=== PATIENT | female | born 1980 | race Caucasian/White ===

== ENCOUNTER 2021-11-02 08:00 | Outpatient (RCR) | payer MEDICAID, SELFPAY | END 2021-11-13 10:51 | disposition home or self-care (01) | LOC: HO.WCC 08:00 | PROVIDERS: Visit Provider Surgery | DX: E11.622 Type 2 diabetes mellitus with other skin ulcer (principal); L97.829 Non-pressure chronic ulcer of other part of left lower leg with unspecified severity; E11.620 Type 2 diabetes mellitus with diabetic dermatitis; Z87.891 Personal history of nicotine dependence; Z79.4 Long term (current) use of insulin; Z79.84 Long term (current) use of oral hypoglycemic drugs | CPT/HCPCS: 99212; 99213 ==

== ENCOUNTER 2022-04-27 11:20 | Outpatient (REF) | payer MEDICAID, SELFPAY ==
--- NOTE | ~2022-04-27 | US_ITS ---
EXAMINATION: US THYROID CLINICAL INFORMATION: Goiter COMPARISON: None TECHNIQUE: Linear transducer grayscale and color Doppler examination with attention to the region of the thyroid. FINDINGS: SIZE: Measurements of the solitary left thyroid lobe and nodules are given in sagittal, anteroposterior and transverse dimensions respectively. Right Thyroid Lobe: Surgically absent. No abnormal mass or fluid collection is seen. Left Thyroid Lobe: 4.6 x 1.52 x 1.74 cm, volume 6.36 mL. Parenchyma: The gland echotexture is homogeneous. Thyroid vascularity is increased. Isthmus: Surgically absent. No abnormal mass or fluid collection is seen. Estimated total number of nodules greater than or equal to 1 cm: 0. Tool And [employer] nodules are described as follows: 1. Location: Left superior. Size: 0.44 x 0.27 x 0.42 cm, volume 0.03 mL. Nodule characteristics: Composition: Spongiform (0). Echogenicity: Anechoic (0). Shape: Not taller than wide (0). Margins: Smooth (0). Echogenic Foci: None (0). ACR TI-RADS total points: 0 ACR TI-RADS category: 1 2. Location: Left inferior. Size: 0.8 x 0.42 x 0.7 cm, volume 0.11 mL. Nodule characteristics: Composition: Spongiform (0). Echogenicity: Anechoic (0). Shape: Not taller than wide (0). Margins: Smooth (0). Echogenic Foci: None (0). ACR TI-RADS total points: 0 ACR TI-RADS category: 1 3. Location: Left mid. Size: 0.45 x 0.25 x 0.27 cm, volume 0.02 mL. Nodule characteristics: Composition: Cystic(0). ACR TI-RADS total points: 0 ACR TI-RADS category: 1 NODES: No lymphadenopathy is seen in the tissue surrounding the thyroid gland. US/US thyroid IMPRESSION: 1. Right thyroid lobe is surgically absent. No abnormal mass or fluid collection is seen within the former right thyroid bed. 2. There are small left thyroid lobe nodules, as detailed. 3. No cervical lymphadenopathy is seen. ACR TI-RADS RECOMMENDATION REFERENCE: Ultrasound-guided fine-needle aspiration, followup ultrasound, no further follow up. * TR1 (0 point) and TR 2 (2 points): No FNA or follow up. * TR3 (3 points): FNA if more than or equal to 2.5 cm in maximum dimension, followup ultrasound in 1, 3 and 5 years if 1.5 to 2.4 cm in maximum dimension. * TR4 (4-6 points): FNA if more than or equal to 1.5 cm in maximum dimension, followup ultrasound in 1, 2, 3 and 5 years if 1 to 1.4 cm in maximum dimension. * TR5 (more than or equal to 7 points): FNA if more than or equal to 1 cm in maximum dimension, followup ultrasound every year for 5 years if 0.5 to 0.9 cm in maximum dimension. * TR3, TR4 or TR5 nodules that are below the size threshold for followup receive no follow up.
== END 2022-04-27 11:21 | disposition home or self-care (01) ==
LOC: HO.HMGCX 11:20
PROVIDERS: Visit Provider Registered Nurse
DX: E04.9 Nontoxic goiter, unspecified (principal)
CPT/HCPCS: 76536

== ENCOUNTER 2022-04-30 14:54 | Outpatient (REF) | payer MEDICAID, SELFPAY ==
--- NOTE | ~2022-04-30 | US_ITS ---
EXAMINATION: US PELVIS CLINICAL INFORMATION: Worsening pain and abnormal uterine/vaginal bleeding. COMPARISON: None TECHNIQUE: Ultrasound of the pelvis is performed using both transabdominal and transvaginal transducers along with Doppler. Transvaginal imaging is performed due to inadequate visualization transabdominally. FINDINGS: The exam is technically limited due to enlarged uterus and large fibroid slightly distorting the exam. Uterus: The uterus is anteverted and tilted to the right. The uterus measures 16.1 x 9.3 x 16.3 cm in sagittal x AP x transverse dimension. The double wall endometrial thickness is 1.19 cm. The uterus is smooth in contour and has normal myometrial echogenicity. There are several hypoechoic lesions in the uterus. 1. Right fundal lesion measures 4.0 x 2.7 x 3.1 cm. 2. Right posterior fundal lesion measures 2.0 x 1.6 x 2.4 cm. 3. Right upper body of uterus measures 1.7 x 1.5 x 1.6 cm. 4. Anterior upper body of uterus measures 2.5 x 1.5 x 2.0 cm. 5. Largest fibroid with rim calcification in the left body of the uterus measures 10.1 x 7.9 x 10.8 cm. Adnexa: Both ovaries are visualized. There is normal color-flow to the adnexa. There is no ovarian torsion. There is no pelvic ascites or fluid collection. Right ovary measures 4.5 x 2.4 x 3.6 cm and volume 20.4 mL. There is a simple cyst measuring 2.5 x 1.8 x 1.7 cm. Left ovary measures 3.0 x 2.0 x 2.3 cm and volume 7.5 mL. There is a tubular structure in the left adnexa measuring 4.9 x 1.7 x 2.0 cm most likely hydrosalpinx. There is no free fluid in the cul-de-sac. US/US pelvic and transvaginal IMPRESSION: Multiple uterine fibroids, the largest measuring 10.1 cm. Likely hydrosalpinx in the left adnexa. Bilateral ovarian simple cysts. No free fluid in the cul-de-sac.
== END 2022-04-30 14:55 | disposition home or self-care (01) ==
LOC: HO.HMGCX 14:54
PROVIDERS: Visit Provider Registered Nurse
DX: N93.9 Abnormal uterine and vaginal bleeding, unspecified (principal)
CPT/HCPCS: 76830; 76856

== ENCOUNTER 2022-09-18 18:04 | Inpatient (IN) | payer MEDICAID, SELFPAY ==
--- NOTE | ~2022-09-18 | MR_ITS ---
EXAMINATION: MR BRAIN WITHOUT CONTRAST CLINICAL INFORMATION: CVA COMPARISON: Same day CT head without contrast TECHNIQUE: Multiplanar multisequence MR imaging of the brain was obtained without intravenous contrast. FINDINGS: Somewhat motion degraded examination. There is no acute infarct on diffusion-weighted imaging. There is no intracranial hemorrhage on iron-sensitive imaging. No extra-axial collection or mass effect/herniation. Normal parenchymal signal characteristics. No hydrocephalus. The ventricles are normal in morphology and size. The major flow voids at the skull base are preserved. The midline structures are normal. The cerebellar tonsils are normally positioned. The craniocervical junction is normal. Marrow signal is within normal limits. The visualized soft tissues are without significant abnormality. No signal abnormality within the paranasal sinuses or within the mastoid air cells. MR/MR head/brain wo con IMPRESSION: No acute infarct or other acute intracranial abnormality
--- NOTE | ~2022-09-18 | XR_ITS ---
EXAMINATION: XR CHEST CLINICAL INFORMATION: Shortness of breath with question of pneumonia COMPARISON: None TECHNIQUE: Frontal view of the chest was obtained. FINDINGS: No significant abnormality is noted involving the heart, lungs, mediastinum, bony thorax or soft tissues. XR/XR chest 1V IMPRESSION: Unremarkable examination.
--- NOTE | ~2022-09-18 | CT_ITS ---
EXAMINATION: CT HEAD WITHOUT CONTRAST CLINICAL INFORMATION: Left-sided weakness. COMPARISON: None. TECHNIQUE: Contiguous axial imaging was performed from the skull base to vertex without intravenous administration of contrast. Coronal and sagittal reformatted images are performed at the CT scanner. [This CT examination was performed using dose optimization techniques as appropriate, variously including the following: *Automated exposure control *Adjustment of mA and/or kV according to patient size (this includes techniques or standardized protocols for targeted exams where dose is matched to indication/reason for exam; i.e. extremities or head) *Use of iterative reconstruction technique] DLP: 603 mGy-cm. FINDINGS: There is no evidence of acute intracranial hemorrhage or territorial infarction. No abnormal mass-effect or midline shift is seen. Henry to white matter differentiation is well preserved. No extra-axial fluid collections are identified. The ventricles are normal in size. There is no abnormal attenuation within the brain parenchyma. There is no osseous abnormality. The mastoid air cells and visualized portions of the paranasal sinuses are well-aerated. CT/CT head for stroke IMPRESSION: No acute intracranial pathology. This critical result was discussed with Michael Amado on 09/18/2022, 6:38 PM and it was ascertained that the content and urgency of the report was understood at the time of direct communication.
--- NOTE | 2022-09-18 18:15 | ECG_ITS ---
Test Reason : cp
[2022-09-18 18:28] VITALS: BP 157/91; PULSE 97; RESP 17; TEMP 36.6; O2SAT 97; BMI 31.8
[2022-09-18 18:41] LABS: MANUAL DIFF FLAG NO
[2022-09-18 18:45] LABS: Basophils Absolute Auto 0.1 X10*3/uL (0.0-0.2); Basophils Percent Auto 1.2 % (0-2); Eosinophils Absolute Auto 0.1 X10*3/uL (0.0-0.4); Eosinophils Percent Auto 1.5 % (0-4); Hematocrit 29.9 % (37.0-47.0); Hemoglobin 8.4 g/dl (12.0-16.0); Imm Gran Abs Auto 0.02 X10*3/uL (0.00-0.03); Imm Gran Pct Auto 0.2 % (0.0-0.4); Lymphocytes Absolute Auto 2.9 X10*3/uL (1.2-4.9); Lymphocytes Percent Auto 30.1 % (20-40); Mean Corpuscular HGB Conc 28.1 g/dl (31.0-35.0); Mean Corpuscular Hemoglobin 20.8 pg (27.0-33.0); Mean Corpuscular Volume 74.2 fL (80.0-98.0); Mean Platelet Volume 9.8 fL (9.4-12.3); Monocytes Absolute Auto 0.6 X10*3/uL (0.1-1.2); Monocytes Percent Auto 6.3 % (2-11); Neutrophils Absolute Auto 5.8 x10*3/uL (2.0-8.3); Neutrophils Percent Auto 60.7 % (45-73); Platelet Count 628 X10*3/uL (160-400); Red Blood Count 4.03 X10*6/uL (4.20-5.50); Red Cell Distribution Width 17.5 % (11.0-16.0); White Blood Count 9.5 X10*3/uL (4.8-10.8)
[2022-09-18 18:55] LABS: Prothrombin Time Whole Bld POC 11.5 sec (11.1-13.5)
[2022-09-18 18:55] LABS: Glucose Random 153 mg/dL (60-115)
[2022-09-18 19:00] LABS: Alanine Aminotransferase 12 U/L (0-31); Albumin Level 3.9 g/dL (3.5-5.0); Alkaline Phosphatase 53 U/L (39-117); Anion Gap 12 (12-20); Aspartate Amino Transferase 14 U/L (5-31); Bilirubin Direct < 0.2 mg/dL (0.0-0.5); Bilirubin Total 0.6 mg/dL (0.0-1.0); Blood Urea Nitrogen 9 mg/dL (9-16); Calcium 9.5 mg/dL (8.4-10.2); Carbon Dioxide 25 mmol/L (22-29); Chloride 104 mmol/L (96-108); Estimated Glomerular Filt Rate > 60; Glucose Random 153 mg/dL (60-115); INTERNATIONAL NORM RATIO 0.9 (0.9-1.1); Potassium 4.2 mmol/L (3.3-5.1); Prothrombin Time 10.3 SEC (10.0-13.1); Sodium 137 mmol/L (135-145); Total Protein 7.2 g/dL (6.5-8.0)
[2022-09-18 19:03] LABS: Partial Thromboplastin Time 28.9 SEC (26.0-36.4)
[2022-09-18 19:09] LABS: Troponin-I High Sensitivity < 3.5 ng/L (<3.5-17.0)
[2022-09-18 19:30] LABS: Glucose, Whole Blood 132 mg/dL (60-115)
--- NOTE | 2022-09-18 19:58 | ED_ITS ---
HPI - Neuro Symptoms/Deficit General Chief Complaint: Stroke Stated Complaint: STROKE ALERT, LEFT SIDED WEAKNESS Time Seen by Provider: 09/18/22 18:10 Source: patient Mode of arrival: EMS Limitations: language barrier (Haitian speaking only) History of Present Illness HPI Narrative: 42-year-old female who presents emergency department for evaluation of possible stroke. The patient states that yesterday morning she woke up and she was having intermittent numbness and weakness in her left hand. She states that at noon yesterday (greater than 24 hours prior to evaluation) the numbness and weakness of her left hand became constant. She then developed weakness of her entire arm. She states she developed numbness in her face, chest, arm abdomen and left leg. She states she also noted weakness of her left leg. She states that her symptoms persisted therefore she called an ambulance and was brought to the emergency department as a stroke alert. At the time of evaluation she states that she has got numbness in her face, left arm, left leg with weakness in her left arm and left leg with the weakness in her upper extremity greater than her lower extremity. She denied headache, nausea or vomiting. She denied fever, chills, rhinorrhea, chest pain, shortness of breath. She states that over the last 2 days she has had a nonproductive cough and has had a mild sore throat. Otherwise she has had no other symptoms. Patient states she is allergic to aspirin and this causes hives. Related Data Home Medications Medication Instructions Recorded Confirmed atorvastatin 20 mg tablet 1 tab PO DAILY 09/18/22 09/18/22 empagliflozin 25 mg tablet 2 tab PO QAM 09/18/22 09/18/22 (Jardiance) insulin glargine 100 unit/mL (3 23 unit subcut BEDTIME 09/18/22 09/18/22 mL) subcutaneous pen (Lantus Solostar U-100 Insulin) lidocaine 5 % topical patch 1 patch topical NEEDED PRN Pain 09/18/22 09/18/22 (Lidoderm) metformin 1,000 mg tablet 1 tab PO BID 09/18/22 09/18/22 Allergies Allergy/AdvReac Type Severity Reaction Status Date / Time aspirin [ASA] Allergy Hives Verified 09/18/22 18:14 Review of Systems Review of Systems: Yes all other systems are reviewed and are negative [facility] Past Medical History [facility] Narrative: Past medical history: Diabetes mellitus, hypertension. Past surgical history: x2. Social history: She denies tobacco, alcohol and drug use. Medical History (Updated 09/18/22 @ 21:50 by WILLY Yap) Hyperlipidemia Iron deficiency anemia Type 2 diabetes mellitus Uterine fibroid Family History Family History (Updated 09/18/22 @ 21:51 by WILLY Yap) Other No family history of cerebrovascular accident (CVA) Social History Social History Alcohol intake: never Smoked in Last 30 Days: No Use of substances other than those prescribed or required for medical reasons: No Advance Directives: No Advance Directives Information Provided: Yes Physical Exam Vital Signs: Vital Signs: Last Vital Signs Temp 98.3 F 09/18/22 23:28 Pulse 101 H 09/18/22 23:28 Resp 17 09/18/22 23:28 BP 115/71 09/18/22 23:28 Pulse Ox 96 09/18/22 23:28 O2 Del Method 09/18/22 18:28 BMI result Body Mass Index 31.8 Const: Other: Awake, alert, in no distress, answers all questions appropriately HEENT: Head: Yes normal to inspection, Yes normocephalic and Yes atraumatic Ears: external ears normal General nose exam: Normal external nose present Face and sinus: Yes normal facial exam Mouth: Normal oral and palatal mucosa present Throat: Yes posterior oropharynx normal Eyes: General: appearance normal, both eyes and all related structures Neck: Neck: Yes normal visual inspection, Yes no lymphadenopathy, Yes trachea midline and Yes supple Chest: Chest palpation & inspection: normal inspection of the chest and normal palpation of entire chest wall Resp: Effort & Inspection: normal respiratory effort and able to speak in complete sentences Auscultation: clear to auscultation bilaterally Cardio: Rate: regular rate Rhythm: regular rhythm Heart sounds: S1 normal heart sound present, S2 normal heart sound present and no murmurs GI: Inspection: Yes normal to inspection Palpation (GI): Soft to palpation, nontender and no guarding Auscultation: normal bowel sounds : General: Yes no CVA tenderness Back/Spine/Pelvis: Back: no CVA tenderness Skin: General skin exam: no rashes or lesions noted Neuro: Other: Patient is awake, alert, her speech is normal, she answers all questions appropriately, she is oriented to person place, cranial nerves 2-12-mild left facial droop, decreased sensation to light touch over the left side of her face, left arm, left abdomen left lower extremity compared to the right, patient has weak internet assessor strength on the left compared to the right, she is able to hold her left arm up against gravity but drifts after several seconds, she is able to hold her left leg up against gravity but quickly drops her leg down to the bed. Extrem: General: Yes normal to inspection Psych: Appearance: grossly normal Speech and movement: Normal speech and m ovement present Affect: normal affect Attitude: cooperative Thought process: Normal thought process present Thought content: Normal thought content present Medications Administered Generic Name Dose Route Start Last Admin Trade Name Freq PRN Reason Stop Dose Admin Atorvastatin Calcium 80 mg 09/18/22 21:45 09/18/22 23:12 Atorvastatin Calcium 80 Mg Tablet PO 80 mg BEDTIME PRESLEY Administration Enoxaparin Sodium 40 mg 09/18/22 22:00 09/18/22 23:12 Enoxaparin Sodium 40 Mg/0.4 Ml Syringe SUBCUT 40 mg Q24H PRESLEY Administration Insulin Glargine 18 unit 09/18/22 21:45 09/18/22 23:13 Insulin Glargine,Hum.Rec.Anlog 100 Unit/Ml 10 Ml Vial SUBCUT 18 unit BEDTIME PRESLEY Administration Medical Decision Making Medical Decision Making [facility] Narrative: 42-year-old female who presents emergency department for evaluation of stroke- like symptoms which began yesterday when she woke up and became persistent at noon yesterday-this is greater than 24 hours prior to presentation which excludes her from clot retrieval and from tPA. Patient's exam is concerning for a stroke. Patient was sent immediately to CT scan, CT scan was interpreted as no acute findings by the radiologist at 18:38 hours. 2005: My independent interpretation of the patient's laboratory evaluation is as follows: CBC revealed a microcytic anemia with an H&H of 8.4 and 29.9 with an MCV of 74.2 with no previous values for comparison. PT/INR and PTT were normal. Comprehensive metabolic panel revealed an elevated glucose of 153 otherwise was unremarkable, CK was elevated 141, high sensitive troponin I was below detectable limits. The patient's exam is consistent with an acute stroke, patient is allergic to aspirin but I will discuss Plavix treatment with the covering hospitalist. Differential Diagnosis The differential diagnosis includes but is not limited to cerebral edema, cerebral mass, stroke , complex migraine Consult Healthcare Provider Management of the patient was discussed with: Hospitalist Please see MDM for discussion Lab Data [facility] Lab Attestation statement: I reviewed the patient's lab results. 09/18/22 18:36 09/18/22 18:36 Labs: Lab Results 09/18/22 09/18/22 09/18/22 Range/Units 18:36 18:36 18:36 WBC 9.5 (4.8-10.8) X10*3/uL RBC 4.03 L (4.20-5.50) X10*6/uL Hgb 8.4 L (12.0-16.0) g/dl Hct 29.9 L (37.0-47.0) % MCV 74.2 L (80.0-98.0) fL MCH 20.8 L (27.0-33.0) pg MCHC 28.1 L (31.0-35.0) g/dl RDW 17.5 H (11.0-16.0) % Plt Count 628 H (160-400) X10*3/uL MPV 9.8 (9.4-12.3) fL Immature Gran % (Auto) 0.2 (0.0-0.4) % Neut % (Auto) 60.7 (45-73) % Lymph % (Auto) 30.1 (20-40) % [place] % (Auto) 6.3 (2-11) % Eos % (Auto) 1.5 (0-4) % Baso % (Auto) 1.2 (0-2) % Lymph # (Auto) 2.9 (1.2-4.9) X10*3/uL [place] # (Auto) 0.6 (0.1-1.2) X10*3/uL Eos # (Auto) 0.1 (0.0-0.4) X10*3/uL Baso # (Auto) 0.1 (0.0-0.2) X10*3/uL Abs Immat Gran (auto) 0.02 (0.00-0.03) X10*3/uL Absolute Neuts (auto) 5.8 (2.0-8.3) x10*3/uL Absolute Nucleated RBC 0.000 (0.0-0.012) X10*3/uL Nucleated RBC % (auto) 0.0 (0.0-0.2) /100WBC PT 10.3 (10.0-13.1) SEC Whole Blood PT (11.1-13.5) sec INR 0.9 (0.9-1.1) Whole Blood INR (0.9-1.1) APTT 28.9 (26.0-36.4) SEC Sodium 137 (135-145) mmol/L Potassium 4.2 (3.3-5.1) mmol/L Chloride 104 (96-108) mmol/L Carbon Dioxide 25 (22-29) mmol/L Anion Gap 12 (12-20) BUN 9 (9-16) mg/dL Creatinine 0.68 (0.5-1.4) mg/dL Estim Creat Clear Calc 113.0 Estimated GFR > 60 POC Glucose (60-115) mg/dL Random Glucose 153 H (60-115) mg/dL Calcium 9.5 (8.4-10.2) mg/dL Iron 17 L (30-160) mcg/dL TIBC 360 (228-428) mcg/dL % Saturation 5 L (15-50) % Unsat Iron Binding 343 ug/dL Ferritin 5 L (10-250) ng/mL Total Bilirubin 0.6 (0.0-1.0) mg/dL Direct Bilirubin < 0.2 (0.0-0.5) mg/dL AST 14 (5-31) U/L ALT 12 (0-31) U/L Alkaline Phosphatase 53 (39-117) U/L Total Creatine Kinase 141 H (26-140) U/L Troponin I High Sens (<3.5-17.0) ng/L Total Protein 7.2 (6.5-8.0) g/dL Albumin 3.9 (3.5-5.0) g/dL Triglycerides 86 mg/dL Cholesterol 209 mg/dL LDL Cholesterol, Calc 137 mg/dl HDL Cholesterol 55 mg/dL Influenza Type A (PCR) (Negative) Influenza Type B (PCR) (Negative) RSV RNA Qual (PCR) (Negative) SARS-CoV-2 RNA (RT-PCR) (Negative) 09/18/22 09/18/22 09/18/22 Range/Units 18:36 18:36 18:41 WBC (4.8-10.8) X10*3/uL RBC (4.20-5.50) X10*6/uL Hgb (12.0-16.0) g/dl Hct (37.0-47.0) % MCV (80.0-98.0) fL MCH (27.0-33.0) pg MCHC (31.0-35.0) g/dl RDW (11.0-16.0) % Plt Count (160-400) X10*3/uL MPV (9.4-12.3) fL Immature Gran % (Auto) (0.0-0.4) % Neut % (Auto) (45-73) % Lymph % (Auto) (20-40) % [place] % (Auto) (2-11) % Eos % (Auto) (0-4) % Baso % (Auto) (0-2) % Lymph # (Auto) (1.2-4.9) X10*3/uL [place] # (Auto) (0.1-1.2) X10*3/uL Eos # (Auto) (0.0-0.4) X10*3/uL Baso # (Auto) (0.0-0.2) X10*3/uL Abs Immat Gran (auto) (0.00-0.03) X10*3/uL Absolute Neuts (auto) (2.0-8.3) x10*3/uL Absolute Nucleated RBC (0.0-0.012) X10*3/uL Nucleated RBC % (auto) (0.0-0.2) /100WBC PT (10.0-13.1) SEC Whole Blood PT 11.5 (11.1-13.5) sec INR (0.9-1.1) Whole Blood INR 1.0 (0.9-1.1) APTT (26.0-36.4) SEC Sodium (135-145) mmol/L Potassium (3.3-5.1) mmol/L Chloride (96-108) mmol/L Carbon Dioxide (22-29) mmol/L Anion Gap (12-20) BUN (9-16) mg/dL Creatinine (0.5-1.4) mg/dL Estim Creat Clear Calc Estimated GFR POC Glucose (60-115) mg/dL Random Glucose 153 H (60-115) mg/dL Calcium (8.4-10.2) mg/dL Iron (30-160) mcg/dL TIBC (228-428) mcg/dL % Saturation (15-50) % Unsat Iron Binding ug/dL Ferritin (10-250) ng/mL Total Bilirubin (0.0-1.0) mg/dL Direct Bilirubin (0.0-0.5) mg/dL AST (5-31) U/L ALT (0-31) U/L Alkaline Phosphatase (39-117) U/L Total Creatine Kinase (26-140) U/L Troponin I High Sens < 3.5 (<3.5-17.0) ng/L Total Protein (6.5-8.0) g/dL Albumin (3.5-5.0) g/dL Triglycerides mg/dL Cholesterol mg/dL LDL Cholesterol, Calc mg/dl HDL Cholesterol mg/dL Influenza Type A (PCR) (Negative) Influenza Type B (PCR) (Negative) RSV RNA Qual (PCR) (Negative) SARS-CoV-2 RNA (RT-PCR) (Negative) 09/18/22 09/18/22 Range/Units 19:25 20:22 WBC (4.8-10.8) X10*3/uL RBC (4.20-5.50) X10*6/uL Hgb (12.0-16.0) g/dl Hct (37.0-47.0) % MCV (80.0-98.0) fL MCH (27.0-33.0) pg MCHC (31.0-35.0) g/dl RDW (11.0-16.0) % Plt Count (160-400) X10*3/uL MPV (9.4-12.3) fL Immature Gran % (Auto) (0.0-0.4) % Neut % (Auto) (45-73) % Lymph % (Auto) (20-40) % [place] % (Auto) (2-11) % Eos % (Auto) (0-4) % Baso % (Auto) (0-2) % Lymph # (Auto) (1.2-4.9) X10*3/uL [place] # (Auto) (0.1-1.2) X10*3/uL Eos # (Auto) (0.0-0.4) X10*3/uL Baso # (Auto) (0.0-0.2) X10*3/uL Abs Immat Gran (auto) (0.00-0.03) X10*3/uL Absolute Neuts (auto) (2.0-8.3) x10*3/uL Absolute Nucleated RBC (0.0-0.012) X10*3/uL Nucleated RBC % (auto) (0.0-0.2) /100WBC PT (10.0-13.1) SEC Whole Blood PT (11.1-13.5) sec INR (0.9-1.1) Whole Blood INR (0.9-1.1) APTT (26.0-36.4) SEC Sodium (135-145) mmol/L Potassium (3.3-5.1) mmol/L Chloride (96-108) mmol/L Carbon Dioxide (22-29) mmol/L Anion Gap (12-20) BUN (9-16) mg/dL Creatinine (0.5-1.4) mg/dL Estim Creat Clear Calc Estimated GFR POC Glucose 132 H (60-115) mg/dL Random Glucose (60-115) mg/dL Calcium (8.4-10.2) mg/dL Iron (30-160) mcg/dL TIBC (228-428) mcg/dL % Saturation (15-50) % Unsat Iron Binding ug/dL Ferritin (10-250) ng/mL Total Bilirubin (0.0-1.0) mg/dL Direct Bilirubin (0.0-0.5) mg/dL AST (5-31) U/L ALT (0-31) U/L Alkaline Phosphatase (39-117) U/L Total Creatine Kinase (26-140) U/L Troponin I High Sens (<3.5-17.0) ng/L Total Protein (6.5-8.0) g/dL Albumin (3.5-5.0) g/dL Triglycerides mg/dL Cholesterol mg/dL LDL Cholesterol, Calc mg/dl HDL Cholesterol mg/dL Influenza Type A (PCR) NEGATIVE (Negative) Influenza Type B (PCR) NEGATIVE (Negative) RSV RNA Qual (PCR) NEGATIVE (Negative) SARS-CoV-2 RNA (RT-PCR) NEGATIVE (Negative) Independent Interpretation I performed an independent interpretation of an: EKG Interpretation: My independent interpretation of patient's EKG is as follows: Normal sinus rhythm with a rate of 96, normal DC interval, QRS duration and QTC interval, no ST segment elevation, no ST segment depression, no PACs, no PVCs, this is a normal EKG-there is no old EKG for comparison. Radiology Impression Discussion of test interpretation with radiology: I have reviewed the radiologist's reading. Radiologist Impression: CT head for stroke IMPRESSION: No acute intracranial pathology. This critical result was discussed with Michael Amado on 09/18/2022, 6:38 PM and it was ascertained that the content and urgency of the report was understood at the time of direct communication. Dictated By:Steven Bartholomew MDSigned By:<Electronically signed by Steven Bartholomew MD in OV>09/18/[id number] Independent Historian Clinical information obtained from an independent historian. History obtained from or confirmed by: Other (Daughter and paramedics on arrival to the ER) NIH Stroke Scale Internal: Initial- Upon Arrival Level of Consciousness: Alert Level of Consciousness Questions: Answers both questions correctly Level of Consciousness Commands: Performs both tasks correctly Best Gaze: Normal Visual: No visual loss Facial Palsy: Minor paralyis Motor Arm (Right): No drift Motor Arm (Left): Drift Motor Leg (Right): No drift Motor Leg (Left): Drift Limb Ataxia: Absent Sensory: Mild to moderate sensory loss Best Language: No aphasia Dysarthia: Normal Extinction and Inattention: No abnormality Score: 4 Discharge Plan Discharge Clinical Impression: Stroke Qualifiers: Laterality of affected vessel: right Patient Disposition: Admitted As Inpatient
--- NOTE | 2022-09-18 20:36 | PC.NURSE ---
Preliminary med rec completed.
[2022-09-18 21:10] LABS: Influenza A PCR NEGATIVE (Negative); Influenza B PCR NEGATIVE (Negative); Resp Syncy Virus RNA Qual PCR NEGATIVE (Negative); SARS COV2 PCR INHOUSE NEGATIVE (Negative)
--- NOTE | 2022-09-18 21:39 | PM.IMHP ---
History of Present Illness Date of Service: 09/18/22 Attending physician on admission: Natalee Vernon Chief Complaint: left sided weakness 42-year-old female with history of insulin-dependent type 2 diabetes, hyperlipidemia, and iron deficiency anemia with uterine fibroids presented to the ED earlier today for evaluation of left-sided weakness and paresthesias that started yesterday morning. She states yesterday morning she developed weakness and numbness in the left hand that progressed to the left arm. This afternoon she developed numbness on the left side of the face chest, abdomen, and left leg. She states she is able to ambulate but with a limp. She denies any dysphagia or dysphasia. On arrival, patient hypertensive to 157/91, vitals otherwise stable. No leukocytosis. Microcytic anemia with H/H 8.4/29.9%, MCV 74.2. Patient reports heavy menses in known uterine fibroids for which she was following with heel cover softener at [facility]. Platelets 628. Renal function is normal, electrolytes normal. CXR unremarkable. Head CT is without any acute intracranial pathology. Given symptoms began greater than 24 hours, patient is not a tPA candidate. Pt to be admitted for suspected stroke. Review of Systems Review of Systems: General: No fevers, malaise, unintentional weight loss HEENT: No blurred vision, diplopia. No sore throat, nasal congestion, rhinorrhea, sinus pain, ear pain Cardiovascular: No chest pain, palpitations, or leg edema Respiratory: No shortness of breath, wheezing, cough GI: No abdominal pain, nausea, vomiting, diarrhea, constipation, melena, hematochezia : No dysuria, hematuria, increased urinary frequency, decreased urinary output MSK: No myalgia, back pain Neuro: +numbness, +weakness. No headaches Skin: No rashes or lesions [facility] Medical History (Updated 09/20/22 @ 15:45 by Ashish Martinez MD) Hyperlipidemia Iron deficiency anemia Type 2 diabetes mellitus Uterine fibroid Family History (Updated 09/18/22 @ 21:51 by WILLY Yap) Other No family history of cerebrovascular accident (CVA) Social History Household Members: Family Housing: Other Housing Other:: [facility] Do you presently have visiting nurse or other home services: No Alcohol intake: never Patient Tobacco Use Status: Never used Tobacco Second Hand Smoke Exposure: No service: No Meds Allergies Allergy/AdvReac Type Severity Reaction Status Date / Time aspirin [ASA] Allergy Hives Verified 09/18/22 18:14 Active Medications: Current Medications Pharmacy Consult (Consult Rx Perform Med Rec) 1 each MISCELLANE ONCE PRN PRN Reason: Consult order Home Medications Medication Instructions Recorded Confirmed Last Taken Type atorvastatin 20 mg tablet 1 tab PO DAILY 09/18/22 09/18/22 Unknown History empagliflozin 25 mg tablet 2 tab PO QAM 09/18/22 09/18/22 Unknown History (Jardiance) insulin glargine 100 unit/mL (3 23 unit subcut BEDTIME 09/18/22 09/18/22 Unknown History mL) subcutaneous pen (Lantus Solostar U-100 Insulin) lidocaine 5 % topical patch 1 patch topical NEEDED PRN Pain 09/18/22 09/18/22 Unknown History (Lidoderm) metformin 1,000 mg tablet 1 tab PO BID 09/18/22 09/18/22 Unknown History Physical Exam Vital Signs and Narrative: Vital Signs: Last Vital Signs Temp 97.9 F 09/18/22 18:28 Pulse 97 09/18/22 18:28 Resp 17 09/18/22 18:28 BP 157/91 H 09/18/22 18:28 Pulse Ox 97 09/18/22 18:28 O2 Del Method 09/18/22 18:28 BMI result Body Mass Index 31.8 Constitutional - Awake and Alert, No apparent distress Eyes - PERRLA, EOMI Cardiovascular - S1S2, RRR, No edema Respiratory - Normal lung expansion, Normal respiratory effort, No respiratory distress, CTA bilaterally Gastrointestinal - NT / ND; +BS; No rebound or guarding Extremities - no calf tenderness bilaterally, no swelling Skin - Warm/Dry Neurological - Alert & oriented x3, CN II-XII in tact, 5/5 strength right upper and lower extremities, 2/5 strength left upper and lower extremities. Positive left-sided pronator drift Psychological - Appropriate affect Results Labs 09/18/22 18:36 09/18/22 18:36 Labs: Laboratory Results - last 24 hr 09/18/22 09/18/22 09/18/22 18:36 18:36 18:36 MCV 74.2 L MCH 20.8 L MCHC 28.1 L RDW 17.5 H Plt Count 628 H MPV 9.8 Immature Gran % (Auto) 0.2 Neut % (Auto) 60.7 Lymph % (Auto) 30.1 [place] % (Auto) 6.3 Eos % (Auto) 1.5 Baso % (Auto) 1.2 Lymph # (Auto) 2.9 [place] # (Auto) 0.6 Eos # (Auto) 0.1 Baso # (Auto) 0.1 Abs Immat Gran (auto) 0.02 Absolute Neuts (auto) 5.8 Absolute Nucleated RBC 0.000 Nucleated RBC % (auto) 0.0 PT 10.3 Whole Blood PT INR 0.9 Whole Blood INR APTT 28.9 Anion Gap 12 Estim Creat Clear Calc 113.0 Estimated GFR > 60 POC Glucose Random Glucose 153 H Calcium 9.5 Total Bilirubin 0.6 Direct Bilirubin < 0.2 AST 14 ALT 12 Alkaline Phosphatase 53 Total Creatine Kinase 141 H Troponin I High Sens Total Protein 7.2 Albumin 3.9 Influenza Type A (PCR) Influenza Type B (PCR) RSV RNA Qual (PCR) SARS-CoV-2 RNA (RT-PCR) 09/18/22 09/18/22 09/18/22 18:36 18:36 18:41 MCV MCH MCHC RDW Plt Count MPV Immature Gran % (Auto) Neut % (Auto) Lymph % (Auto) [place] % (Auto) Eos % (Auto) Baso % (Auto) Lymph # (Auto) [place] # (Auto) Eos # (Auto) Baso # (Auto) Abs Immat Gran (auto) Absolute Neuts (auto) Absolute Nucleated RBC Nucleated RBC % (auto) PT Whole Blood PT 11.5 INR Whole Blood INR 1.0 APTT Anion Gap Estim Creat Clear Calc Estimated GFR POC Glucose Random Glucose 153 H Calcium Total Bilirubin Direct Bilirubin AST ALT Alkaline Phosphatase Total Creatine Kinase Troponin I High Sens < 3.5 Total Protein Albumin Influenza Type A (PCR) Influenza Type B (PCR) RSV RNA Qual (PCR) SARS-CoV-2 RNA (RT-PCR) 09/18/22 09/18/22 19:25 20:22 MCV MCH MCHC RDW Plt Count MPV Immature Gran % (Auto) Neut % (Auto) Lymph % (Auto) [place] % (Auto) Eos % (Auto) Baso % (Auto) Lymph # (Auto) [place] # (Auto) Eos # (Auto) Baso # (Auto) Abs Immat Gran (auto) Absolute Neuts (auto) Absolute Nucleated RBC Nucleated RBC % (auto) PT Whole Blood PT INR Whole Blood INR APTT Anion Gap Estim Creat Clear Calc Estimated GFR POC Glucose 132 H Random Glucose Calcium Total Bilirubin Direct Bilirubin AST ALT Alkaline Phosphatase Total Creatine Kinase Troponin I High Sens Total Protein Albumin Influenza Type A (PCR) NEGATIVE Influenza Type B (PCR) NEGATIVE RSV RNA Qual (PCR) NEGATIVE SARS-CoV-2 RNA (RT-PCR) NEGATIVE Imaging Radiologist's Impressions: Impressions Head CT 09/18/22 18:19 IMPRESSION: No acute intracranial pathology. This critical result was discussed with Michael Amado on 09/18/2022, 6:38 PM and it was ascertained that the content and urgency of the report was understood at the time of direct communication. Chest X-Ray 09/18/22 20:17 IMPRESSION: Unremarkable examination. Assessment and Plan (1) Stroke: Qualifiers: Laterality of affected vessel: right Status: Acute Plan 42-year-old female with history of insulin-dependent type 2 diabetes, hyperlipidemia, and iron deficiency anemia with uterine fibroids admitted for suspected CVA # suspected CVA -patient developed progressive left-sided paresthesias and weakness starting greater than 24 hours ago. She is not a candidate for tPA -head CT negative for any acute intracranial abnormality -MRI brain ordered -nursing bedside swallow eval past -patient allergic to aspirin. Will order Plavix 75 mg daily -lipid profile pending. Atorvastatin 80 mg daily -echocardiogram ordered -PT/OT eval as ordered -appreciate neurology input -stroke education -admit to telemetry # uncontrolled insulin-dependent type 2 diabetes -hemoglobin A1c pending, patient reports poorly controlled blood glucose levels -continue home basal insulin -Humalog on sliding scale -hold metformin. Continue Jardiance -POC glucose -diabetic diet # hyperlipidemia -lipid panel pending. Atorvastatin as above # iron deficiency anemia likely related to menorrhagia and uterine fibroids -iron, ferritin, TIBC pending -ferrous sulfate 324 mg daily with vitamin-C source ordered DVT prophylaxis-Lovenox Full code Patient requires inpatient stay of least 2 midnights for management of acute CVA Time Spent With Patient Time: Total time managing care of this patient today ____ minutes. Quality Stroke Does the patient have a stroke diagnosis?: Yes Reason for No Anti-thrombotic by Day Two: Drug treatment not indicated VTE Prior VTE?: No VTE Risk Level:: Medical - moderate - high VTE Device Contraindication: Treatment Not Indicated VTE Drug Contraindication: N/A - Med Ordered
--- OUTSIDE RECORDS SUMMARY | 2022-09-18 21:45 | XMS_ITS | Continuity of Care Document ---
:1980 Author Organization [facility] Address [address] [place] [id number]- Care Team Providers Name Role Phone [place] THERAPY TEACHER, Jennifer Primary Care Physician Encounter [facility] Date(s): 06/27/22 - 07/27/[address] [address]- Attending Physician: Salina Mcgowan Admitting Physician: Salina Mcgowan Referring Physician: AdmtrSalina Allergies, Adverse Reactions, Alerts No Known Allergies Medications atorvastatin 10 mg oral tablet 1 tablet = 10 mg, By Mouth, Daily, 0 Refills, Maintenance, 06/27/22 10:20:00 EST, Partial fill upon patient request if the prescription is for a schedule II opioid drug. Start Date: 06/27/22 Status: OrderedFerrous Sulfate EC Refills 0, Maintenance, 06/27/22 10:20:00 EST, Partial fill upon patient request if the prescriptionis for a schedule II opioid drug. Start Date: 06/27/22 Status: OrderedJardiance By Mouth, Daily in AM, 0 Refills, Maintenance, 06/27/22 10:20:00 EST, Partial fill upon patient request if the prescription is for a schedule II opioid drug. Start Date: 06/27/22 Status: OrderedMetformin By Mouth, 0 Refills, Maintenance, 06/27/22 10:20:00 EST, Partial fill upon patient request if the prescription is for a schedule II opioid drug. Start Date: 06/27/22 Status: OrderedVitamin C By Mouth, Daily, 0 Refills, Maintenance, 06/27/22 10:20:00 EST, Partial fill upon patient request ifthe prescription is for a schedule II opioid drug. Start Date: 06/27/22 Status: Ordered Patient Care team information Care Team PersonnelName: [place] THERAPY TEACHER, Jennifer Position: Reference Physician Member Role: PCP Address: Address: [address] [place] [address]- Care Team Related PersonsName: CHAMP CHERRY Address: home [address] [place] [id number]
[2022-09-18 22:13] LABS: Cholesterol 209 mg/dL; HDL Cholesterol 55 mg/dL; Iron 17 mcg/dL (30-160); LDL Cholesterol Calculated 137 mg/dl; Percent Iron Saturation 5 % (15-50); Total Iron Binding Capacity 360 mcg/dL (228-428); Triglycerides 86 mg/dL; Unsaturated Iron Binding 343 ug/dL
[2022-09-18 22:27] LABS: Ferritin 5 ng/mL (10-250)
[2022-09-18] MEDS: Enoxaparin Sodium 40 MG/0.4 ML SYRINGE SUBCUT (23:12)
[2022-09-18] MEDS: Atorvastatin Calcium 80 MG TABLET PO (23:12)
[2022-09-18] MEDS: Insulin Glargine,Hum.rec.anlog 100 UNIT/ML 10 ML VIAL 18 UNIT SUBCUT (23:13)
[2022-09-18 23:28] VITALS: BP 115/71; PULSE 101; RESP 17; TEMP 36.8; O2SAT 96
--- NOTE | 2022-09-18 23:49 | MHC.EDTECH ---
pt ambulated to and from restroom
--- NOTE | 2022-09-19 | ECG_ITS ---
Test Reason : chest pain Blood Pressure : / mmHG Vent. Rate : 097 BPM Atrial Rate : 097 BPM P-R Int : 132 ms QRS Dur : 086 ms QT Int : 384 ms P-R-T Axes : 046 043 052 degrees QTc Int : 487 ms Normal sinus rhythm Prolonged QT Abnormal ECG When compared with ECG of 18-SEP-2022 19:16, QT borderline prolonged Referred By: Ashish Martinez Electronically Signed By:SANDY REARDON
[2022-09-19] MEDS: Lactated Ringers 1,000 ML 999 ML IV (00:07)
--- NOTE | 2022-09-19 07:00 | CA_ITS ---
Transthoracic Echocardiogram Patient (Last, First, Middle): Shahla Spears, Gender: Female Date of : 1980 Age: 42 Procedure Date: 09/19/2022 Procedure Type: Transthoracic Echocardiogram Location: [facility] [place] Height: 162.56 cm Weight: 83.92 kg BSA: 1.89 m2 Heart Rate: bpm BP: 157 / 91 mmHg Experimental Technician: Referring MD: Desiree AGUILERA Symptoms: CVA Study Quality: Adequate ECG Rhythm: Sinus Conclusions: - The left ventricular systolic function is normal. The calculated ejection fraction is 62% by biplane method. - There is mild anterior mitral leaflet thickening. There is mild mitral valve regurgitation. Findings Left Ventricle Normal left ventricular cavity size. There is mildly increased left ventricular wall thickness. The left ventricular systolic function is normal. The calculated ejection fraction is 62% by biplane method. There is no evidence of regional wall motion abnormalities. Diastolic function is normal for age. Right Ventricle Normal right ventricular cavity size and systolic function. Atria Both atria are normal in size. Aortic Valve The aortic valve structure and function is likely normal. There is no aortic valve stenosis. There is no aortic valve regurgitation. Mitral Valve There is mild anterior mitral leaflet thickening. There is mild mitral valve regurgitation. There is no mitral valve stenosis. Pulmonic Valve There is trace pulmonic valve regurgitation. Tricuspid Valve Normal tricuspid valve structure. There is trace tricuspid valve regurgitation. There is no evidence of pulmonary hypertension. Great Vessels The asc aorta is normal in size. Venous The inferior vena cava is normal in size and collapses greater than 50% with inspiration. Pericardium/Pleural There is a trivial pericardial effusion. Prior Study Comparison No prior study available for comparison. Recommendations, Care & Conclusions Recommend contrast study to evaluate intracardiac shunting. Measurements 2D Linear Measurements IVSd: 1.06 0.6-0.9/0.6-1.0 cm LVIDd: 4.31 3.9-5.3/4.2-5.9 cm LVIDd Index: 2.28 2.4-3.2/2.2-3.1 cm/m2 LVIDs: 2.58 2.0-3.6 cm LVPWd: 1.07 0.7-1.1 cm Ao Root: 2.60 2.1-3.5 cm LA Diam: 3.80 2.7-3.8/3.0-4.0 cm LAIDs Index: 2.01 1.5-2.3 cm/m2 LV Mass: 194.51 67-162/88-224 g LV Mass Index: 102.91 43-95/49-115 g/m2 LVOT Diam: 2.00 3.0+(-)1.3 cm 2D Systolic Function EF 4C: 61.00 >55% EF 2C: 57.80 >55% EF BiP: 61.50 >55% Mitral Valve MV Pk E: 0.88 MV PK A: 0.95 MV Decel Time: 136.00 E/A: 0.90 E'Lateral: 12.90 E'Medial: 7.51 E/E' Med: 11.70 E/E' Lat: 6.80 PHT: 40.00 MVA PHT: 5.50 Decel [place]: 6.49 Aortic Valve AoV Pk Don: 1.55 AoV Mn Don: 0.97 AoV VTI: 0.33 AoV Pk Grad: 10.00 Aov Mn Grad: 5.00 BATSHEVA Cont.VTI: 2.38 LVOT LVOT Pk Don: 1.16 LVOT Mn Don: 0.79 LVOT VTI: 0.25 LVOT Pk Grad: 5.00 LVOT Mn Grad: 3.00 LVOT Diam: 2.00 LVOT Area: 3.14 Diastolic Function MV Pk E: 0.88 MV Pk A: 0.95 E/A: 0.90 E'Medial: 7.51 E/E' Med: 11.70 E' Laterial: 12.90 E/E' Lat: 6.80 Right Ventricle TAPSE (mm): 29.50 TVS' Don: 12.80 Tricuspid Valve TR Pk Don: 1.82 TR Pk Grad: 13.00 RA Press: 3.00 Great Vessels Aorta Ao Root-2D: 2.60 2.0-3.7 cm Ao Asc: 3.00 2.1-3.4 cm Pulmonary Valve PV Pk Don: 1.07 Peak PV Grad: 5.00 Updated in Other Vendor System with Status of Final Lyle Cortez MD electronically signed on 09/19/2022 5:02:17 PM with status of Final
[2022-09-19 07:07] LABS: MANUAL DIFF FLAG NO
[2022-09-19 07:08] LABS: Basophils Absolute Auto 0.1 X10*3/uL (0.0-0.2); Basophils Percent Auto 0.9 % (0-2); Eosinophils Absolute Auto 0.2 X10*3/uL (0.0-0.4); Eosinophils Percent Auto 1.6 % (0-4); Hematocrit 25.6 % (37.0-47.0); Hemoglobin 7.3 g/dl (12.0-16.0); Imm Gran Abs Auto 0.04 X10*3/uL (0.00-0.03); Imm Gran Pct Auto 0.4 % (0.0-0.4); Lymphocytes Absolute Auto 2.8 X10*3/uL (1.2-4.9); Lymphocytes Percent Auto 29.4 % (20-40); Mean Corpuscular HGB Conc 28.5 g/dl (31.0-35.0); Mean Corpuscular Hemoglobin 20.9 pg (27.0-33.0); Mean Corpuscular Volume 73.4 fL (80.0-98.0); Mean Platelet Volume 9.3 fL (9.4-12.3); Monocytes Absolute Auto 0.6 X10*3/uL (0.1-1.2); Monocytes Percent Auto 6.6 % (2-11); Neutrophils Absolute Auto 5.9 x10*3/uL (2.0-8.3); Neutrophils Percent Auto 61.1 % (45-73); Platelet Count 513 X10*3/uL (160-400); Red Blood Count 3.49 X10*6/uL (4.20-5.50); Red Cell Distribution Width 17.6 % (11.0-16.0); White Blood Count 9.6 X10*3/uL (4.8-10.8)
--- NOTE | 2022-09-19 07:11 | PC.NURSE ---
Assumed care of pt. at 1900. Pt. with daughter at bedside at that time. Pt reports no pain, only weakness on the right side. Swallow screen passed. Pt. slept throughout the night with no apparent distress, respirations even and unlabored.
[2022-09-19 07:16] LABS: Glucose, Whole Blood 134 mg/dL (60-115)
[2022-09-19 07:32] LABS: Anion Gap 11 (12-20); Blood Urea Nitrogen 10 mg/dL (9-16); Carbon Dioxide 25 mmol/L (22-29); Chloride 106 mmol/L (96-108); Creatinine Clr Calc Pharmacy 137.2; Estimated Glomerular Filt Rate > 60; Glucose Random 150 mg/dL (60-115); Potassium 3.9 mmol/L (3.3-5.1); Sodium 138 mmol/L (135-145)
[2022-09-19 07:40] LABS: Estimated Average Glucose 206 mg/dL; Hemoglobin A1c % 8.8 %
[2022-09-19 08:00] VITALS: BP 134/81; PULSE 94; RESP 20; TEMP 37; O2SAT 99
[2022-09-19 08:09] LABS: Glucose, Whole Blood 166 mg/dL (60-115)
[2022-09-19 08:14] LABS: Calcium 8.7 mg/dL (8.4-10.2)
[2022-09-19 08:52] LABS: Iron 14 mcg/dL (30-160); Percent Iron Saturation 5 % (15-50); Total Iron Binding Capacity 298 mcg/dL (228-428); Unsaturated Iron Binding 284 ug/dL
[2022-09-19 09:07] LABS: Hematocrit 25.9 % (37.0-47.0); Hemoglobin 7.4 g/dl (12.0-16.0)
[2022-09-19] MEDS: Insulin Lispro 100 UNIT/ML 3 ML VIAL SUBCUT ×3 (09:15→22:11)
[2022-09-19] MEDS: 0.9 % Sodium Chloride Flush 3 ML SYRINGE IVFLUSH ×2 (09:16→16:29)
[2022-09-19] MEDS: Empagliflozin 25 MG TABLET 50 MG PO (09:16)
[2022-09-19] MEDS: Ascorbic Acid 250 MG TABLET PO (09:17)
[2022-09-19] MEDS: Clopidogrel Bisulfate 75 MG TABLET PO (09:17)
[2022-09-19] MEDS: Ferrous Sulfate 324 MG TABLET.DR PO ×2 (09:17→16:26)
[2022-09-19 09:22] LABS: Ferritin 6 ng/mL (10-250); Folate 10.6 ng/mL (> or = 4.0); Vitamin B12 596 pg/mL (200-900)
[2022-09-19 10:55] VITALS: BP 140/88; PULSE 96; RESP 20; TEMP 36.3; O2SAT 96
[2022-09-19 11:12] LABS: Glucose, Whole Blood 171 mg/dL (60-115)
--- NOTE | 2022-09-19 11:22 | P.CNNE_ITS ---
History of Present Illness Data of Consult Service Date: 09/19/22 Primary Care Provider: [facility] Reason for consult: Left-sided weakness 42-year-old female with history of insulin-dependent type 2 diabetes, hyperlipidemia, and iron deficiency anemia with uterine fibroids presented to the ED earlier today for evaluation of left-sided weakness and paresthesias that started couple of days before. There was no associated headache speech language difficulty or visual symptom. She continues to have that weakness. Review of Systems Review of Systems: No recent cold or flu-like symptoms. [facility] Past Medical History Medical History (Updated 09/19/22 @ 11:24 by Glenn Devine MD) Hyperlipidemia Iron deficiency anemia Type 2 diabetes mellitus Uterine fibroid Family History Family History (Updated 09/18/22 @ 21:51 by WILLY Yap) Other No family history of cerebrovascular accident (CVA) Social History Social History Household Members: Family Housing: Other Housing Other:: [facility] Do you presently have visiting nurse or other home services: No Alcohol intake: never Patient Tobacco Use Status: Never used Tobacco Smoked in Last 30 Days: No Second Hand Smoke Exposure: No Use of substances other than those prescribed or required for medical reasons: No Currently Displaying Signs/Symptoms of Drug Intoxication Withdrawal: No Any prior treatment program specific to substance use: No Have you been hit, kicked, punched, or otherwise hurt by someone within the past year? If so, by whom?: No Do you feel safe in your current relationship?: Yes Is there a partner from a previous relationship who is making you feel unsafe now?: No Are you made to feel afraid or neglected: No Advance Directives: No Advance Directives Information Provided: Yes Do you have thoughts of harming others: None Do you have a plan to hurt others: No Plan Recently lost weight without trying: No Eating poorly because of decreased appetite: No Nutrition Risks: No Nutritional Risk Patient : No : No Poor oral hygiene: No Meds Allergies Allergy/AdvReac Type Severity Reaction Status Date / Time aspirin [ASA] Allergy Hives Verified 09/18/22 18:14 Active Medications: Current Medications Acetaminophen (Acetaminophen 325 Mg Tablet) 650 mg PO Q6H PRN PRN Reason: Pain, Mild (Pain Scale 1-3) Ascorbic Acid (Ascorbic Acid 250 Mg Tablet) 250 mg PO DAILY [facility] Last Admin: 09/19/22 09:17 Dose: 250 mg Atorvastatin Calcium (Atorvastatin Calcium 80 Mg Tablet) 80 mg PO BEDTIME [facility] Last Admin: 09/18/22 23:12 Dose: 80 mg Clopidogrel Bisulfate (Clopidogrel Bisulfate 75 Mg Tablet) 75 mg PO DAILY [facility] Last Admin: 09/19/22 09:17 Dose: 75 mg Dextrose (Dextrose 50 % 25 Gm/50 Ml Syringe) 25 gm IVPUSH Q15M PRN; Protocol PRN Reason: per Hypoglycemia Standing Ord. Docusate Sodium (Docusate Sodium 100 Mg Capsule) 100 mg PO DAILY PRN PRN Reason: Constipation Empagliflozin (Empagliflozin 25 Mg Tablet) 50 mg PO DAILY [facility] Last Admin: 09/19/22 09:16 Dose: 50 mg Ferrous Sulfate (Ferrous Sulfate 324 Mg Tablet.) 324 mg PO BIDWM [facility] Glucose (Glucose Gel 15 Gm Gel..Gram.) 15 gm PO Q15M PRN; Protocol PRN Reason: per Hypoglycemia Standing Ord. Insulin Glargine (Insulin Glargine,Hum.Rec.Anlog 100 Unit/Ml 10 Ml Vial) 18 unit SUBCUT BEDTIME [facility] Last Admin: 09/18/22 23:13 Dose: 18 unit Insulin Human Lispro (Insulin Lispro 100 Unit/Ml 3 Ml Vial) 0 unit SUBCUT QIDACHS [facility]; Protocol Last Admin: 09/19/22 09:15 Dose: 2 unit Lidocaine (Lidocaine 4 % Patch Adh..Patch) 1 patch TRANSDERMA DAILY PRN PRN Reason: back pain Omeprazole (Omeprazole 20 Mg Capsule.) 20 mg PO BID@0630,1630 [facility] Ondansetron HCl (Ondansetron Hcl 4 Mg/2 Ml Vial) 4 mg IVPUSH Q8H PRN PRN Reason: Nausea and Vomiting Pharmacy Consult (Consult Rx Perform Med Rec) 1 each MISCELLANE ONCE PRN PRN Reason: Consult order Sodium Chloride (0.9 % Sodium Chloride Flush 3 Ml Syringe) 3 ml IVFLUSH QSHIFT [facility] Last Admin: 09/19/22 09:16 Dose: 3 ml Home Medications Medication Instructions Recorded Confirmed Last Taken Type atorvastatin 20 mg tablet 1 tab PO DAILY 09/18/22 09/18/22 Unknown History empagliflozin 25 mg tablet 2 tab PO QAM 09/18/22 09/18/22 Unknown History (Jardiance) insulin glargine 100 unit/mL (3 23 unit subcut BEDTIME 09/18/22 09/18/22 Unknown History mL) subcutaneous pen (Lantus Solostar U-100 Insulin) lidocaine 5 % topical patch 1 patch topical NEEDED PRN Pain 09/18/22 09/18/22 Unknown History (Lidoderm) metformin 1,000 mg tablet 1 tab PO BID 09/18/22 09/18/22 Unknown History Physical Exam Vital Signs: Vital Signs: Last Vital Signs Temp 97.4 F 09/19/22 10:55 Pulse 96 09/19/22 10:55 Resp 20 09/19/22 10:55 BP 140/88 H 09/19/22 10:55 Pulse Ox 96 09/19/22 10:55 O2 Del Method 09/19/22 10:55 BMI result Body Mass Index 31.8 Neuro: Other: Alert and awake with normal spontaneity of speech fluency comprehension and flat affect. Face is symmetrical. Visual call are full. Pupils are equal and reactive to light. There is mild left arm or leg weakness. Plantars are withdrawing and deep tendon reflexes are trace. There is no neglect. Results Labs 09/19/22 08:37 09/19/22 06:58 Labs: Short CBC 09/18/22 09/19/22 09/19/22 Range/Units 18:36 06:58 08:37 WBC 9.5 9.6 (4.8-10.8) X10*3/uL Hgb 8.4 L 7.3 L 7.4 L (12.0-16.0) g/dl Hct 29.9 L 25.6 L 25.9 L (37.0-47.0) % Plt Count 628 H 513 H (160-400) X10*3/uL BMP 09/18/22 09/19/22 18:36 06:58 Sodium 137 138 Potassium 4.2 3.9 Chloride 104 106 Carbon Dioxide 25 25 BUN 9 10 Creatinine 0.68 0.56 Calcium 9.5 8.7 D Cardiac Enzymes 09/18/22 Range/Units 18:36 Total Creatine Kinase 141 H (26-140) U/L Liver Function 09/18/22 Range/Units 18:36 Total Bilirubin 0.6 (0.0-1.0) mg/dL Direct Bilirubin < 0.2 (0.0-0.5) mg/dL AST 14 (5-31) U/L ALT 12 (0-31) U/L Alkaline Phosphatase 53 (39-117) U/L Albumin 3.9 (3.5-5.0) g/dL Noncontrast head CT did not reveal any significant abnormality. Assessment and Plan (1) Left hemiparesis: Status: Acute 42 years old woman with new onset of left arm and leg weakness started couple of days ago with no obvious etiology. I recommendation is to obtain noncontrast MRI of brain to see if there is any physical lesion to explain this complaint and finding. Time Spent With Patient Time: Total time managing care of this patient today ____ minutes. Procedures Date of Service Date of Service: 09/19/22
[2022-09-19 11:32] VITALS: BP 131/87; PULSE 95; RESP 20; TEMP 36.3; O2SAT 99
--- NOTE | 2022-09-19 12:37 | MHC.CM.PN ---
met with pt who lives with pt is covid vax x 2 will be going to [facility] for ot and pt has won ride home
[2022-09-19 14:37] LABS: Troponin-I High Sensitivity < 3.5 ng/L (<3.5-17.0)
--- NOTE | 2022-09-19 15:24 | P.PNIM_ITS ---
Subjective Subjective Date of Service: 09/20/22 Interval History: left sided weakness Physical Exam Vital Signs: Vital Signs: Last Vital Signs Temp 97.3 F 09/19/22 11:32 Pulse 95 09/19/22 11:32 Resp 20 09/19/22 11:32 BP 131/87 09/19/22 11:32 Pulse Ox 99 09/19/22 11:32 O2 Del Method 09/19/22 11:32 BMI result Body Mass Index 31.8 Appearance: Alert.? Oriented X3.? not in distress.?. cvs: rrr, [id number] , no murmur res: clear to auscultation ,no rhonchii or wheezing abd: no rebound or guarding ,nt, bs present. ext pulses present , no cyanosis. neuro: axo3 , left sided weakness seems to beimproved significantly Objective Data Active Medications Acetaminophen (Acetaminophen 325 Mg Tablet) 650 mg PO Q6H PRN PRN Reason: Pain, Mild (Pain Scale 1-3) Ascorbic Acid (Ascorbic Acid 250 Mg Tablet) 250 mg PO DAILY [facility] Last Admin: 09/19/22 09:17 Dose: 250 mg Documented By: LAVONNE Atorvastatin Calcium (Atorvastatin Calcium 80 Mg Tablet) 80 mg PO BEDTIME [facility] Last Admin: 09/18/22 23:12 Dose: 80 mg Documented By: CHRISTIE Clopidogrel Bisulfate (Clopidogrel Bisulfate 75 Mg Tablet) 75 mg PO DAILY [facility] Last Admin: 09/19/22 09:17 Dose: 75 mg Documented By: LAVONNE Dextrose (Dextrose 50 % 25 Gm/50 Ml Syringe) 25 gm IVPUSH Q15M PRN; Protocol PRN Reason: per Hypoglycemia Standing Ord. Docusate Sodium (Docusate Sodium 100 Mg Capsule) 100 mg PO DAILY PRN PRN Reason: Constipation Empagliflozin (Empagliflozin 25 Mg Tablet) 50 mg PO DAILY [facility] Last Admin: 09/19/22 09:16 Dose: 50 mg Documented By: LAVONNE Ferrous Sulfate (Ferrous Sulfate 324 Mg Tablet.Dr) 324 mg PO BIDWM [facility] Glucose (Glucose Gel 15 Gm Gel..Gram.) 15 gm PO Q15M PRN; Protocol PRN Reason: per Hypoglycemia Standing Ord. Insulin Glargine (Insulin Glargine,Hum.Rec.Anlog 100 Unit/Ml 10 Ml Vial) 18 un it SUBCUT BEDTIME [facility] Last Admin: 09/18/22 23:13 Dose: 18 unit Documented By: CHRISTIE Insulin Human Lispro (Insulin Lispro 100 Unit/Ml 3 Ml Vial) 0 unit SUBCUT QIDACHS [facility]; Protocol Last Admin: 09/19/22 11:44 Dose: 2 unit Documented By: LAVONNE Lidocaine (Lidocaine 4 % Patch Adh..Patch) 1 patch TRANSDERMA DAILY PRN PRN Reason: back pain Omeprazole (Omeprazole 20 Mg Capsule.) 20 mg PO BID@0630,1630 [facility] Ondansetron HCl (Ondansetron Hcl 4 Mg/2 Ml Vial) 4 mg IVPUSH Q8H PRN PRN Reason: Nausea and Vomiting Pharmacy Consult (Consult Rx Perform Med Rec) 1 each MISCELLANE ONCE PRN PRN Reason: Consult order Sodium Chloride (0.9 % Sodium Chloride Flush 3 Ml Syringe) 3 ml IVFLUSH QSHIFT [facility] Last Admin: 09/19/22 09:16 Dose: 3 ml Documented By: LAVONNE Labs 09/19/22 08:37 09/19/22 06:58 Labs: Laboratory Results - last 24 hr 09/18/22 09/18/22 09/18/22 18:36 18:36 18:36 MCV 74.2 L MCH 20.8 L MCHC 28.1 L RDW 17.5 H Plt Count 628 H MPV 9.8 Immature Gran % (Auto) 0.2 Neut % (Auto) 60.7 Lymph % (Auto) 30.1 [place] % (Auto) 6.3 Eos % (Auto) 1.5 Baso % (Auto) 1.2 Lymph # (Auto) 2.9 [place] # (Auto) 0.6 Eos # (Auto) 0.1 Baso # (Auto) 0.1 Abs Immat Gran (auto) 0.02 Absolute Neuts (auto) 5.8 Absolute Nucleated RBC 0.000 Nucleated RBC % (auto) 0.0 PT 10.3 Whole Blood PT INR 0.9 Whole Blood INR APTT 28.9 Anion Gap 12 Estim Creat Clear Calc 113.0 Estimated GFR > 60 POC Glucose Random Glucose 153 H Estimat Average Glucose Hemoglobin A1c % Calcium 9.5 Iron 17 L TIBC 360 % Saturation 5 L Unsat Iron Binding 343 Ferritin 5 L Total Bilirubin 0.6 Direct Bilirubin < 0.2 AST 14 ALT 12 Alkaline Phosphatase 53 Total Creatine Kinase 141 H Troponin I High Sens Total Protein 7.2 Albumin 3.9 Triglycerides 86 Cholesterol 209 LDL Cholesterol, Calc 137 HDL Cholesterol 55 Vitamin B12 Folate Influenza Type A (PCR) Influenza Type B (PCR) RSV RNA Qual (PCR) SARS-CoV-2 RNA (RT-PCR) Blood Type Antibody Screen 09/18/22 09/18/22 09/18/22 18:36 18:36 18:36 MCV MCH MCHC RDW Plt Count MPV Immature Gran % (Auto) Neut % (Auto) Lymph % (Auto) [place] % (Auto) Eos % (Auto) Baso % (Auto) Lymph # (Auto) [place] # (Auto) Eos # (Auto) Baso # (Auto) Abs Immat Gran (auto) Absolute Neuts (auto) Absolute Nucleated RBC Nucleated RBC % (auto) PT Whole Blood PT INR Whole Blood INR APTT Anion Gap Estim Creat Clear Calc Estimated GFR POC Glucose Random Glucose 153 H Estimat Average Glucose 206 Hemoglobin A1c % 8.8 Calcium Iron TIBC % Saturation Unsat Iron Binding Ferritin Total Bilirubin Direct Bilirubin AST ALT Alkaline Phosphatase Total Creatine Kinase Troponin I High Sens < 3.5 Total Protein Albumin Triglycerides Cholesterol LDL Cholesterol, Calc HDL Cholesterol Vitamin B12 Folate Influenza Type A (PCR) Influenza Type B (PCR) RSV RNA Qual (PCR) SARS-CoV-2 RNA (RT-PCR) Blood Type Antibody Screen 09/18/22 09/18/22 09/18/22 18:41 19:25 20:22 MCV MCH MCHC RDW Plt Count MPV Immature Gran % (Auto) Neut % (Auto) Lymph % (Auto) [place] % (Auto) Eos % (Auto) Baso % (Auto) Lymph # (Auto) [place] # (Auto) Eos # (Auto) Baso # (Auto) Abs Immat Gran (auto) Absolute Neuts (auto) Absolute Nucleated RBC Nucleated RBC % (auto) PT Whole Blood PT 11.5 INR Whole Blood INR 1.0 APTT Anion Gap Estim Creat Clear Calc Estimated GFR POC Glucose 132 H Random Glucose Estimat Average Glucose Hemoglobin A1c % Calcium Iron TIBC % Saturation Unsat Iron Binding Ferritin Total Bilirubin Direct Bilirubin AST ALT Alkaline Phosphatase Total Creatine Kinase Troponin I High Sens Total Protein Albumin Triglycerides Cholesterol LDL Cholesterol, Calc HDL Cholesterol Vitamin B12 Folate Influenza Type A (PCR) NEGATIVE Influenza Type B (PCR) NEGATIVE RSV RNA Qual (PCR) NEGATIVE SARS-CoV-2 RNA (RT-PCR) NEGATIVE Blood Type Antibody Screen 09/19/22 09/19/22 09/19/22 06:58 06:58 07:06 MCV 73.4 L MCH 20.9 L MCHC 28.5 L RDW 17.6 H Plt Count 513 H MPV 9.3 L Immature Gran % (Auto) 0.4 Neut % (Auto) 61.1 Lymph % (Auto) 29.4 [place] % (Auto) 6.6 Eos % (Auto) 1.6 Baso % (Auto) 0.9 Lymph # (Auto) 2.8 [place] # (Auto) 0.6 Eos # (Auto) 0.2 Baso # (Auto) 0.1 Abs Immat Gran (auto) 0.04 H Absolute Neuts (auto) 5.9 Absolute Nucleated RBC 0.000 Nucleated RBC % (auto) 0.0 PT Whole Blood PT INR Whole Blood INR APTT Anion Gap 11 L Estim Creat Clear Calc 137.2 Estimated GFR > 60 POC Glucose 134 H Random Glucose 150 H Estimat Average Glucose Hemoglobin A1c % Calcium 8.7 D Iron 14 L TIBC 298 % Saturation 5 L Unsat Iron Binding 284 Ferritin 6 L Total Bilirubin Direct Bilirubin AST ALT Alkaline Phosphatase Total Creatine Kinase Troponin I High Sens Total Protein Albumin Triglycerides Cholesterol LDL Cholesterol, Calc HDL Cholesterol Vitamin B12 596 Folate 10.6 Influenza Type A (PCR) Influenza Type B (PCR) RSV RNA Qual (PCR) SARS-CoV-2 RNA (RT-PCR) Blood Type Antibody Screen 09/19/22 09/19/22 09/19/22 08:05 08:37 10:40 MCV MCH MCHC RDW Plt Count MPV Immature Gran % (Auto) Neut % (Auto) Lymph % (Auto) [place] % (Auto) Eos % (Auto) Baso % (Auto) Lymph # (Auto) [place] # (Auto) Eos # (Auto) Baso # (Auto) Abs Immat Gran (auto) Absolute Neuts (auto) Absolute Nucleated RBC Nucleated RBC % (auto) PT Whole Blood PT INR Whole Blood INR APTT Anion Gap Estim Creat Clear Calc Estimated GFR POC Glucose 166 H Random Glucose Estimat Average Glucose Hemoglobin A1c % Calcium Iron TIBC % Saturation Unsat Iron Binding Ferritin Total Bilirubin Direct Bilirubin AST ALT Alkaline Phosphatase Total Creatine Kinase Troponin I High Sens < 3.5 Total Protein Albumin Triglycerides Cholesterol LDL Cholesterol, Calc HDL Cholesterol Vitamin B12 Folate Influenza Type A (PCR) Influenza Type B (PCR) RSV RNA Qual (PCR) SARS-CoV-2 RNA (RT-PCR) Blood Type O Positive Antibody Screen NEGATIVE 09/19/22 11:08 MCV MCH MCHC RDW Plt Count MPV Immature Gran % (Auto) Neut % (Auto) Lymph % (Auto) [place] % (Auto) Eos % (Auto) Baso % (Auto) Lymph # (Auto) [place] # (Auto) Eos # (Auto) Baso # (Auto) Abs Immat Gran (auto) Absolute Neuts (auto) Absolute Nucleated RBC Nucleated RBC % (auto) PT Whole Blood PT INR Whole Blood INR APTT Anion Gap Estim Creat Clear Calc Estimated GFR POC Glucose 171 H Random Glucose Estimat Average Glucose Hemoglobin A1c % Calcium Iron TIBC % Saturation Unsat Iron Binding Ferritin Total Bilirubin Direct Bilirubin AST ALT Alkaline Phosphatase Total Creatine Kinase Troponin I High Sens Total Protein Albumin Triglycerides Cholesterol LDL Cholesterol, Calc HDL Cholesterol Vitamin B12 Folate Influenza Type A (PCR) Influenza Type B (PCR) RSV RNA Qual (PCR) SARS-CoV-2 RNA (RT-PCR) Blood Type Antibody Screen Assessment and Plan (1) Conversion reaction: Status: Acute (2) Anemia: Status: Acute (3) Left hemiparesis: Status: Acute Plan 42-year-old female with history of insulin-dependent type 2 diabetes, hyperlipidemia, and iron deficiency anemia with uterine fibroids admitted for suspected CVA # suspected CVA vs conversion reaction -patient developed progressive left-sided paresthesias improved significantly -head CT negative for any acute intracranial abnormality,MRI brain ordered -nursing bedside swallow eval past hold Plavix 75 mg daily -lipid profile pending.? Atorvastatin 80 mg daily -echocardiogram ordered -PT/OT eval as ordered -appreciate neurology input -stroke education -admit to telemetry # dm : fs improvin -hemoglobin A1c 8.8 -continue home basal insulin -Humalog on sliding scale -hold metformin.? Continue Jardiance -POC glucose -diabetic diet # hyperlipidemia -lipid panel pending.? Atorvastatin as above # iron deficiency anemia likely related to menorrhagia and uterine fibroids -iron, ferritin, TIBC pending -ferrous sulfate 324 mg daily with vitamin-C source ordered. Obesity encouraged to lose weight DVT prophylaxis-Lovenox Full code inpatient need:suspected CVA vs conversion reaction-workup pending Time Spent With Patient Time: Total time managing care of this patient today ____ minutes. Quality Stroke Does the patient have a stroke diagnosis?: Yes Reason for No Anti-thrombotic by Day Two: Drug treatment not indicated VTE Prior VTE?: No VTE Risk Level:: Medical - moderate - high VTE Device Contraindication: Treatment Not Indicated VTE Drug Contraindication: N/A - Med Ordered
[2022-09-19 15:33] VITALS: BP 142/92; PULSE 96; RESP 18; TEMP 37; O2SAT 98
[2022-09-19 15:55] LABS: Glucose, Whole Blood 126 mg/dL (60-115)
[2022-09-19] MEDS: LORazepam 2 MG/ML VIAL 0.5 MG IVPUSH (16:25)
[2022-09-19] MEDS: Omeprazole 20 MG CAPSULE.DR PO (16:26)
--- NOTE | 2022-09-19 18:31 | PC.NURSE ---
Patient received Ativan for increase anxiety prior to schedule MRI, however patient was unable to tolerate MRI, MD notified.
[2022-09-19 19:46] VITALS: BP 149/92; PULSE 104; RESP 18; TEMP 36.6; O2SAT 98
[2022-09-19 20:08] LABS: Glucose, Whole Blood 164 mg/dL (60-115)
[2022-09-19] MEDS: Insulin Glargine,Hum.rec.anlog 100 UNIT/ML 10 ML VIAL 18 UNIT SUBCUT (22:11)
[2022-09-19] MEDS: Atorvastatin Calcium 80 MG TABLET PO (22:11)
[2022-09-20] VITALS: BP 108/64; PULSE 95; RESP 14; TEMP 37.4; O2SAT 95
[2022-09-20 04:00] VITALS: BP 98/61; PULSE 87; RESP 14; TEMP 36.8; O2SAT 93
[2022-09-20] MEDS: Omeprazole 20 MG CAPSULE.DR PO ×2 (06:32→17:20)
[2022-09-20 07:28] LABS: Glucose, Whole Blood 131 mg/dL (60-115)
[2022-09-20 07:42] VITALS: BP 98/60; PULSE 87; RESP 20; TEMP 36.6; O2SAT 96
[2022-09-20] MEDS: Ferrous Sulfate 324 MG TABLET.DR PO ×2 (08:31→17:20)
[2022-09-20] MEDS: Empagliflozin 25 MG TABLET 50 MG PO (08:31)
[2022-09-20] MEDS: 0.9 % Sodium Chloride Flush 3 ML SYRINGE IVFLUSH ×2 (08:32→17:21)
[2022-09-20] MEDS: Ascorbic Acid 250 MG TABLET PO (08:32)
[2022-09-20] MEDS: Clopidogrel Bisulfate 75 MG TABLET PO (08:32)
[2022-09-20 09:36] LABS: Hematocrit 27.3 % (37.0-47.0); Hemoglobin 7.8 g/dl (12.0-16.0)
[2022-09-20 11:13] LABS: Glucose, Whole Blood 179 mg/dL (60-115)
[2022-09-20 11:38] VITALS: BP 110/61; PULSE 90; RESP 20; TEMP 36.8; O2SAT 97
[2022-09-20] MEDS: Insulin Lispro 100 UNIT/ML 3 ML VIAL SUBCUT ×2 (12:08→17:20)
[2022-09-20] MEDS: LORazepam 2 MG/ML VIAL 1 MG IVPUSH (12:34)
[2022-09-20 15:20] VITALS: BP 105/68; PULSE 78; RESP 18; TEMP 36.6; O2SAT 97
--- NOTE | 2022-09-20 15:30 | MHC.CM.PN ---
Patient is discharged to home self care. She will follow up with Out patient OT. She has arranged for transportation home.
--- NOTE | 2022-09-20 15:44 | PM.DS ---
DS: Providers Provider Date of Service: 09/20/22 Date of admission: 09/18/22 21:32 Date of discharge: 09/20/22 Primary care physician: [facility] Consults: 09/18/22 21:35 Consult to Neurology Routine Consulting Provider: [facility] Reason for consultation: cva Attending physician on discharge: Ashish Martinez DS: Diagnosis Discharge Diagnosis (1) Conversion reaction: Status: Acute (2) Anemia: Status: Acute DS: Summary Hospital Course Hospital Course: 42-year-old female with history of insulin-dependent type 2 diabetes, hyperlipidemia, and iron deficiency anemia with uterine fibroids presented to the ED earlier today for evaluation of left-sided weakness and paresthesias that started yesterday morning.? She states yesterday morning she developed weakness and numbness in the left hand that progressed to the left arm.? This afternoon she developed numbness on the left side of the face chest, abdomen, and left leg.? She states she is able to ambulate but with a limp.? She denies any dysphagia or dysphasia.? On arrival, patient hypertensive to 157/91, vitals otherwise stable.? No leukocytosis.? Microcytic anemia with H/H 8.4/29.9%, MCV 74.2.? Patient reports heavy menses in known uterine fibroids for which she was following with cyber policy and strategy planner at [facility].? Platelets 628.? Renal function is normal, electrolytes normal.? CXR unremarkable.? Head CT is without any acute intracranial pathology.? Given symptoms began greater than 24 hours, patient is not a tPA candidate. Pt to be admitted for suspected stroke. hospital course: Patient came to the hospital because of left-sided weakness symptoms-which is completely resolved, patient is walking fine, CT head and MRI negative. Seen by Neurology -symptoms was thought secondary to possible conversion reaction and no need for antiplatlets . PT and OT saw the patient: may add outpatient OT. Anemia hpochromic chronic : Patient has history of fibroids , denies any melena or mitch bleeding in the stool or any hematemesis. Iron and iron sats , ferritin are low. TIBC normal h/h: Stable between 7-8/ hct bwetween 27-29 range. Patient currently asymptomatic. Follow-up with PCP outpatient -monitor CBC, further anemia workup including consider outpatient cyber policy and strategy planner evaluation as per PCP. plan ; no stroke-likely conversion reaction. added iron supplements. may need outpatient OT. Above management discussed the patient in detail length she understand and in agreement with the above plan, time spent 50 minute. Time Spent with Patient Time attestation: Total time managing care of this patient today ____ minutes. Discharge coordination time: Greater than 30 minutes Quality: Safe Use of Opioids Does Pt have an Active Cancer Diagnosis on the Problem List?: No Quality: Stroke Does the patient have a stroke diagnosis?: No Physical Exam Vital Signs: Vital Signs: Last Vital Signs Temp 97.8 F 09/20/22 15:20 Pulse 78 09/20/22 15:20 Resp 18 09/20/22 15:20 BP 105/68 09/20/22 15:20 Pulse Ox 97 09/20/22 15:20 O2 Del Method 09/20/22 15:20 BMI result Body Mass Index 31.8 Appearance: Alert.? Oriented X3.? not in distress.? cvs: rrr, [id number] , no murmur res: clear to auscultation ,no rhonchii or wheezing abd: no rebound or guarding ,nt, bs present. ext pulses present , no cyanosis . neuro: axo3 , nonfocal. DS: Data Data Completed and Pending Labs on day of discharge: Laboratory Results - last 24 hr 09/19/22 09/19/22 09/20/22 15:32 19:45 07:21 Hgb Hct POC Glucose 126 H 164 H 131 H 09/20/22 09/20/22 09:27 11:06 Hgb 7.8 L Hct 27.3 L POC Glucose 179 H Imaging Chest x-ray: Radiologist's impression: ITS Impressions Head CT 09/18/22 18:19 IMPRESSION: No acute intracranial pathology. This critical result was discussed with Michael Amado on 09/18/2022, 6:38 PM and it was ascertained that the content and urgency of the report was understood at the time of direct communication. Chest X-Ray 09/18/22 20:17 IMPRESSION: Unremarkable examination. Brain MRI 09/20/22 13:35 IMPRESSION: No acute infarct or other acute intracranial abnormality Discharge Plan Discharge Anticipated Discharge Date/Time: 09/20/22 15:35 Patient Disposition: Home, Self-Care Discharge Diagnosis: Possible conversion disorder. Referrals: [facility] [Primary Care Provider] - 1 Week Discharge Medications: Continued atorvastatin 20 mg tablet 1 tab PO DAILY metformin 1,000 mg tablet 1 tab PO BID lidocaine [Lidoderm] 5 % adhesive patch,medicated 1 patch topical NEEDED PRN (Reason: Pain) insulin glargine [Lantus Solostar U-100 Insulin] 100 unit/mL (3 mL) insulin pen 23 unit subcut BEDTIME Jardiance 25 mg tablet 2 tab PO QAM Discharge Orders: Discharge Order (Routine); Ordered 09/20/22 Ordered By: Ashish Martinez Diet: Advance to usual diet Activity on Discharge: As tolerated Stand Alone Forms: Patient Portal Discharge page Care Plan Goals: Patient came to the hospital because of left-sided weakness symptoms-which is completely resolved, patient is walking fine, CT head and MRI negative. Seen by Neurology -symptoms was thought secondary to possible conversion reaction. PT and OT saw the patient: Will add outpatient OT. Anemia: Patient has history of fibroids , denies any melena or mitch bleeding in the stool or any hematemesis. h/h: Stable between 7-8/ hct bwetween 27-29 range. Patient currently asymptomatic. Follow-up with PCP outpatient -monitor CBC, consider outpatient cyber policy and strategy planner evaluation Above management discussed the patient in detail length she understand and in agreement with the above plan, time spent 50 minute. Health Concerns: As above. Plan of Treatment: As above. Assessment: As above. Patient Instructions: Conversion Disorder (DC)
[2022-09-20 15:46] LABS: Glucose, Whole Blood 178 mg/dL (60-115)
== END 2022-09-20 18:14 | disposition home or self-care (01) | DRG 58 ==
LOC: HO.ED 20:21 → HO.EDOVER 21:43 → HO.IMC 09-19 06:56
PROVIDERS: Admitting Provider Physician Assistant; Emergency Provider Emergency Medicine Emergency Medical Services; Visit Provider Internal Medicine
DX: G81.94 Hemiplegia, unspecified affecting left nondominant side (principal); F44.7 Conversion disorder with mixed symptom presentation; E11.9 Type 2 diabetes mellitus without complications; D50.0 Iron deficiency anemia secondary to blood loss (chronic); D25.9 Leiomyoma of uterus, unspecified; E66.9 Obesity, unspecified; E78.5 Hyperlipidemia, unspecified; I34.0 Nonrheumatic mitral (valve) insufficiency; N92.1 Excessive and frequent menstruation with irregular cycle; R29.704 NIHSS score 4; Z20.822 Contact with and (suspected) exposure to COVID-19; Z68.31 Body mass index [BMI] 31.0-31.9, adult; Z88.6 Allergy status to analgesic agent; Z79.4 Long term (current) use of insulin; Z79.84 Long term (current) use of oral hypoglycemic drugs; Z79.899 Other long term (current) drug therapy
CPT/HCPCS: 0241U; 36415; 70450; 70551; 71045; 80048; 80061; 80076; 82550; 82607; 82728; 82746; 82947; 83036; 83540; 84484; 85014; 85018; 85025; 85610; 85730; 86850; 86900; 86901; 93005; 93306; 97116; 97161; 97165; 97530; 99222; 99285; J1650; J2060

== ENCOUNTER 2022-12-16 16:35 | Emergency (ER) | payer MEDICAID, SELFPAY ==
--- NOTE | ~2022-12-16 | US_ITS ---
EXAMINATION: US PELVIS CLINICAL INFORMATION: Pelvic pain with fibroid and cyst COMPARISON: None available. TECHNIQUE: Ultrasound of the pelvis is performed using both transabdominal and transvaginal transducers along with Doppler. Transvaginal imaging is performed due to inadequate visualization transabdominally. FINDINGS: Uterus: The uterus is anteverted and measures 14.6 x 9.7 x 14.5 cm. Endometrial stripe is not clearly delineated. The uterus is smooth in contour and has normal myometrial echogenicity. Multiple uterine masses are identified, consistent with fibroids. The largest of these measures 10.2 x 7.3 x 9.8 cm (previously 10.1 x 7.9 x 10.9 cm). Additional relatively prominent fibroid near the fundus measures 3.2 x 3.6 x 3.0 cm. Adnexa: The right ovary measures 4.3 x 3.7 x 2.9 cm and is only seen on transabdominal imaging. Color Doppler demonstrates right ovarian flow. The left ovary is not visualized. No free fluid is seen. US/US pelvic and transvaginal IMPRESSION: 1. Enlarged, fibroid uterus. Endometrial stripe is not clearly delineated. 2. Left ovary is not visualized. Right ovary appears grossly unremarkable.
[2022-12-16 16:42] VITALS: BP 108/66; PULSE 103; RESP 18; TEMP 36.8; O2SAT 97; BMI 28.3
[2022-12-16 16:55] LABS: MANUAL DIFF FLAG NO
[2022-12-16 16:56] LABS: Basophils Absolute Auto 0.1 X10*3/uL (0.0-0.2); Eosinophils Percent Auto 0.4 % (0-4); Hematocrit 26.2 % (37.0-47.0); Hemoglobin 7.1 g/dl (12.0-16.0); Imm Gran Abs Auto 0.02 X10*3/uL (0.00-0.03); Imm Gran Pct Auto 0.2 % (0.0-0.4); Lymphocytes Absolute Auto 1.4 X10*3/uL (1.2-4.9); Lymphocytes Percent Auto 15.4 % (20-40); Mean Corpuscular HGB Conc 27.1 g/dl (31.0-35.0); Mean Corpuscular Hemoglobin 18.7 pg (27.0-33.0); Mean Corpuscular Volume 68.9 fL (80.0-98.0); Mean Platelet Volume 9.7 fL (9.4-12.3); Monocytes Absolute Auto 0.5 X10*3/uL (0.1-1.2); Monocytes Percent Auto 5.4 % (2-11); Neutrophils Absolute Auto 7.2 x10*3/uL (2.0-8.3); Neutrophils Percent Auto 77.6 % (45-73); Platelet Count 434 X10*3/uL (160-400); Red Cell Distribution Width 18.2 % (11.0-16.0); White Blood Count 9.2 X10*3/uL (4.8-10.8)
[2022-12-16 17:41] LABS: Alanine Aminotransferase 7 U/L (0-31); Albumin Level 3.7 g/dL (3.5-5.0); Alkaline Phosphatase 47 U/L (39-117); Anion Gap 13 (12-20); Aspartate Amino Transferase 11 U/L (5-31); Bilirubin Total 0.3 mg/dL (0.0-1.0); Blood Urea Nitrogen 10 mg/dL (9-16); Calcium 9.3 mg/dL (8.4-10.2); Carbon Dioxide 23 mmol/L (22-29); Chloride 105 mmol/L (96-108); Creatinine Clr Calc Pharmacy 98.1; Estimated Glomerular Filt Rate > 60; Glucose Random 287 mg/dL (60-115); Potassium 3.8 mmol/L (3.3-5.1); Sodium 137 mmol/L (135-145); Total Protein 6.7 g/dL (6.5-8.0)
[2022-12-16 17:47] LABS: HCG Quantitative < 2 mIU/mL
--- NOTE | 2022-12-16 18:11 | ED.FEMALEGU ---
HPI - Female Genitourinary General Chief complaint: General Medical Stated complaint: vaginal pain Time Seen by Provider: 12/16/22 18:05 Source: patient Mode of arrival: ambulatory Limitations: no limitations History of Present Illness HPI Narrative: Patient with fibroid uterus chronic anemia DUB and ovarian cyst comes pelvic pain for last few hours patient had menses Two weeks ago feels contraction in the lower abdomen no fever no chills no nausea no vomiting no diarrhea Related Data Home Medications Medication Instructions Recorded Confirmed atorvastatin 20 mg tablet 1 tab PO DAILY 09/18/22 09/18/22 empagliflozin 25 mg tablet 2 tab PO QAM 09/18/22 09/18/22 (Jardiance) insulin glargine 100 unit/mL (3 23 unit subcut BEDTIME 09/18/22 09/18/22 mL) subcutaneous pen (Lantus Solostar U-100 Insulin) lidocaine 5 % topical patch 1 patch topical NEEDED PRN Pain 09/18/22 09/18/22 (Lidoderm) metformin 1,000 mg tablet 1 tab PO BID 09/18/22 09/18/22 Previous Rx's Medication Instructions Recorded ascorbic acid (vitamin C) 250 mg 250 mg PO DAILY #30 tabs 09/20/22 tablet ferrous sulfate 324 mg (65 mg 324 mg PO BIDWM #60 tabs 09/20/22 iron) tablet,delayed release omeprazole 20 mg capsule,delayed 20 mg PO BID@0630,1630 #60 caps 09/20/22 release tramadol 50 mg tablet 50 mg PO Q6H PRN pain #20 tabs 12/16/22 Allergies Allergy/AdvReac Type Severity Reaction Status Date / Time aspirin [ASA] Allergy Hives Verified 12/16/22 16:42 Review of Systems Review of Systems: Yes all other systems are reviewed and are negative PMFSH Past Medical History Medical History Hyperlipidemia Iron deficiency anemia Type 2 diabetes mellitus Uterine fibroid Family History Family History Other No family history of cerebrovascular accident (CVA) Social History Social History Household Members: Family Housing: Other Housing Other:: [facility] Do you presently have visiting nurse or other home services: No Alcohol intake: never Patient Tobacco Use Status: Never used Tobacco Smoked in Last 30 Days: No Second Hand Smoke Exposure: No Use of substances other than those prescribed or required for medical reasons: No Advance Directives: No Advance Directives Information Provided: No Patient : No service: No Physical Exam Vital Signs: Vital Signs: Last Vital Signs Temp 98.2 F 12/16/22 21:36 Pulse 93 12/16/22 22:01 Resp 18 12/16/22 21:36 BP 125/79 12/16/22 22:01 Pulse Ox 97 12/16/22 21:36 O2 Del Method Room Air 12/16/22 21:36 BMI result Body Mass Index 28.3 Appearance: Alert. Oriented X3. No acute distress. Eyes:pallor+ ENT: Pharynx normal. Oral Mucosa moist Neck: Normal inspection. Neck supple. CVS: Normal heart rate and rhythm. Pulses normal. Respiratory: No respiratory distress. Equal air entry bilateral, no wheezing/rales/rhonchi Abdomen: Soft , mild tenderness suprapubic area bilateral no rebound tenderness or guarding. Bowel sounds are present, no mass palpable, no CVA tenderness Skin: Skin warm and dry. Normal skin color. Normal skin turgor. Extremities: No lower extremity edema. No calf tenderness Neuro: Oriented X 3. No motor deficit. Medications Administered Discontinued Medications Generic Name Dose Route Start Last Admin Trade Name Freq PRN Reason Stop Dose Admin Oxycodone HCl 10 mg 12/16/22 18:13 12/16/22 18:37 Oxycodone Hcl Immed Release 5 Mg Tablet PO 12/16/22 18:14 10 mg ONCE ONE Administration Medical Decision Making Medical Decision Making [facility] Narrative: Patient fibroid uterus comes with pelvic pain with chronic iron deficiency anemia ultrasound shows same finding as in the past largest fibroid 10.2 x 9.8 cm likely the cause of the pain. Patient orthostatic is normal denies any shortness of breath or palpitation patient taking iron tablet twice daily, advised to take her tablets empty stomach and to follow with gynecology Lab Data [facility] Lab Attestation statement: I reviewed the patient's lab results. 12/16/22 16:48 12/16/22 16:48 Labs: Lab Results 12/16/22 12/16/22 12/16/22 Range/Units 16:48 16:48 18:22 WBC 9.2 (4.8-10.8) X10*3/uL RBC 3.80 L (4.20-5.50) X10*6/uL Hgb 7.1 L (12.0-16.0) g/dl Hct 26.2 L (37.0-47.0) % MCV 68.9 L (80.0-98.0) fL MCH 18.7 L (27.0-33.0) pg MCHC 27.1 L (31.0-35.0) g/dl RDW 18.2 H (11.0-16.0) % Plt Count 434 H (160-400) X10*3/uL MPV 9.7 (9.4-12.3) fL Immature Gran % (Auto) 0.2 (0.0-0.4) % Neut % (Auto) 77.6 H (45-73) % Lymph % (Auto) 15.4 L (20-40) % [place] % (Auto) 5.4 (2-11) % Eos % (Auto) 0.4 (0-4) % Baso % (Auto) 1.0 (0-2) % Lymph # (Auto) 1.4 (1.2-4.9) X10*3/uL [place] # (Auto) 0.5 (0.1-1.2) X10*3/uL Eos # (Auto) 0.0 (0.0-0.4) X10*3/uL Baso # (Auto) 0.1 (0.0-0.2) X10*3/uL Abs Immat Gran (auto) 0.02 (0.00-0.03) X10*3/uL Absolute Neuts (auto) 7.2 (2.0-8.3) x10*3/uL Absolute Nucleated RBC 0.000 (0.0-0.012) X10*3/uL Nucleated RBC % (auto) 0.0 (0.0-0.2) /100WBC Sodium 137 (135-145) mmol/L Potassium 3.8 (3.3-5.1) mmol/L Chloride 105 (96-108) mmol/L Carbon Dioxide 23 (22-29) mmol/L Anion Gap 13 (12-20) BUN 10 (9-16) mg/dL Creatinine 0.74 (0.5-1.4) mg/dL Estim Creat Clear Calc 98.1 Estimated GFR > 60 Random Glucose 287 H (60-115) mg/dL Calcium 9.3 D (8.4-10.2) mg/dL Total Bilirubin 0.3 (0.0-1.0) mg/dL AST 11 (5-31) U/L ALT 7 (0-31) U/L Alkaline Phosphatase 47 (39-117) U/L Total Protein 6.7 (6.5-8.0) g/dL Albumin 3.7 (3.5-5.0) g/dL Beta HCG, Quant < 2 mIU/mL Urine Color Yellow Urine Appearance Clear Urine pH 6.0 (5.0-9.0) Ur Specific [place] >= 1.030 H (1.005-1.025) Urine Protein Negative (Neg-Trace) mg/dL Urine Glucose (UA) >=1000 H (Negative) mg/dL Urine Ketones Negative (Negative) mg/dL Urine Blood Negative (Negative) Urine Nitrite Negative (Negative) Ur Leukocyte Esterase Negative (Negative) Urine RBC 0-2 (0-2) /HPF Urine WBC 0-5 (0-5) /HPF Ur Squamous Epith Cells 0-2 (0-2) /HPF Urine Bacteria None Seen (None Seen) Hyaline Casts 0-2 (0-2) /LPF Urine Test (NEGATIVE) 12/16/22 Range/Units 18:40 WBC (4.8-10.8) X10*3/uL RBC (4.20-5.50) X10*6/uL Hgb (12.0-16.0) g/dl Hct (37.0-47.0) % MCV (80.0-98.0) fL MCH (27.0-33.0) pg MCHC (31.0-35.0) g/dl RDW (11.0-16.0) % Plt Count (160-400) X10*3/uL MPV (9.4-12.3) fL Immature Gran % (Auto) (0.0-0.4) % Neut % (Auto) (45-73) % Lymph % (Auto) (20-40) % [place] % (Auto) (2-11) % Eos % (Auto) (0-4) % Baso % (Auto) (0-2) % Lymph # (Auto) (1.2-4.9) X10*3/uL [place] # (Auto) (0.1-1.2) X10*3/uL Eos # (Auto) (0.0-0.4) X10*3/uL Baso # (Auto) (0.0-0.2) X10*3/uL Abs Immat Gran (auto) (0.00-0.03) X10*3/uL Absolute Neuts (auto) (2.0-8.3) x10*3/uL Absolute Nucleated RBC (0.0-0.012) X10*3/uL Nucleated RBC % (auto) (0.0-0.2) /100WBC Sodium (135-145) mmol/L Potassium (3.3-5.1) mmol/L Chloride (96-108) mmol/L Carbon Dioxide (22-29) mmol/L Anion Gap (12-20) BUN (9-16) mg/dL Creatinine (0.5-1.4) mg/dL Estim Creat Clear Calc Estimated GFR Random Glucose (60-115) mg/dL Calcium (8.4-10.2) mg/dL Total Bilirubin (0.0-1.0) mg/dL AST (5-31) U/L ALT (0-31) U/L Alkaline Phosphatase (39-117) U/L Total Protein (6.5-8.0) g/dL Albumin (3.5-5.0) g/dL Beta HCG, Quant mIU/mL Urine Color Urine Appearance Urine pH (5.0-9.0) Ur Specific [place] (1.005-1.025) Urine Protein (Neg-Trace) mg/dL Urine Glucose (UA) (Negative) mg/dL Urine Ketones (Negative) mg/dL Urine Blood (Negative) Urine Nitrite (Negative) Ur Leukocyte Esterase (Negative) Urine RBC (0-2) /HPF Urine WBC (0-5) /HPF Ur Squamous Epith Cells (0-2) /HPF Urine Bacteria (None Seen) Hyaline Casts (0-2) /LPF Urine Test NEGATIVE (NEGATIVE) Radiology Impression Discussion of test interpretation with radiology: I have reviewed the radiologist's reading. Radiologist Impression: [address] [address] Ultrasound Report Signed Patient: Shahla Spears MR#: [id number] : 1980 Acct:[id number] Age/Sex: 42 / F ADM Date: 12/16/22 Loc: .ED Attending Dr: Ordering Physician: Mykel De Anda MD Date of Service: 12/16/22 Procedure(s): US pelvic and transvaginal Accession Number(s): [id number] cc: Mykel De Anda MD~ EXAMINATION:? US PELVIS CLINICAL INFORMATION:? Pelvic pain with fibroid and cyst COMPARISON: None available. TECHNIQUE: Ultrasound of the pelvis is performed using both transabdominal and transvaginal transducers along with Doppler. Transvaginal imaging is performed due to inadequate visualization transabdominally. FINDINGS: Uterus: The uterus is anteverted and measures 14.6 x 9.7 x 14.5 cm.? Endometrial stripe is not clearly delineated.? The uterus is smooth in contour and has normal myometrial echogenicity. Multiple uterine masses are identified, consistent with fibroids. The largest of these measures 10.2 x 7.3 x 9.8 cm (previously 10.1 x 7.9 x 10.9 cm). Additional relatively prominent fibroid near the fundus measures 3.2 x 3.6 x 3.0 cm. Adnexa: The right ovary measures 4.3 x 3.7 x 2.9 cm and is only seen on transabdominal imaging. Color Doppler demonstrates right ovarian flow. The left ovary is not visualized. No free fluid is seen. US/US pelvic and transvaginal IMPRESSION: 1.? Enlarged, fibroid uterus. Endometrial stripe is not clearly delineated. 2.? Left ovary is not visualized. Right ovary appears grossly unremarkable. 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 for possible surgery Prescriptions: New tramadol 50 mg tablet 50 mg PO Q6H PRN (Reason: pain) Qty: 20 0RF No Action atorvastatin 20 mg tablet 1 tab PO DAILY metformin 1,000 mg tablet 1 tab PO BID lidocaine [Lidoderm] 5 % adhesive patch,medicated 1 patch topical NEEDED PRN (Reason: Pain) insulin glargine [Lantus Solostar U-100 Insulin] 100 unit/mL (3 mL) insulin pen 23 unit subcut BEDTIME Jardiance 25 mg tablet 2 tab PO QAM ascorbic acid (vitamin C) 250 mg Tablet 250 mg PO DAILY Qty: 30 0RF omeprazole 20 mg Capsule,Delayed Release(Dr/Ec) 20 mg PO BID@0630,1630 Qty: 60 0RF ferrous sulfate 324 mg (65 mg iron) Tablet,Delayed Release (Dr/Ec) 324 mg PO BIDWM Qty: 60 0RF Referrals: Kael Herrera MD [Physician] - 1 week
[2022-12-16 18:21] VITALS: BP 126/83; PULSE 90; RESP 14; O2SAT 96
[2022-12-16 18:28] LABS: Appearance Urine Clear; Color Urine Yellow; Glucose Urine UA >=1000 mg/dL (Negative); Leukocyte Esterase Urine Negative (Negative); Nitrite Urine Negative (Negative); Specific Gravity - Urine >= 1.030 (1.005-1.025); UMIC TRIGGER UACC YES; Urine Blood Negative (Negative); Urine Ketones Negative (Negative); Urine Protein Negative (Neg-Trace)
[2022-12-16 18:33] LABS: Bacteria Urine None Seen (None Seen); Hyaline Casts Urine 0-2 /LPF (0-2); RBC Urine 0-2 /HPF (0-2); Squamous Epithelial Cell Urine 0-2 /HPF (0-2); WBC Urine 0-5 /HPF (0-5)
[2022-12-16] MEDS: oxyCODONE HCl Immed Release 5 MG TABLET 10 MG PO (18:37)
[2022-12-16 19:08] LABS: UPreg QC Valid YES; Urine Pregnancy NEGATIVE (NEGATIVE)
[2022-12-16 21:36] VITALS: BP 115/76; PULSE 84; RESP 18; TEMP 36.8; O2SAT 97
[2022-12-16 21:59] VITALS: BP 132/89; PULSE 88
[2022-12-16 22:00] VITALS: BP 131/85; PULSE 99
[2022-12-16 22:01] VITALS: BP 125/79; PULSE 93
[2022-12-16] MEDS: Ferrous Sulfate 324 MG TABLET.DR PO (22:15)
== END 2022-12-16 22:21 | disposition home or self-care (01) ==
PROVIDERS: Emergency Provider Internal Medicine
DX: D25.9 Leiomyoma of uterus, unspecified (principal); D50.9 Iron deficiency anemia, unspecified; R10.2 Pelvic and perineal pain; Z79.899 Other long term (current) drug therapy
CPT/HCPCS: 36415; 76830; 76856; 80053; 81001; 81025; 84702; 85025; 99284

== ENCOUNTER 2023-01-03 09:59 | Outpatient (REF) | payer MEDICAID, SELFPAY ==
[2023-01-08 22:08] LABS: HPV mRNA E6/E7 rflx Not Detected (Not Detected)
== END 2023-01-03 10:00 | disposition home or self-care (01) ==
LOC: HO.LNP 09:59
PROVIDERS: Visit Provider Obstetrics & Gynecology
DX: N93.9 Abnormal uterine and vaginal bleeding, unspecified (principal); D21.9 Benign neoplasm of connective and other soft tissue, unspecified
CPT/HCPCS: 58100; 81025; 87624; 88142; 88305; 99202

== ENCOUNTER 2023-01-03 11:01 | Outpatient (REF) | payer MEDICAID, SELFPAY ==
[2023-01-03 11:56] LABS: Hematocrit 28.4 % (37.0-47.0); Hemoglobin 7.4 g/dl (12.0-16.0); Mean Corpuscular HGB Conc 26.1 g/dl (31.0-35.0); Mean Corpuscular Hemoglobin 18.6 pg (27.0-33.0); Mean Corpuscular Volume 71.5 fL (80.0-98.0); Mean Platelet Volume 10.3 fL (9.4-12.3); Platelet Count 435 X10*3/uL (160-400); Red Blood Count 3.97 X10*6/uL (4.20-5.50); Red Cell Distribution Width 18.5 % (11.0-16.0); White Blood Count 9.3 X10*3/uL (4.8-10.8)
[2023-01-03 12:33] LABS: HCG Quantitative < 2 mIU/mL
[2023-01-03 15:11] LABS: CT PCR NOT DETECTED (Not Detect.); NG PCR NOT DETECTED (Not Detect.)
== END 2023-01-03 11:02 | disposition home or self-care (01) ==
LOC: HO.LAB 11:01
PROVIDERS: Visit Provider Obstetrics & Gynecology
DX: N93.9 Abnormal uterine and vaginal bleeding, unspecified (principal); Z32.02 Encounter for pregnancy test, result negative; D21.9 Benign neoplasm of connective and other soft tissue, unspecified
CPT/HCPCS: 0353U; 36415; 84146; 84443; 84702; 85027

== ENCOUNTER → 2023-01-09 09:40 | Outpatient (BNVA) | payer MEDICAID, SELFPAY | PROVIDERS: Visit Provider Obstetrics & Gynecology | DX: N93.9 Abnormal uterine and vaginal bleeding, unspecified (principal); D21.9 Benign neoplasm of connective and other soft tissue, unspecified | CPT/HCPCS: 99212 ==

== ENCOUNTER 2023-02-05 12:08 | Outpatient (REF) | payer MEDICAID, SELFPAY ==
--- NOTE | ~2023-02-05 | MM_ITS ---
EXAMINATION: MM SCREENING DIGITAL BREAST TOMOSYNTHESIS, BILATERAL CLINICAL INFORMATION: Screening. Asymptomatic. The lifetime risk of breast cancer based on the Tyrer-Cuzick Model is 16.1%. COMPARISON: Mammography: This is a baseline mammogram. TECHNIQUE: Digital breast tomosynthesis is performed in both the craniocaudal and mediolateral oblique views along with computer-aided detection (CAD). Synthesized 2D images are generated from the tomosynthesis. FINDINGS: There are scattered areas of fibroglandular density (ACR BI-RADS breast composition Category b). There are no significant masses, abnormal calcifications, or other abnormalities. MM/MM tomosynthesis screening BI IMPRESSION: No mammographic evidence of malignancy. ASSESSMENT: BI-RADS BI-RADS 1 - Negative RECOMMENDATION: Routine annual mammography screening. 1 year F/U This examination should not preclude the clinical evaluation of a suspicious palpable abnormality. This patient's information was entered into a reminder system with a target due date for their next mammogram.
== END 2023-02-05 12:09 | disposition home or self-care (01) ==
LOC: HO.MAMMO 12:08
PROVIDERS: PCP Registered Nurse; Visit Provider Obstetrics & Gynecology
DX: Z12.31 Encounter for screening mammogram for malignant neoplasm of breast (principal)
CPT/HCPCS: 77063; 77067

== ENCOUNTER → 2023-02-05 12:15 | Outpatient (BNV) | payer MEDICAID, SELFPAY | PROVIDERS: PCP Registered Nurse; Visit Provider Radiology Diagnostic Radiology | DX: Z12.31 Encounter for screening mammogram for malignant neoplasm of breast (principal) | CPT/HCPCS: 77063; 77067 ==

== ENCOUNTER 2023-08-19 12:02 | Outpatient (REF) | payer MEDICAID, SELFPAY ==
[2023-08-19 14:25] LABS: Estimated Average Glucose 212 mg/dL; Hemoglobin A1C 150.5106 umol/L
== END 2023-08-19 12:03 | disposition home or self-care (01) ==
LOC: HO.HHCL 12:02
PROVIDERS: Visit Provider Registered Nurse
DX: E11.65 Type 2 diabetes mellitus with hyperglycemia (principal); Z79.4 Long term (current) use of insulin
CPT/HCPCS: 36415; 83036

== ENCOUNTER 2023-09-13 12:45 | Outpatient (REF) | payer MEDICAID, SELFPAY ==
[2023-09-13 13:24] LABS: MANUAL DIFF FLAG NO
[2023-09-13 13:30] LABS: Basophils Absolute Auto 0.1 X10*3/uL (0.0-0.2); Eosinophils Absolute Auto 0.2 X10*3/uL (0.0-0.4); Hematocrit 29.7 % (37.0-47.0); Hemoglobin 8.5 g/dl (12.0-16.0); Imm Gran Abs Auto 0.06 X10*3/uL (0.00-0.03); Imm Gran Pct Auto 0.6 % (0.0-0.4); Lymphocytes Absolute Auto 2.5 X10*3/uL (1.2-4.9); Lymphocytes Percent Auto 23.7 % (20-40); Mean Corpuscular HGB Conc 28.6 g/dl (31.0-35.0); Mean Corpuscular Hemoglobin 22.5 pg (27.0-33.0); Mean Corpuscular Volume 78.8 fL (80.0-98.0); Mean Platelet Volume 10.3 fL (9.4-12.3); Monocytes Absolute Auto 0.6 X10*3/uL (0.1-1.2); Monocytes Percent Auto 5.7 % (2-11); Neutrophils Absolute Auto 6.9 x10*3/uL (2.0-8.3); Platelet Count 286 X10*3/uL (160-400); Red Blood Count 3.77 X10*6/uL (4.20-5.50); Red Cell Distribution Width 20.2 % (11.0-16.0); White Blood Count 10.3 X10*3/uL (4.8-10.8)
[2023-09-13 14:15] LABS: Creatinine Urine 74.47 mg/dL; Microalbum/Creatinine Ratio Ur 26.8 ug/mg cr (<30)
[2023-09-13 14:21] LABS: Alanine Aminotransferase 10 U/L (0-31); Alkaline Phosphatase 56 U/L (39-117); Anion Gap 9 (12-20); Aspartate Amino Transferase 14 U/L (5-31); Bilirubin Total 0.2 mg/dL (0.0-1.0); Blood Urea Nitrogen 12 mg/dL (9-16); Carbon Dioxide 29 mmol/L (22-29); Chloride 106 mmol/L (96-108); Cholesterol 171 mg/dL (<200); Estimated Glomerular Filt Rate > 60; Ferritin 13 ng/mL (10-250); Glucose Random 101 mg/dL (60-115); HDL Cholesterol 55 mg/dL (>40); LDL Cholesterol Calculated 103 mg/dL (<100); Potassium 3.8 mmol/L (3.3-5.1); Sodium 140 mmol/L (135-145); Total Protein 7.6 g/dL (6.5-8.0); Triglycerides 65 mg/dL (<150)
[2023-09-13 14:35] LABS: Folate 11.7 ng/mL (> or = 4.0); Vitamin B12 778 pg/mL (200-900)
== END 2023-09-13 12:46 | disposition home or self-care (01) ==
LOC: HO.HHCL 12:45
PROVIDERS: Visit Provider Registered Nurse
DX: D50.0 Iron deficiency anemia secondary to blood loss (chronic) (principal); E11.65 Type 2 diabetes mellitus with hyperglycemia
CPT/HCPCS: 36415; 80053; 80061; 82043; 82570; 82607; 82728; 82746; 85025

== ENCOUNTER 2023-10-04 13:47 | Outpatient (REF) | payer MEDICAID, SELFPAY ==
[2023-10-04 17:16] LABS: Anion Gap 10 (12-20); Blood Urea Nitrogen 6 mg/dL (9-16); Calcium 9.3 mg/dL (8.4-10.2); Carbon Dioxide 26 mmol/L (22-29); Chloride 108 mmol/L (96-108); Estimated Glomerular Filt Rate > 60; Glucose Random 68 mg/dL (60-115); Potassium 3.6 mmol/L (3.3-5.1); Sodium 140 mmol/L (135-145)
[2023-10-04 17:40] LABS: Vitamin B12 544 pg/mL (200-900)
== END 2023-10-04 13:48 | disposition home or self-care (01) ==
LOC: HO.HHCL 13:47
PROVIDERS: Visit Provider Registered Nurse
DX: E11.65 Type 2 diabetes mellitus with hyperglycemia (principal); E04.9 Nontoxic goiter, unspecified
CPT/HCPCS: 36415; 80048; 82607; 84443

== ENCOUNTER 2023-10-17 13:52 | Outpatient (REF) | payer MEDICAID, SELFPAY ==
--- NOTE | ~2023-10-17 | US_ITS ---
EXAMINATION: US THYROID CLINICAL INFORMATION: Goiter, increasing in size. Difficulty swallowing. COMPARISON: Ultrasound soft tissue head/neck thyroid dated 04/27/2022. TECHNIQUE: Linear transducer grayscale and color Doppler examination with attention to the region of the thyroid. FINDINGS: SIZE: Measurements of the solitary left thyroid lobe and nodules are given in sagittal, anteroposterior and transverse dimensions respectively. Right Thyroid Lobe: Surgically absent. Left Thyroid Lobe: 5.5 x 1.5 x 2.0 cm, volume 8.3 mL. Previously 4.6 x 1.5 x 1.7 cm, volume 6.4 mL. Parenchyma: The gland echotexture is homogeneous. Thyroid vascularity is normal. Isthmus: Surgically absent. Estimated total number of nodules greater than or equal to 1 cm: 0. 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 Location: Left inferior. Size: 0.6 x 0.3 x 0.7 cm, volume 0.07 mL. Previously: 0.8 x 0.4 x 0.7 cm, volume 0.1 mL. Nodule characteristics: Composition: Solid/almost completely solid (2). Echogenicity: Isoechoic (1). Shape: Not taller than wide (0). Margins: Smooth (0). Echogenic Foci: None (0). ACR TI-RADS total points: 3 Previous: 0 ACR TI-RADS category: 3 Previous: 1 Significant change in size (>/= 20% in 2 dimensions and minimal increase of 2 mm or 50% or greater increase in volume): No change Change in features: Minimal Change in ACR TI-RADS risk category: Slightly increased NODES: No lymphadenopathy is seen in the tissue surrounding the thyroid gland. US/US thyroid IMPRESSION: Solitary subcentimeter nodule lower pole left lobe, nonsuspicious.. Right thyroid lobe has been surgically removed.
== END 2023-10-17 13:53 | disposition home or self-care (01) ==
LOC: HO.US 13:52
PROVIDERS: PCP Registered Nurse; Visit Provider Registered Nurse
DX: E04.9 Nontoxic goiter, unspecified (principal)
CPT/HCPCS: 76536

== ENCOUNTER → 2023-10-22 14:20 | Outpatient (BNV) | payer MEDICAID, SELFPAY | PROVIDERS: PCP Registered Nurse; Referring Provider Registered Nurse; Visit Provider Internal Medicine | DX: D64.9 Anemia, unspecified (principal) | CPT/HCPCS: 99204; 99213; 99214 ==

== ENCOUNTER 2023-12-05 12:30 | Outpatient (RCR) | payer MEDICAID, SELFPAY ==
[2023-11-06 13:23] VITALS: BP 140/86; PULSE 97; RESP 20; TEMP 36.6; O2SAT 100
[2023-11-06] MEDS: Iron Sucrose Complex 200 MG in 0.9 % Sodium Chloride 100 ML 440 MG IV (13:33)
[2023-11-13] MEDS: Iron Sucrose Complex 200 MG in 0.9 % Sodium Chloride 100 ML 440 MG IV (13:03)
[2023-11-13 13:05] VITALS: BP 146/87; PULSE 85; RESP 16; TEMP 36.7; O2SAT 97
[2023-11-21 12:11] VITALS: BP 117/79; PULSE 89; RESP 18; TEMP 36.2
[2023-11-21] MEDS: Iron Sucrose Complex 200 MG in 0.9 % Sodium Chloride 100 ML 440 MG IV (12:23)
[2023-11-21] MEDS: 0.9 % Sodium Chloride Flush 10 ML SYRINGE 5 ML IVFLUSH (12:43)
[2023-11-28 12:57] VITALS: BP 143/87; RESP 20; TEMP 36.6; O2SAT 99
[2023-11-28] MEDS: Iron Sucrose Complex 200 MG in 0.9 % Sodium Chloride 100 ML 440 MG IV (13:08)
[2023-11-28] MEDS: 0.9 % Sodium Chloride Flush 10 ML SYRINGE 5 ML IVFLUSH (13:08)
[2023-12-05 12:52] VITALS: BP 172/97; PULSE 91; RESP 16; TEMP 36.6; O2SAT 100
[2023-12-05] MEDS: Iron Sucrose Complex 200 MG in 0.9 % Sodium Chloride 100 ML 440 MG IV (13:01)
[2023-12-05] MEDS: 0.9 % Sodium Chloride Flush 10 ML SYRINGE 5 ML IVFLUSH (13:01)
== END 2023-12-05 13:22 | disposition home or self-care (01) ==
LOC: HO.INF 12:30
PROVIDERS: Visit Provider Internal Medicine
DX: D50.9 Iron deficiency anemia, unspecified (principal)
CPT/HCPCS: 96365; 96374; J1756

== ENCOUNTER 2024-02-07 11:22 | Outpatient (REF) | payer MEDICAID, SELFPAY ==
--- NOTE | ~2024-02-07 | MM_ITS ---
EXAMINATION: MM SCREENING DIGITAL BREAST TOMOSYNTHESIS, BILATERAL CLINICAL INFORMATION: Screening. Asymptomatic. COMPARISON: Mammography: This study is compared with prior exams dating back to 2022. TECHNIQUE: Digital breast tomosynthesis is performed in both the craniocaudal and mediolateral oblique views along with computer-aided detection (CAD). Synthesized 2D images are generated from the tomosynthesis. FINDINGS: There are scattered areas of fibroglandular density (ACR BI-RADS breast composition Category b). There are no significant masses, abnormal calcifications, or other abnormalities. MM/MM tomosynthesis screening BI IMPRESSION: No mammographic evidence of malignancy. ASSESSMENT: BI-RADS BI-RADS 1 - Negative RECOMMENDATION: Routine annual mammography screening. 1 year F/U This examination should not preclude the clinical evaluation of a suspicious palpable abnormality. This patient's information was entered into a reminder system with a target due date for their next mammogram.
== END 2024-02-07 11:23 | disposition home or self-care (01) ==
LOC: HO.MAMMO 11:22
PROVIDERS: PCP Registered Nurse; Visit Provider Obstetrics & Gynecology
DX: Z12.31 Encounter for screening mammogram for malignant neoplasm of breast (principal)
CPT/HCPCS: 77063; 77067

== ENCOUNTER → 2024-02-07 11:30 | Outpatient (BNV) | payer MEDICAID, SELFPAY | PROVIDERS: PCP Registered Nurse; Visit Provider Radiology Diagnostic Radiology | DX: Z12.31 Encounter for screening mammogram for malignant neoplasm of breast (principal) | CPT/HCPCS: 77063; 77067 ==

== ENCOUNTER 2024-02-18 12:15 | Outpatient (RCR) | payer MEDICAID, SELFPAY ==
[2024-01-21 12:04] VITALS: BMI 30.9
[2024-01-21 12:11] VITALS: BP 127/81; PULSE 87; RESP 16; TEMP 36.8; O2SAT 99
[2024-01-21] MEDS: Iron Sucrose Complex 200 MG in 0.9 % Sodium Chloride 100 ML 440 MG IV (12:18)
[2024-01-21] MEDS: 0.9 % Sodium Chloride Flush 10 ML SYRINGE 5 ML IVFLUSH (12:43)
[2024-01-28] MEDS: 0.9 % Sodium Chloride Flush 10 ML SYRINGE 5 ML IVFLUSH (12:14)
[2024-01-28] MEDS: Iron Sucrose Complex 200 MG in 0.9 % Sodium Chloride 100 ML 440 MG IV (12:15)
[2024-01-28 12:20] VITALS: BP 141/84; PULSE 88; RESP 16; TEMP 36.6; O2SAT 100
[2024-02-04 11:44] VITALS: BP 136/86; PULSE 88; RESP 16; TEMP 36.2; O2SAT 100
[2024-02-04] MEDS: Iron Sucrose Complex 200 MG in 0.9 % Sodium Chloride 100 ML 440 MG IV (12:08)
[2024-02-04] MEDS: 0.9 % Sodium Chloride Flush 10 ML SYRINGE 5 ML IVFLUSH (12:28)
[2024-02-14 13:22] VITALS: BP 142/89; PULSE 77; RESP 16; TEMP 36.5; O2SAT 97
[2024-02-14] MEDS: Iron Sucrose Complex 200 MG in 0.9 % Sodium Chloride 100 ML 440 MG IV (13:40)
[2024-02-18 12:24] VITALS: BP 149/88; PULSE 86; RESP 18; TEMP 36.9; O2SAT 98
[2024-02-18] MEDS: Iron Sucrose Complex 200 MG in 0.9 % Sodium Chloride 100 ML 440 MG IV (12:44)
[2024-02-18] MEDS: 0.9 % Sodium Chloride Flush 10 ML SYRINGE 5 ML IVFLUSH (13:02)
== END 2024-02-18 13:31 | disposition home or self-care (01) ==
LOC: HO.INF 12:15
PROVIDERS: Visit Provider Internal Medicine
DX: D64.9 Anemia, unspecified (principal)
CPT/HCPCS: 96365; 96374; J1756

== ENCOUNTER 2024-04-13 12:31 | Outpatient (REF) | payer MEDICAID, SELFPAY ==
[2024-04-13 13:48] LABS: MANUAL DIFF FLAG NO
[2024-04-13 13:52] LABS: Basophils Absolute Auto 0.1 X10*3/uL (0.0-0.2); Basophils Percent Auto 0.7 % (0-2); Eosinophils Absolute Auto 0.1 X10*3/uL (0.0-0.4); Eosinophils Percent Auto 1.3 % (0-4); Hematocrit 33.3 % (37.0-47.0); Hemoglobin 10.5 g/dl (12.0-16.0); Imm Gran Abs Auto 0.03 X10*3/uL (0.00-0.03); Imm Gran Pct Auto 0.4 % (0.0-0.4); Lymphocytes Percent Auto 23.8 % (20-40); Mean Corpuscular HGB Conc 31.5 g/dl (31.0-35.0); Mean Corpuscular Hemoglobin 28.4 pg (27.0-33.0); Mean Platelet Volume 11.1 fL (9.4-12.3); Monocytes Absolute Auto 0.5 X10*3/uL (0.1-1.2); Monocytes Percent Auto 5.7 % (2-11); Neutrophils Absolute Auto 5.7 x10*3/uL (2.0-8.3); Neutrophils Percent Auto 68.1 % (45-73); Platelet Count 333 X10*3/uL (160-400); Red Cell Distribution Width 13.7 % (11.0-16.0); White Blood Count 8.4 X10*3/uL (4.8-10.8)
[2024-04-13 14:44] LABS: Estimated Average Glucose 220 mg/dL; Hemoglobin A1c % 9.3 % (<6.0)
== END 2024-04-13 12:32 | disposition home or self-care (01) ==
LOC: HO.HHCL 12:31
PROVIDERS: Visit Provider Registered Nurse
DX: D50.0 Iron deficiency anemia secondary to blood loss (chronic) (principal)
CPT/HCPCS: 36415; 83036; 85025

== ENCOUNTER 2024-05-12 17:58 | Emergency (ER) | payer MEDICAID, SELFPAY ==
--- NOTE | ~2024-05-12 | XR_ITS ---
EXAMINATION: XR HAND/WRIST, LEFT CLINICAL INFORMATION: Pain, fall. COMPARISON: None available. TECHNIQUE: Four views of the left hand and wrist. FINDINGS: The bones and soft tissues are normal. No fracture. Alignment is anatomic. Joint spaces are maintained. No erosions or soft tissue calcifications. XR/XR hand wrist LT IMPRESSION: Normal radiographs of the hand and wrist. Electronically signed by: Bronwyn Sarmiento MD 05/12/2024 08:35 PM EDT
--- NOTE | 2024-05-12 18:23 | ECG_ITS ---
Test Reason : DIZZINESS Blood Pressure : / mmHG Vent. Rate : 093 BPM Atrial Rate : 093 BPM P-R Int : 140 ms QRS Dur : 086 ms QT Int : 380 ms P-R-T Axes : 054 031 051 degrees QTc Int : 472 ms Normal sinus rhythm Normal ECG No significant changes when compared with the previous EKG of 19 sep 2022 Referred By: wSati Rachel Electronically Signed By:SANDY REARDON
--- NOTE | 2024-05-12 19:27 | ED.GENADULT ---
HPI - General Adult General Chief complaint: Fall Stated complaint: Fall/L arm pain Time Seen by Provider: 05/13/24 00:16 Source: patient and family Mode of arrival: ambulatory Limitations: no limitations History of Present Illness ED Provider: Dr. Mendes HPI narrative: History and physical obtained with deck scaler. Patient is a 43 yo female with a history of diabetes and neuropathy who presents with pain to left side after tripping outside. Patient states that she is at times off balance second to her neuropathy, but she did feel lightheaded and remembers tripping. She did not lose consciousness. Patient with pain to her left wrist and left thigh. Onset (ago): hour(s) Related Data Home Medications ?Medication ?Instructions ?Recorded ?Confirmed atorvastatin 20 mg tablet 1 tab PO DAILY 09/18/22 04/23/24 empagliflozin 25 mg tablet 2 tab PO QAM 09/18/22 04/23/24 (Jardiance) insulin glargine 100 unit/mL (3 23 unit subcut BEDTIME 09/18/22 04/23/24 mL) subcutaneous pen (Lantus Solostar U-100 Insulin) lidocaine 5 % topical patch 1 patch topical NEEDED PRN Pain 09/18/22 04/23/24 (Lidoderm) exenatide microspheres 2 mg/0.85 2 mg subcut DAILY 04/23/24 04/23/24 mL subcutaneous auto-injector (Bydureon BCise) Previous Rx's ?Medication ?Instructions ?Recorded ascorbic acid (vitamin C) 250 mg 250 mg PO DAILY #30 tabs 09/20/22 tablet ferrous sulfate 324 mg (65 mg 324 mg PO BIDWM #60 tabs 09/20/22 iron) tablet,delayed release omeprazole 20 mg capsule,delayed 20 mg PO BID@0630,1630 #60 caps 09/20/22 release tramadol 50 mg tablet 50 mg PO Q6H PRN pain #20 tabs 12/16/22 naproxen 500 mg tablet (Naprosyn) 500 mg PO BID #20 tabs 05/13/24 Allergies Allergy/AdvReac Type Severity Reaction Status Date / Time aspirin [ASA] Allergy Hives Verified 05/12/24 19:28 Review of Systems Review of Systems: Yes all other systems are reviewed and are negative Neurologic: Denies Sensory deficit (Neuro) PMFSH Past Medical History Medical History Health care maintenance Skin ulcer due to diabetes mellitus Goiter Anxiety Uterine fibroid Iron deficiency anemia Hyperlipidemia Type 2 diabetes mellitus Family History Family History Paternal Aunt Breast cancer Other No family history of cerebrovascular accident (CVA) Social History Social History Household Members: Spouse, Family and Children Housing: Other Housing Other:: intermediate Do you presently have visiting nurse or other home services: No Alcohol intake: never Patient Tobacco Use Status: Never used Tobacco Second Hand Smoke Exposure: No Advance Directives: No Advance Directives Information Provided: No service: No Current occupational status: unemployed Physical Exam ED Vital Signs: Vital Signs - 24 hr 05/12/24 19:28 Temperature 98.1 F Pulse Rate 101 H Respiratory Rate 18 Blood Pressure 135/87 Pulse Oximetry 99 Oxygen Delivery Method Room Air BMI result Body Mass Index 31.9 Const Other: female looking older than stated age Nutritional Appearance: average body habitus Orientation/consciousness: oriented to person and patient oriented x3 Limitations: no limitations HENMT Head: Yes normal to inspection Ears: external ears normal General nose exam: Normal external nose present Mouth: Normal oral and palatal mucosa present and oropharynx normal Throat: Yes posterior oropharynx normal Eyes General: appearance normal, both eyes and all related structures Neck Neck: Yes normal visual inspection Chest Chest palpation & inspection: normal inspection of the chest Resp Auscultation: clear to auscultation bilaterally Cardio Jugular venous distension: no JVD Rate: regular rate Rhythm: regular rhythm Heart sounds: S1 normal heart sound present and S2 normal heart sound present GI Inspection: Yes normal to inspection Palpation (GI): Soft to palpation, nontender and No hepatosplenomegaly present Auscultation: normal bowel sounds General: Yes no CVA tenderness Back/Spine/Pelvis Back: no CVA tenderness Skin General skin exam: no rashes or lesions noted Neuro General: oriented to person and patient oriented x3 Cranial nerves: Yes CN's II-XII intact bilaterally Motor exam (neuro): 5/5 motor strength present throughout Sensory Exam: No Sensory deficit (Neuro) Extrem Other: left wrist with tenderness on range of motion appearing slightly swollen. left thigh appearing normal tenderness to mid thigh Psych Appearance: grossly normal Course Course Course Narrative: This is an RME: Additional HPI, ROS, PE not included below will be deferred to primary provider. RME assessment and note performed by: Swati Rachel PA-C 43-year-old female with history of insulin-dependent type 2 diabetes, hyperlipidemia, and iron deficiency anemia with uterine fibroids presented to the ED with complaints of fall. Pt states that she was walking around her car and she felt dizzy and fell onto her left side. She loss of consciousness. Denies head strike. She reports neuropathy in her legs and is unsure if she injured her left knee. Reports intermittent dizziness with positional changes. Reports left sided chest pain and left wrist. Plan: xrays, labs, ekg, further ER eval needed. Reevaluation(s) Reevaluation #1: patient with hyperglycemia, wrist sprain, thigh bruise will dc home Time: 00:42 Medical Decision Making Differential Diagnosis Differential Diagnoses: The differential diagnosis associated with the presentation includes (syncope, cardiac arrythmia, anemia, hyperglycemia, wrist fracture) Admission/Observation Consideration of admission/observation: Escalation of care including admission/observation considered (upon arrival patient considered for admission) Lab Data 05/12/24 19:26 05/12/24 19:26 Labs: Lab Results 05/12/24 Range/Units 19:26 WBC 9.5 (4.8-10.8) X10*3/uL RBC 3.61 L (4.20-5.50) X10*6/uL Hgb 10.0 L (12.0-16.0) g/dl Hct 31.3 L (37.0-47.0) % MCV 86.7 (80.0-98.0) fL MCH 27.7 (27.0-33.0) pg MCHC 31.9 (31.0-35.0) g/dl RDW 13.2 (11.0-16.0) % Plt Count 321 (160-400) X10*3/uL MPV 9.9 (9.4-12.3) fL Immature Gran % (Auto) 0.3 (0.0-0.4) % Neut % (Auto) 71.6 (45-73) % Lymph % (Auto) 20.4 (20-40) % [place] % (Auto) 6.2 (2-11) % Eos % (Auto) 0.9 (0-4) % Baso % (Auto) 0.6 (0-2) % Lymph # (Auto) 1.9 (1.2-4.9) X10*3/uL [place] # (Auto) 0.6 (0.1-1.2) X10*3/uL Eos # (Auto) 0.1 (0.0-0.4) X10*3/uL Baso # (Auto) 0.1 (0.0-0.2) X10*3/uL Abs Immat Gran (auto) 0.03 (0.00-0.03) X10*3/uL Absolute Neuts (auto) 6.8 (2.0-8.3) x10*3/uL Absolute Nucleated RBC 0.000 (0.0-0.012) X10*3/uL Nucleated RBC % (auto) 0.0 (0.0-0.2) /100WBC Sodium 139 (135-145) mmol/L Potassium 3.5 (3.3-5.1) mmol/L Chloride 105 (96-108) mmol/L Carbon Dioxide 26 (22-29) mmol/L Anion Gap 12 (12-20) BUN 8 L (9-16) mg/dL Creatinine 0.71 (0.5-1.4) mg/dL Estim Creat Clear Calc 107.4 Estimated GFR > 60 Random Glucose 320 H (60-115) mg/dL Calcium 9.3 (8.4-10.2) mg/dL Total Bilirubin 0.3 (0.0-1.0) mg/dL Direct Bilirubin 0.1 (0.0-0.5) mg/dL AST 13 (5-31) U/L ALT 16 (0-31) U/L Alkaline Phosphatase 50 (39-117) U/L Troponin I High Sens < 2.7 (<3.5-17.0) ng/L Total Protein 6.8 (6.5-8.0) g/dL Albumin 3.7 (3.5-5.0) g/dL Independent Interpretation I performed an independent interpretation of an: EKG (sinus 93, no st or twave changes) and Plain X-Ray (left wrist: no fracture) Independent Historian Clinical information obtained from an independent historian. History obtained from or confirmed by: Other (daughter) Chronic Conditions Patient?s care impacted by: Diabetes Social Determinants Patient?s care significantly limited by Social Determinants of Health including: Low income Discharge Plan Discharge Clinical Impression: Left wrist sprain, Acute hyperglycemia, Traumatic ecchymosis of thigh Patient Disposition: Home, Self-Care Instructions: Wrist Injury (ED), Contusion in Adults (ED), R.I.C.E. Treatment (ED), Wrist Sprain (ED), Diabetic Hyperglycemia (ED) Prescriptions: New naproxen [Naprosyn] 500 mg tablet 500 mg PO BID Qty: 20 0RF No Action atorvastatin 20 mg tablet 1 tab PO DAILY lidocaine [Lidoderm] 5 % adhesive patch,medicated 1 patch topical NEEDED PRN (Reason: Pain) insulin glargine [Lantus Solostar U-100 Insulin] 100 unit/mL (3 mL) insulin pen 23 unit subcut BEDTIME Jardiance 25 mg tablet 2 tab PO QAM ascorbic acid (vitamin C) 250 mg Tablet 250 mg PO DAILY Qty: 30 0RF omeprazole 20 mg Capsule,Delayed Release(Dr/Ec) 20 mg PO BID@0630,1630 Qty: 60 0RF ferrous sulfate 324 mg (65 mg iron) Tablet,Delayed Release (Dr/Ec) 324 mg PO BIDWM Qty: 60 0RF tramadol 50 mg tablet 50 mg PO Q6H PRN (Reason: pain) Qty: 20 0RF Bydureon BCise 2 mg/0.85 mL Auto-Injector 2 mg SUBCUT DAILY Referrals: Brooks,Jennifer, MICROSTRATEGY BI DEVELOPER [Primary Care Provider] - 5 days Print Language: Irish
[2024-05-12 19:28] VITALS: BP 135/87; PULSE 101; RESP 18; TEMP 36.7; O2SAT 99; BMI 31.9
[2024-05-12 19:31] LABS: MANUAL DIFF FLAG NO
[2024-05-12 19:32] LABS: Basophils Absolute Auto 0.1 X10*3/uL (0.0-0.2); Basophils Percent Auto 0.6 % (0-2); Eosinophils Absolute Auto 0.1 X10*3/uL (0.0-0.4); Eosinophils Percent Auto 0.9 % (0-4); Hematocrit 31.3 % (37.0-47.0); Imm Gran Abs Auto 0.03 X10*3/uL (0.00-0.03); Imm Gran Pct Auto 0.3 % (0.0-0.4); Lymphocytes Absolute Auto 1.9 X10*3/uL (1.2-4.9); Lymphocytes Percent Auto 20.4 % (20-40); Mean Corpuscular HGB Conc 31.9 g/dl (31.0-35.0); Mean Corpuscular Hemoglobin 27.7 pg (27.0-33.0); Mean Corpuscular Volume 86.7 fL (80.0-98.0); Mean Platelet Volume 9.9 fL (9.4-12.3); Monocytes Absolute Auto 0.6 X10*3/uL (0.1-1.2); Monocytes Percent Auto 6.2 % (2-11); Neutrophils Absolute Auto 6.8 x10*3/uL (2.0-8.3); Neutrophils Percent Auto 71.6 % (45-73); Platelet Count 321 X10*3/uL (160-400); Red Blood Count 3.61 X10*6/uL (4.20-5.50); Red Cell Distribution Width 13.2 % (11.0-16.0); White Blood Count 9.5 X10*3/uL (4.8-10.8)
--- NOTE | 2024-05-12 19:46 | MHC.EDTECH ---
EKG performed and reviewed by provider in Main Ed at 1914 - did not cross over in system.
[2024-05-12 19:59] LABS: Alanine Aminotransferase 16 U/L (0-31); Albumin Level 3.7 g/dL (3.5-5.0); Alkaline Phosphatase 50 U/L (39-117); Anion Gap 12 (12-20); Aspartate Amino Transferase 13 U/L (5-31); Bilirubin Direct 0.1 mg/dL (0.0-0.5); Bilirubin Total 0.3 mg/dL (0.0-1.0); Blood Urea Nitrogen 8 mg/dL (9-16); Calcium 9.3 mg/dL (8.4-10.2); Carbon Dioxide 26 mmol/L (22-29); Chloride 105 mmol/L (96-108); Creatinine Clr Calc Pharmacy 107.4; Estimated Glomerular Filt Rate > 60; Glucose Random 320 mg/dL (60-115); Potassium 3.5 mmol/L (3.3-5.1); Sodium 139 mmol/L (135-145); Total Protein 6.8 g/dL (6.5-8.0)
[2024-05-12 20:08] LABS: Troponin-I High Sensitivity < 2.7 ng/L (<3.5-17.0)
[2024-05-13] VITALS: BP 128/82; PULSE 95; RESP 18; TEMP 36.9; O2SAT 99
[2024-05-13] MEDS: Insulin Lispro 100 UNIT/ML 3 ML VIAL SUBCUT (00:53)
[2024-05-13] MEDS: Ketorolac Tromethamine 60 MG/2 ML VIAL IM (00:54)
[2024-05-13 02:35] VITALS: BP 128/82; PULSE 95; RESP 18; TEMP 36.9; O2SAT 99
== END 2024-05-13 01:36 | disposition home or self-care (01) ==
PROVIDERS: Physician Assistant Medical; Emergency Provider Emergency Medicine; PCP Registered Nurse
DX: S63.502A Unspecified sprain of left wrist, initial encounter (principal); S70.12XA Contusion of left thigh, initial encounter; W18.39XA Other fall on same level, initial encounter; E11.65 Type 2 diabetes mellitus with hyperglycemia; E78.5 Hyperlipidemia, unspecified; Z79.4 Long term (current) use of insulin; Z79.02 Long term (current) use of antithrombotics/antiplatelets; Z79.899 Other long term (current) drug therapy; Y93.9 Activity, unspecified; Y92.009 Unspecified place in unspecified non-institutional (private) residence as the place of occurrence of the external cause; Y99.9 Unspecified external cause status
CPT/HCPCS: 36415; 73110; 73130; 80048; 80076; 84484; 85025; 93005; 96372; 99284; 99285; J1885

== ENCOUNTER → 2024-05-12 18:23 | Outpatient (BNV) | payer MEDICAID, SELFPAY | PROVIDERS: Emergency Provider Emergency Medicine; PCP Registered Nurse; Visit Provider Internal Medicine | DX: R42 Dizziness and giddiness (principal) | CPT/HCPCS: 93010 ==

== ENCOUNTER 2024-08-10 11:15 | Outpatient (RCR) | payer MEDICAID, SELFPAY ==
[2024-07-27 11:55] VITALS: BP 107/62; PULSE 91; RESP 16; TEMP 36.6; O2SAT 97
[2024-07-27] MEDS: Iron Sucrose Complex 400 MG in 0.9 % Sodium Chloride 250 ML 108 MG IV (12:07)
[2024-08-03 11:19] VITALS: BP 149/90; PULSE 87; RESP 14; TEMP 36.3; O2SAT 100
[2024-08-03] MEDS: Iron Sucrose Complex 400 MG in 0.9 % Sodium Chloride 250 ML 108 MG IV (11:23)
[2024-08-03 14:00] LABS: Glucose, Whole Blood 67 mg/dL (60-115)
[2024-08-10 11:05] VITALS: BP 141/97; PULSE 84; RESP 20; TEMP 36.6; O2SAT 99
[2024-08-10] MEDS: Iron Sucrose Complex 400 MG in 0.9 % Sodium Chloride 250 ML 108 MG IV (11:20)
== END 2024-10-21 10:34 | disposition home or self-care (01) ==
LOC: HO.INF 11:15
PROVIDERS: Visit Provider Internal Medicine
DX: D64.9 Anemia, unspecified (principal)
CPT/HCPCS: 82947; 96365; 96366; J1756

== ENCOUNTER 2024-10-20 12:34 | Outpatient (REF) | payer MEDICAID, SELFPAY ==
--- NOTE | ~2024-10-20 | US_ITS ---
EXAMINATION: US PELVIS CLINICAL INFORMATION: Abnormal uterus and vaginal bleeding. COMPARISON: December 16, 2022 demonstrated multiple uterine fibroids, largest measures 10.9 cm . TECHNIQUE: Ultrasound of the pelvis is performed using both transabdominal and transvaginal transducers along with Doppler. Transvaginal imaging is performed due to inadequate visualization transabdominally. FINDINGS: Uterus: The uterus is in anteversion flexion and measures 15 x 8 x 15 cm. Multiple different sizes different location intramural heterogeneous nodular lesions throughout the parenchyma. The double wall endometrial thickness is 16 mm. There are 5 identifiable intramural nodular lesions, the largest measures 4.2 cm. . Adnexa: The left ovary is not identified.. The right ovary is present with flow on color Doppler interrogation. No free fluid in the cul-de-sac. Right ovary measures 3 x 3 x 3 cm. Volume: 12.1 cc. US/US pelvic complete IMPRESSION: Multiple uterine fibroids, largest measures 4.2 cm. Left ovary is not present. Right ovary is normal. Electronically signed by: Jan Hernandez MD 10/20/2024 02:47 PM EDT
[2024-10-20 13:11] LABS: Hematocrit 33.6 % (37.0-47.0); Hemoglobin 10.9 g/dl (12.0-16.0); Mean Corpuscular HGB Conc 32.4 g/dl (31.0-35.0); Mean Corpuscular Hemoglobin 28.4 pg (27.0-33.0); Mean Corpuscular Volume 87.5 fL (80.0-98.0); Platelet Count 228 X10*3/uL (160-400); Red Blood Count 3.84 X10*6/uL (4.20-5.50); Red Cell Distribution Width 15.6 % (11.0-16.0); White Blood Count 8.6 X10*3/uL (4.8-10.8)
[2024-10-20 14:49] LABS: HCG Quantitative < 2 mIU/mL; TSH reflex Free T4 2.36 uIU/mL (0.32-4.0)
== END 2024-10-20 12:35 | disposition home or self-care (01) ==
LOC: HO.US 12:34
PROVIDERS: PCP Registered Nurse; Visit Provider Obstetrics & Gynecology
DX: N93.9 Abnormal uterine and vaginal bleeding, unspecified (principal); D25.9 Leiomyoma of uterus, unspecified; Z90.721 Acquired absence of ovaries, unilateral
CPT/HCPCS: 36415; 58100; 76856; 81025; 84443; 84702; 85027; 99212

== ENCOUNTER 2024-10-20 12:55 | Outpatient (AMB) | payer MEDICAID, SELFPAY ==
--- NOTE | 2024-10-20 12:59 | MHC.OFFVIS ---
Intake Visit Reasons: Ultrasound follow Script Reader Required: Yes Script Reader Language: Hospice/Home Health Aide Services: Script Reader Present (in person) Script Reader Name: KAE Snell Information Interpreted: non-clinical & clinical Electrical Superintendent: Electrical Superintendent Present (KAE Snell) Accompanied by: Self / Same As Patient Allergies aspirin [ASA] Allergy (Verified 10/20/24 13:03) Hives HPI Comments Details: The patient called this morning complaining of heavy vaginal bleeding, the patient was seen previously for the same problem and was referred to [facility] in 01/18 , an appointment was scheduled at [facility] on 02/11/23/with , the patient was seen and her blood sugar was elevated, plan was for her blood sharp sugar to be control prior to surgical planning. The problem persistent and the patient has been having heavy vaginal bleeding over the last few months. No other associated symptoms H&H done today was 10.9/36.6, yesterday H&H was 11.6/36.8 TSH, hCG are still pending Pelvic ultrasound scheduled today at 14:30 Last co testing in 01/18 was negative Pelvic ultrasound in 05/20 showed the following: Uterus: The uterus is anteverted and measures 14.6 x 9.7 x 14.5 cm. Endometrial stripe is not clearly delineated. The uterus is smooth in contour and has normal myometrial echogenicity. Multiple uterine masses are identified, consistent with fibroids. The largest of these measures 10.2 x 7.3 x 9.8 cm (previously 10.1 x 7.9 x 10.9 cm). Additional relatively prominent fibroid near the fundus measures 3.2 x 3.6 x 3.0 cm. Adnexa: The right ovary measures 4.3 x 3.7 x 2.9 cm and is only seen on transabdominal imaging. Color Doppler demonstrates right ovarian flow. The left ovary is not visualized. No free fluid is seen. [facility] Medical History Health care maintenance Skin ulcer due to diabetes mellitus Goiter Anxiety Uterine fibroid Iron deficiency anemia Hyperlipidemia Type 2 diabetes mellitus Family History Paternal Aunt Breast cancer Other No family history of cerebrovascular accident (CVA) Social History Household Members: Spouse, Family and Children Housing: Other Housing Other:: prison Do you presently have visiting nurse or other home services: No Alcohol intake: never Patient Tobacco Use Status: Never used Tobacco Second Hand Smoke Exposure: No service: No Current occupational status: unemployed Review of Systems Const All systems reviewed & are unremarkable except as noted in HPI and below Reports as per HPI and Reports no additional complaints Card Reports as per HPI Resp Reports as per HPI GI Reports as per HPI and Reports no additional complaints Reports as per HPI Physical Exam Const General: cooperative, healthy appearing and comfortable Chest Chest palpation & inspection: normal inspection of the chest and normal palpation of entire chest wall Breast/axilla inspection: normal inspection of the breasts and normal inspection of the axillae Breast/axilla palpation: normal palpation of the breasts, normal palpation of the axillae and no axillary lymphadenopathy Resp Effort & Inspection: normal respiratory effort Auscultation: clear to auscultation bilaterally Percussion: percussion normal Cardio Palpation: normal PMI Rate: regular rate Rhythm: regular rhythm Heart sounds: no murmurs and no rubs Peripheral pulses: Peripheral pulses 2+ throughout GI Inspection: Yes normal to inspection Palpation (GI): Soft to palpation, nontender, no guarding, not rigid and No hepatosplenomegaly present Percussion: Yes normal to percussion Auscultation: normal bowel sounds Rectal Exam - Female: deferred General: Yes no CVA tenderness External Female Exam: normal external appearance and normal appearance of the urethra Speculum Exam - Vagina: normal appearance of the vagina, normal palpation, no lesions and no masses Speculum Exam - Cervix: normal appearance of the cervix, normal palpation, no lesions, no masses and nontender Bimanual exam- vagina & uterus: normal bimanual exam, normal palpation, normal palpation, No Cervical tenderness present, non-tender and enlarged (Twenty week size uterus) Bimanual Exam- Adnexa, other: normal adnexae Back/Spine/Pelvis Back: no CVA tenderness Office Procedures Endometrial Biopsy Details: The patient was counseled regarding the indication and benefits of endometrial sampling to rule out endometrial pathology including not limited to endometrial hyperplasia or endometrial cancer and others; The alternatives (Either do nothing vs. hysteroscopy D&C) & the risks were discussed with the patient including but not limited: pain, uterine perforation, bleeding, infection, possible injury to bladder, bowel, ureter, possible need for blood transfusion with all its possible risks. The patient verbalized understanding all questions answered and signed consent. Urine test done in the office was negative The patient was placed into the dorsal lithotomy position; a speculum was inserted in the vagina. Using aseptic technique for the procedure, the cervix was cleansed with Betadine. The anterior lip of the cervix was grasped with a single tooth tenaculum. The uterus was sounded to 7 cm with a 4 mm Pipelle was used. Tissues samples were obtained and placed in formalin, in a patient labeled container and sent to the pathology department. At the end of the procedure, there was minimal bleeding noted The patient tolerated the procedure well and was discharged in good condition with the following instructions: Nothing in the vagina until the bleeding stops. No sex until the bleeding stops, to call if any of the following occurs: fever (>100.4), flu-like symptoms, abdominal pain, heavy bleeding, four smelling vaginal discharge. The patient was instructed to schedule a Follow up appointment in 2 weeks to discuss pathology results of the biopsy and treatment options. This note was generated with a voice recognition program. Some errors may have been overlooked during the review of this note. Sometimes these errors may affect the content or meaning of a given sentence. [id number] Biopsy Assessment & Plan Assessment & Plan (1) Abnormal uterine bleeding (AUB): Code(s): N93.9 - Abnormal uterine and vaginal bleeding, unspecified Category: Medical Plan: Iron sulfate 325 mg p.o. q.d.. Urine test done in the office was negative. GC and chlamydia taken CBC, TSH, HCG, and pelvic ultrasound ordered. Discussed with the patient the different causes of abnormal bleeding including thyroid disorders, uterine and ovarian pathology, endometrial hyperplasia, carcinoma and other potential causes. Discussed with the patient the work up including CBC (to r/o anemia), TSH, pelvic Ultrasound, endometrial biopsy to r/o endometrial pathology. EMB done, see procedure note Instructions given the patient is scheduled to day follow-up appointment Discussed with the patient the options of treatment for abnormal uterine bleeding, large myomas causing anemia, all pros and cons, risks and benefits of each were discussed with the patient, the patient decided to proceed with definitive surgical treatment. Discussed with the patient the different types of hysterectomies including, vaginal, laparoscopic assisted vaginal, robotic assisted laparoscopic,& abdominal with BSO. All pros, cons, r/b of each approach were discussed the patient, will refer to [facility] for further management All questions answered and the patient verbalized understanding. Instructed the patient to call our office back in case a referral appointment is not scheduled, missed or canceled so that we will assist on rescheduling another appointment, the patient verbalized understanding agreed with the plan. Orders: Orders AMB Endometrial Biopsy Today N93.9 - Abnormal uterine and vaginal bleeding, unspecified Coding Level of Care Code Est Pt Level 3 (82693) Diagnoses Abnormal uterine bleeding (AUB) N93.9 CPT Codes Endometrial Biopsy - CPT: 44778-Jtjudogdfoa Biopsy ([id number])
--- OUTSIDE RECORDS SUMMARY | 2024-10-20 15:39 | XMS_ITS | Encounter Summary ---
Author Organization [employer] Address [address] [place] [address] Care Team Providers Care Dry Plasterer Helper Name Role Phone [facility] Primary Care Provider [phone] Reason for Visit * Reason Comments Med Refill Encounter Details Date Type Department Care Team ([facility] st Contact Info) Description 11/06/2023 Refill [facility] [address], [place] [phone] [facility] [address] [place] [address] Social History Tobacco Use Types Packs/Day Years Used Date Smoking Tobacco: Never Smokeless Tobacco: Never Alcohol Use Standard Drinks/Week Comments Never 0 (1 standard drink = 0.6 oz pur e alcohol) Depression Answer Date Recorded Patient Health Questionnaire-9 Score 8 10/11/2023 Patient Health Questionnaire-9 Score 8 10/11/2023 Last PHQ-9: Questionnaire Data Not on file 0 10/11/2023 Housing Stability Answer Date Recorded What is your housing situation today? I have mariama jaffe 10/11/[address] you li ve. Do you have problems with any of the following? None of the above 10/11/2023 Food Insecurity Answer Date Recorded Within the past 12 months, y ou worried that your food would run out before you got money to buy more: Never True 05/14/2023 Within the past 12 months,th e food you bought just didn't last and you didn't have enough money to get more: Never True Transportation Answer Date Recorded In the past 12 months, has l ack of transportation kept you from medical appts, meetings, work or from getting things needed for daily living? No 05/14/2023 Utilities Answer Date Recorded In the past 12 months, has t he electric, gas, oil or water company threatened to shut off services in your home? No 05/14/2023 Depression Answer Date Recorded Patient Health Questionnaire-2 Score 2 10/11/2023 Comments Unknown Sex and Gender Information Value Date Recorded Sex Assigned at Female 05/28/2022 10:40 AM EDT Legal Sex Female 10:40 AM EDT Gender Identity Female 05/28/2022 10:40 AM EDT Sexual Orientation Straight 05/28/2022 10 :40 AM EDT documented as of this encounter Plan of Treatment Upcoming Encounters Date Type Department Care Team (Late st Contact Info) Description 03/23/2025 1:00 PM EDT Office Visit [facility] D[facility] [address] [place] [address] [employer] documented as of this encounter Goals Goal Patient Goal Type Associated Problems Recent Progress Patient-Stated? Author Blood Pressure < 140/90 Blood Pressure 128/74(2024 12:59 PM EST) No Slava Kidd Hemoglobin A1c < 7 Result Component 9.3( 12:35 PM EDT) No Slava Kidd documented as of this encounter Visit Diagnoses Not on filedocumented in this encounter Additional Health Concerns Assessment Noted Time PHQ-9 Depression Total Score: 8 10/11/19 24 2:33 PM EDT documented as of this encounter Care Teams Dry Plasterer Helper Relationship Specialty Start Date End Date Jennifer Guy FNP [address] [place] [address] PCP - General Family Medicine 01/03/22 documented as of this encounter
--- OUTSIDE RECORDS SUMMARY | 2024-10-20 15:39 | XMS_ITS | Encounter Summary ---
Author Organization [employer] Address [address] [facility] [facility] [address] [place] [address] Care Team Providers Care Rod Mill Operator Name Role Phone Priddy [place] VALUER Primary Care Provider Encounter Details Date Type Department Care Team ([facility] st Contact Info) Description 10/09/2024 Telephone [facility] [address] [place], [place] [phone] Silva Telles, OD [address] [place] [address] Social History Tobacco Use Types Packs/Day Years Used Date Smoking Tobacco: Never Smokeless Tobacco: Never Alcohol Use Standard Drinks/Week Comments Never 0 (1 standard drink = 0.6 oz pur e alcohol) Depression Answer Date Recorded Patient Health Questionnaire-9 Score 6 04/13/2024 Patient Health Questionnaire-9 Score 6 04/13/2024 Last PHQ-9: Questionnaire Data Not on file 0 04/13/2024 Housing Stability Answer Date Recorded What is [...] Answer Date Recorded Patient Health Questionnaire-2 Score 0 04/13/2024 Comments Unknown Sex and Gender Information Value [...] Description 03/23/2025 1:00 PM EDT Office Visit [facility] [address] [place] [address] [employer] documented as of this encounter [...] Assessment Noted Time PHQ-9 Depression Total Score: 6 04/13/20 24 11:39 AM EDT documented as of this encounter Care Teams Rod Mill Operator Relationship Specialty Start Date End Date Jennifer Guy FNP [address] [place] [address] PCP - General Family Medicine 01/03/22 documented as of this encounter
--- OUTSIDE RECORDS SUMMARY | 2024-10-20 15:40 | XMS_ITS | Encounter Summary ---
Author Organization [employer] Address [address] [facility] 7t [place] [address] Care Team Providers Care Data Analytics Analyst Name Role Phone [facility] Primary Care Provider [phone] Encounter Details Date Type Department Care Team ([facility] st Contact Info) Description 10/20/2024 Orders Only GENERIC EXTERNAL DATA DEPARTMENT Provider, Generic External Data Social History Tobacco Use Types Packs/Day Years [...] Description 03/23/2025 1:00 PM EDT Office Visit [facility] ADULT DENTAL [address] [place] [address] Yue Box documented as of this encounter Goals Goal Patient Goal Type Associated Problems Recent Progress Patient-Stated? Author Blood Pressure < 140/90 Blood Pressure 128/74(2024 12:59 PM EST) No Slava Kidd Hemoglobin A1c < 7 Result Component 9.3( 12:35 PM EDT) No Slava Kidd documented as of this encounter Procedures Procedure Name Priority Date/Time Associated Diagnosis Comments US PELVIS COMPLETE Routine 10/20/2024 2: 00 PM EDT TSH W/REFLEX TO FT4 Routine 10/20/2024 1 2:40 PM EDT CBC Routine 10/20/2024 12:40 PM EDT HCG, TOTAL, QN Routine 10/20/2024 12:40 PM EDT documented in this encounter Results * Us Pelvis complete (10/20/2024 2:00 PM EDT) Anatomical Region Laterality Modality Pelvis Ultrasound 10/20/2024 2:00 PM EDT Narrative 10/20/2024 2:50 PM EDT ? [facility] ?[address] ?[place] [address] ? Ultrasound Report ? Signed ? Patient: Regan Marrero,Liliane ?MR#: [id number] ?? [id number] ? : 1980 ?Acct:[id number] ? Age/Sex: 44 / F ?ADM Date: 03/25/25 ? Loc: HO.US ? Attending Dr: Kael Herrera MD ? Ordering Physician: Kael Herrera MD ?? Date of Service: 10/20/24 ?? Procedure(s): US pelvic complete ?? Accession Number(s): [id number] ? cc: Jennifer Guy; Kael Herrera MD ? EXAMINATION: ? US PELVIS ? CLINICAL INFORMATION: ? Abnormal uterus and vaginal bleeding. ? COMPARISON: ?? December 16, 2022 demonstrated multiple uterine fibroids, largest measures ?? 10.9 cm . ? TECHNIQUE: ?? Ultrasound of the pelvis is performed using both transabdominal and ?? transvaginal transducers along with Doppler. Transvaginal imaging is ?? performed due to inadequate visualization transabdominally. ? FINDINGS: ?? Uterus: ?? The uterus is in anteversion flexion and measures 15 x 8 x 15 cm. ? Multiple different sizes different location intramural heterogeneous ?? nodular lesions throughout the parenchyma. ? The double wall endometrial thickness is 16 mm. ? There are 5 identifiable intramural nodular lesions, the largest ?? measures 4.2 cm. ??. ? Adnexa: ?? The left ovary is not identified.. ??The right ovary is present with ?? flow on color Doppler interrogation. No free fluid in the cul-de-sac. ? Right ovary measures 3 x 3 x 3 cm. Volume: 12.1 cc. ? US/US pelvic complete ?? IMPRESSION: ?? Multiple uterine fibroids, largest measures 4.2 cm. ?? Left ovary is not present. ?? Right ovary is normal. ? Electronically signed by: ??Jan Hernandez MD ??10/20/2024 02:47 PM ?? EDT RP ? Dictated By: ?Jan Craven MD ? Signed By: ?<Electronically signed by Jan Alva MD in OV> ? 10/20/24 1447 ? DD/ 1400 ? TD/TT: 10/20/24 1407 ? Contract Accountant: ? Procedure Note Slim, Mckinley - 10/20/[address] [place] [address] Ultrasound Report Signed Patient: Shahla Lamas EMR#: [id number] : 1980Acct:[id number] Age/Sex: 44 / FADM Date: 10/20/24 Loc: .US Attending Dr: Kael Herrera MD Ordering Physician: Kael Herrera MD Date of Service: 10/20/24 Procedure(s): US pelvic complete Accession Number(s): [id number] cc: Jennifer Guy MAIL SORTER AND DELIVERY; Kael Herrera MD EXAMINATION: US PELVIS CLINICAL INFORMATION: Abnormal uterus and vaginal bleeding. COMPARISON: December 16, 2022 demonstrated multiple uterine fibroids, largest measures 10.9 cm . TECHNIQUE: Ultrasound of the pelvis is performed using both transabdominal and transvaginal transducers along with Doppler. Transvaginal imaging is performed due to inadequate visualization transabdominally. FINDINGS: Uterus: The uterus is in anteversion flexion and measures 15 x 8 x 15 cm. Multiple different sizes different location intramural heterogeneous nodular lesions throughout the parenchyma. The double wall endometrial thickness is 16 mm. There are 5 identifiable intramural nodular lesions, the largest measures 4.2 cm. . Adnexa: The left ovary is not identified.. The right ovary is present with flow on color Doppler interrogation. No free fluid in the cul-de-sac. Right ovary measures 3 x 3 x 3 cm. Volume: 12.1 cc. US/US pelvic complete IMPRESSION: Multiple uterine fibroids, largest measures 4.2 cm. Left ovary is not present. Right ovary is normal. Electronically signed by: Jan Hernandez MD 10/20/2024 02:47 PM EDT Dictated By: Jan Craven MD Signed By: <Electronically signed by Jan Alva MDin OV> 10/20/24 1447 DD/ 1400 TD/TT: 10/20/24 1407 Contract Accountant: [facility] External Provider IMG US PROCEDURES Edited Result - Final * hCG, Total, Quantitative (10/20/2024 12:40 PM EDT) HCG Quantitative <2 mIU/mL [facility] Comment:Weeks post LMP Appro ximate hCG(Last Menstrual Period) Range (mIU/ml)3 - 4 weeks 9 - 1304 - 5 weeks 75 - 2,6005 - 6 weeks 850 - 20,8006 - 7 weeks 4000 - 100,2007 - 12 weeks 11,500 - 289,64233 - 16 weeks 18,300 - 137,63268 - 29 weeks (2nd trimester) 1,400 - 53,21037 - 41 weeks (3rd trimester) 940 - 60,000The Cannon B- hCG assay is used for the early detection ofpregnancy; it cannot be used to diagnose any conditionunrelated to . If a B-hCG level is not supportedby the clinical evidence, results should be confirmed by analternative method (qualitative urine hCG, for example). 10/20/2024 12:4 0 PM EDT 10/20/2024 12:49 PM EDT Generic External Data Provider LAB BLOOD ORDERAB LES Final Result Performing Organization Address [facility]/ZIP Co de Phone Number [facility] [address] [place] [phone] * TSH with Reflex to Free T4 (10/20/2024 12:40 PM EDT) Pathologist [facility] TSH reflex Free T4 2.36 0.32 - 4.0 uIU/mL [facility] 10/20/2024 12:4 0 PM EDT 10/20/2024 12:49 PM EDT us Generic External Data Provider LAB BLOOD ORDERAB LES Final Result Performing Organization Address [facility]/ZIP Co de Phone Number [facility] [address] [place] [address] [phone] * (ABNORMAL) CBC (10/20/2024 12:40 PM EDT) Pathologist [facility] White Blood Count 8.6 4.8 - 10.8 X10*3/uL [facility] Red Blood Count 3.84(L) 4.20 - 5.50 X10*6/uL [facility] Hemoglobin 10.9(L) 12.0 - 16.0 g/dl [facility] Hematocrit 33.6(L) 37.0 - 47.0 % [facility] Mean Corpuscular Volume 87.5 80.0 - 98.0 fL [facility] Mean Corpuscular Hemoglobin 28.4 27.0 - 33.0 pg [facility] Mean Corpuscular HGB Conc 32.4 31.0 - 35.0 g/dl [facility] Red Cell Distribution Width 15.6 11.0 - 16.0 % [facility] Platelet Count 228 160 - 400 X10*3/uL [facility] Mean Platelet Volume 11.0 9.4 - 12.3 fL [facility] NRBC Pct Auto 0.0 0.0 - 0.2 /100WBC [facility] NRBC Abs Auto 0.000 0.0 - 0.012 X10*3/uL [facility] 10/20/2024 12:4 0 PM EDT 10/20/2024 12:49 PM EDT us Generic External Data Provider LAB BLOOD ORDERAB LES Final Result [facility] [address] [place] [phone] [phone] documented in this encounter Visit Diagnoses Not on filedocumented in this encounter Additional Health Concerns Assessment Noted Time PHQ-9 Depression Total Score: 6 04/13/20 24 11:39 AM EDT documented as of this encounter Care Teams Data Analytics Analyst Relationship Specialty Start Date End Date Jennifer Guy FNP [address] [place] [phone] PCP - General Family Medicine 01/03/22 documented as of this encounter
--- OUTSIDE RECORDS SUMMARY | 2024-10-20 15:40 | XMS_ITS | Encounter Summary ---
Author Organization [employer] Address [address] [facility] 7t [place] [address] Care Team Providers Care Tongue And Groove Machine Feeder Name Role Phone Brooks Jennifer SUGARCANE RESEARCH TECHNICIAN Primary Care Provider [phone] Encounter Details Date Type Department Care Team ([facility] st Contact Info) Description 10/09/2024 Population Health Risk Score [facility] (C3) Department [address] [phone] Provider, Population Health Generic Social History Tobacco Use Types Packs/Day Years [...] Description 03/23/2025 1:00 PM EDT Office Visit [facility] ADULT DENTAL [address] [place] [address] Yue Box documented as of this encounter [...] documented as of this encounter Care Teams Tongue And Groove Machine Feeder Relationship Specialty Start Date End Date Jennifer Guy FNP [address] [place] [address] PCP - General Family Medicine 01/03/22 documented as of this encounter
--- OUTSIDE RECORDS SUMMARY | 2024-10-20 15:40 | XMS_ITS | Encounter Summary ---
Author Organization [employer] Address [address] [facility] 7t [place] [address] Care Team Providers Care Ux Developer Name Role Phone [facility] Primary Care Provider [phone] Reason for Visit * Reason Comments Med Refill Encounter Details Date Type Department Care Team ([facility] st Contact Info) Description 10/05/2024 Refill [facility] MEDICINE [address] [place], [place] [phone] [facility] [address] [place] [address] Type 2 diabetes mellitus with hyperglycemia, unspecified whether residential insulin use ([facility]) Social History Tobacco Use Types Packs/Day Years [...] Description 03/23/2025 1:00 PM EDT Office Visit [facility] ADULT DENTAL [address] [place] [address] Yue Box documented as of this encounter Goals Goal Patient Goal Type Associated Problems Recent Progress Patient-Stated? Author Blood Pressure < 140/90 Blood Pressure 128/74(2024 12:59 PM EST) No Slava Kidd Hemoglobin A1c < 7 Result Component 9.3( 12:35 PM EDT) No Slava Kidd documented as of this encounter Visit Diagnoses Diagnosis Type 2 diabetes mellitus with hyperglycemia, unspecified whether terminal gauger insulin use ([facility]) documented in this encounter Additional Health Concerns Assessment Noted Time PHQ-9 Depression Total Score: 6 04/13/20 24 11:39 AM EDT documented as of this encounter Care Teams Ux Developer Relationship Specialty Start Date End Date Jennifer Guy FNP [address] [place] [address] PCP - General Family Medicine 01/03/22 documented as of this encounter
--- OUTSIDE RECORDS SUMMARY | 2024-10-20 15:40 | XMS_ITS | Encounter Summary ---
Author Organization [employer] Address [address] [facility] [address] 7[address] [place] [address] Care Team Providers Care Hotel Administrative Assistant Name Role Phone Brooks [facility] Primary Care Provider [phone] Encounter Details Date Type Department Care Team (Latest Contact Info) Description 10/06/2024 Travel Social History Tobacco Use Types Packs/Day Years [...] Description 03/23/2025 1:00 PM EDT Office Visit [facility] ADULT DENTAL [address] [place] [address] Yue Box documented as of this encounter [...] documented as of this encounter Care Teams Hotel Administrative Assistant Relationship Specialty Start Date End Date Jennifer Guy FNP [address] [place] [address] PCP - General Family Medicine 01/03/22 documented as of this encounter
--- OUTSIDE RECORDS SUMMARY | 2024-10-20 15:40 | XMS_ITS | Encounter Summary ---
Author Organization [employer] Address [address] [place] [address] 7t [place] [address] Care Team Providers Care Planning And Analysis Manager Name Role Phone Brooks [facility] Primary Care Provider [phone] Reason for Referral * Consultation (Routine) - Closed Specialty Diagnoses / Procedures Referred By Contjossie t Referred To Contact Ophthalmology Diagnoses 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 (CMS/HCC) Silva Telles, OD [address] [place] [address] Phone: tel: fax: Stalin Walters MD [address] [place] [address] Phone: tel: Referral ID Status Reason Start Date Expiration Date V isits Requested Visits Authorized [id number] Closed Specialty Services Required 10/07/2024 10/07/2025 1 1 Encounter Details Date Type Department Care Team (Latest Contact Info) Description 10/06/2024 1:45 PM EDT Office Visit [facility] OPTOMETRY [address] [place] [address] Silva Telles, OD [address] [place] [address] 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 (CMS/HCC) (Primary Dx); Moderate nonproliferative diabetic retinopathy of right eye without macular edema associated with type 2 diabetes mellitus (CMS/HCC); Presbyopia Social History Tobacco Use Types Packs/Day Years [...] AM EDT documented as of this encounter Progress Notes * Silva Telles, OD - 10/06/2024 1:45 PM EDT Eye Care Progress Note Patient ID: Shahla Marrero is a 44 y.o. female. HPI Patient presents for 1 month follow up and refraction. Patient reports that vision has not changed since last, says vision continues to be worse left eye (OS) Last edited by Silva Telles, OD on 10/07/2024 12:07 PM. Current Outpatient Medications Medication Sig Dispense Refill Alcohol Swabs (Alcohol Prep) 70 % pads USE DIRECTED THREE TIMES DAILY 100 each 5 ammonium lactate (Lac-Hydrin) 12 % lotion APPLY TOPICALLY TO THE AFFECTED AREA(S) OF THE FEET EVERYDAY, AT NIGHT WEAR SOCKS TO BED Ascorbic Acid (vitamin C) 250 MG tablet TAKE 1 TABLET BY MOUTH TWICE DAILY IN THE MORNING AND IN THE EVENING 180 tablet 3 atorvastatin (Lipitor) 20 MG tablet Take 1 tablet (20 mg) by mouth at bedtime. 90 tablet 3 Blood Glucose Monitoring Suppl ([employer] Mcrae Helena Lite) w/Device kit Test 1 times by intradermal route 3 times every day Blood Pressure kit Use as directed 1 kit 0 Bydureon BCise 2 MG/0.85ML pen INJECT 1 PEN (2 MG) SUBCUTANEOUSLY EVERY WEEK 3.4 mL 2 Continuous Blood Gluc Manager Policy (TraxoStyle Shaheen 2 Fordyce) device Scan sensor every 8 hours 1 each 0 Continuous Glucose Sensor (FreeStyle Shaheen 2 Sensor) misc USE DIRECTED TO TEST BLOOD SUGAR CHANGE EVERY 14 DAYS 2 each 1 Drospirenone (Slynd) 4 MG tablet Take by mouth. Take 1 tablet by mouth daily empagliflozin (Jardiance) 25 MG Take 1 tablet (25 mg) by mouth in the morning. 30 tablet 11 Ferrous Sulfate (iron) 325 (65 Fe) MG tablet TAKE 1 TABLET BY MOUTH TWICE DAILY IN THE MORNING AND IN THE EVENING 180 tablet 2 gabapentin (Neurontin) 300 MG capsule Take 2 capsules (600 mg) by mouth at bedtime. OK to increase to three times daily if needed for symptom relief 60 capsule 11 insulin glargine (Lantus SoloStar) 100 UNIT/ML pen INJECT 30 UNITS SUBCUTANEOUSLY AT BEDTIME DIRECTED 15 mL 3 Lancets Super Thin 28G misc Inject 1 by into machine route 3 times every dayInject 1 by into machine route 3 times every day 100 each 11 olmesartan (BENIcar) 5 MG tablet TAKE 1 TABLET BY MOUTH EVERY MORNING. MAY INCREASE TO 2 TABLETS INTHE MORNING DIRECTED 60 tablet 11 Pentips 32G X 4 MM misc Use to inject insulin every night 100 each 3 No current facility-administered medications for this visit. Past Medical History: Diagnosis Date Anemia Anxiety 12/03/2022 Conversion disorder with attacks or seizures 09/24/2023 Hopsitaliztion at [facility] 09/20/22 for evaluation of acute left sided facial numbness/weakness. Per visit note extensive stroke eval negative. Brain MRI, head CT, CXR all WNL. Labs notable for persistent MADYSON consistent with patient's baseline of hgb 7-8 but were otherwise unremarkable. Neurology consulted and sx thought to be conversion reaction. Sx now fully resolved. Pt discharged with referral t Diabetes mellitus ([facility]) Diabetic peripheral neuropathy associated with type 2 diabetes mellitus ([facility]) 11/14/2023 Disease of thyroid gland Essential hypertension 11/14/2023 Goiter 07/06/2015 Hyperlipidemia 06/20/2022 Type 2 diabetes mellitus ([facility]) 06/20/2022 Jardiance 25mg Lantus 40 units q. Evening - Did not tolerate metformin (s/e) Maintenance Foot Exam:08/2023-->total loss of protective sensation; referral to podiatry Eye Exam: Followed by [facility] eyecare ASCVD:7.7%, atorvastatin started Statin: Yes ASA: No CHADD/ARB: No Encouraged regular aerobic exercise for improved glycemic control Encouraged daily foot checks Encouraged No past surgical history on file. Family History Problem Relation Name Age of Onset Diabetes Mother's Brother Diabetes Maternal Grandmother Tobacco Use: Low Risk (09/11/2024) Tobacco Smoking Tobacco Use: Never Smokeless Tobacco Use: Never Passive Exposure: Not on file Allergies Allergen Reactions Aspirin Hives and Unknown ROS Positive for: Endocrine, Eyes Negative for: Constitutional, Gastrointestinal, Neurological, Skin, Genitourinary, Musculoskeletal,HENT, Cardiovascular, Respiratory, Psychiatric, Allergic/Imm, Heme/Lymph Last edited by Silva Telles, YAMEL on 10/07/2024 12:07 PM. Base Eye Exam Visual Acuity (Snellen - Linear) Right Left Dist cc 20/60 20/80 Tonometry (iCare , 2:10 PM) Right Left Pressure 19 19 Pupils Pupils APD Right PERRL None Left PERRL None Visual Martinez Left Right Full Full Extraocular Movement Right Left Full Full Neuro/Psych Oriented x3: Yes Dilation Both eyes: 1.0% tropicamide @ 2:12 PM Slit Lamp and Fundus Exam External Exam Right Left External Normal Normal Slit Lamp Exam Right Left Lids/Lashes Clean and clear Stenosis of lower punctum Conjunctiva/Sclera White and quiet White and quiet Cornea Clear Clear Anterior Chamber Deep and quiet, angles open gr 4 Deep and quiet, (-) cells/flare, angles open gr 4 Iris Flat, round Flat, round Lens Clear Clear Photophobic left eye (OS) only Fundus Exam Right Left Vitreous Clear Clear Disc Cunningham and healthy, (-) NVD Cunningham and healthy, (-) NVD C/D Ratio Vertical 0.25 0.25 C/D Ratio Horizontal 0.25 0.25 Macula Exudates throughout macula, clouster of exudates concentrated temporal to macula, (-) CME Flat, irregular pigmentation, (+) PEDs, (-) CME Vessels AV 2/3, normal course and caliber, (-) NVE AV 2/3, normal course and caliber, (-) NVE Periphery Scattered HMAs though posterior pole, no holes/tears/detachments 360 Scattered HMAs through posterior pole, exudates inferior temporal arcade, no holes/tears/detachments 360 Refraction Manifest Refraction (Subjective) Sphere Cylinder Maribel Dist VA Add Right +0.50 -1.50 080 20/20 +1.75 Left +0.00 -1.75 065 20/40+1 +1.75 Final Rx Sphere Cylinder Maribel Add Right +0.00 -1.50 080 +1.75 Left +0.00 -1.75 065 +1.75 Expiration Date: 10/06/2025 Assessment and Plan Diagnoses and all orders for this visit: 1. 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 ([facility]/HCC) - Discussed importance of tight blood glucose control, medication compliance and regular follow up with PCP - OCT analysis shows a chronic subfoveal PED left eye (OS) x 2 years with progressive parafoveal nasal thinning. A second subfoveal PED was appreciated at last visit on 09/09/24 with reduction in BCVAfrom 20/25 last year to 20/40 this year - Referral placed to Dr. Walters at [facility] for evaluation for treatment 2. Moderate nonproliferative diabetic retinopathy of right eye without macular edema associated with type 2 diabetes mellitus ([facility]/HCC) See #1 3. Presbyopia - Dispensed updated spec Rx Silva Telles, OD 10/07/2024, 12:11 PM Survey Interviewer Source: __ None __ Bilingual Staff __ Qualified Staff Group Supervisor Yard __ Telephone Survey Interviewer; ID# __ Survey Interviewer brought by patient (family member, friend, PROPELLER MECHANIC, etc) __ In person parent aide __ Ipad Survey Interviewer; ID#: Language Spoken During Exam: documented in this encounter Plan of Treatment Upcoming Encounters Date Type Department Care Team (Late st Contact Info) Description 03/23/2025 1:00 PM EDT Office Visit [facility] ADULT DENTAL [address] [place] [address] Yue Box Scheduled Referrals Name Type Priority Associated Diagnoses Orde r Schedule Referral to Ophthalmology Outpatient Referral Routine 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 (CMS/HCC) Expected: 10/07/2024 (Approximate), Expires: 10/07/2025 documented as of this encounter Goals Goal Patient Goal Type Associated Problems Recent Progress Patient-Stated? Author Blood Pressure < 140/90 Blood Pressure 128/74(2024 12:59 PM EST) No Slava Kidd Hemoglobin A1c < 7 Result Component 9.3( 12:35 PM EDT) No Slava Kidd documented as of this encounter Visit Diagnoses Diagnosis 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 (CMS/HCC)- Primary Moderate nonproliferative diabetic retinopathy of right eye without macular edema associated with type 2 diabetes mellitus (CMS/HCC) Presbyopia documented in this encounter Additional Health Concerns Assessment Noted Time PHQ-9 Depression Total Score: 6 04/13/20 24 11:39 AM EDT documented as of this encounter Care Teams Planning And Analysis Manager Relationship Specialty Start Date End Date Jennifer Guy FNP [address] [place] [address] PCP - General Family Medicine 01/03/22 documented as of this encounter
--- OUTSIDE RECORDS SUMMARY | 2024-10-20 15:40 | XMS_ITS | Clinical Summary ---
Author Organization [employer] Address [address] [place] [address] Care Team Providers Care Cleaning Matron Name Role Phone [facility] Primary Care Provider Allergies Active Allergy Reactions Criticality Noted Date Comments Aspirin Hives,Unknown Medium 06/20/2022 Medications Blood Glucose Monitoring Suppl (TransBioTecyle Buhl Lite) w/Device kit Test 1 times by intradermal route 3 times every day Active Continuous Blood Gluc Watermaster (WOO SportsStyle Shaheen 2 [place]) deviceIndicatio ns:Type 2 diabetes mellitus with hyperglycemia, unspecified whether senior living insulin use ([facility]) Scan sensor every 8 hours 1 each 024 Active empagliflozin (Jardiance) 25 MGIndications:T ype 2 diabetes mellitus with hyperglycemia, unspecified whether senior living insulin use ([facility]) Take 1 tablet (25 mg) by mouth in the morning. 30 tablet Active Pentips 32G X 4 MM misc Use to inject insulin every night 100 each 024 Active Lancets Super Thin 28G miscIndications :Type 2 diabetes mellitus with hyperglycemia, unspecified whether senior living insulin use ([facility]) Inject 1 by into machine route 3 times every dayInject 1 by into machine route 3 times every day 100 each Active atorvastatin (Lipitor) 20 MG tablet Take 1 tablet (20 mg) by mouth at bedtime. 90 tablet Active Ascorbic Acid (vitamin C) 250 MG tablet TAKE 1 TABLET BY MOUTH TWICE DAILY IN THE MORNING AND IN THE EVENING 180 tablet Active Blood Pressure kitIndications: Essential hypertension Use as directed 1 kit 024 Active ammonium lactate (Lac-Hydrin) 12 % lotion APPLY TOPICALLY TO THE AFFECTED AREA(S) OF THE FEET EVERY DAY, AT NIGHT WEAR SOCKS TO BED 024 Active gabapentin (Neurontin) 300 MG capsuleIndicati ons:Type 2 diabetes mellitus with diabetic polyneuropathy, with long-term current use of insulin (CMS/HCC) Take 2 capsules (600 mg) by mouth at bedtime. OK to increase to three times daily if needed for symptom relief 60 capsule 11 024 2024 Active insulin glargine (Lantus SoloStar) 100 UNIT/ML penIndications: Type 2 diabetes mellitus with hyperglycemia, unspecified whether mail courier insulin use (CMS/HCC) INJECT 30 UNITS SUBCUTANEOUSLY AT BEDTIME DIRECTED 15 mL 3 024 Active Drospirenone (Slynd) 4 MG tablet Take by mouth. Take 1 tablet by mouth daily Active Continuous Glucose Sensor (FreeStyle Shaheen 2 Sensor) miscIndications :Type 2 diabetes mellitus with diabetic polyneuropathy, with long-term current use of insulin (CMS/HCC) USE DIRECTED TO TEST BLOOD SUGAR CHANGE EVERY 14 DAYS 2 each 1 025 Active Ferrous Sulfate (iron) 325 (65 Fe) MG tablet TAKE 1 TABLET BY MOUTH TWICE DAILY IN THE MORNING AND IN THE EVENING 180 tablet 2 025 Active olmesartan (BENIcar) 5 MG tabletIndicatio ns:Essential hypertension TAKE 1 TABLET BY MOUTH EVERY MORNING. MAY INCREASE TO 2 TABLETS IN THE MORNING DIRECTED 60 tablet 11 025 Active Bydureon BCise 2 MG/0.85ML penIndications: Type 2 diabetes mellitus with diabetic polyneuropathy, with long-term current use of insulin ([facility]) INJECT 1 PEN (2 MG) SUBCUTANEOUSLY EVERY WEEK 3.4 mL 2 025 Active Alcohol Swabs (Alcohol Prep) 70 % padsIndications :Type 2 diabetes mellitus with hyperglycemia, unspecified whether senior living insulin use (CMS/HCC) USE DIRECTED THREE TIMES DAILY 100 each 5 025 Active Alcohol Swabs (Alcohol Prep) 70 % padsIndications :Type 2 diabetes mellitus with hyperglycemia, unspecified whether mail courier insulin use (CMS/HCC) USE THREE TIMES DAILY 100 each 3 024 2024 Discontinued Active Problems Problem Noted Date Diagnosed Date Anemia 04/17/2024 Fibroid uterus 04/17/2024 Essential hypertension 11/14/2023 Diabetic peripheral neuropat hy associated with type 2 diabetes mellitus 11/14/2023 Conversion disorder with attacks or seizures Overview (09/24/2023): Hopsitaliztion at [facility] 09/20/22 for evaluation of acute left sided facial numbness/weakness. Per visit note extensive stroke eval negative. Brain MRI, head CT, CXR all WNL. Labs notable for persistent MADYSON consistent with patient's baseline of hgb 7-8 but were otherwise unremarkable. Neurology consulted and sx thought to be conversion reaction. Sx now fully resolved. Pt discharged with referral to outpatient neurology. Anxiety 12/03/2022 Skin ulcer due to diabetes mellitus 12/03/2022 Iron deficiency anemia due to chronic blood loss 10/29/2022 Overview (10/11/2023): S/t heavy menses and uterine fibroids; requiring multiple transfusion Followed by [facility] ELECTROENCEPHALOGRAPHIC TECHNICIAN-->plan for total hysterectomy once BS stabilized Baseline Hgb around 8 Referred to heme/onc for IV iron Assessment & Plan (09/24/2023 9:50 PM EST): Repeat labs-->consider referral to heme/onc for IV iron if persistent anemia Follow up as scheduled for hysterectomy Healthcare maintenance 10/29/2022 Overview (10/29/2022): Pap: Pt to be scheduled w/ PCP no hx of abnormal result Mammogram: Ordered 12/2021 BMD: Routine age 65 CRC: Routine age 45 Immunizations: Needs COVID #3, flu administered today Vision: Referred to [facility] eye care Dental: Discuss at f/u STi screening: Neg GC/CT/RPR 11/2021 HIV: Neg 11/2021 Hepatitis: Neg 11/2021 Hyperlipidemia 06/20/2022 Type 2 diabetes mellitus 06/20/2022 Overview (04/13/2024): Jardiance 25mg Lantus 40 units q. Evening - Did not tolerate metformin (s/e) Maintenance Foot Exam: 08/2023-->total loss of protective sensation; referral to podiatry Eye Exam: Followed by [facility] eye care ASCVD:7.7%, atorvastatin started Statin: Yes ASA: No CHADD/ARB: No Encouraged regular aerobic exercise for improved glycemic control Encouraged daily foot checks Encouraged lean protein snacks and to avoid foods high in sugar and simple carbohydrates Treatment Goals: A1c goal: <7% FBG goal: <130 2 hour post prandial goal: <180 Assessment & Plan (09/24/2023 9:46 PM EST): Lab Results Component Value Date HGBA1C 9.0 (H) 08/19/2023 START trulicity 0.75mg Reviewed administration, risks, side effects Update labs RN visit for CGM report Foot exam with total loss of protective sensation--> referral to podiatry for ongoing foot care Assessment & Plan (11/04/2022 12:25 PM EDT): Lab Results Component Value Date HGBA1C 9.1 (A) 10/25/2022 ?? INCREASE jardiance to 25mg daily. Counseled patient that if yeast infection reoccurs may need to switch to GLP-1 or increase lantus History of thyroid nodule 06/20/2022 Overview (11/14/2023): - Has upcoming appointment in April for thyroid ultrasound - Per PM from [place] of nodule biopsy 2017. Biopsy results not in chart - Updated ultrasound 08/2023 Solitary subcentimeter nodule lower pole left lobe, nonsuspicious. Right thyroid lobe has been surgically removed. Goiter 07/06/2015 Assessment & Plan (09/24/2023 9:48 PM EST): Order updated ultrasound and thyroid labs Follow up pending results ED precautions reviewed Resolved Problems Problem Noted Date Diagnosed Date Resolved Date Uncontrolled type 2 diabetes mellitus with hyperglycemia 06/20/2022 11/04/2022 Encounters Date Type Department Care Team Description 10/20/2024 Orders Only GENERIC EXTERNAL DATA DEPARTMENT Provider, Generic External Data 10/09/2024 Telephone [facility] [address] [place] [address] Silva Telles, OD 10/09/2024 Population Health Risk Score [facility] () [address] [phone] Provider, Population Health Generic 10/06/2024 1:45 PM EDT Office Visit [facility] [address] [facility] [address] Silva Telles, OD 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 (CMS/HCC) (Primary Dx); Moderate nonproliferative diabetic retinopathy of right eye without macular edema associated with type 2 diabetes mellitus (CMS/HCC); Presbyopia 10/06/2024 Travel 10/05/2024 Refill [facility] [address] [place] [address] Jennifer Guy FNP Type 2 diabetes mellitus with hyperglycemia, unspecified whether senior living insulin use ([facility]) 09/09/2024 2:45 PM EST Office Visit [facility] [address] [place] [address] Silva Telles, OD Mild nonproliferative diabetic retinopathy of both eyes without macular edema associated with type 2 diabetes mellitus ([facility]) (Primary Dx); Punctal stenosis, acquired, left; Regular astigmatism, bilateral 09/09/2024 Travel 09/09/2024 Refill [facility] [address] [place] [address] Jennifer Guy FNP Type 2 diabetes mellitus with diabetic polyneuropathy, with long-term current use of insulin ([facility]) 09/08/2024 1:00 PM EST Office Visit [facility] ADULT DENT[facility] [address] [place] [address] [employer] Dental calculus (Primary Dx); Dental plaque; Encounter for dental examination 09/08/2024 Refill [facility] [address] [place] [address] Jennifer Guy FNP Essential hypertension 08/26/2024 Refill [facility] [address] [place] [address] Jennifer Guy FNP 08/25/2024 Refill [facility] [address] [place] [address] [facility] Jennifer, [facility] Type 2 diabetes mellitus with diabetic polyneuropathy, with long-term current use of insulin ([facility]) from Last 3 Months Immunizations Name Administration Dates Next Due Hep B, Unspecified 10/17/2020,04/13/2016 Hep B, adult 07/14/2015 Influenza injectable quadriv alent preservative free 04/24/2022,07/12/2021,05/12/2021 Pfizer Covid-19 Vaccine 12+ 02/03/2021, Pfizer Covid-19 Vaccine 12+ truman-sucrose (Henry Cap) 02/03/2021,01/13/2021 Pneumococcal Conjugate PCV 20 08/19/2023 Pneumococcal Polysaccharide PPSV23 07/14/2015 Tdap 07/06/2015 Family History Medical History Relation Name Comments Diabetes Maternal Grandmother Diabetes Mother's Brother Relation Name Status Comments Maternal Grandmother Mother's Brother Social History Tobacco Use Types Packs/Day Years Used Date Smoking Tobacco: Never Smokeless Tobacco: Never Tobacco Cessation:Counseling Given: Not Answered Alcohol Use Standard Drinks/Week Comments Never 0 [...] Orientation Straight 05/28/2022 10 :40 AM EDT Last Filed Vital Signs Vital Sign Reading Time Taken Comments Blood Pressure 128/74 09/08/2024 12:59 PM EST Pulse 94 04/21/2024 1:47 PM EDT Temperature 36.6 ??C (97.8 ??F) 04/13/2024 11:28 AM E DT Respiratory Rate 20 04/21/2024 1:47 PM EDT Oxygen Saturation 96% 04/21/2024 1:47 PM EDT Inhaled Oxygen Concentration - - Weight 86.2 kg (190 lb) 04/13/2024 11:28 AM EDT Height 162.6 cm (5' 4 ) 04/13/2024 11:28 AM EDT Body Mass Index 32.61 04/13/2024 11:28 AM EDT Plan of Treatment Upcoming Encounters Date Type Department Care Team (Late st Contact Info) Description 03/23/2025 1:00 PM EDT Office Visit [facility] [address] [place] [address] [employer] Health Maintenance Due Date Last Done Comments Alcohol/Substance Use Screening 1992 Family Planning (PISQ) 1995 COVID-19 Vaccine ( season) 2024 02/03/2021, 02/03/2021, 01/13/2021, Additional history exists Influenza Vaccine (#1) 2024 , 07/12/2021, 05/12/2021 Diabetes: Hemoglobin A1C 07/13/2024 024, 04/13/2024, 11/13/2023, Additional history exists Diabetes: Foot Exam 09/13/2024 09/13/2023, 09/13/2023, 09/13/2023, Additional history exists Diabetes: Urine Protein Screening 09/13/2024 09/13/2023, 03/09/2022 Lipid Panel 09/13/2024 09/13/2023, 02/26, 12/08/2021 SDOH Screening 10/10/2024 10/11/2023 Mammogram 02/06/2025 02/07/2024 Dental Oral Exam 03/09/2025 09/08/2024, 04/01/2024 Dental Prophylaxis 03/09/2025 09/08/2024, 04/02/2024 Dental X-Ray: Bitewings 04/02/2025 04/01/2024 Depression Screening 04/13/2025 04/13/2024, 04/13/20 24 DTaP/Tdap/Td Vaccines (2 - Td or Tdap) 07/06/2025 07/06/2015 Tobacco Screening 09/11/2025 09/11/2024 Eye Exam 10/06/2025 10/06/2024, 09/26, 10/06/2024, Additional history exists Pap Smear 01/03/2026 01/03/2023, 05/30, 06/20/2022 Dental X-Ray: Full Mouth 04/02/2027 04/01/2024 Cervical Cancer Screening 01/04/2028 HPV/Cotest 01/04/2028 01/03/2023, 06/20/2022 Zoster Vaccines (1 of 2) 2030 RSV Patients and Patients Aged 60 years or older (1 - 1-dose 75+ series) 2055 Hepatitis B Vaccines Completed 10/17/2020, 04/13/2016, 07/14/2015 HIV Screening Completed 12/08/2021 Hepatitis C Screening Completed 12/08/2021 Pneumococcal Vaccine: Pediatrics (0 to 5 Years) and At-Risk Patients (6 to 49) Years) Completed 08/19/2023, 07/14/2015 HIB Vaccines Aged Out No longer eligi ble based on patient's age to complete this topic HPV Vaccines Aged Out No longer eligi ble based on patient's age to complete this topic Hepatitis A Vaccines Aged Out No long er eligible based on patient's age to complete this topic IPV Vaccines Aged Out No longer eligi ble based on patient's age to complete this topic Meningococcal Vaccine Aged Out No selma jeremy eligible based on patient's age to complete this topic RSV under 20 months Aged Out No longe r eligible based on patient's age to complete this topic Rotavirus Vaccines Aged Out No longer eligible based on patient's age to complete this topic Goals Goal Patient Goal Type Associated Problems Recent Progress Patient-Stated? Author Blood Pressure < 140/90 Blood Pressure 128/74(2024 12:59 PM EST) No Slava Kidd Hemoglobin A1c < 7 Result Component 9.3( 12:35 PM EDT) No Slava Kidd Procedures Procedure Name Priority Date/Time Associated Diagnosis Comments US PELVIS COMPLETE Routine 10/20/2024 2: 00 PM EDT HCG, TOTAL, QN Routine 10/20/2024 12:40 PM EDT TSH W/REFLEX TO FT4 Routine 10/20/2024 1 2:40 PM EDT CBC Routine 10/20/2024 12:40 PM EDT OCT, RETINA - OU - BOTH EYES Routine 09/09/2024 2:45 PM EST Mild nonproliferative diabetic retinopathy of both eyes without macular edema associated with type 2 diabetes mellitus ([facility]) COMPREHENSIVE PERIODONTAL EVALUATION - NEW OR ESTABLISHED PATIENT Routine 09/08/2024 1:00 PM EST Dental calculus Dental plaque Encounter for dental examination PERIODIC ORAL EVALUATION - ESTABLISHED PATIENT Routine 09/08/2024 1:00 PM EST Dental calculus Dental plaque Encounter for dental examination ORAL HYGIENE INSTRUCTIONS Routine 09/08/2024 1:00 PM EST Dental calculus Dental plaque CASE PRESENTATION, DETAILED AND EXTENSIVE TREATMENT PLANNING Routine 09/08/2024 1:00 PM EST PROPHYLAXIS - ADULT Routine 09/08/2024 1 :00 PM EST Dental calculus Dental plaque AMB REFERRAL TO OPHTHALMOLOGY Routine 09/04/2024 Punctal stenosis, acquired, left POCT GLYCATED HEMOGLOBIN, TOTAL Routine 04/13/2024 11:45 AM EDT Type 2 diabetes mellitus with diabetic polyneuropathy, with long-term current use of insulin ([facility]) INTRAORAL - COMPLETE SERIES OF RADIOGRAPHIC IMAGES Routine 04/01/2024 10:30 AM EDT Encounter for dental examination Dental caries Teeth missing BI MAMMOGRAM SCREENING TOMOSYNTHESIS BILATERAL Routine 02/07/2024 11:40 AM EDT ALBUMIN, RANDOM URINE W/CREATININE Routine 09/13/2023 12:50 PM EST Type 2 diabetes mellitus with hyperglycemia, with long-term current use of insulin ([facility]) LIPID PANEL, STANDARD Routine 09/13/2023 12:46 PM EST Type 2 diabetes mellitus with hyperglycemia, with long-term current use of insulin ([facility]) HPV MRNA E6/E7 REFLEX TO HPV 16, 18/45 Routine 01/03/2023 10:46 AM EDT PAP SMEAR Routine 01/03/2023 10:46 AM EDT ZZZ HISTORICAL HEPATITIS C AB W/REFL TO HCV RNA, QN, PCR Routine 12/08/2021 8:18 AM EDT HIV 1/2 ANTIGEN/ANTIBODY, FOURTH GENERATION W/RFL Routine 12/08/2021 8:18 AM EDT from Last 3 Months or Most Recently Relevant to Health Maintenance Results * Us Pelvis complete (10/20/2024 2:00 PM EDT) Anatomical Region Laterality Modality Pelvis Ultrasound 10/20/2024 2:00 PM EDT Narrative 10/20/2024 2:50 PM EDT ? [facility] ?[address] ?[place] [address] ? Ultrasound Report ? Signed ? Patient: Regan Marrero,Liliane ?MR#: [id number] ?? [id number] ? : 1980 ?Acct:[id number] ? Age/Sex: 44 / F ?ADM Date: 03/25/25 ? Loc: HO.US ? Attending Dr: Kael Herrera MD ? Ordering Physician: Kael Herrera MD ?? Date of Service: 10/20/24 ?? Procedure(s): US pelvic complete ?? Accession Number(s): [id number] ? cc: Jennifer Guy F[employer]RICATION WELDER; Kael Herrera MD ? EXAMINATION: ? US [...] DD/ 1400 ? TD/TT: 10/20/24 1407 ? Body Corporate Manager: ? Procedure Note Mckinley Smalls - 10/20/[address] [address] Ultrasound Report Signed Patient: Shahla Lamas EMR#: [id number] : 1980Acct:[id number] Age/Sex: 44 / FADM Date: 10/20/24 Loc: HO.US Attending Dr: Kael Herrera MD Ordering Physician: Kael Herrera MD Date of Service: 10/20/24 Procedure(s): US pelvic complete Accession Number(s): [id number] cc: [facility]; Kael Herrera MD EXAMINATION: US PELVIS CLINICAL [...] 10/20/24 1447 DD/ 1400 TD/TT: 10/20/24 1407 Body Corporate Manager: [facility] External Provider IMG US PROCEDURES Edited Result - Final * TSH with Reflex to Free T4 (10/20/2024 12:40 PM EDT) TSH reflex Free T4 2.36 0.32 - 4.0 uIU/mL [facility] 10/20/2024 12:4 0 PM EDT 10/20/2024 12:49 PM EDT us Generic External Data Provider LAB BLOOD ORDERAB LES Final Result Performing Organization Address City/[facility]/ZIP Co de Phone Number [facility] [address] [place] [phone] * (ABNORMAL) CBC (10/20/2024 12:40 PM EDT) White Blood Count 8.6 4.8 - 10.8 X10*3/uL [facility] Red Blood Count 3.84(L) 4.20 - 5.50 X10*6/uL [facility] Hemoglobin 10.9(L) 12.0 - 16.0 g/dl [facility] Hematocrit 33.6(L) 37.0 - 47.0 % [facility] Mean Corpuscular Volume 87.5 80.0 - 98.0 fL [facility] Mean Corpuscular Hemoglobin 28.4 27.0 - 33.0 pg [facility] Mean Corpuscular HGB Conc 32.4 31.0 - 35.0 g/dl [facility] Red Cell Distribution Width 15.6 11.0 - 16.0 % [facility] Platelet Count 228 160 - 400 X10*3/uL [facility] Mean Platelet Volume 11.0 9.4 - 12.3 fL [facility] NRBC Pct Auto 0.0 0.0 - 0.2 /100WBC [facility] NRBC Abs Auto 0.000 0.0 - 0.012 X10*3/uL [facility] 10/20/2024 12:4 0 PM EDT 10/20/2024 12:49 PM EDT us Generic External Data Provider LAB BLOOD ORDERAB LES Final Result Performing Organization Address City[facility]/ZIP Co de Phone Number [facility] [address] [place] [address] [phone] * hCG, Total, Quantitative (10/20/2024 12:40 PM EDT) HCG Quantitative <2 mIU/mL [facility] Comment:Weeks post LMP Appro ximate hCG(Last Menstrual Period) Range (mIU/ml)3 - 4 weeks 9 - 1304 - 5 weeks 75 - 2,6005 - 6 weeks 850 - 20,8006 - 7 weeks 4000 - 100,2007 - 12 weeks 11,500 - 289,05073 - 16 weeks 18,300 - 137,95274 - 29 weeks (2nd trimester) 1,400 - 53,68973 - 41 weeks (3rd trimester) 940 - [...] Provider LAB BLOOD ORDERAB LES Final Result [facility] [address] [place] [address] [phone] * OCT, Retina - OU - Both Eyes (09/09/2024 2:45 PM EST) Narrative Silva Telles, OD - 09/11/2024 4:08 PM EST OCT [facility] [employer] Optical Coherence Tomography Interpretation Report Reliability: OD: SS 60, good quality image OS: SS 58, good quality image Measurements: Central subfoveal thickness OD: ??207 microns OS: ??199 microns Test findings: OD: Scattered exudates throughout macula, small cystic pockets superior perifovea. Normal foveal contour. Stable to previous. OS: Progressive nasal parafoveal thinning and inner retinal loss since 2021 scans. 2 subfoveal PEDs - persistent since 2021, scattered exudates with small cystic pocket superior. Impression and Plan: Monitor in 1 month. Refer to retina if no improvement noted. Silva Telles OD OPHTH TOMOGRAPHY Final Result * Referral to Ophthalmology (09/04/2024) Silva Telles OD OUTPATIENT REFERRAL ORDERABLES Final Result * (ABNORMAL) POCT HGB A1C (04/13/2024 11:45 AM EDT) Hemoglobin A1C 9.4(A) 4.0 - 6.0 % QC Media Lot # [id number] Lot# Expiration Date [id number] Blood 04/13/2024 11:4 5 AM EDT [facility] FABRICATION WELDER POINT OF CARE TEST ENTER/EDIT ORDERABLES Final Result * BI Mammogram Screening Tomosynthesis Bilateral (02/07/2024 11:40 AM EDT) Anatomical Region Laterality Modality Breast Bilateral Mammography 02/07/2024 11:4 0 AM EDT Narrative 03/03/2024 10:02 PM EDT ? [facility] [place] ? [address] ?[place] [address] ? Mammography Report ? Signed ? Patient: Shahla Lamas ?MR#: [id number] ?? [id number] ? : 1980 ?Acct:[id number] ? Age/Sex: 43 / F ?ADM Date: 07/12/24 ? Loc: HO.MAMMO ? Attending Dr: Kael Herrera MD ? Ordering Physician: Kael Herrera MD ?Results: 1Negativ ?? e ? Date of Service: 02/07/24 ?Follow Up: 1 Year From Orig ?? inal Mammogram ? Procedure(s): MM tomosynthesis screening BI ?? Accession Number(s): [id number] ? cc: Jennifer Guy FABRICATION WELDER; Kael Herrera MD ? EXAMINATION: ?? MM SCREENING DIGITAL BREAST TOMOSYNTHESIS, BILATERAL ? CLINICAL INFORMATION: ? Screening. Asymptomatic. ? COMPARISON: ?? Mammography: This study is compared with prior exams dating back to ?? 2022. ? TECHNIQUE: ?? Digital breast tomosynthesis is performed in both the craniocaudal and ?? mediolateral oblique views along with computer-aided detection (CAD). ?? Synthesized 2D images are generated from the tomosynthesis. ? FINDINGS: ?? There are scattered areas of fibroglandular density (ACR BI-RADS breast ?? composition Category b). ? There are no significant masses, abnormal calcifications, or other ?? abnormalities. ? MM/MM tomosynthesis screening BI ?? IMPRESSION: ?? No mammographic evidence of malignancy. ? ASSESSMENT: ? BI-RADS BI-RADS 1 - Negative ? RECOMMENDATION: ?? Routine annual mammography screening. ? 1 year F/U ? This examination should not preclude the clinical evaluation of a ?? suspicious palpable abnormality. ? This patient's information was entered into a reminder system with a ?? target due date for their next mammogram. ? Dictated By: ?Kary Woodward MD ? Signed By: ?<Electronically signed by Kary Woodward MD in OV> ? 03/03/242158 ? DD/ 1140 ? TD/TT: ? Body Corporate Manager: ? Procedure Note Slim, Mckinley - 03/03/2024 [facility] [address] [place] [address] Mammography Report Signed Patient: Shahla Lamas EMR#: [id number] : 1980Acct:[id number] Age/Sex: 43 / FADM Date: 02/07/24 Loc: HO.MAMMO Attending Dr: Kael Herrera MD Ordering Physician: Kael Herrera MDResults: 1Negativ e Date of Service: 02/07/24Follow Up: 1 Year From Orig inal Mammogram Procedure(s): MM tomosynthesis screening BI Accession Number(s): [id number] cc: [facility]; Kael Herrera MD EXAMINATION: MM SCREENING DIGITAL BREAST TOMOSYNTHESIS, BILATERAL CLINICAL INFORMATION: Screening. Asymptomatic. COMPARISON: Mammography: This study is compared with prior exams dating back to 2022. TECHNIQUE: Digital breast tomosynthesis is performed in both the craniocaudal and mediolateral oblique views along with computer-aided detection (CAD). Synthesized 2D images are generated from the tomosynthesis. FINDINGS: There are scattered areas of fibroglandular density (ACR BI-RADS breast composition Category b). There are no significant masses, abnormal calcifications, or other abnormalities. MM/MM tomosynthesis screening BI IMPRESSION: No mammographic evidence of malignancy. ASSESSMENT: BI-RADS BI-RADS 1 - Negative RECOMMENDATION: Routine annual mammography screening. 1 year F/U This examination should not preclude the clinical evaluation of a suspicious palpable abnormality. This patient's information was entered into a reminder system with a target due date for their next mammogram. Dictated By: Kary Woodward MD Signed By: <Electronically signed by Kary Woodward MD in OV> 03/03/24 2159 DD/ 1140 TD/TT: Body Corporate Manager: [facility] External Provider IMG BI PROCEDURES Edited Result - Final * Albumin, Random Urine W/Creatinine (09/13/2023 12:50 PM EST) Creatinine, Urine 74.47 mg/dL [facility] Microalbumin Urine 20.0 mg/L [facility] Microalbum Creatinine Ratio Ur 26.8 <30 ug/mg cr [facility] Comment:Albumin/Creatinine R atio Reference Ranges: Normal: < 30 ug/mg creatinine Microalbuminuria: 30 - 300 ug/mg creatinineClinical Albuminuria: > 300 ug/mg creatinine Urine 09/13/2023 12:5 0 PM EST 09/13/2023 1:23 PM EST [facility] LAB URINE ORDERABLES Final Re sult Performing Organization Address [facility] Co de Phone Number [facility] [address] [place] [address] [phone] * (ABNORMAL) Lipid Panel, Standard (09/13/2023 12:46 PM EST) Triglycerides 65 <150 mg/dL [facility] Comment:Desirable Triglyceri de: less than 150 mg/dLBorderline High Triglyceride 150-199 mg/dLHigh Triglyceride: 200-499 mg/dLVery High Triglyceride: greater than or equal to 5OO mg/dL Cholesterol 171 <200 mg/dL [facility] Comment:Desirable Cholestero l: less than 200 mg/dLBorderline High Cholesterol: 200-239 mg/dLHigh Cholesterol: greater than 239 mg/dL LDL Cholesterol Calculated 103(H) <100 mg/dL [facility] Comment:Desirable LDL: less than 100 mg/dLNear Optimal/Above Optimal LDL: 110- 129 mg/dLBorderline High LDL: 130-159 mg/dLHigh LDL: 160-189 mg/dLVery High LDL: greater than or equal to 190 mg/dL HDL Cholesterol 55 >40 mg/dL [facility] Comment:Desirable HDL: great er than 40 mg/dL Note: This HDL assay may give artificially low results in patients with liver disease. Blood Venous blood specimen / Unknown 09/13/2023 12:46 PM EST 09/13/2023 1:19 PM EST [facility] LAB BLOOD ORDERABLES Final Re sult Performing Organization Address City/[facility]/ZIP Co de Phone Number [facility] [address] [place] [address] [phone] * HPV mRNA E6/E7 w/Reflex to HPV Genotypes 16, 18/45 (01/03/2023 10:46 AM EDT) HPV nRNA E6/E7 Not Detected Not Detected [facility] Comment:Methodology: Transcr iption-Mediated AmplificationThis assay detects E6/E7 viral messenger RNA (mRNA) from 14high-risk HPV types (16,18,31,33,35,39,45,51,52,56,58,59,66,68).Cervical sources are required for HPV testing.If a vaginal source from a patient who has had atotal hysterectomy with removal of cervix wassubmitted, please contact the testing laboratoryfor alternative testing options.For additional information, please refer tohttp://education.LoggedIn/faq/OSZ473o5(This link if provided for information/educational purposes only.)THIS TEST WAS PERFORMED AT:[employer] [place] [id number] MCDONALD MD HPV mRNA E6/E7 TNP [facility] HPV 16 RNA [facility] HPV 18/45 RNA [facility] 01/03/2023 10:4 6 AM EDT 01/07/2023 10:15 AM EDT [facility] External Provider LAB CYT OLOGY ORDERABLES Final Result [facility] [address] [place] [address] [phone] * Pap Smear (01/03/2023 10:46 AM EDT) 01/03/2023 10:4 6 AM EDT 01/07/2023 10:15 AM EDT Narrative [facility] - 01/18/2023 3:47 PM EDT ----- ------- Name: Shahla Spears ?Age/Sex: 42/F ? : 1980 Unit#: [id number] ?? Attend Dr: Kael Herrera MD ?Re01/03/23 ?Status: DEP REF ? Location: HO.LNP ?Disch: ? ----- ------- SPEC : [id number] ? RECD: 01/07/23-1015 ? STATUS: ??SOUT ? REQ NUM: [id number] ? RAFAELA: 01/03/23-1046 ? SUBM DR: Kael Herrera MD ? ENTERED: ??01/07/23-1203 ?SP TYPE: Pap Smr ?OTHR : ? ORDERED: ??Pap Smear ? Interpretation ?? Satisfactory for evaluation. ?? Negative for intraepithelial lesion or malignancy. ? HPV mRNA E6/E7: ?NOT DETECTED ? This assay detects E6/E7 viral messenger RNA (mRNA) from 14 high-risk HPV types (16, 18, ?? 31, 33, 35, 39, 45, 51, 52, 56, 58, 59, 66, 68) ? HPV testing performed by [employer], [place], [place]. ??See reference laboratory ?? portion of the EMR for entire report. ?Clinical Information LMP: 01/02/23 Previous PAP test: Unknown ? Material Received ?? ThinPrep-Cervical ----- ------- Signed (signature on file) Swati Campos Mathew 01/18/23 1547 ? ----- ------- ? END OF REPORT ? [facility] External Provider LAB CYT OLOGY ORDERABLES Final Result Performing Organization Address City/[facility]/ZIP Co de Phone Number [facility] [address] [place] [address] [phone] * HEPATITIS C AB W/REFL TO HCV RNA, QN, PCR (12/08/2021 8:18 AM EDT) HEPATITIS C ANTIBODY NON-REACT REBEL NON-REACT [facility] INDEX 0.01 <1.00 [facility] Comment: ?? HCV antibody was non-reactive. There is no laboratory ?? evidence of HCV infection. ?? In most cases, no further action is required. However, if recent HCV exposure is suspected, a test for HCV RNA (test code 42337) is suggested. ?? For additional information please refer to http://education.LoggedIn/faq/VTT21s9 (This link is being provided for informational/ educational purposes only.) ?? 12/08/2021 8:18 AM EDT Boris Collazo MD HISTORICAL/NON ORDERABLE LABS Fi nal Result Performing Organization Address [facility] Co de Phone Number [facility] [address] * HIV 1/2 ANTIGEN/ANTIBODY,FOURTH GENERATION W/RFL (12/08/2021 8:18 AM EDT) HIV-1/2 ANTIGEN AND ANTIBODIES, 4TH GENERATION W/ REFLEX NON-REACT REBEL NON-REACT [facility] Comment: HIV-1 antigen and HIV-1/HIV-2 antibodies were not detected. There is no laboratory evidence of HIV infection. ?? PLEASE NOTE: This information has been disclosed to you from records whose confidentiality may be protected by state law. ??If your state requires such protection, then the state law prohibits you from making any further disclosure of the information without the specific written consent of the person to whom it pertains, or as otherwise permitted by law. A general authorization for the release of medical or other information is NOT sufficient for this purpose. ? For additional information please refer to http://education.LoggedIn/faq/WAJ448 (This link is being provided for informational/ educational purposes only.) ? The performance of this assay has not been clinically validated in patients less than 2 years old. ?? 12/08/2021 8:18 AM EDT us Boris Collazo MD LAB BLOOD ORDERABLES Final Resul t [facility] [address] from Last 3 Months or Most Recently Relevant to Health Maintenance Insurance [facility] C3 DENTAL-[facility] MEDICAID STAND ADULT Care Teams Cleaning Matron Relationship Specialty Start Date End Date [place] Marie[place]ennifer [facility] [address] [place] [phone] PCP - General Family Medicine 01/03/22
== END 2024-10-20 13:29 | disposition home or self-care (01) ==
LOC: HO.HWS 12:55
PROVIDERS: PCP Registered Nurse; Visit Provider Obstetrics & Gynecology
DX: N93.9 Abnormal uterine and vaginal bleeding, unspecified (principal); Z32.02 Encounter for pregnancy test, result negative
CPT/HCPCS: 58100; 99213

== ENCOUNTER 2024-10-20 13:27 | Outpatient (REF) | payer MEDICAID, SELFPAY ==
[2024-10-20 18:34] LABS: CT PCR NOT DETECTED (Not Detect.); NG PCR NOT DETECTED (Not Detect.)
== END 2024-10-20 13:28 | disposition home or self-care (01) ==
LOC: HO.LNP 13:27
PROVIDERS: Visit Provider Obstetrics & Gynecology
DX: N93.9 Abnormal uterine and vaginal bleeding, unspecified (principal); Z32.02 Encounter for pregnancy test, result negative
CPT/HCPCS: 87491; 87591; 88305

== ENCOUNTER 2024-10-22 09:37 | Outpatient (AMB) | payer MEDICAID, SELFPAY ==
--- NOTE | 2024-10-22 09:41 | MHC.OFFVIS ---
Intake Visit Reasons: ultrasound results Mental Health Aide Required: Yes Mental Health Aide Language: Text[employer] Clothing [employer] Footwear Mechanic Services: Mental Health Aide Present (in person) Mental Health Aide Name: Katja RenoBALTAZARBeth Information Interpreted: non-clinical & clinical Airport Ramp Attendant: Airport Ramp Attendant Present (Katja KAE Reno) Accompanied by: Self / Same As Patient Allergies aspirin [ASA] Allergy (Verified 10/22/24 09:43) Hives HPI Comments Details: The patient is presenting for follow-up to discuss the results of her abnormal uterine bleeding workup and options of treatment. The following workup was done.: H&H= will 10.9/33.3 on 10/20 (dropped from 11.6/36.8 on 10/19) TSH, hCG, GC and chlamydia were negative. Endometrial biopsy pathology showed the following: Benign late secretory endometrium; no atypia or carcinoma. Comment: Some fragments may be derived from benign functional polyps Co testing was done in 01/18 was negative. Mammogram was BI-RADS 1 in 02/18. Pelvic ultrasound showed the following: Uterus: The uterus is in anteversion flexion and measures 15 x 8 x 15 cm. Multiple different sizes different location intramural heterogeneous nodular lesions throughout the parenchyma. The double wall endometrial thickness is 16 mm. There are 5 identifiable intramural nodular lesions, the largest measures 4.2 cm. . Adnexa: The left ovary is not identified.. The right ovary is present with flow on color Doppler interrogation. No free fluid in the cul-de-sac. Right ovary measures 3 x 3 x 3 cm. Volume: 12.1 cc. [facility] Medical History (Updated 10/22/24 @ 09:56 by Kael Herrera MD) Health care maintenance Skin ulcer due to diabetes mellitus Goiter Anxiety Uterine fibroid Iron deficiency anemia Hyperlipidemia Type 2 diabetes mellitus Family History Paternal Aunt Breast cancer Other No family history of cerebrovascular accident (CVA) Social History Household Members: Spouse, Family and Children Housing: Other Housing Other:: [facility] Do you presently have visiting nurse or other home services: No Alcohol intake: never Patient Tobacco Use Status: Never used Tobacco Second Hand Smoke Exposure: No service: No Current occupational status: unemployed Review of Systems Const All systems reviewed & are unremarkable except as noted in HPI and below Reports as per HPI and Reports no additional complaints GI Reports no additional complaints Reports no additional complaints Assessment & Plan Assessment & Plan (1) Abnormal uterine bleeding (AUB): Comment: Fragments of benign endometrial function polyp on EMB pathology Uterine myomas Code(s): N93.9 - Abnormal uterine and vaginal bleeding, unspecified Category: Medical Plan: Discussed with the patient the results the workup including pathology showing functional benign polyp and options of treatment including hysteroscopic polypectomy with control pills, progesterone treatment, Mirena IUD, endometrial ablation, uterine artery embolization or definitive surgical treatment/ hysterectomy. All pros and cons, risks and benefits of each were discussed with the patient, the patient decided to proceed with definitive surgical management. The patient was referred to [facility] for minimally invasive lockstitch zipper setter surgery for hysterectomy. (2) Uterine fibroid: Code(s): D25.9 - Leiomyoma of uterus, unspecified Category: Medical Plan: Discussed with the patient the findings on pelvic ultrasound & the risk of myosarcoma; in addition reviewed with the patient that malignancy and pre malignancy cannot be ruled out without hysterectomy for pathological evaluation ; furthermore, explained to the patient the limitation of pelvic ultrasound and endometrial biopsy in the setting. The patient was referred to [facility]. Instructed the patient to call our office back in case a referral appointment is not scheduled, missed or canceled so that we will assist on rescheduling another appointment, the patient verbalized understanding agreed with the plan. Coding Level of Care Code Est Pt Level 3 (41423) Diagnoses Abnormal uterine bleeding (AUB) N93.9 Uterine fibroid D25.9
--- OUTSIDE RECORDS SUMMARY | 2024-10-22 11:48 | XMS_ITS | Encounter Summary ---
Author Organization [employer] Address [address] [facility] 7t [place] [address] Care Team Providers Care Mold Release Worker Name Role Phone [facility] Primary Care Provider [phone] Reason for Visit * Reason Comments Med Refill Encounter Details Date Type Department Care Team ([facility] st Contact Info) Description 11/06/2023 Refill [facility] [address] [place], [place] [phone] [facility] [address] [place] [address] Social History Tobacco Use Types Packs/Day Years [...] Description 03/23/2025 1:00 PM EDT Office Visit [facility] ADULT DENTAL [address] [place] [address] Yue Box documented as of this encounter [...] documented as of this encounter Care Teams Mold Release Worker Relationship Specialty Start Date End Date Jennifer Guy FNP [address] [place] [address] PCP - General Family Medicine 01/03/22 documented as of this encounter
--- OUTSIDE RECORDS SUMMARY | 2024-10-22 11:48 | XMS_ITS | Encounter Summary ---
Author Organization [employer] Address [address] [facility] 7t [place] [address] Care Team Providers Care Pyridine Operator Name Role Phone [place] MAINTENANCE DEPARTMENT MANAGER Primary Care Provider Encounter Details Date Type Department Care Team ([facility] st Contact Info) Description 10/09/2024 Telephone [facility] [address] [place], [place] [phone] Silva Telles, OD [address] [place] [address] Social History Tobacco Use Types Packs/Day Years [...] Description 03/23/2025 1:00 PM EDT Office Visit [facility] ADULT DENTAL [address] [place] [address] Yue Box documented as of this encounter [...] documented as of this encounter Care Teams Pyridine Operator Relationship Specialty Start Date End Date Jennifer Guy FNP [address] [place] [address] PCP - General Family Medicine 01/03/22 documented as of this encounter
--- OUTSIDE RECORDS SUMMARY | 2024-10-22 11:48 | XMS_ITS | Encounter Summary ---
Author Organization [employer] Address [address] [facility] 7t [place] [address] Care Team Providers Care Director Of Golf Name Role Phone Brooks Jennifer DECK SUPERVISOR Primary Care Provider [phone] Encounter Details Date Type Department Care Team ([facility] st Contact Info) Description 10/09/2024 Population Health Risk Score [facility] (C3) Department [address] [phone] Provider, Population Health Generic Social History Tobacco [...] 1:00 PM EDT Office Visit [facility] ADULT DENTAL [address] [place] [address] Yue Box documented as of this encounter [...] documented as of this encounter Care Teams Director Of Golf Relationship Specialty Start Date End Date Jennifer Guy FNP [address] [place] [address] PCP - General Family Medicine 01/03/22 documented as of this encounter
--- OUTSIDE RECORDS SUMMARY | 2024-10-22 11:49 | XMS_ITS | Encounter Summary ---
Author Organization [employer] Address [address] [facility] 7t [place] [address] Care Team Providers Care Fish Worm Grower Name Role Phone [facility] Primary Care Provider [phone] Reason for Visit * Reason Comments Med Refill Encounter Details Date Type Department Care Team ([facility] st Contact Info) Description 10/05/2024 Refill [facility] [address] [place], [place] [phone] [facility] [address] [place] [address] Type 2 diabetes mellitus with hyperglycemia, unspecified whether [facility] insulin use ([facility] Social History Tobacco Use Types Packs/Day Years [...] Description 03/23/2025 1:00 PM EDT Office Visit [facility] ADULT DENTAL [address] [place] [address] Yue Box documented as of this encounter Goals Goal Patient Goal Type Associated Problems Recent Progress Patient-Stated? Author Blood Pressure < 140/90 Blood Pressure 128/74(2024 12:59 PM EST) No Slava Kidd Hemoglobin A1c < 7 Result Component 9.3( 12:35 PM EDT) No Slava Kidd documented as of this encounter Visit Diagnoses Diagnosis Type 2 diabetes mellitus with hyperglycemia, unspecified whether infection prevention specialist insulin use ([facility]) documented in this encounter Additional Health Concerns Assessment Noted Time PHQ-9 Depression Total Score: 6 04/13/20 24 11:39 AM EDT documented as of this encounter Care Teams Fish Worm Grower Relationship Specialty Start Date End Date Jennifer Guy FNP [address] [place] [address] PCP - General Family Medicine 01/03/22 documented as of this encounter
--- OUTSIDE RECORDS SUMMARY | 2024-10-22 11:49 | XMS_ITS | Encounter Summary ---
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 (CMS/HCC) Silva Telles, OD [address] [place] [address] Phone: tel: fax: Stalin Walters MD [address] [place] [phone] Phone: tel: Referral ID Status Reason Start Date Expiration Date V isits Requested Visits Authorized [id number] Closed Specialty Services Required 10/07/2024 10/07/2025 1 1 Encounter Details Date Type Department Care Team (Latest Contact Info) Description 10/06/2024 1:45 PM EDT Office Visit [facility] OPTOMETRY [address] [place] [address] Silva Telles, OD [address] [place] [address] Moderate nonproliferative diabetic retinopathy of left eye [...] 90 tablet 3 Blood Glucose Monitoring Suppl ([employer] [place]) w/Device kit Test 1 times by intradermal route 3 times every day Blood Pressure kit Use as directed 1 kit 0 Bydureon BCise 2 MG/0.85ML pen INJECT 1 PEN (2 MG) SUBCUTANEOUSLY EVERY WEEK 3.4 mL 2 Continuous Blood Gluc Hose Handler (IIZI groupStyle [place] 2 [place]) device Scan sensor every 8 hours 1 [...] with attacks or seizures 09/24/2023 Hopsitaliztion at [facility] 09/20/22 for evaluation of acute left sided facial numbness/weakness. Per visit note extensive stroke eval negative. Brain MRI, head CT, CXR all WNL. Labs notable for persistent MADYSON consistent with patient's baseline of hgb 7-8 but were otherwise unremarkable. Neurology consulted and sx thought to be conversion reaction. Sx now fully resolved. Pt discharged with referral t Diabetes mellitus ([facility]) Diabetic peripheral neuropathy associated with type 2 diabetes mellitus ([facility]) 11/14/2023 Disease of thyroid gland Essential hypertension 11/14/2023 Goiter 07/06/2015 Hyperlipidemia 06/20/2022 Type 2 diabetes mellitus ([facility]) 06/20/2022 Jardiance 25mg Lantus 40 units q. Evening - Did not tolerate metformin (s/e) Maintenance Foot Exam:08/2023-->total loss of protective sensation; referral to podiatry Eye Exam: Followed by [facility] eyec[facility] ASCVD:7.7%, atorvastatin started Statin: Yes [...] Exam Right Left Vitreous Clear Clear Disc [place] and healthy, (-) NVD [place] and healthy, (-) NVD C/D Ratio Vertical [...] 360 Refraction Manifest Refraction (Subjective) Sphere Cylinder [place] Dist [place] Add Right +0.50 -1.50 080 20/20 +1.75 Left +0.00 -1.75 065 20/40+1 +1.75 Final Rx Sphere Cylinder [place] Add Right +0.00 -1.50 080 +1.75 Left +0.00 -1.75 065 +1.75 Expiration Date: 10/06/2025 Assessment and Plan Diagnoses and all orders for this visit: 1. 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 Walters at [facility] for evaluation for treatment 2. Moderate nonproliferative diabetic retinopathy of right eye without macular edema associated with type 2 diabetes mellitus ([facility]/HCC) See #1 3. Presbyopia - Dispensed updated spec Rx Silva Telles, OD 10/07/2024, 12:11 PM Slip Bridge Operator Source: __ None __ Bilingual Staff __ Qualified Staff Envelope Sealer Operator __ Telephone Slip Bridge Operator; ID# __ Slip Bridge Operator brought by patient (family member, friend, INTERNIST, etc) __ In person bow making machine operator __ Ipad Slip Bridge Operator; ID#: Language Spoken During Exam: documented in this encounter Plan of Treatment Upcoming Encounters Date Type Department Care Team (Late st Contact Info) Description 03/23/2025 1:00 PM EDT Office Visit [facility] ADULT DENTAL [address] [place] [address] Yue Box Scheduled Referrals Name Type Priority [...] documented as of this encounter Care Teams Alarm Adjuster Relationship Specialty Start Date End Date Jennifer Guy FNP [address] [place] [address] PCP - General Family Medicine 01/03/22 documented as of this encounter
--- OUTSIDE RECORDS SUMMARY | 2024-10-22 11:49 | XMS_ITS | Clinical Summary ---
Author Organization [employer] Address [address] [facility] 7[address] [place] [address] Care Team Providers Care Batt Packer Name Role Phone [facility] Primary Care Provider [phone] Allergies Active Allergy Reactions Criticality Noted Date Comments Aspirin Hives,Unknown Medium 06/20/2022 Medications Blood Glucose Monitoring Suppl (FFFavsyle [place] Lite) w/Device kit Test 1 times by intradermal route 3 times every day Active Continuous Blood Gluc Tool Distributor (VolanceStyle [place] 2 [place]) deviceIndicatio ns:Type 2 diabetes mellitus with hyperglycemia, unspecified whether assisted insulin use ([facility]) Scan sensor every 8 hours 1 each 024 Active empagliflozin (Jardiance) 25 MGIndications:T ype 2 diabetes mellitus with hyperglycemia, unspecified whether assisted insulin use ([facility]) Take 1 tablet (25 mg) by mouth in the morning. 30 tablet Active Pentips 32G X 4 MM misc Use to inject insulin every night 100 each 024 Active Lancets Super Thin 28G miscIndications :Type 2 diabetes mellitus with hyperglycemia, unspecified whether assisted insulin use ([facility]) Inject 1 by into machine route 3 [...] 2 diabetes mellitus with hyperglycemia, unspecified whether exterminator helper termite insulin use (CMS/HCC) INJECT 30 UNITS SUBCUTANEOUSLY [...] polyneuropathy, with long-term current use of insulin ([facility]) INJECT 1 PEN (2 MG) SUBCUTANEOUSLY EVERY WEEK 3.4 mL 2 025 Active Alcohol Swabs (Alcohol Prep) 70 % padsIndications :Type 2 diabetes mellitus with hyperglycemia, unspecified whether assisted insulin use (CMS/HCC) USE DIRECTED THREE TIMES DAILY 100 each 5 025 Active Alcohol Swabs (Alcohol Prep) 70 % padsIndications :Type 2 diabetes mellitus with hyperglycemia, unspecified whether exterminator helper termite insulin use (CMS/HCC) USE THREE TIMES DAILY 100 each 3 024 2024 Discontinued Active Problems Problem Noted Date Diagnosed Date Anemia 04/17/2024 Fibroid uterus 04/17/2024 Essential hypertension 11/14/2023 Diabetic peripheral neuropat hy associated with type 2 diabetes mellitus 11/14/2023 Conversion disorder with attacks or seizures Overview (09/24/2023): Hopsitaliztion at [facility] 09/20/22 for evaluation of acute left [...] uterine fibroids; requiring multiple transfusion Followed by [facility] DIRECTOR OF REVENUE CYCLE MANAGEMENT-->plan for total hysterectomy once BS stabilized Baseline [...] #3, flu administered today Vision: Referred to [facility] eye care Dental: Discuss at f/u STi screening: Neg GC/CT/RPR 11/2021 HIV: Neg 11/2021 Hepatitis: Neg 11/2021 Hyperlipidemia 06/20/2022 Type 2 diabetes mellitus 06/20/2022 Overview (04/13/2024): Jardiance 25mg Lantus 40 units q. Evening - Did not tolerate metformin (s/e) Maintenance Foot Exam: 08/2023-->total loss of protective sensation; referral to podiatry Eye Exam: Followed by [facility] eye care ASCVD:7.7%, atorvastatin started Statin: Yes [...] for thyroid ultrasound - Per PM from [place] of nodule biopsy 2017. 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 (CMS/HCC) (Primary Dx); Moderate nonproliferative diabetic retinopathy of right eye without macular edema associated with type 2 diabetes mellitus (CMS/HCC); Presbyopia 10/06/2024 Travel 10/05/2024 Refill [facility] MEDICINE [address] [place] [address] Jennifer Guy FNP Type 2 diabetes mellitus with hyperglycemia, unspecified whether assisted insulin use ([facility]) 09/09/2024 2:45 PM EST Office Visit [facility] OPTOMETRY [address] [place] [address] Silva Telles, OD Mild nonproliferative diabetic retinopathy of both eyes without macular edema associated with type 2 diabetes mellitus ([facility]/HCC) (Primary Dx); Punctal stenosis, acquired, left; Regular astigmatism, bilateral 09/09/2024 Travel 09/09/2024 Refill [facility] MEDICINE [address] [place] [address] Jennifer Guy FNP Type 2 diabetes mellitus with diabetic polyneuropathy, with long-term current use of insulin ([facility]) 09/08/2024 1:00 PM EST Office Visit [facility] ADULT DENTAL [address] [place] [address] Y[place] Box Dental calculus (Primary Dx); Dental plaque; Encounter for dental examination 09/08/2024 Refill [facility] MEDICINE [address] [place] [address] Jennifer Guy FNP Essential hypertension 08/26/2024 Refill [facility] MEDICINE [address] [place] [address] Jennifer Guy FNP 08/25/2024 Refill [facility] MEDICINE [address] [place] [address] [facility] Jennifer, [facility] Type 2 diabetes mellitus with diabetic polyneuropathy, with long-term current use of insulin ([facility]) from Last 3 Months Immunizations Name Administration [...] Description 03/23/2025 1:00 PM EDT Office Visit [facility] ADULT DENTAL [address] [place] [address] [employer] [place] Health Maintenance Due Date Last [...] edema associated with type 2 diabetes mellitus ([facility]) COMPREHENSIVE PERIODONTAL EVALUATION - NEW OR ESTABLISHED [...] polyneuropathy, with long-term current use of insulin ([facility]/HCC) INTRAORAL - COMPLETE SERIES OF RADIOGRAPHIC IMAGES Routine 04/01/2024 10:30 AM EDT Encounter for dental examination Dental caries Teeth missing BI MAMMOGRAM SCREENING TOMOSYNTHESIS BILATERAL Routine 02/07/2024 11:40 AM EDT ALBUMIN, RANDOM URINE W/CREATININE Routine 09/13/2023 12:50 PM EST Type 2 diabetes mellitus with hyperglycemia, with long-term current use of insulin ([facility]/HCC) LIPID PANEL, STANDARD Routine 09/13/2023 12:46 PM EST Type 2 diabetes mellitus with hyperglycemia, with long-term current use of insulin ([facility]) HPV MRNA E6/E7 REFLEX TO HPV 16, [...] EDT Narrative 10/20/2024 2:50 PM EDT ? [facility] ?[address] ?[place] [address] ? Ultrasound Report ? Signed ? Patient: Regan Marrero,Liliane ?MR#: [id number] ?? [id number] ? : 1980 ?Acct:[id number] ? Age/Sex: 44 / F ?ADM Date: 03/25/25 ? Loc: HO.US ? Attending Dr: Kael Herrera MD ? Ordering Physician: Kael Herrera MD ?? Date of Service: 10/20/24 ?? Procedure(s): US pelvic complete ?? Accession Number(s): [id number] ? cc: Jennifer Guy RADIO TECHNICIAN; Kael Herrera MD ? EXAMINATION: ? US [...] DD/ 1400 ? TD/TT: 10/20/24 1407 ? Manager Of Maintenance: ? Procedure Note Mckinley Smalls - 10/20/[address] [address] Ultrasound Report Signed Patient: Shahla Lamas EMR#: [id number] : 1980Acct:[id number] Age/Sex: 44 / FADM Date: 10/20/24 Loc: HO.US Attending Dr: Kael Herrera MD Ordering Physician: Kael Herrera MD Date of Service: 10/20/24 Procedure(s): US pelvic complete Accession Number(s): [id number] cc: [facility]; Kael Herrera MD EXAMINATION: US PELVIS CLINICAL [...] 10/20/24 1447 DD/ 1400 TD/TT: 10/20/24 1407 Manager Of Maintenance: [facility] External Provider IMG US PROCEDURES Edited Result - Final * TSH with Reflex to Free T4 (10/20/2024 12:40 PM EDT) TSH reflex Free T4 2.36 0.32 - 4.0 uIU/mL [facility] 10/20/2024 12:4 0 PM EDT 10/20/2024 12:49 PM EDT us Generic External Data Provider LAB BLOOD ORDERAB LES Final Result Performing Organization Address City/[facility]/ZIP Co de Phone Number [facility] [address] [place] [phone] * (ABNORMAL) CBC (10/20/2024 12:40 PM EDT) White Blood Count 8.6 4.8 - 10.8 X10*3/uL [facility] Red Blood Count 3.84(L) 4.20 - 5.50 X10*6/uL [facility] Hemoglobin 10.9(L) 12.0 - 16.0 g/dl [facility] Hematocrit 33.6(L) 37.0 - 47.0 % [facility] Mean Corpuscular Volume 87.5 80.0 - 98.0 fL [facility] Mean Corpuscular Hemoglobin 28.4 27.0 - 33.0 pg [facility] Mean Corpuscular HGB Conc 32.4 31.0 - 35.0 g/dl [facility] Red Cell Distribution Width 15.6 11.0 - 16.0 % [facility] Platelet Count 228 160 - 400 X10*3/uL [facility] Mean Platelet Volume 11.0 9.4 - 12.3 fL [facility] NRBC Pct Auto 0.0 0.0 - 0.2 /100WBC [facility] NRBC Abs Auto 0.000 0.0 - 0.012 X10*3/uL [facility] 10/20/2024 12:4 0 PM EDT 10/20/2024 12:49 PM EDT us Generic External Data Provider LAB BLOOD ORDERAB LES Final Result Performing Organization Address City/[facility]/ZIP Co de Phone Number [facility] [address] [place] [address] [phone] * hCG, Total, Quantitative (10/20/2024 12:40 PM EDT) HCG Quantitative <2 mIU/mL [facility] Comment:Weeks post LMP Appro ximate hCG(Last Menstrual Period) Range (mIU/ml)3 - 4 weeks 9 - 1304 - 5 weeks 75 - 2,6005 - 6 weeks 850 - 20,8006 - 7 weeks 4000 - 100,2007 - 12 weeks 11,500 - 289,99519 - 16 weeks 18,300 - 137,07832 - 29 weeks (2nd trimester) 1,400 - 53,79155 - 41 weeks (3rd trimester) 940 - [...] Provider LAB BLOOD ORDERAB LES Final Result [facility] [address] [place] [address] [phone] * OCT, Retina - OU - [...] (09/04/2024) Silva Telles OD OUTPATIENT REFERRAL ORDERABLES Edited Result - Final * (ABNORMAL) POCT HGB A1C (04/13/2024 11:45 AM EDT) Hemoglobin A1C 9.4(A) 4.0 - 6.0 % QC Media Lot # [id number] Lot# Expiration Date [id number] Blood 04/13/2024 11:4 5 AM EDT [facility] RADIO TECHNICIAN POINT OF CARE TEST ENTER/EDIT ORDERABLES Final Result * BI Mammogram Screening Tomosynthesis Bilateral (02/07/2024 11:40 AM EDT) Anatomical Region Laterality Modality Breast Bilateral Mammography 02/07/2024 11:4 0 AM EDT Narrative 03/03/2024 10:02 PM EDT ? [facility] [place] ? [address] ?[place] [address] ? Mammography Report ? Signed ? Patient: Shahla Lamas ?MR#: [id number] ?? [id number] ? : 1980 ?Acct:[id number] ? Age/Sex: 43 / F ?ADM Date: 07/12/24 ? Loc: HO.MAMMO ? Attending Dr: Kael Herrera MD ? Ordering Physician: Kael Herrera MD ?Results: 1Negativ ?? e ? Date of Service: 02/07/24 ?Follow Up: 1 Year From Orig ?? inal Mammogram ? Procedure(s): MM tomosynthesis screening BI ?? Accession Number(s): [id number] ? cc: Jennifer Guy RADIO TECHNICIAN; Kael Herrera MD ? EXAMINATION: ?? MM [...] 03/03/242158 ? DD/ 1140 ? TD/TT: ? Manager Of Maintenance: ? Procedure Note Mckinley Smalls - 03/03/2024 [facility] [address] [place], [place] [address] Mammography Report Signed Patient: Shahla Lamas EMR#: [id number] : 1980Acct:[id number] Age/Sex: 43 / FADM Date: 02/07/24 Loc: .MAMMO Attending Dr: Kael Herrera MD Ordering Physician: Kael Herrera MDResults: 1Negativ e Date of Service: 02/07/24Follow Up: 1 Year From Orig inal Mammogram Procedure(s): MM tomosynthesis screening BI Accession Number(s): [id number] cc: [facility] RADIO TECHNICIAN; Kael Herrera MD EXAMINATION: MM SCREENING DIGITAL [...] in OV> 03/03/24 2159 DD/ 1140 TD/TT: Manager Of Maintenance: [facility] External Provider IMG BI PROCEDURES Edited Result - Final * Albumin, Random Urine W/Creatinine (09/13/2023 12:50 PM EST) Creatinine, Urine 74.47 mg/dL [facility] Microalbumin Urine 20.0 mg/L [facility] Microalbum Creatinine Ratio Ur 26.8 <30 ug/mg cr [facility] Comment:Albumin/Creatinine R atio Reference Ranges: Normal: < 30 ug/mg creatinine Microalbuminuria: 30 - 300 ug/mg creatinineClinical Albuminuria: > 300 ug/mg creatinine Urine 09/13/2023 12:5 0 PM EST 09/13/2023 1:23 PM EST [facility] LAB URINE ORDERABLES Final Re sult Performing Organization Address [facility] Co de Phone Number [facility] [address] [place], [place] [phone] * (ABNORMAL) Lipid Panel, Standard (09/13/2023 12:46 PM EST) Triglycerides 65 <150 mg/dL [facility] Comment:Desirable Triglyceri de: less than 150 mg/dLBorderline High Triglyceride 150-199 mg/dLHigh Triglyceride: 200-499 mg/dLVery High Triglyceride: greater than or equal to 5OO mg/dL Cholesterol 171 <200 mg/dL [facility] Comment:Desirable Cholestero l: less than 200 mg/dLBorderline High Cholesterol: 200-239 mg/dLHigh Cholesterol: greater than 239 mg/dL LDL Cholesterol Calculated 103(H) <100 mg/dL [facility] Comment:Desirable LDL: less than 100 [...] 12:46 PM EST 09/13/2023 1:19 PM EST [facility] LAB BLOOD ORDERABLES Final Re sult Performing Organization Address City/[facility]/ZIP Co de Phone Number [facility] [address] [place] [address] [phone] * HPV mRNA E6/E7 w/Reflex to HPV Genotypes 16, 18/45 (01/03/2023 10:46 AM EDT) HPV nRNA E6/E7 Not Detected Not Detected [facility] Comment:Methodology: Transcr iption-Mediated AmplificationThis assay detects E6/E7 viral messenger RNA (mRNA) from 14high-risk HPV types (16,18,31,33,35,39,45,51,52,56,58,59,66,68).Cervical sources are required for HPV testing.If a vaginal source from a patient who has had atotal hysterectomy with removal of cervix wassubmitted, please contact the testing laboratoryfor alternative testing options.For additional information, please refer tohttp://education.Ensyn/faq/YUI450h9(This link if provided for information/educational purposes only.)THIS TEST WAS PERFORMED AT:[employer] [place] [phone] MCDONALD MD HPV mRNA E6/E7 [facility] HPV 16 RNA [facility] HPV 18/45 RNA [facility] 01/03/2023 10:4 6 AM EDT 01/07/2023 10:15 AM EDT [facility] External Provider LAB CYT OLOGY ORDERABLES Final Result [facility] [address] [place] [address] [phone] * Pap Smear (01/03/2023 10:46 AM EDT) 01/03/2023 10:4 6 AM EDT 01/07/2023 10:15 AM EDT Narrative [facility] - 01/18/2023 3:47 PM EDT ----- ------- Name: Shahla Spears ?Age/Sex: 42/F ? : 1980 Unit#: [id number] ?? Attend Dr: Kael Herrera MD ?Re01/03/23 ?Status: DEP REF ? Location: HO.LNP ?Disch: ? ----- ------- SPEC : [id number] ? RECD: 01/07/23-1015 ? STATUS: ??SOUT ? REQ NUM: [id number] ? RAFAELA: 01/03/23-1046 ? SUBM DR: Kael Herrera MD ? ENTERED: ??01/07/23-1209 ?SP TYPE: Pap Smr ?OTHR DR: ? ORDERED: ??Pap Smear ? Interpretation ?? Satisfactory for evaluation. ?? Negative for intraepithelial lesion or malignancy. ? HPV mRNA E6/E7: ?NOT DETECTED ? This assay detects E6/E7 viral messenger RNA (mRNA) from 14 high-risk HPV types (16, 18, ?? 31, 33, 35, 39, 45, 51, 52, 56, 58, 59, 66, 68) ? HPV testing performed by [employer], [place], [place]. ??See reference laboratory ?? portion of the EMR for entire report. ?Clinical Information LMP: 01/02/23 Previous PAP test: Unknown ? Material Received ?? ThinPrep-Cervical ----- ------- Signed (signature on file) Swati Campos Mathew 01/18/23 5337 ? ----- ------- ? END OF REPORT ? [facility] External Provider LAB CYT OLOGY ORDERABLES Final Result Performing Organization Address [facility] Co de Phone Number [facility] [address] [place] [address] [phone] * HEPATITIS C AB W/REFL TO [...] a test for HCV RNA (test code 80731) is suggested. ?? For additional information please refer to http://education.Ensyn/faq/KWU30l3 (This link is being provided for informational/ educational purposes only.) ?? 12/08/2021 8:18 AM EDT Boris Collazo MD HISTORICAL/NON ORDERABLE LABS Fi nal Result Performing Organization Address [facility] de Phone Number [facility] [address] * HIV 1/2 ANTIGEN/ANTIBODY,FOURTH GENERATION W/RFL [...] ? For additional information please refer to http://education.Ensyn/faq/QJA743 (This link is being provided for informational/ educational purposes only.) ? The performance of this assay has not been clinically validated in patients less than 2 years old. ?? 12/08/2021 8:18 AM EDT us Boris Collazo MD LAB BLOOD ORDERABLES Final Resul t [facility] [address] from Last 3 Months or Most Recently Relevant to Health Maintenance Insurance [facility] C3 DENTAL-[facility] MEDICAID STAND ADULT Care Teams Batt Packer Relationship Specialty Start Date End Date SchuylerJennifer [facility] [address] [place] [phone] PCP - General Family Medicine 01/03/22
--- OUTSIDE RECORDS SUMMARY | 2024-10-22 11:49 | XMS_ITS | Encounter Summary ---
Author Organization [employer] Address [address] [place] [address] Care Team Providers Care Telehealth Case Manager Name Role Phone [facility] Primary Care Provider [phone] Encounter Details Date Type Department Care Team [...] Visit [facility] ADULT DENTAL [address] [place] [address] Y[place] Box documented as of this encounter [...] documented as of this encounter Care Teams Telehealth Case Manager Relationship Specialty Start Date End Date Jennifer Guy FNP [address] [place] [address] PCP - General Family Medicine 01/03/22 documented as of this encounter
--- OUTSIDE RECORDS SUMMARY | 2024-10-22 11:49 | XMS_ITS | Encounter Summary ---
Author Organization [employer] Address [address] [facility] 7t [place] [address] Care Team Providers Care Glazing Department Supervisor Name Role Phone [facility] Primary Care Provider [phone] Encounter Details Date Type Department Care Team ([facility] st Contact Info) Description 10/20/2024 Orders Only [...] 1:00 PM EDT Office Visit [facility] ADULT DENTAL [address] [facility] [address] Yue Box documented as of this encounter [...] EDT Narrative 10/20/2024 2:50 PM EDT ? [facility] ?[address] ?[place] [address] ? Ultrasound Report ? Signed ? Patient: Regan Marrero,Liliane ?MR#: [id number] ?? [id number] ? : 1980 ?Acct:[id number] ? Age/Sex: 44 / F ?ADM Date: 03/25/25 ? Loc: HO.US ? Attending Dr: Kael Herrera MD ? Ordering Physician: Kael Herrera MD ?? Date of Service: 10/20/24 ?? Procedure(s): US pelvic complete ?? Accession Number(s): [id number] ? cc: Jennifer Guy; Kael Herrera MD [...] ? Signed By: ?<Electronically signed by Jan Alav MD in OV> ? 10/20/24 1447 ? DD/ 1400 ? TD/TT: 10/20/24 1407 ? Extension Service Specialist In Charge: ? Procedure Note Slim, Mckinley - 10/20/[address] [place] [address] Ultrasound Report Signed Patient: Shahla Lamas EMR#: [id number] : 1980Acct:[id number] Age/Sex: 44 / FADM Date: 10/20/24 Loc: .US Attending Dr: Kael Herrera MD Ordering Physician: Kael Herrera MD Date of Service: 10/20/24 Procedure(s): US pelvic complete Accession Number(s): [id number] cc: Jennifer Guy [employer] SKEWER; Kael Herrera MD EXAMINATION: US PELVIS CLINICAL [...] 10/20/24 1447 DD/ 1400 TD/TT: 10/20/24 1407 Extension Service Specialist In Charge: [facility] External Provider IMG US PROCEDURES Edited Result - Final * hCG, Total, Quantitative (10/20/2024 12:40 PM EDT) HCG Quantitative <2 mIU/mL [facility] Comment:Weeks post LMP Appro ximate hCG(Last Menstrual Period) Range (mIU/ml)3 - 4 weeks 9 - 1304 - 5 weeks 75 - 2,6005 - 6 weeks 850 - 20,8006 - 7 weeks 4000 - 100,2007 - 12 weeks 11,500 - 289,14200 - 16 weeks 18,300 - 137,57444 - 29 weeks (2nd trimester) 1,400 - 53,41920 - 41 weeks (3rd trimester) 940 - [...] ORDERAB LES Final Result Performing Organization Address [facility]/ZIP Co de Phone Number [facility] [address] [place] [phone] * TSH with Reflex to Free T4 (10/20/2024 12:40 PM EDT) Pathologist [facility] TSH reflex Free T4 2.36 0.32 - 4.0 uIU/mL [facility] 10/20/2024 12:4 0 PM EDT 10/20/2024 12:49 PM EDT us Generic External Data Provider LAB BLOOD ORDERAB LES Final Result Performing Organization Address [facility]/ZIP Co de Phone Number [facility] [address] [place] [address] [phone] * (ABNORMAL) CBC (10/20/2024 12:40 PM EDT) Pathologist [facility] White Blood Count 8.6 4.8 - 10.8 X10*3/uL [facility] Red Blood Count 3.84(L) 4.20 - 5.50 X10*6/uL [facility] Hemoglobin 10.9(L) 12.0 - 16.0 g/dl [facility] Hematocrit 33.6(L) 37.0 - 47.0 % [facility] Mean Corpuscular Volume 87.5 80.0 - 98.0 fL [facility] Mean Corpuscular Hemoglobin 28.4 27.0 - 33.0 pg [facility] Mean Corpuscular HGB Conc 32.4 31.0 - 35.0 g/dl [facility] Red Cell Distribution Width 15.6 11.0 - 16.0 % [facility] Platelet Count 228 160 - 400 X10*3/uL [facility] Mean Platelet Volume 11.0 9.4 - 12.3 fL [facility] NRBC Pct Auto 0.0 0.0 - 0.2 /100WBC [facility] NRBC Abs Auto 0.000 0.0 - 0.012 X10*3/uL [facility] 10/20/2024 12:4 0 PM EDT 10/20/2024 12:49 PM EDT us Generic External Data Provider LAB BLOOD ORDERAB LES Final Result [facility] [address] [place] [address] [phone] documented in this encounter Visit Diagnoses Not on filedocumented in this encounter Additional Health Concerns Assessment Noted Time PHQ-9 Depression Total Score: 6 04/13/20 24 11:39 AM EDT documented as of this encounter Care Teams Glazing Department Supervisor Relationship Specialty Start Date End Date Jennifer Guy FNP [address] [place] [phone] PCP - General Family Medicine 01/03/22 documented as of this encounter
== END 2024-10-22 10:01 | disposition home or self-care (01) ==
LOC: HO.HWS 09:37
PROVIDERS: PCP Registered Nurse; Visit Provider Obstetrics & Gynecology
DX: N93.9 Abnormal uterine and vaginal bleeding, unspecified (principal); D25.9 Leiomyoma of uterus, unspecified
CPT/HCPCS: 99213

== ENCOUNTER → 2024-10-22 09:37 | Outpatient (BNVA) | payer MEDICAID, SELFPAY | PROVIDERS: PCP Registered Nurse; Visit Provider Obstetrics & Gynecology | DX: N93.9 Abnormal uterine and vaginal bleeding, unspecified (principal); D25.9 Leiomyoma of uterus, unspecified | CPT/HCPCS: 99212 ==

== ENCOUNTER 2024-11-01 16:17 | Inpatient (IN) | payer MEDICAID, SELFPAY ==
--- NOTE | ~2024-11-01 | MR_ITS ---
EXAMINATION: MR FOOT WITHOUT THEN WITH IV CONTRAST LEFT HISTORY: left foot wound/osteomyelitis. TECHNIQUE: Sagittal T1 and STIR, axial T1 and STIR, and coronal STIR images of the left forefoot were obtained. Subsequently, axial and sagittal fat-suppressed T1-weighted images were obtained after the intravenous administration of 8.5 mm Gadavist. COMPARISON: Correlation is made with a CT of the left foot and plain films of the left foot dated 11/01/2024. FINDINGS: There is a well-defined erosion involving the medial aspect of the head of the 1st metatarsal. There is no associated bone marrow edema. No definite additional erosions are identified. The remaining bones demonstrate normal marrow signal intensity. There is no abnormal bone marrow contrast enhancement. There is diffuse soft tissue swelling at the dorsal aspect of the forefoot. There is no loculated fluid collection. No tendon or ligamentous abnormality is identified. MR/MR foot LT wo/w con IMPRESSION: Soft tissue swelling of the dorsal aspect of the forefoot. No evidence of osteomyelitis of the left forefoot. Electronically signed by: Jun Reveles MD 11/02/2024 01:29 PM EDT
--- NOTE | ~2024-11-01 | CT_ITS ---
CLINICAL HISTORY: infection osteo? CT of the left foot without contrast Comparison: CT - CT FOOT LT W IV CON - 11/01/24 19:33 EDT CR - XR FOOT LT MIN 3V - 11/01/24 16:36 EDT Findings: Visualized soft tissues are unremarkable. As before, there is a small erosion of the proximal phalanx of the 1st digit adjacent to the interphalangeal joint. Small well corticated 1st metatarsal head erosion medially is present. IMPRESSION: Possible 1st digit proximal phalanx osteomyelitis as before. This document has been electronically signed by: Nehal Powell MD on 11/01/2024 20:52:15
--- NOTE | ~2024-11-01 | XR_ITS ---
CLINICAL HISTORY: ulceration in DM, concern for OSTEO 3 view left foot Comparison: None Findings: Bones intact. No dislocations. Small erosion involving the medial aspect of the proximal phalanx of the 1st digit adjacent to the interphalangeal joint. Periarticular osteophyte formation at the 1st metatarsophalangeal joint. No ankle effusion. No radiopaque foreign body. IMPRESSION: 1. 1st digit erosion, which could indicate osteomyelitis. This document has been electronically signed by: Nehal Powell MD on 11/01/2024 17:04:20
[2024-11-01 16:21] VITALS: BP 140/76; PULSE 99; RESP 18; TEMP 36.6; O2SAT 97; BMI 32.4
--- NOTE | 2024-11-01 16:23 | ED_ITS ---
HPI - General Adult General Chief complaint: Wound/Laceration Stated complaint: ?wound in Left foot pt is diabetic Time Seen by Provider: 11/01/24 18:30 Source: patient Limitations: language barrier History of Present Illness ED Provider: Maria De Jesus Antunez PA-C HPI narrative: 44-year-old female with a history of diabetes with peripheral neuropathy, hyperlipidemia, iron deficiency anemia, anxiety who presents with left foot wound x2 days. Patient states she would noted an ulceration over the top of the left foot inferior to the great toe. Overlying warmth, swelling and erythema. Patient was not know how long she has had the ulceration present. Denies fevers or drainage from the site. Related Data Home Medications ?Medication ?Instructions ?Recorded ?Confirmed atorvastatin 20 mg tablet 1 tab PO DAILY 09/18/22 10/19/24 empagliflozin 25 mg tablet 2 tab PO QAM 09/18/22 10/19/24 (Jardiance) insulin glargine 100 unit/mL (3 23 unit subcut BEDTIME 09/18/22 10/19/24 mL) subcutaneous pen (Lantus Solostar U-100 Insulin) lidocaine 5 % topical patch 1 patch topical NEEDED PRN Pain 09/18/22 10/19/24 (Lidoderm) exenatide microspheres 2 mg/0.85 2 mg subcut DAILY 04/23/24 10/19/24 mL subcutaneous auto-injector (Bydureon BCise) Previous Rx's ?Medication ?Instructions ?Recorded ascorbic acid (vitamin C) 250 mg 250 mg PO DAILY #30 tabs 09/20/22 tablet ferrous sulfate 324 mg (65 mg 324 mg PO BIDWM #60 tabs 09/20/22 iron) tablet,delayed release omeprazole 20 mg capsule,delayed 20 mg PO BID@0630,1630 #60 caps 09/20/22 release tramadol 50 mg tablet 50 mg PO Q6H PRN pain #20 tabs 12/16/22 naproxen 500 mg tablet (Naprosyn) 500 mg PO BID #20 tabs 05/13/24 Allergies Allergy/AdvReac Type Severity Reaction Status Date / Time aspirin [ASA] Allergy Hives Verified 11/01/24 16:23 Review of Systems 2 Review of Systems: Yes all other systems are reviewed and are negative Constitutional: Constitutional: Denies fatigue and Denies fever(s) Musculoskeletal: Musculoskeletal: Reports arthralgias and Reports joint swelling Integumentary/Breasts: Skin/Breast: Reports skin ulcer and Reports wounds Endocrine: Endocrine: Denies fatigue PMFSH Past Medical History Attestation statement: The following information was validated with the patient. Medical History (Updated 11/01/24 @ 22:44 by WILLY Lyle) Health care maintenance Skin ulcer due to diabetes mellitus Goiter Anxiety Uterine fibroid Iron deficiency anemia Hyperlipidemia Type 2 diabetes mellitus Family History Family History Paternal Aunt Breast cancer Other No family history of cerebrovascular accident (CVA) Social History Social History Household Members: Spouse, Family and Children Housing: Other Housing Other:: long-term Do you presently have visiting nurse or other home services: No Alcohol intake: never Patient Tobacco Use Status: Never used Tobacco Smoked in Last 30 Days: No Second Hand Smoke Exposure: No Use of substances other than those prescribed or required for medical reasons: No Advance Directives: Yes Advance Directives on File: Yes Advance Directives Date on File: 09/21/22 Do you have a plan to hurt others: No Plan Patient : No service: No Current occupational status: unemployed Physical Exam ED Vital Signs: Vital Signs - 24 hr 11/01/24 16:21 11/01/24 18:10 11/01/24 20:14 Temperature 97.8 F 97.3 F 97.7 F Pulse Rate 99 82 96 Respiratory Rate 18 16 16 Blood Pressure 140/76 H 137/75 156/84 H Pulse Oximetry 97 97 94 Oxygen Delivery Method Room Air Room Air Room Air 11/01/24 22:11 Temperature 96.9 F Pulse Rate 92 Respiratory Rate 16 Blood Pressure 142/95 H Pulse Oximetry 98 Oxygen Delivery Method Room Air BMI result Body Mass Index 32.4 Const Other: Alert Orientation/consciousness: patient oriented x3 Resp Effort & Inspection: normal respiratory effort Cardio Other: Normal peripheral perfusion Skin Other: Warm dry no rash Neuro General: patient oriented x3, no focal motor deficits and CN's II-XI intact bilaterally Extrem Other: Superficial ulceration noted over dorsum of left foot inferior to the left great toe, overlying swelling and erythema subtly warmer than the right foot Psych Other: Cooperative Course Course Course Narrative: RME performed by Catie Priest PA-C. Patient is a 44 year old assigned female at presenting to the emergency department with a left foot wound. Patient states that she noticed 2 days ago she has a left foot ulceration. Detailed physical exam and review of systems are deferred to the pattern layout worker. Imaging and labs ordered. Patient placed back in the waiting room pending room availability and results. Medications Administered Discontinued Medications Generic Name Dose Route Start Last Admin Trade Name Freq PRN Reason Stop Dose Admin Piperacillin Sod/Tazobactam 50 mls @ 100 mls/hr 11/01/24 21:10 11/01/24 22:03 Sod 3.375 gm/ Sodium Chloride IV 11/01/24 21:39 Infused ONCE ONE Infusion Vancomycin HCl 1,500 mg/ 500 mls @ 333.333 mls/hr 11/01/24 21:10 11/01/24 21:52 Sodium Chloride IV 11/01/24 22:39 333.33 mls/hr ONCE ONE Administration Iohexol 100 ml 11/01/24 19:39 11/01/24 19:42 Iohexol 350 Mg/Ml 100 Ml Infus..Btl IV 11/01/24 19:40 85 ml ONCE ONE Administration Medical Decision Making Medical Decision Making MDM Narrative: 44-year-old female with a history of diabetes with peripheral neuropathy, hyperlipidemia, iron deficiency anemia, anxiety who presents with left foot wound x2 days. Patient states she would noted an ulceration over the top of the left foot inferior to the great toe. Overlying warmth, swelling and erythema. Patient was not know how long she has had the ulceration present. Denies fevers or drainage from the site. Problem: Diabetes with neuropathy History: Per patient I have considered the following differential diagnoses: Cellulitis, purulent cellulitis, osteomyelitis Plan: Screening labs including inflammatory markers are in process, an x-ray of the foot was obtained, they are questioning osteomyelitis. Given this is not a definitive read, I will obtain a CT scan. We will order blood cultures and a lactic in the event that she does have osteomyelitis and requires IV antibiotic therapy. I have independently reviewed the following tests: Labs: No leukocytosis, not anemic, no electrolyte abnormality, ESR minimally elevated, CRP is not, lactic 0.7 X-ray left foot: Findings: Bones intact. No dislocations. Small erosion involving the medial aspect of the proximal phalanx of the 1st digit adjacent to the interphalangeal joint. Periarticular osteophyte formation at the 1st metatarsophalangeal joint. No ankle effusion. No radiopaque foreign body. IMPRESSION: 1. 1st digit erosion, which could indicate osteomyelitis. CT left foot:Findings: Visualized soft tissues are unremarkable. As before, there is a small erosion of the proximal phalanx of the 1st digit adjacent to the interphalangeal joint. Small well corticated 1st metatarsal head erosion medially is present. IMPRESSION: Possible 1st digit proximal phalanx osteomyelitis as before. Lab Data 11/01/24 16:46 11/01/24 16:46 Labs: Lab Results 11/01/24 11/01/24 Range/Units 16:46 21:37 WBC 8.0 (4.8-10.8) X10*3/uL RBC 3.84 L (4.20-5.50) X10*6/uL Hgb 10.7 L (12.0-16.0) g/dl Hct 32.9 L (37.0-47.0) % MCV 85.7 (80.0-98.0) fL MCH 27.9 (27.0-33.0) pg MCHC 32.5 (31.0-35.0) g/dl RDW 14.2 (11.0-16.0) % Plt Count 352 D (160-400) X10*3/uL MPV 10.3 (9.4-12.3) fL Immature Gran % (Auto) 0.4 (0.0-0.4) % Neut % (Auto) 65.1 (45-73) % Lymph % (Auto) 25.9 (20-40) % [place] % (Auto) 6.5 (2-11) % Eos % (Auto) 1.6 (0-4) % Baso % (Auto) 0.5 (0-2) % Lymph # (Auto) 2.1 (1.2-4.9) X10*3/uL [place] # (Auto) 0.5 (0.1-1.2) X10*3/uL Eos # (Auto) 0.1 (0.0-0.4) X10*3/uL Baso # (Auto) 0.0 (0.0-0.2) X10*3/uL Abs Immat Gran (auto) 0.03 (0.00-0.03) X10*3/uL Absolute Neuts (auto) 5.2 (2.0-8.3) x10*3/uL Absolute Nucleated RBC 0.000 (0.0-0.012) X10*3/uL Nucleated RBC % (auto) 0.0 (0.0-0.2) /100WBC ESR 29 H (0-20) MM/HR Sodium 138 (135-145) mmol/L Potassium 3.8 (3.3-5.1) mmol/L Chloride 103 (96-108) mmol/L Carbon Dioxide 28 (22-29) mmol/L Anion Gap 11 L (12-20) BUN 11 (9-16) mg/dL Creatinine 0.66 (0.5-1.4) mg/dL Estim Creat Clear Calc 115.1 Estimated GFR > 60 Random Glucose 213 H (60-115) mg/dL Lactic Acid 0.7 (0.5-2.0) mmol/L Calcium 9.6 D (8.4-10.2) mg/dL Total Bilirubin 0.2 (0.0-1.0) mg/dL AST 13 (5-31) U/L ALT 11 (0-31) U/L Alkaline Phosphatase 54 (39-117) U/L C-Reactive Protein 0.47 (< or = 0.50) mg/dL Total Protein 6.8 (6.5-8.0) g/dL Albumin 3.8 (3.5-5.0) g/dL Discharge Plan Discharge Clinical Impression: Acute osteomyelitis of left foot Patient Disposition: Admitted As Inpatient Print Language: Botswanan
[2024-11-01 16:52] LABS: MANUAL DIFF FLAG NO
[2024-11-01 16:53] LABS: Basophils Percent Auto 0.5 % (0-2); Eosinophils Absolute Auto 0.1 X10*3/uL (0.0-0.4); Eosinophils Percent Auto 1.6 % (0-4); Hematocrit 32.9 % (37.0-47.0); Hemoglobin 10.7 g/dl (12.0-16.0); Imm Gran Abs Auto 0.03 X10*3/uL (0.00-0.03); Imm Gran Pct Auto 0.4 % (0.0-0.4); Lymphocytes Absolute Auto 2.1 X10*3/uL (1.2-4.9); Lymphocytes Percent Auto 25.9 % (20-40); Mean Corpuscular HGB Conc 32.5 g/dl (31.0-35.0); Mean Corpuscular Hemoglobin 27.9 pg (27.0-33.0); Mean Corpuscular Volume 85.7 fL (80.0-98.0); Mean Platelet Volume 10.3 fL (9.4-12.3); Monocytes Absolute Auto 0.5 X10*3/uL (0.1-1.2); Monocytes Percent Auto 6.5 % (2-11); Neutrophils Absolute Auto 5.2 x10*3/uL (2.0-8.3); Neutrophils Percent Auto 65.1 % (45-73); Platelet Count 352 X10*3/uL (160-400); Red Blood Count 3.84 X10*6/uL (4.20-5.50); Red Cell Distribution Width 14.2 % (11.0-16.0)
[2024-11-01 17:26] LABS: Erythrocyte Sedimentation Rate 29 MM/HR (0-20)
[2024-11-01 17:30] LABS: Alanine Aminotransferase 11 U/L (0-31); Albumin Level 3.8 g/dL (3.5-5.0); Alkaline Phosphatase 54 U/L (39-117); Anion Gap 11 (12-20); Aspartate Amino Transferase 13 U/L (5-31); Bilirubin Total 0.2 mg/dL (0.0-1.0); Blood Urea Nitrogen 11 mg/dL (9-16); C Reactive Protein 0.47 mg/dL (< or = 0.50); Calcium 9.6 mg/dL (8.4-10.2); Carbon Dioxide 28 mmol/L (22-29); Chloride 103 mmol/L (96-108); Creatinine Clr Calc Pharmacy 115.1; Estimated Glomerular Filt Rate > 60; Glucose Random 213 mg/dL (60-115); Potassium 3.8 mmol/L (3.3-5.1); Sodium 138 mmol/L (135-145); Total Protein 6.8 g/dL (6.5-8.0)
--- NOTE | 2024-11-01 18:06 | PC.NURSE ---
Patient moved from ED waiting room to ED 25. Awaiting primary provider evaluation. Care ongoing by this RN.
[2024-11-01 18:10] VITALS: BP 137/75; PULSE 82; RESP 16; TEMP 36.3; O2SAT 97
--- OUTSIDE RECORDS SUMMARY | 2024-11-01 18:25 | XMS_ITS | Encounter Summary ---
Author Organization [employer] Address [address] [facility] [facility] [address] [place] [address] Care Team Providers Care General Manager Farm Name Role Phone [place] [facility] Primary Care Provider [phone] Encounter Details Date Type Department Care Team ([facility] st Contact Info) Description 11/01/2024 Orders Only GENERIC EXTERNAL DATA DEPARTMENT Provider, [...] Description 03/23/2025 1:00 PM EDT Office Visit [facility] [address] [place] [address] Yue Box documented as of this encounter Goals Goal Patient Goal Type Associated Problems Recent Progress Patient-Stated? Author Blood Pressure < 140/90 Blood Pressure 128/74(2024 12:59 PM EST) No Slava Kidd Hemoglobin A1c < 7 Result Component 9.3( 12:35 PM EDT) No Slava Kidd documented as of this encounter Procedures Procedure Name Priority Date/Time Associated Diagnosis Comments XR FOOT 3+ VIEWS LEFT Routine 11/01/2024 5:04 PM EDT CBC WITH AUTO DIFFERENTIAL Routine 11/01/2024 4:46 PM EDT SED RATE BY MODIFIED WESTERGREN Routine 11/01/2024 4:46 PM EDT C-REACTIVE PROTEIN Routine 11/01/2024 4: 46 PM EDT COMPREHENSIVE METABOLIC PANEL Routine 11/01/2024 4:46 PM EDT documented in this encounter Results * XR Foot 3+ Views Left (11/01/2024 5:04 PM EDT) Anatomical Region Laterality Modality Lower Extremities, Foot Left Radiogra phic Imaging 11/01/2024 5:04 PM EDT Narrative 11/01/2024 5:05 PM EDT ? [facility] ?[address] ?[place] [address] ?XRay Report ? Signed ? Patient: Regan Marrero,Liliane ?MR#: [id number] ?? [id number] ? : 1980 ?Acct:[id number] ? Age/Sex: 44 / F ?ADM Date: 11/01/24 ? Loc: HO.ED ? Attending Dr: ? Ordering Physician: Catie Priest ?? Date of Service: 11/01/24 ?? Procedure(s): XR foot LT min 3V ?? Accession Number(s): [id number] ? cc: Catie Priest; Jennifer Guy DEVELOPER [employer] ? CLINICAL HISTORY: ulceration in DM, concern for OSTEO ? 3 view left foot ? Comparison: None ? Findings: ?? Bones intact. No dislocations. ?? Small erosion involving the medial aspect of the proximal phalanx of the ?? 1st digit adjacent to the interphalangeal joint. Periarticular osteophyte ?? formation at the 1st metatarsophalangeal joint. ?? No ankle effusion. ?? No radiopaque foreign body. ? IMPRESSION: ?? 1. 1st digit erosion, which could indicate osteomyelitis. ? This document has been electronically signed by: Nehal Powell MD on ?? 11/01/2024 17:04:20 ? Dictated By: ?Nehal Powell MD ? Signed By: ?<Electronically signed by Nehal Powell MD in OV> ? 11/01/24 1705 ? DD/ 1704 ? TD/TT: 11/01/241703 ? Hand Fabric Cutter: ? Procedure Note Slim, Image - 11/01/[address] [address] XRay Report Signed Patient: Shahla Lamas EMR#: [id number] : 1980Acct:[id number] Age/Sex: 44 / FADM Date: 11/01/24 Loc: HO.ED Attending Dr: Ordering Physician: Catie Priest Date of Service: 11/01/24 Procedure(s): XR foot LT min 3V Accession Number(s): [id number] cc: Catie Priest; Jennifer Guy [facility] CLINICAL HISTORY: ulceration in DM, concern for OSTEO 3 view left foot Comparison: None Findings: Bones intact. No dislocations. Small erosion involving the medial aspect of the proximal phalanx of the 1st digit adjacent to the interphalangeal joint. Periarticular osteophyte formation at the 1st metatarsophalangeal joint. No ankle effusion. No radiopaque foreign body. IMPRESSION: 1. 1st digit erosion, which could indicate osteomyelitis. This document has been electronically signed by: Nehal Powell MD on 11/01/2024 17:04:20 Dictated By: Nehal Powell MD Signed By: <Electronically signed by Nehal Powell MD in OV> 11/01/241704 DD/ 03 TD/TT: 11/01/241703 Hand Fabric Cutter: [facility] External Provider IMG XR PROCEDURES Edited Result - Final * C-reactive Protein (11/01/2024 4:46 PM EDT) Pathologist [facility] C Reactive Protein 0.47 < or = 0.50 mg/dL [facility] 11/01/2024 4:46 PM EDT 11/01/2024 4:50 PM EDT Generic External Data Provider LAB BLOOD ORDERAB LES Final Result [facility] [address] [place] [phone] * (ABNORMAL) Comprehensive Metabolic Panel (11/01/2024 4:46 PM EDT) Sodium 138 135 - 145 mmol/L [facility] Potassium 3.8 3.3 - 5.1 mmol/L [facility] Chloride 103 96 - 108 mmol/L [facility] Carbon Dioxide 28 22 - 29 mmol/L [facility] Anion Gap 11(L) 12 - 20 [facility] Urea Nitrogen (BUN) 11 9 - 16 mg/dL [facility] Creatinine, Serum 0.66 0.5 - 1.4 mg/dL [facility] Creatinine Clr Calc Pharmacy 115.1 [facility] Comment:Provided height and weight: 162.56 cm,85.6 kg.eGFR (calculated from the MDRD study equation) and eCrCl(calculated from the Cockcroft-Gault equation) are based ondifferent parameters and may not yield comparable results.If eCrCl result is absurd, please check patient'sheight/weight. Estimated Glomerular Filt Rate >60 [facility] Comment:Chronic Kidney Disea se: Estimated GFR < 60 mL/min/1.20v4Butlxc Kidney Disease: Estimated GFR < 15 mL/min/1.73m2 Glucose 213(H) 60 - 115 mg/dL [facility] Calcium 9.6 8.4 - 10.2 mg/dL [facility] Bilirubin, Total 0.2 0.0 - 1.0 mg/dL [facility] Aspartate Amino Transferase 13 5 - 31 U/L [facility] Alanine Aminotransferase 11 0 - 31 U/L [facility] Total Protein 6.8 6.5 - 8.0 g/dL [facility] Albumin Level 3.8 3.5 - 5.0 g/dL [facility] Alkaline Phosphatase 54 39 - 117 U/L [facility] 11/01/2024 4:46 PM EDT 11/01/2024 4:50 PM EDT us Generic External Data Provider LAB BLOOD ORDERAB LES Final Result [facility] [address] [place] [phone] * (ABNORMAL) Sed Rate by Modified [place] (11/01/2024 4:46 PM EDT) Erythrocyte Sedimentation Rate 29(H) 0 - 20 MM/HR [facility] Comment:Patients with polycy themia and many hemoglobin abnormalitiesmay have depressed sed rates whereas patients with anemiamay have elevated sed rates. 11/01/2024 4:46 PM EDT 11/01/2024 4:50 PM EDT us Generic External Data Provider LAB BLOOD ORDERAB LES Final Result [facility] [address] [place], [place] [phone] * (ABNORMAL) CBC auto differential (11/01/2024 4:46 PM EDT) White Blood Count 8.0 4.8 - 10.8 X10*3/uL [facility] Red Blood Count 3.84(L) 4.20 - 5.50 X10*6/uL [facility] Hemoglobin 10.7(L) 12.0 - 16.0 g/dl [facility] Hematocrit 32.9(L) 37.0 - 47.0 % [facility] Mean Corpuscular Volume 85.7 80.0 - 98.0 fL [facility] Mean Corpuscular Hemoglobin 27.9 27.0 - 33.0 pg [facility] Mean Corpuscular HGB Conc 32.5 31.0 - 35.0 g/dl [facility] Red Cell Distribution Width 14.2 11.0 - 16.0 % [facility] Platelet Count 352 160 - 400 X10*3/uL [facility] Mean Platelet Volume 10.3 9.4 - 12.3 fL [facility] Neutrophils Percent Auto 65.1 45 - 73 % [facility] Imm Gran Pct Auto 0.4 0.0 - 0.4 % [facility] Lymphocytes Percent Auto 25.9 20 - 40 % [facility] Monocytes Percent Auto 6.5 2 - 11 % [facility] Eosinophils Percent Auto 1.6 0 - 4 % [facility] Basophils Percent Auto 0.5 0 - 2 % [facility] NRBC Pct Auto 0.0 0.0 - 0.2 /100WBC [facility] Neutrophils Absolute Auto 5.2 2.0 - 8.3 x10*3/uL [facility] Imm Gran Abs Auto 0.03 0.00 - 0.03 X10*3/uL [facility] Lymphocytes Absolute Auto 2.1 1.2 - 4.9 X10*3/uL [facility] Monocytes Absolute Auto 0.5 0.1 - 1.2 X10*3/uL [facility] Eosinophils Absolute Auto 0.1 0.0 - 0.4 X10*3/uL [facility] Basophils Absolute Auto 0.0 0.0 - 0.2 X10*3/uL [facility] NRBC Abs Auto 0.000 0.0 - 0.012 X10*3/uL [facility] 11/01/2024 4:46 PM EDT 11/01/2024 4:50 PM EDT us Generic External Data Provider LAB BLOOD ORDERAB LES Final Result [facility] [address] [place] [phone] documented in this encounter Visit Diagnoses Not on filedocumented in this encounter Additional Health Concerns Assessment Noted Time PHQ-9 Depression Total Score: 6 04/13/20 24 11:39 AM EDT documented as of this encounter Care Teams General Manager Farm Relationship Specialty Start Date End Date Jennifer Guy FNP [address] [place] [phone] PCP - General Family Medicine 01/03/22 documented as of this encounter
--- OUTSIDE RECORDS SUMMARY | 2024-11-01 18:25 | XMS_ITS | Clinical Summary ---
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 Name Role Phone Freeman [facility] Primary Care Provider [phone] Allergies Active Allergy Reactions Criticality Noted Date Comments Aspirin Hives,Unknown Medium 06/20/2022 Medications Blood Glucose Monitoring Suppl (Rhapsoyle Higginson Lite) w/Device kit Test 1 times by intradermal route 3 times every day Active Continuous Blood Gluc Clinical Specialist Medical Device (FreeStyle Shaheen 2 Bard) deviceIndicatio ns:Type 2 diabetes mellitus with hyperglycemia, unspecified whether skilled nursing insulin use (CMS/HCC) Scan sensor every 8 hours 1 each 024 Active atorvastatin (Lipitor) 20 MG tablet Take 1 tablet (20 mg) by mouth at bedtime. 90 tablet 3 024 Active Ascorbic Acid (vitamin C) 250 MG tablet TAKE 1 TABLET BY MOUTH TWICE DAILY IN THE MORNING AND IN THE EVENING 180 tablet 3 024 Active Blood Pressure kitIndications: Essential hypertension Use as directed 1 kit 024 Active ammonium lactate (Lac-Hydrin) 12 % lotion APPLY TOPICALLY TO THE AFFECTED AREA(S) OF THE FEET EVERY DAY, AT NIGHT WEAR SOCKS TO BED Active gabapentin (Neurontin) 300 MG capsuleIndicati ons:Type 2 diabetes mellitus with diabetic polyneuropathy, with long-term current use of insulin (CMS/HCC) Take 2 capsules (600 mg) by mouth at bedtime. OK to increase to three times daily if needed for symptom relief 60 capsule 11 024 2024 Active insulin glargine (Lantus SoloStar) 100 UNIT/ML penIndications: Type 2 diabetes mellitus with hyperglycemia, unspecified whether skilled nursing insulin use (CMS/[facility]) INJECT 30 UNITS SUBCUTANEOUSLY AT BEDTIME DIRECTED 15 mL 3 024 Active Drospirenone (Slynd) 4 MG tablet Take by mouth. Take 1 tablet by mouth daily Active Continuous Glucose Sensor (FreeStyle Shaheen 2 Sensor) miscIndications :Type 2 diabetes mellitus with diabetic polyneuropathy, with long-term current use of insulin (CMS/[facility]) USE DIRECTED TO TEST BLOOD SUGAR CHANGE EVERY 14 DAYS 2 each 025 Active Ferrous Sulfate (iron) 325 (65 Fe) MG tablet TAKE 1 TABLET BY MOUTH TWICE DAILY IN THE MORNING AND IN THE EVENING 180 tablet 2 025 Active olmesartan (BENIcar) 5 MG tabletIndicatio ns:Essential hypertension TAKE 1 TABLET BY MOUTH EVERY MORNING. MAY INCREASE TO 2 TABLETS IN THE MORNING DIRECTED 60 tablet Active Bydureon BCise 2 MG/0.85ML penIndications: Type 2 diabetes mellitus with diabetic polyneuropathy, with long-term current use of insulin ([facility]) INJECT 1 PEN (2 MG) SUBCUTANEOUSLY EVERY WEEK 3.4 mL 2 025 Active Alcohol Swabs (Alcohol Prep) 70 % padsIndications :Type 2 diabetes mellitus with hyperglycemia, unspecified whether chargemaster analyst insulin use (CMS/[facility]) USE DIRECTED THREE TIMES DAILY 100 each 5 025 Active Jardiance 25 MGIndications:T ype 2 diabetes mellitus with hyperglycemia, unspecified whether chargemaster analyst insulin use (CMS/[facility]) TAKE 1 TABLET BY MOUTH EVERY MORNING 30 tablet 025 Active Pentips Generic Pen [place] 32G X 4 MM misc USE DIRECTED EVERY NIGHT 100 each 3 025 Active TRUEplus Lancets 33G miscIndications :Type 2 diabetes mellitus with hyperglycemia, unspecified whether skilled nursing insulin use (CMS/HCC) USE DIRECTED THREE TIMES DAILY 100 each 025 Active empagliflozin (Jardiance) 25 MGIndications:T ype 2 diabetes mellitus with hyperglycemia, unspecified whether skilled nursing insulin use (CMS/[facility]) Take 1 tablet (25 mg) by mouth in the morning. 30 tablet 024 2024 Discontinued Pentips 32G X 4 MM misc Use to inject insulin every night 100 each 3 024 2024 Discontinued Lancets Super Thin 28G miscIndications :Type 2 diabetes mellitus with hyperglycemia, unspecified whether skilled nursing insulin use (CMS/HCC) Inject 1 by into machine route 3 times every dayInject 1 by into machine route 3 times every day 100 each 11 024 2024 Discontinued Alcohol Swabs (Alcohol Prep) 70 % padsIndications :Type 2 diabetes mellitus with hyperglycemia, unspecified whether chargemaster analyst insulin use (CMS/HCC) USE THREE TIMES DAILY 100 each 3 024 2024 Discontinued Active Problems Problem Noted Date Diagnosed Date Anemia 04/17/2024 Fibroid uterus 04/17/2024 Essential hypertension 11/14/2023 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 eye care Dental: Discuss at f/u STi screening: Neg GC/CT/RPR 11/2021 HIV: Neg 11/2021 Hepatitis: Neg 11/2021 Hyperlipidemia 06/20/2022 Type 2 diabetes mellitus 06/20/2022 Overview (04/13/2024): Jardiance 25mg Lantus 40 units q. Evening - Did not tolerate metformin (s/e) Maintenance Foot Exam: 08/2023-->total loss of protective sensation; referral to podiatry Eye Exam: Followed by [facility] eye care ASCVD:7.7%, atorvastatin started Statin: Yes [...] for thyroid ultrasound - Per PM from [place], hx of nodule biopsy 2016. Biopsy results not in chart - Updated [...] Encounters Date Type Department Care Team Description 11/01/2024 Orders Only GENERIC EXTERNAL DATA DEPARTMENT Provider, Generic External Data 10/26/[address] [facility] [address] [place] [address] Jennifer Guy, QUARTER SECTION IRONER Type 2 diabetes mellitus with hyperglycemia, unspecified whether chargemaster analyst insulin use (CMS/HCC) 10/23/[address] [facility] [address] [place] [address] BrooksJennifer lynn, QUARTER SECTION IRONER Type 2 diabetes mellitus with hyperglycemia, unspecified whether skilled nursing insulin use (CMS/HCC) 10/20/2024 Orders Only GENERIC EXTERNAL DATA DEPARTMENT Provider, Generic External Data 10/09/[address] [facility] [address] [place] [address] Silva Telles, YAMEL 10/09/2024 Population Health Risk Score Community Care [facility] ([facility]) Department [address] [phone] Provider, Population Health Generic 10/06/2024 1:45 PM EDT Office Visit 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 [address] [facility] [place] [address] Freeman, Jennifer, QUARTER SECTION IRONER Type 2 diabetes mellitus with hyperglycemia, unspecified whether chargemaster analyst insulin use (CMS/HCC) 09/09/2024 2:45 PM EST Office Visit [facility] [address] [place] [address] Tarka, Silva, OD Mild nonproliferative diabetic retinopathy of both eyes without macular edema associated with type 2 diabetes mellitus ([facility]) (Primary Dx); Punctal stenosis, acquired, left; Regular astigmatism, bilateral 09/09/2024 Travel 09/09/[address] [facility] [address] [place] [address] [facility] Type 2 diabetes mellitus with diabetic polyneuropathy, with long-term current use of insulin ([facility]) 09/08/2024 1:00 PM EST Office Visit [facility] DENT[facility] [address] [place] [address] [employer] Dental calculus (Primary Dx); Dental plaque; Encounter for dental examination 09/08/[address] [facility] [address] [place] [address] [facility] Essential hypertension 08/26/[address] [facility] [address] [place] [address] [facility] 08/25/[address] [facility] [address] [place] [address] [facility] Type 2 diabetes mellitus with diabetic polyneuropathy, with long-term current use of insulin ([facility]) from Last 3 Months Immunizations Name Administration [...] is your housing situation today? I have mariamachristine jaffe 10/11/[address] you [...] Description 03/23/2025 1:00 PM EDT Office Visit [facility] [address] [place] [address] [employer] Health Maintenance Due Date Last [...] 09/13/2024 09/13/2023, 03/09/2022 Lipid Panel 09/13/2024 09/13/2023, 0808/2021, 12/08/2021 SDOH Screening 10/10/2024 10/11/2023 Mammogram 02/06/2025 [...] VIEWS LEFT Routine 11/01/2024 5:04 PM EDT C-REACTIVE PROTEIN Routine 11/01/2024 4: 46 PM EDT COMPREHENSIVE METABOLIC PANEL Routine 11/01/2024 4:46 PM EDT SED RATE BY MODIFIED WESTERGREN Routine 11/01/2024 4:46 PM EDT CBC WITH AUTO DIFFERENTIAL Routine 11/01/2024 4:46 PM EDT US PELVIS COMPLETE Routine 10/20/2024 2: 00 PM EDT HCG, TOTAL, QN Routine 10/20/2024 12:40 PM EDT TSH W/REFLEX TO FT4 Routine 10/20/2024 1 2:40 PM EDT CBC Routine 10/20/2024 12:40 PM EDT OCT, RETINA - OU - BOTH EYES Routine 09/09/2024 2:45 PM EST Mild nonproliferative diabetic retinopathy of both eyes without macular edema associated with type 2 diabetes mellitus ([facility]) COMPREHENSIVE PERIODONTAL EVALUATION - NEW OR ESTABLISHED [...] polyneuropathy, with long-term current use of insulin ([facility]) INTRAORAL - COMPLETE SERIES OF RADIOGRAPHIC IMAGES Routine 04/01/2024 10:30 AM EDT Encounter for dental examination Dental caries Teeth missing BI MAMMOGRAM SCREENING TOMOSYNTHESIS BILATERAL Routine 02/07/2024 11:40 AM EDT ALBUMIN, RANDOM URINE W/CREATININE Routine 09/13/2023 12:50 PM EST Type 2 diabetes mellitus with hyperglycemia, with long-term current use of insulin (CMS/HCC) LIPID PANEL, STANDARD Routine 09/13/2023 12:46 PM EST Type 2 diabetes mellitus with hyperglycemia, with long-term current use of insulin (CMS/HCC) HPV MRNA E6/E7 REFLEX TO HPV 16, 18/45 Routine 01/03/2023 10:46 AM EDT PAP SMEAR Routine 01/03/2023 10:46 AM EDT ZZZ HISTORICAL HEPATITIS C AB W/REFL TO HCV RNA, QN, PCR Routine 12/08/2021 8:18 AM EDT HIV 1/2 ANTIGEN/ANTIBODY, FOURTH GENERATION W/RFL Routine 12/08/2021 8:18 AM EDT from Last 3 Months or Most Recently Relevant to Health Maintenance Results * XR Foot 3+ Views Left (11/01/2024 5:04 PM EDT) Anatomical Region Laterality Modality Lower Extremities, Foot Left Radiogra [facility] 11/01/2024 5:04 PM EDT Narrative 11/01/2024 5:05 PM EDT ? [facility] ?[address] ?[place] [address] ?XRay Report ? Signed ? Patient: Regan Marrero,Liliane ?MR#: [id number] ?? [id number] ? : 1980 ?Acct:[id number] ? Age/Sex: 44 / F ?ADM Date: 04/06/25 ? Loc: HO.ED ? Attending Dr: ? Ordering Physician: Catie Priest ?? Date of Service: 11/01/24 ?? Procedure(s): XR foot LT min 3V ?? Accession Number(s): [id number] ? cc: Catie Priest; Jennifer Guy QUARTER SECTION IRONER ? CLINICAL HISTORY: ulceration in DM, concern [...] 11/01/24 1705 ? DD/ 1704 ? TD/TT: 11/01/24 1704 ? Psychology Instructor: ? Procedure Note Donleopoldoter, Image - 11/01/2024 [place] [address] XRay Report Signed Patient: Shahla Lamas EMR#: [id number] : 1980Acct:[id number] Age/Sex: 44 / FADM Date: 11/01/24 Loc: HO.ED Attending Dr: Ordering Physician: Catie Priest Date of Service: 11/01/24 Procedure(s): XR foot LT min 3V Accession Number(s): [id number] cc: Catie Priest; [facility] CLINICAL HISTORY: ulceration in DM, concern for [...] in OV> 11/01/241704 DD/ 03 TD/TT: 11/01/241703 Psychology Instructor: [facility] External Provider IMG XR PROCEDURES Edited Result - Final * (ABNORMAL) CBC auto differential (11/01/2024 4:46 PM EDT) White Blood Count 8.0 4.8 - 10.8 X10*3/uL [facility] Red Blood Count 3.84(L) 4.20 - 5.50 X10*6/uL [facility] Hemoglobin 10.7(L) 12.0 - 16.0 g/dl [facility] Hematocrit 32.9(L) 37.0 - 47.0 % [facility] Mean Corpuscular Volume 85.7 80.0 - 98.0 fL [facility] Mean Corpuscular Hemoglobin 27.9 27.0 - 33.0 pg [facility] Mean Corpuscular HGB Conc 32.5 31.0 - 35.0 g/dl [facility] Red Cell Distribution Width 14.2 11.0 - 16.0 % [facility] Platelet Count 352 160 - 400 X10*3/uL [facility] Mean Platelet Volume 10.3 9.4 - 12.3 fL [facility] Neutrophils Percent Auto 65.1 45 - 73 % [facility] Imm Gran Pct Auto 0.4 0.0 - 0.4 % [facility] Lymphocytes Percent Auto 25.9 20 - 40 % [facility] Monocytes Percent Auto 6.5 2 - 11 % [facility] Eosinophils Percent Auto 1.6 0 - 4 % [facility] Basophils Percent Auto 0.5 0 - 2 % [facility] NRBC Pct Auto 0.0 0.0 - 0.2 /100WBC [facility] Neutrophils Absolute Auto 5.2 2.0 - 8.3 x10*3/uL [facility] Imm Gran Abs Auto 0.03 0.00 - 0.03 X10*3/uL [facility] Lymphocytes Absolute Auto 2.1 1.2 - 4.9 X10*3/uL [facility] Monocytes Absolute Auto 0.5 0.1 - 1.2 X10*3/uL [facility] Eosinophils Absolute Auto 0.1 0.0 - 0.4 X10*3/uL [facility] Basophils Absolute Auto 0.0 0.0 - 0.2 X10*3/uL [facility] NRBC Abs Auto 0.000 0.0 - 0.012 X10*3/uL [facility] 11/01/2024 4:46 PM EDT 11/01/2024 4:50 PM EDT us Generic External Data Provider LAB BLOOD ORDERAB LES Final Result Performing Organization Address [facility] Co de Phone Number [facility] [address] [place] [phone] * (ABNORMAL) Sed Rate by Modified Arlene (11/01/2024 4:46 PM EDT) Pathologist [facility] Erythrocyte Sedimentation Rate 29(H) 0 - 20 MM/HR [facility] Comment:Patients with polycy themia and many hemoglobin abnormalitiesmay have depressed sed rates whereas patients with anemiamay have elevated sed rates. 11/01/2024 4:46 PM EDT 11/01/2024 4:50 PM EDT us Generic External Data Provider LAB BLOOD ORDERAB LES Final Result Performing Organization Address City/[facility]/ZIP Co de Phone Number [facility] [address] [place] [phone] * C-reactive Protein (11/01/2024 4:46 PM EDT) Pathologist [facility] C Reactive Protein 0.47 < or = 0.50 mg/dL [facility] 11/01/2024 4:46 PM EDT 11/01/2024 4:50 PM EDT us Generic External Data Provider LAB BLOOD ORDERAB LES Final Result [facility] [address] [place] [phone] * (ABNORMAL) Comprehensive Metabolic Panel (11/01/2024 4:46 PM EDT) Sodium 138 135 - 145 mmol/L [facility] Potassium 3.8 3.3 - 5.1 mmol/L [facility] Chloride 103 96 - 108 mmol/L [facility] Carbon Dioxide 28 22 - 29 mmol/L [facility] Anion Gap 11(L) 12 - 20 [facility] Urea Nitrogen (BUN) 11 9 - 16 mg/dL [facility] Creatinine, Serum 0.66 0.5 - 1.4 mg/dL [facility] Creatinine Clr Calc Pharmacy 115.1 [facility] Comment:Provided height and weight: 162.56 cm,85.6 kg.eGFR (calculated from the MDRD study equation) and eCrCl(calculated from the Cockcroft-Gault equation) are based ondifferent parameters and may not yield comparable results.If eCrCl result is absurd, please check patient'sheight/weight. Estimated Glomerular Filt Rate >60 [facility] Comment:Chronic Kidney Disea se: Estimated GFR < 60 mL/min/1.12i3Elelue Kidney Disease: Estimated GFR < 15 mL/min/1.73m2 Glucose 213(H) 60 - 115 mg/dL [facility] Calcium 9.6 8.4 - 10.2 mg/dL [facility] Bilirubin, Total 0.2 0.0 - 1.0 mg/dL [facility] Aspartate Amino Transferase 13 5 - 31 U/L [facility] Alanine Aminotransferase 11 0 - 31 U/L [facility] Total Protein 6.8 6.5 - 8.0 g/dL [facility] Albumin Level 3.8 3.5 - 5.0 g/dL [facility] Alkaline Phosphatase 54 39 - 117 U/L [facility] 11/01/2024 4:46 PM EDT 11/01/2024 4:50 PM EDT us Generic External Data Provider LAB BLOOD ORDERAB LES Final Result [facility] [address] [place] [phone] [phone] * Us Pelvis complete (10/20/2024 2:00 PM EDT) Anatomical Region Laterality Modality Pelvis Ultrasound 10/20/2024 2:00 PM EDT Narrative 10/20/2024 2:50 PM EDT ? [facility] ?[address] ?[place] [address] ? Ultrasound Report ? Signed ? Patient: Regan Shahla Marrero ?MR#: [id number] ?? [id number] ? : 1980 ?Acct:[id number] ? Age/Sex: 44 / F ?ADM Date: 10/20/24 ? Loc: HO.US ? Attending Dr: Kael Herrera MD ? Ordering Physician: Kael Herrera MD ?? Date of Service: 10/20/24 ?? Procedure(s): US pelvic complete ?? Accession Number(s): [id number] ? cc: Jennifer Guy QUARTER SECTION IRONER; Kael Herrera MD ? EXAMINATION: ? US [...] DD/ 1400 ? TD/TT: 10/20/24 1407 ? Psychology Instructor: ? Procedure Note Donotuseinterpreter, Image - 10/20/2024 [place] [address] Ultrasound Report Signed Patient: Shahla Lamas EMR#: [id number] : 1980Acct:[id number] Age/Sex: 44 / FADM Date: 10/20/24 Loc: HO.US Attending Dr: Kael Herrera MD Ordering Physician: Kael Herrera MD Date of Service: 10/20/24 Procedure(s): US pelvic complete Accession Number(s): [id number] cc: Jennifer Guy [facility]; Kael Herrera MD EXAMINATION: US PELVIS CLINICAL [...] Jan Hernandez MD 10/20/2024 02:47 PM EDT RP Dictated By: Jan Craven MD Signed By: <Electronically signed by Jan Alva MDin OV> 10/20/24 1447 DD/ 1400 TD/TT: 10/20/24 1407 Psychology Instructor: [facility] External Provider IMG US PROCEDURES Edited Result - Final * TSH with Reflex to Free T4 (10/20/2024 12:40 PM EDT) TSH reflex Free T4 2.36 0.32 - 4.0 uIU/mL [facility] 10/20/2024 12:4 0 PM EDT 10/20/2024 12:49 PM EDT Generic External Data Provider LAB BLOOD ORDERAB LES Final Result [facility] [address] [place] [address] [phone] * (ABNORMAL) CBC (10/20/2024 12:40 PM EDT) White Blood Count 8.6 4.8 - 10.8 X10*3/uL [facility] Red Blood Count 3.84(L) 4.20 - 5.50 X10*6/uL [facility] Hemoglobin 10.9(L) 12.0 - 16.0 g/dl [facility] Hematocrit 33.6(L) 37.0 - 47.0 % [facility] Mean Corpuscular Volume 87.5 80.0 - 98.0 fL [facility] Mean Corpuscular Hemoglobin 28.4 27.0 - 33.0 pg [facility] Mean Corpuscular HGB Conc 32.4 31.0 - 35.0 g/dl [facility] Red Cell Distribution Width 15.6 11.0 - 16.0 % [facility] Platelet Count 228 160 - 400 X10*3/uL [facility] Mean Platelet Volume 11.0 9.4 - 12.3 fL [facility] NRBC Pct Auto 0.0 0.0 - 0.2 /100WBC [facility] NRBC Abs Auto 0.000 0.0 - 0.012 X10*3/uL [facility] 10/20/2024 12:4 0 PM EDT 10/20/2024 12:49 PM EDT us Generic External Data Provider LAB BLOOD ORDERAB LES Final Result Performing Organization Address City/State/[facility] Co de Phone Number [facility] [address] [place] [phone] * hCG, Total, Quantitative (10/20/2024 12:40 PM EDT) HCG Quantitative <2 mIU/mL [facility] Comment:Weeks post LMP Appro ximate hCG(Last Menstrual Period) Range (mIU/ml)3 - 4 weeks 9 - 1304 - 5 weeks 75 - 2,6005 - 6 weeks 850 - 20,8006 - 7 weeks 4000 - 100,2007 - 12 weeks 11,500 - 289,52515 - 16 weeks 18,300 - 137,04505 - 29 weeks (2nd trimester) 1,400 - 53,87582 - 41 weeks (3rd trimester) 940 - [...] Provider LAB BLOOD ORDERAB LES Final Result [facility] [address] [place] [phone] * OCT, Retina - OU - [...] Refer to retina if no improvement noted. Result [facility] Silva Telles OD OPHTH TOMOGRAPHY Final Result * Referral to Ophthalmology (09/04/2024) Result [facility] Silva Telles OD OUTPATIENT REFERRAL ORDERABLES Edited Result - Final * (ABNORMAL) POCT HGB A1C (04/13/2024 11:45 AM EDT) Hemoglobin A1C 9.4(A) 4.0 - 6.0 % QC Media Lot # [id number] Lot# Expiration Date [id number] Blood 04/13/2024 11:4 5 AM EDT [facility] QUARTER SECTION IRONER POINT OF CARE TEST ENTER/EDIT ORDERABLES Final Result * BI Mammogram Screening Tomosynthesis Bilateral (02/07/2024 11:40 AM EDT) Anatomical Region Laterality Modality Breast Bilateral Mammography 02/07/2024 11:4 0 AM EDT Narrative 03/03/2024 10:02 PM EDT ? [facility] ? [address] ?[place] [address] ? Mammography Report ? Signed ? Patient: Regan Marrero,Liliane ?MR#: [id number] ?? [id number] ? : 1980 ?Acct:[id number] ? Age/Sex: 43 / F ?ADM Date: 02/07/24 ? Loc: HO.MAMMO ? Attending Dr: Kael Herrera MD ? Ordering Physician: Kael Herrera MD ?Results: 1Negativ ?? e ? Date of Service: 02/07/24 ?Follow Up: 1 Year From Orig ?? inal Mammogram ? Procedure(s): MM tomosynthesis screening BI ?? Accession Number(s): [id number] ? cc: Jennifer Guy QUARTER SECTION IRONER; Kael Herrera MD ? EXAMINATION: ?? MM [...] 03/03/242158 ? DD/ 1140 ? TD/TT: ? Psychology Instructor: ? Procedure Note Donarnaldorossso, Image - 03/03/[address] [facility] [address] [place] [address] Mammography Report Signed Patient: Shahla Lamas EMR#: [id number] : 1980Acct:[id number] Age/Sex: 43 / FADM Date: 02/07/24 Loc: HO.MAMMO Attending Dr: Kael Herrera MD Ordering Physician: Kael Herrera MDResults: 1Negativ e Date of Service: 02/07/24Follow Up: 1 Year From Orig inal Mammogram Procedure(s): MM tomosynthesis screening BI Accession Number(s): [id number] cc: FreemanJennifer QUARTER SECTION IRONER; Kael Herrera MD EXAMINATION: MM SCREENING DIGITAL [...] in OV> 03/03/24 2159 DD/ 1140 TD/TT: Psychology Instructor: [facility] External Provider IMG BI PROCEDURES Edited Result - Final * Albumin, Random Urine W/Creatinine (09/13/2023 12:50 PM EST) Creatinine, Urine 74.47 mg/dL [facility] Microalbumin Urine 20.0 mg/L [facility] Microalbum Creatinine Ratio Ur 26.8 <30 ug/mg cr [facility] Comment:Albumin/Creatinine R atio Reference Ranges: Normal: < 30 ug/mg creatinine Microalbuminuria: 30 - 300 ug/mg creatinineClinical Albuminuria: > 300 ug/mg creatinine Urine 09/13/2023 12:5 0 PM EST 09/13/2023 1:23 PM EST [facility] [employer] LAB URINE ORDERABLES Final Re sult [facility] [address] [place] [phone] * (ABNORMAL) Lipid Panel, Standard (09/13/2023 12:46 PM EST) Triglycerides 65 <150 mg/dL [facility] Comment:Desirable Triglyceri de: less than 150 mg/dLBorderline High Triglyceride 150-199 mg/dLHigh Triglyceride: 200-499 mg/dLVery High Triglyceride: greater than or equal to 5OO mg/dL Cholesterol 171 <200 mg/dL [facility] Comment:Desirable Cholestero l: less than 200 mg/dLBorderline High Cholesterol: 200-239 mg/dLHigh Cholesterol: greater than 239 mg/dL LDL Cholesterol Calculated 103(H) <100 mg/dL [facility] Comment:Desirable LDL: less than 100 mg/dLNear Optimal/Above Optimal LDL: 110- 129 mg/dLBorderline High LDL: 130-159 mg/dLHigh LDL: 160-189 mg/dLVery High LDL: greater than or equal to 190 mg/dL HDL Cholesterol 55 >40 mg/dL [facility] Comment:Desirable HDL: great er than 40 mg/dL Note: This HDL assay may give artificially low results in patients with liver disease. Blood Venous blood specimen / Unknown 09/13/2023 12:46 PM EST 09/13/2023 1:19 PM EST [facility] LAB BLOOD ORDERABLES Final Re sult [facility] [address] [place] [phone] * HPV mRNA E6/E7 w/Reflex to HPV Genotypes 16, 18/45 (01/03/2023 10:46 AM EDT) HPV nRNA E6/E7 Not Detected Not Detected [facility] Comment:Methodology: Transcr iption-Mediated AmplificationThis assay detects E6/E7 viral messenger RNA (mRNA) from 14high-risk HPV types (16,18,31,33,35,39,45,51,52,56,58,59,66,68).Cervical sources are required for HPV testing.If a vaginal source from a patient who has had atotal hysterectomy with removal of cervix wassubmitted, please contact the testing laboratoryfor alternative testing options.For additional information, please refer tohttp://education.[employer]/faq/JNR600y6(This link if provided for information/educational purposes only.)THIS TEST WAS PERFORMED AT:[employer] [place] [phone] MCDONALD MD HPV mRNA E6/E7 [facility] HPV 16 RNA TNP [facility] HPV 18/45 RNA TNP [facility] 01/03/2023 10:4 6 AM EDT 01/07/2023 10:15 AM EDT us [facility] External Provider LAB CYT OLOGY ORDERABLES Final Result Performing Organization Address City/State/[facility] Co de Phone Number [facility] [address] [place] [address] [phone] * Pap Smear (01/03/2023 10:46 AM EDT) 01/03/2023 10:4 6 AM EDT 01/07/2023 10:15 AM EDT Narrative [facility] - 01/18/2023 3:47 PM EDT ----- ------- Name: Shahla Spears ?Age/Sex: 42/F ? : 1980 Unit#: [id number] ?? Attend Dr: Kael Herrera MD ?Re01/03/23 ?Status: DEP REF ? Location: HO.LNP ?Disch: ? ----- ------- SPEC : [id number] ? RECD: 01/07/23-1015 ? STATUS: ??SOUT ? REQ NUM: [id number] ? RAFAELA: 01/03/23-1046 ? SUBM DR: Kael [...] 66, 68) ? HPV testing performed by [facility], [place], [place]. ??See reference laboratory ?? portion of the EMR for entire report. ?Clinical Information LMP: 01/02/23 Previous PAP test: Unknown ? Material Received ?? ThinPrep-Cervical ----- ------- Signed (signature on file) Swati Carmona 01/18/23 1547 ? ----- ------- ? END OF REPORT ? [facility] External Provider LAB [facility] ORDERABLES Final Result [facility] [address] [place] [phone] * HEPATITIS C AB W/REFL TO HCV RNA, QN, PCR (12/08/2021 8:18 AM EDT) HEPATITIS C ANTIBODY NON-REACT REBEL NON-REACT [facility] INDEX 0.01 <1.00 [facility] Comment: ?? HCV antibody was non-reactive. There is no laboratory ?? evidence of HCV infection. ?? In most cases, no further action is required. However, if recent HCV exposure is suspected, a test for HCV RNA (test code 86769) is suggested. ?? For additional information please refer to http://[employer]/faq/TPI82h7 (This link is being provided for informational/ educational purposes only.) ?? 12/08/2021 8:18 AM EDT us Boris Collazo MD HISTORICAL/NON ORDERABLE LABS Fi nal Result Performing Organization Address [facility] Phone Number [facility] [address] * HIV 1/2 ANTIGEN/ANTIBODY,FOURTH GENERATION W/RFL (12/08/2021 8:18 AM EDT) HIV-1/2 ANTIGEN AND ANTIBODIES, 4TH GENERATION W/ REFLEX NON-REACT REBEL NON-REACT REBEL [facility] Comment: HIV-1 antigen and HIV-1/HIV-2 [...] ? For additional information please refer to http://education.[employer]/faq/XBG294 (This link is being provided for informational/ educational purposes only.) ? The performance of this assay has not been clinically validated in patients less than 2 years old. ?? 12/08/2021 8:18 AM EDT us Boris Collazo MD LAB BLOOD ORDERABLES Final Resul t Performing Organization Address 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
--- OUTSIDE RECORDS SUMMARY | 2024-11-01 18:25 | XMS_ITS | Encounter Summary ---
Author Organization [employer] Address [address] [facility] [address] [place] [address] Care Team Providers Care Inseam Leveler Name Role Phone [facility] Primary Care Provider [phone] Reason for Visit * Reason Comments Med Refill Encounter Details Date Type Department Care Team ([facility] st Contact Info) Description 11/06/2023 Refill [facility] [address], [place] [phone] [facility] [address] [place] [address] Social History Tobacco Use Types Packs/Day Years [...] Description 03/23/2025 1:00 PM EDT Office Visit [facility] [address] [place] [address] Yue Box documented as of this encounter [...] documented as of this encounter Care Teams Inseam Leveler Relationship Specialty Start Date End Date Jennifer Guy FNP [address] [place] [address] PCP - General Family Medicine 01/03/22 documented as of this encounter
--- NOTE | 2024-11-01 19:32 | PC.NURSE ---
Away for CT scan with contrast. Care ongoing by this RN.
[2024-11-01] MEDS: iohexoL 350 MG/ML 100 ML INFUS..BTL IV (19:42)
[2024-11-01 20:14] VITALS: BP 156/84; PULSE 96; RESP 16; TEMP 36.5; O2SAT 94
[2024-11-01] MEDS: Piperacillin Sodium/Tazobactam 3.375 GM in 0.9 % Sodium Chloride 50 ML IV (21:51)
[2024-11-01] MEDS: vancomycin HCL 1,500 MG in 0.9 % Sodium Chloride 500 ML 333.33 MG IV (21:52)
[2024-11-01 21:56] LABS: Lactic Acid 0.7 mmol/L (0.5-2.0)
[2024-11-01 22:11] VITALS: BP 142/95; PULSE 92; RESP 16; TEMP 36.1; O2SAT 98
--- NOTE | 2024-11-01 23:06 | P.HPHOSP_ITS ---
History of Present Illness Date of Service: 11/01/24 Chief Complaint: left foot wound 44-year-old female with a past medical history of HTN, HLD, dm, GERD presented to the hospital with a chief complaint of left foot wound. Patient reports that since Saturday she noted to have small ulcer on the dorsum of the left foot which started to increase in size; denies any discharge. Around boots surrounding erythema. Patient denies any injury. Denies any fever chills cough or sputum production. Denies any chest pain or palpitations. Denies any GI or symptoms. ER course: Per ER team compression noted have wound on the dorsum of the left foot with surrounding erythema concerning for cellulitis. X-ray shows finding concerning for osteomyelitis. Given broad-spectrum antibiotics. [facility] Medical History (Updated 11/01/24 @ 22:44 by WILLY Lyle) Health care maintenance Skin ulcer due to diabetes mellitus Goiter Anxiety Uterine fibroid Iron deficiency anemia Hyperlipidemia Type 2 diabetes mellitus Family History Paternal Aunt Breast cancer Other No family history of cerebrovascular accident (CVA) Social History Household Members: Spouse, Family and Children Housing: Other Housing Other:: group home Do you presently have visiting nurse or other home services: No Alcohol intake: never Patient Tobacco Use Status: Never used Tobacco Smoked in Last 30 Days: No Second Hand Smoke Exposure: No Use of substances other than those prescribed or required for medical reasons: No Advance Directives: Yes Advance Directives on File: Yes Advance Directives Date on File: 09/21/22 Do you have a plan to hurt others: No Plan Patient : No service: No Current occupational status: unemployed Meds Allergies Allergy/AdvReac Type Severity Reaction Status Date / Time aspirin [ASA] Allergy Hives Verified 11/01/24 16:23 Active Medications: Current Medications Acetaminophen (Acetaminophen 325 Mg Tablet) 650 mg PO Q6H PRN PRN Reason: Pain, Mild 1-3,fever,headache Dextrose (Dextrose 50 % 25 Gm/50 Ml Syringe) 25 gm IVPUSH Q15M PRN; Protocol PRN Reason: per Hypoglycemia Standing Ord. Enoxaparin Sodium (Enoxaparin Sodium 40 Mg/0.4 Ml Syringe) 40 mg SUBCUT Q24H [place] Glucose (Glucose Gel 15 Gm Gel..Gram.) 15 gm PO Q15M PRN; Protocol PRN Reason: per Hypoglycemia Standing Ord. Insulin Human Lispro (Insulin Lispro 100 Unit/Ml 3 Ml Vial) 0 unit SUBCUT QIDACHS [place]; Protocol Home Medications ?Medication ?Instructions ?Recorded ?Confirmed ?Last Taken ?Type atorvastatin 20 mg tablet 1 tab PO DAILY 09/18/22 10/19/24 Unknown History empagliflozin 25 mg tablet 2 tab PO QAM 09/18/22 10/19/24 Unknown History (Jardiance) insulin glargine 100 unit/mL (3 23 unit subcut BEDTIME 09/18/22 10/19/24 Unknown History mL) subcutaneous pen (Lantus Solostar U-100 Insulin) lidocaine 5 % topical patch 1 patch topical NEEDED PRN Pain 09/18/22 10/19/24 Unknown History (Lidoderm) exenatide microspheres 2 mg/0.85 2 mg subcut DAILY 04/23/24 10/19/24 Unknown History mL subcutaneous auto-injector (Bydureon BCise) Physical Exam 2 Vital Signs and Narrative: Vital Signs: Last Vital Signs Temp 96.9 F 11/01/24 22:11 Pulse 92 11/01/24 22:11 Resp 16 11/01/24 22:11 BP 142/95 H 11/01/24 22:11 Pulse Ox 98 11/01/24 22:11 O2 Del Method Room Air 11/01/24 22:11 BMI result Body Mass Index 32.4 Gen: Appears be in no acute distress HEENT: NCAT, Moist mucosa. Pulmonary: Vesicular breath sounds, fair air entry CVS: Normal S1-S2 Abdomen: BS+, Soft, Nontender Extremities: Warm well perfused; left foot dorsum noted to have 1x1cm ulcer, no drainage, surrounding erythema noted. Neuro: Alert and awake. Results Labs 11/01/24 16:46 11/01/24 16:46 Labs: Laboratory Results - last 24 hr 11/01/24 11/01/24 16:46 21:37 MCV 85.7 MCH 27.9 MCHC 32.5 RDW 14.2 Plt Count 352 D MPV 10.3 Immature Gran % (Auto) 0.4 Neut % (Auto) 65.1 Lymph % (Auto) 25.9 [place] % (Auto) 6.5 Eos % (Auto) 1.6 Baso % (Auto) 0.5 Lymph # (Auto) 2.1 [place] # (Auto) 0.5 Eos # (Auto) 0.1 Baso # (Auto) 0.0 Abs Immat Gran (auto) 0.03 Absolute Neuts (auto) 5.2 Absolute Nucleated RBC 0.000 Nucleated RBC % (auto) 0.0 ESR 29 H Anion Gap 11 L Estim Creat Clear Calc 115.1 Estimated GFR > 60 Random Glucose 213 H Lactic Acid 0.7 Calcium 9.6 D Total Bilirubin 0.2 AST 13 ALT 11 Alkaline Phosphatase 54 C-Reactive Protein 0.47 Total Protein 6.8 Albumin 3.8 Assessment and Plan (1) Acute osteomyelitis of left foot: Status: Acute Plan 44-year-old female with a past medical history of HTN, HLD, dm, GERD presented to the hospital with a chief complaint of left foot wound. Noted to have diabetic foot infection with concerns for osteomyelitis. Admitted for further management. Left diabetic foot infection: Left 1st digit osteomyelitis: Empirically covered with IV vancomycin Zosyn Will consult ID for further recommendations MRI of the foot Vascular surgery consult Diabetes: Insulin sliding scale DVT prophylaxis: Lovenox Code status: Full code Quality Stroke Does the patient have a stroke diagnosis?: No VTE Prior VTE?: No VTE Risk Level:: Medical - moderate - high VTE Device Contraindication: Treatment Not Indicated VTE Drug Contraindication: N/A - Med Ordered
[2024-11-02 01:02] VITALS: BP 124/64; PULSE 91; RESP 15; TEMP 36.8; O2SAT 97
[2024-11-02 01:15] LABS: Glucose, Whole Blood 305 mg/dL (60-115)
[2024-11-02 03:48] VITALS: BP 120/76; PULSE 85; RESP 16; TEMP 36.3; O2SAT 95
[2024-11-02] MEDS: Piperacillin Sodium/Tazobactam 3.375 GM in 0.9 % Sodium Chloride 50 ML IV ×3 (03:49→16:05)
[2024-11-02 05:08] LABS: MANUAL DIFF FLAG NO
[2024-11-02 05:12] LABS: Basophils Absolute Auto 0.1 X10*3/uL (0.0-0.2); Basophils Percent Auto 0.7 % (0-2); Eosinophils Absolute Auto 0.2 X10*3/uL (0.0-0.4); Eosinophils Percent Auto 2.2 % (0-4); Hematocrit 30.4 % (37.0-47.0); Hemoglobin 9.8 g/dl (12.0-16.0); Imm Gran Abs Auto 0.03 X10*3/uL (0.00-0.03); Imm Gran Pct Auto 0.3 % (0.0-0.4); Lymphocytes Absolute Auto 2.2 X10*3/uL (1.2-4.9); Lymphocytes Percent Auto 24.3 % (20-40); Mean Corpuscular HGB Conc 32.2 g/dl (31.0-35.0); Mean Corpuscular Hemoglobin 27.8 pg (27.0-33.0); Mean Corpuscular Volume 86.4 fL (80.0-98.0); Mean Platelet Volume 10.7 fL (9.4-12.3); Monocytes Absolute Auto 0.5 X10*3/uL (0.1-1.2); Monocytes Percent Auto 5.8 % (2-11); Neutrophils Absolute Auto 6.1 x10*3/uL (2.0-8.3); Neutrophils Percent Auto 66.7 % (45-73); Platelet Count 331 X10*3/uL (160-400); Red Blood Count 3.52 X10*6/uL (4.20-5.50); Red Cell Distribution Width 14.3 % (11.0-16.0); White Blood Count 9.2 X10*3/uL (4.8-10.8)
[2024-11-02 05:26] LABS: Anion Gap 11 (12-20); Blood Urea Nitrogen 12 mg/dL (9-16); Calcium 8.6 mg/dL (8.4-10.2); Carbon Dioxide 26 mmol/L (22-29); Chloride 103 mmol/L (96-108); Estimated Glomerular Filt Rate > 60; Glucose Random 341 mg/dL (60-115); Potassium 3.8 mmol/L (3.3-5.1); Sodium 136 mmol/L (135-145)
[2024-11-02 06:14] VITALS: BP 118/72; PULSE 87; RESP 16; TEMP 36.6; O2SAT 94
[2024-11-02 07:05] LABS: Glucose, Whole Blood 276 mg/dL (60-115)
[2024-11-02] MEDS: Insulin Lispro 100 UNIT/ML 3 ML VIAL SUBCUT ×4 (07:17→20:06)
[2024-11-02] MEDS: Enoxaparin Sodium 40 MG/0.4 ML SYRINGE SUBCUT (07:17)
--- NOTE | 2024-11-02 07:50 | PHA.PROG ---
Admission Date/Time: November 01, 2024 22:58 Indication: SKIN Weight in k.6 kg Adjusted body weight in K.06 [place] body weight in K.7 Obesity Dosing Indication % IBW: 32.4 Serum Creatinine - Last 168 Hours 11/01/24 11/02/24 16:46 05:03 Creatinine 0.66 0.71 Estimated CrCl and GFR - Last 168 Hours 11/01/24 11/02/24 16:46 05:03 Estim Creat Clear Calc 115.1 107.0 Estimated GFR > 60 > 60 Vancomycin Loading Dose: LOAD OF 1500 (17.4 MG/KG) GIVEN IN ED Current Vancomycin Dosing Regimen: 1250 Q12 Vancomycin Monitoring using AUC goal of 400 - 600 range with trough as surrogate marker: 497/14.9 Date and Time for next Vancomycin Level to be drawn: 11/03 @1000 Pharmacist Comments on Vancomycin Plan: Vancomycin dosing will take advantage of [employer]RX as a clinical decision support tool that uses Bayesian modeling to calculate individual patient's pharmacokinetic parameters and forecast the patient's drug concentration time course with the target goal AUC 24 range of 400 - 600 mg/L/hr.
[2024-11-02 08:35] LABS: Glucose, Whole Blood 303 mg/dL (60-115)
[2024-11-02 09:00] VITALS: BP 132/80; PULSE 98; TEMP 36.6; O2SAT 98
--- NOTE | 2024-11-02 10:56 | PHA.MEDREC ---
Addendum entered by Carson Howard RPh 11/02/24 11:19: MED REC CHECKED BY [facility] Original Note: Pharmacy Consult ? Medication Reconciliation Pharmacy has completed the medication reconciliation. Spoke to patient to confirm med list. Patient states she is no longer taking Lidocaine patch, Naproxen 500 mg, and Tramadol 50 mg. Patient confirmed Gabapentin 600 mg BID, Lantus Solostar 30 units daily, Bydureon BCise 2 mg every Saturday, last dose was 10/30/24. Patient last took her medications yesterday.
[2024-11-02 11:07] LABS: Glucose, Whole Blood 293 mg/dL (60-115)
[2024-11-02] MEDS: gadobutroL 10 ML VIAL IVPUSH (12:35)
[2024-11-02] MEDS: vancomycin HCL 1,250 MG in 0.9 % Sodium Chloride 250 ML 166.67 MG IV ×2 (13:02→23:28)
--- NOTE | 2024-11-02 13:19 | P.CNID_ITS ---
History of Present Illness Data of Consult Service Date: 11/02/24 Requesting physician: Akiko Holt Primary Care Provider: LUIS Sullivan HPI Reason for consult: left foot wound/OM She presents with redness and swelling over left great to worse for last two days. She has neuropathy and not good control of DM and blood sugar 300s. She has no fever or chills. Blood cultures negative. Review of Systems 2 Review of Systems: Yes all other systems are reviewed and are [facility] Past Medical History Medical History Health care maintenance Skin ulcer due to diabetes mellitus Goiter Anxiety Uterine fibroid Iron deficiency anemia Hyperlipidemia Type 2 diabetes mellitus Family History Family History Paternal Aunt Breast cancer Other No family history of cerebrovascular accident (CVA) Family history: reviewed and not pertinent Social History Social History Household Members: Significant Other and Children Housing: Homeless Housing Other:: She;ter Do you presently have visiting nurse or other home services: No Alcohol intake: never Patient Tobacco Use Status: Never used Tobacco Smoked in Last 30 Days: No Second Hand Smoke Exposure: No Use of substances other than those prescribed or required for medical reasons: No Have you been hit, kicked, punched, or otherwise hurt by someone within the past year? If so, by whom?: No Do you feel safe in your current relationship?: Yes Is there a partner from a previous relationship who is making you feel unsafe now?: No Are you made to feel afraid or neglected: No Jainism Healthcare Practices: Religion Advance Directives: Yes Advance Directives on File: Yes Advance Directives Date on File: 09/21/22 Do you have a plan to hurt others: No Plan Recently lost weight without trying: No Eating poorly because of decreased appetite: No Nutrition Risks: No Nutritional Risk Patient : No : No Poor oral hygiene: No service: No Current occupational status: unemployed Meds Allergies Allergy/AdvReac Type Severity Reaction Status Date / Time aspirin [ASA] Allergy Hives Verified 11/01/24 16:23 Active Medications: Current Medications Acetaminophen (Acetaminophen 325 Mg Tablet) 650 mg PO Q6H PRN PRN Reason: Pain, Mild 1-3,fever,headache Dextrose (Dextrose 50 % 25 Gm/50 Ml Syringe) 25 gm IVPUSH Q15M PRN; Protocol PRN Reason: per Hypoglycemia Standing Ord. Enoxaparin Sodium (Enoxaparin Sodium 40 Mg/0.4 Ml Syringe) 40 mg SUBCUT Q24H [facility] Last Admin: 11/02/24 07:17 Dose: 40 mg Glucose (Glucose Gel 15 Gm Gel..Gram.) 15 gm PO Q15M PRN; Protocol PRN Reason: per Hypoglycemia Standing Ord. Piperacillin Sod/Tazobactam (Sod 3.375 gm/ Sodium Chloride) 50 mls @ 100 mls/hr IV Q6H [facility] Last Infusion: 11/02/24 11:04 Dose: Infused Vancomycin HCl 1,250 mg/ (Sodium Chloride) 250 mls @ 166.667 mls/hr IV Q12H [facility] Last Admin: 11/02/24 13:02 Dose: 166.67 mls/hr Insulin Human Lispro (Insulin Lispro 100 Unit/Ml 3 Ml Vial) 0 unit SUBCUT QIDACHS [facility]; Protocol Last Admin: 11/02/24 11:29 Dose: 6 unit Pharmacy Consult (Consult Rx Vancomycin Dosing) 1 each MISCELLANE DAILY PRN PRN Reason: Consult order Home Medications ?Medication ?Instructions ?Recorded ?Confirmed ?Last Taken ?Type empagliflozin 25 mg tablet 2 tab PO QAM 09/18/22 11/02/24 11/01/24 History (Jardiance) atorvastatin 20 mg tablet 20 mg PO BEDTIME 11/02/24 11/02/24 11/01/24 History exenatide microspheres 2 mg/0.85 2 mg subcut FR 11/02/24 11/02/24 11/01/24 History mL subcutaneous auto-injector (Bykomalreon BCi) gabapentin 300 mg capsule 600 mg PO BID PRN Pain 11/02/24 11/02/24 11/01/24 History insulin glargine 100 unit/mL (3 30 unit subcut BEDTIME 11/02/24 11/02/24 11/01/24 History mL) subcutaneous pen (Lantus Solostar U-100 Insulin) olmesartan 5 mg tablet See Rx Instructions .Route .COMPLEX 11/02/24 11/02/24 11/01/24 History Physical Exam 2 Vital Signs: Vital Signs: Last Vital Signs Temp 98 F 11/02/24 09:00 Pulse 98 11/02/24 09:00 Resp 16 11/02/24 06:14 BP 132/80 11/02/24 09:00 Pulse Ox 98 11/02/24 09:00 O2 Del Method Room Air 11/02/24 09:00 BMI result Body Mass Index 32.4 Const: General: cooperative Orientation/consciousness: patient oriented x3 HEENT: Head: Yes normal to inspection Mouth: Normal oral and palatal mucosa present Eyes: General: appearance normal, both eyes and all related structures P upils: Equal, round and reactive pupils present Resp: Effort & Inspection: normal respiratory effort Cardio: Rate: regular rate Rhythm: regular rhythm GI: Palpation (GI): Soft to palpation and nontender : General: Yes no CVA tenderness Back/Spine/Pelvis: Back: no CVA tenderness Skin: Other: left foot shallow appearing ulcer .5 cm,located first metatarsal General skin exam: no rashes or lesions noted Neuro: Other: neuropathy legs General: patient oriented x3 Cranial nerves: Yes CN's II-XII intact bilaterally and Yes Equal, round and reactive pupils present Extrem: General: Yes normal to inspection Psych: Appearance: grossly normal Results Labs 11/02/24 05:03 11/02/24 05:03 Labs: Short CBC 11/01/24 11/02/24 Range/Units 16:46 05:03 WBC 8.0 9.2 (4.8-10.8) X10*3/uL Hgb 10.7 L 9.8 L (12.0-16.0) g/dl Hct 32.9 L 30.4 L (37.0-47.0) % Plt Count 352 D 331 (160-400) X10*3/uL BMP 11/01/24 11/02/24 16:46 05:03 Sodium 138 136 Potassium 3.8 3.8 Chloride 103 103 Carbon Dioxide 28 26 BUN 11 12 Creatinine 0.66 0.71 Calcium 9.6 D 8.6 D Liver Function 11/01/24 Range/Units 16:46 Total Bilirubin 0.2 (0.0-1.0) mg/dL AST 13 (5-31) U/L ALT 11 (0-31) U/L Alkaline Phosphatase 54 (39-117) U/L Albumin 3.8 (3.5-5.0) g/dL Assessment and Plan (1) Acute osteomyelitis of left foot: Status: Acute Plan She has most likely acute OM first digit proximal phalanx. Most likely are gram positive,gram negative less likely and anerobes . Unless bacteremic ,difficult to get culture. ESR only 29 but bone destruction evident on CT/XR Would give IV Vancomycin with weekly creatinine and Vancomycin level. Follow Wound Clinic.
--- NOTE | 2024-11-02 13:46 | MHC.CM.PN ---
PATIENT COMES FROM HOME W/ . FUNCTIONALLY INDEPENDENT. DENIES USE OF DME OR SERVICES. [facility]CHNICIAN HCP ON FILE AND VERIFIED. DP: HOME, NEW [facility] FOR WOUND CARE PER PATIENT PREFERENCE, ?NEED FOR IV ABX. WILL TRANSPORT. CM WILL CONTINUE TO FOLLOW.
--- NOTE | 2024-11-02 15:08 | P.CONGS_ITS ---
<Statement entered by Isreal Rosado MD - 11/03/24 11:39> I have seen and evaluated the patient and agree with history, findings, assessment and plan documented by Sulema Hernandez PA-c. Patient with palpable bilateral dorsalis pedis pulses. Superficial wound. Current time would continue with local wound care. Follow up with us on an as-needed basis - no need for outpatient follow-up History of Present Illness Consult details Consult date: 11/02/24 Narrative: We were consulted for Shahla for concerns of osteo and diabetic wound. She presented to the ER on 11/01 for a wound that just appeared on her left foot. She denies any pain in the foot; however, she does have peripheral neuropathy. She denies any injuries or wounds to the foot. She has a medical hx pertinent for DM with peripheral neuropathy, HLD, iron deficiency anemia, and anxiety. She was found, on foot CT, to have possible left digit first proximal phalanx osteo. She was admitted and started on IV Vanco and Zosyn. She denies any pain this morning. She is a nonsmoker. She states she has had other wounds on her legs, which have now healed. Review of Systems 2 Constitutional: Constitutional: Reports as per HPI and Denies weakness ENT: Reports Normal hearing present and Denies dizziness Cardiovascular: Cardiovascular: Reports as per HPI, Denies chest pain, Denies chest pain at rest, Denies chest pain with activity, Denies dyspnea and Denies dyspnea on exertion Respiratory: Respiratory: Reports as per HPI, Denies cough, Denies dyspnea and Denies dyspnea on exertion Gastrointestinal: Gastrointestinal: Reports as per HPI, Denies abdominal pain, Denies nausea and Denies vomiting Musculoskeletal: Musculoskeletal: Denies numbness Integumentary/Breasts: Skin/Breast: Reports as per HPI, Denies erythema and Denies wounds Neurologic: Reports Normal hearing present, Denies dizziness, Denies numbness, Denies Sensory deficit (Neuro) and Denies weakness Psychiatric: Psychiatric: Reports no additional psychiatric complaints Endocrine: Endocrine: Reports no additional endocrine complaints PMFSH Past Medical History Medical History Health care maintenance Skin ulcer due to diabetes mellitus Goiter Anxiety Uterine fibroid Iron deficiency anemia Hyperlipidemia Type 2 diabetes mellitus Family History Family History Paternal Aunt Breast cancer Other No family history of cerebrovascular accident (CVA) Family history: reviewed and not pertinent Social History Social History Household Members: Significant Other and Children Housing: Homeless Housing Other:: She;ter Do you presently have visiting nurse or other home services: No Alcohol intake: never Patient Tobacco Use Status: Never used Tobacco Second Hand Smoke Exposure: No Advance Directives Date on File: 09/21/22 service: No Current occupational status: unemployed Meds Allergies Allergy/AdvReac Type Severity Reaction Status Date / Time aspirin [ASA] Allergy Hives Verified 11/01/24 16:23 Active Medications: Current Medications Acetaminophen (Acetaminophen 325 Mg Tablet) 650 mg PO Q6H PRN PRN Reason: Pain, Mild 1-3,fever,headache Dextrose (Dextrose 50 % 25 Gm/50 Ml Syringe) 25 gm IVPUSH Q15M PRN; Protocol PRN Reason: per Hypoglycemia Standing Ord. Enoxaparin Sodium (Enoxaparin Sodium 40 Mg/0.4 Ml Syringe) 40 mg SUBCUT Q24H [facility] Last Admin: 11/02/24 07:17 Dose: 40 mg Glucose (Glucose Gel 15 Gm Gel..Gram.) 15 gm PO Q15M PRN; Protocol PRN Reason: per Hypoglycemia Standing Ord. Piperacillin Sod/Tazobactam (Sod 3.375 gm/ Sodium Chloride) 50 mls @ 100 mls/hr IV Q6H [facility] Last Infusion: 11/02/24 11:04 Dose: Infused Vancomycin HCl 1,250 mg/ (Sodium Chloride) 250 mls @ 166.667 mls/hr IV Q12H [facility] Last Infusion: 11/02/24 14:53 Dose: Infused Insulin Human Lispro (Insulin Lispro 100 Unit/Ml 3 Ml Vial) 0 unit SUBCUT QIDACHS [facility]; Protocol Last Admin: 11/02/24 11:29 Dose: 6 unit Pharmacy Consult (Consult Rx Vancomycin Dosing) 1 each MISCELLANE DAILY PRN PRN Reason: Consult order Home Medications ?Medication ?Instructions ?Recorded ?Confirmed ?Last Taken ?Type empagliflozin 25 mg tablet 2 tab PO QAM 09/18/22 11/02/24 11/01/24 History (Jardiance) atorvastatin 20 mg tablet 20 mg PO BEDTIME 11/02/24 11/02/24 11/01/24 History exenatide microspheres 2 mg/0.85 2 mg subcut FR 11/02/24 11/02/24 11/01/24 History mL subcutaneous auto-injector (Bydureon BCise) gabapentin 300 mg capsule 600 mg PO BID PRN Pain 11/02/24 11/02/24 11/01/24 History insulin glargine 100 unit/mL (3 30 unit subcut BEDTIME 11/02/24 11/02/24 11/01/24 History mL) subcutaneous pen (Lantus Solostar U-100 Insulin) olmesartan 5 mg tablet See Rx Instructions .Route .COMPLEX 11/02/24 11/02/24 11/01/24 History Physical Exam 2 Vital Signs: Vital Signs: Last Vital Signs Temp 98 F 11/02/24 09:00 Pulse 98 11/02/24 09:00 Resp 16 11/02/24 06:14 BP 132/80 11/02/24 09:00 Pulse Ox 98 11/02/24 09:00 O2 Del Method Room Air 11/02/24 09:00 BMI result Body Mass Index 32.4 Const: General: comfortable and no acute distress O rientation/consciousness: patient oriented x3 HEENT: Ears: hearing grossly normal bilaterally Resp: Effort & Inspection: normal respiratory effort and able to speak in complete sentences Auscultation: clear to auscultation bilaterally Cardio: Rate: regular rate Rhythm: regular rhythm Heart sounds: S1 normal heart sound present and S2 normal heart sound present Bruits: no abdominal aortic bruits, no carotid bruits, no femoral bruits and no renal bruits GI: Palpation (GI): No Abdominal aortic bruit present Neuro: General: patient oriented x3 Cranial nerves: Yes Normal hearing present Sensory Exam: No Sensory deficit (Neuro) Extrem: Other: Base of left great toe: round scabbed over, appx 3cmx1.5cm wound. No bleeding or drainage/weeping noted. Erythema surrounding the woundbed. Very strong and palpable DP and PT pulses. Foot warm to the touch. No other wounds noted. Results Labs 11/02/24 05:03 11/02/24 05:03 Labs: Abnormal lab results 11/01/24 11/02/24 11/02/24 Range/Units 16:46 01:07 05:03 RBC 3.84 L 3.52 L (4.20-5.50) X10*6/uL Hgb 10.7 L 9.8 L (12.0-16.0) g/dl Hct 32.9 L 30.4 L (37.0-47.0) % ESR 29 H (0-20) MM/HR Anion Gap 11 L 11 L (12-20) POC Glucose 305 H (60-115) mg/dL Random Glucose 213 H 341 H (60-115) mg/dL 11/02/24 11/02/24 11/02/24 Range/Units 07:01 08:30 11:03 RBC (4.20-5.50) X10*6/uL Hgb (12.0-16.0) g/dl Hct (37.0-47.0) % ESR (0-20) MM/HR Anion Gap (12-20) POC Glucose 276 H 303 H 293 H (60-115) mg/dL Random Glucose (60-115) mg/dL Short CBC 11/01/24 11/02/24 Range/Units 16:46 05:03 WBC 8.0 9.2 (4.8-10.8) X10*3/uL Hgb 10.7 L 9.8 L (12.0-16.0) g/dl Hct 32.9 L 30.4 L (37.0-47.0) % Plt Count 352 D 331 (160-400) X10*3/uL BMP 11/01/24 11/02/24 16:46 05:03 Sodium 138 136 Potassium 3.8 3.8 Chloride 103 103 Carbon Dioxide 28 26 BUN 11 12 Creatinine 0.66 0.71 Calcium 9.6 D 8.6 D Liver Function 11/01/24 Range/Units 16:46 Total Bilirubin 0.2 (0.0-1.0) mg/dL AST 13 (5-31) U/L ALT 11 (0-31) U/L Alkaline Phosphatase 54 (39-117) U/L Albumin 3.8 (3.5-5.0) g/dL All other labs normal. Assessment and Plan (1) Acute osteomyelitis of left foot: Status: Acute Plan We were consulted on Shahla for concerns of osteo and diabetic wound. Shahla states she noticed the wound appx 5d and presented to the ER for concerns of the wound. She denied any injuries to the foot. She is a diabetic but a nonsmoker. She denies any pain at the site but does have a hx of peripheral neuropathy. There is no acute surgical intervention at this point. We discussed the importance of blood sugar control for healing. We recommend keeping the wound clean and dry. If there are any questions or concerns, please do not hesitate to reach out to us. Procedures Date of Service Date of Service: 11/02/24
[2024-11-02 15:27] VITALS: BP 133/78; PULSE 93; RESP 18; TEMP 36.3; O2SAT 97
[2024-11-02 16:06] LABS: Glucose, Whole Blood 263 mg/dL (60-115)
--- NOTE | 2024-11-02 16:53 | HO.PM.IMPN ---
Subjective Subjective Date of Service: 11/02/24 Interval History: Being followed for left foot wound CT suggestive of osteomyelitis Patient denies pain due to neuropathy, denies fever, no chills Elevated blood sugars 276 Review of Systems All other system reviewed and are negative Physical Exam Vital Signs: Vital Signs: Last Vital Signs Temp 97.3 F 11/02/24 15:27 Pulse 93 11/02/24 15:27 Resp 18 11/02/24 15:27 BP 133/8 L 11/02/24 15:27 Pulse Ox 97 11/02/24 15:27 O2 Del Method Room Air 11/02/24 15:27 BMI result Body Mass Index 32.4 Const: Other: General resting comfortably in no acute distress. Neck no JVD. CVS regular rate rhythm, Respiratory lungs clear to auscultation, no respiratory distress, no wheeze, no rhonchi. Gastrointestinal abdomen soft, non tender, bowel sounds audible Extremities no edema. Neuro non focal ,speech clear, decreased sensation both feet. Skin small open wound dorsum of foot mild surrounding edema no drainage noted, no tenderness to palpation no fluctuation or induration Objective Data Active Medications Acetaminophen (Acetaminophen 325 Mg Tablet) 650 mg PO Q6H PRN PRN Reason: Pain, Mild 1-3,fever,headache Dextrose (Dextrose 50 % 25 Gm/50 Ml Syringe) 25 gm IVPUSH Q15M PRN; Protocol PRN Reason: per Hypoglycemia Standing Ord. Enoxaparin Sodium (Enoxaparin Sodium 40 Mg/0.4 Ml Syringe) 40 mg SUBCUT Q24H [facility] Last Admin: 11/02/24 07:17 Dose: 40 mg Documented By: PALLAVI Glucose (Glucose Gel 15 Gm Gel..Gram.) 15 gm PO Q15M PRN; Protocol PRN Reason: per Hypoglycemia Standing Ord. Piperacillin Sod/Tazobactam (Sod 3.375 gm/ Sodium Chloride) 50 mls @ 100 mls/hr IV Q6H [facility] Last Infusion: 11/02/24 16:42 Dose: Infused Documented By: LEAH Vancomycin HCl 1,250 mg/ (Sodium Chloride) 250 mls @ 166.667 mls/hr IV Q12H [facility] Last Infusion: 11/02/24 14:53 Dose: Infused Documented By: LEAH Insulin Human Lispro (Insulin Lispro 100 Unit/Ml 3 Ml Vial) 0 unit SUBCUT QIDAAngus [facility]; Protocol Last Admin: 11/02/24 16:43 Dose: 6 unit Documented By: LEAH Pharmacy Consult (Consult Rx Vancomycin Dosing) 1 each MISCELLANE DAILY PRN PRN Reason: Consult order Labs 11/02/24 05:03 11/02/24 05:03 Labs: Laboratory Results - last 24 hr 11/01/24 11/01/24 11/02/24 16:46 21:37 01:07 MCV 85.7 MCH 27.9 MCHC 32.5 RDW 14.2 Plt Count 352 D MPV 10.3 Immature Gran % (Auto) 0.4 Neut % (Auto) 65.1 Lymph % (Auto) 25.9 [place] % (Auto) 6.5 Eos % (Auto) 1.6 Baso % (Auto) 0.5 Lymph # (Auto) 2.1 [place] # (Auto) 0.5 Eos # (Auto) 0.1 Baso # (Auto) 0.0 Abs Immat Gran (auto) 0.03 Absolute Neuts (auto) 5.2 Absolute Nucleated RBC 0.000 Nucleated RBC % (auto) 0.0 ESR 29 H Anion Gap 11 L Estim Creat Clear Calc 115.1 Estimated GFR > 60 POC Glucose 305 H Random Glucose 213 H Lactic Acid 0.7 Calcium 9.6 D Total Bilirubin 0.2 AST 13 ALT 11 Alkaline Phosphatase 54 C-Reactive Protein 0.47 Total Protein 6.8 Albumin 3.8 11/02/24 11/02/24 11/02/24 05:03 07:01 08:30 MCV 86.4 MCH 27.8 MCHC 32.2 RDW 14.3 Plt Count 331 MPV 10.7 Immature Gran % (Auto) 0.3 Neut % (Auto) 66.7 Lymph % (Auto) 24.3 [place] % (Auto) 5.8 Eos % (Auto) 2.2 Baso % (Auto) 0.7 Lymph # (Auto) 2.2 [place] # (Auto) 0.5 Eos # (Auto) 0.2 Baso # (Auto) 0.1 Abs Immat Gran (auto) 0.03 Absolute Neuts (auto) 6.1 Absolute Nucleated RBC 0.000 Nucleated RBC % (auto) 0.0 ESR Anion Gap 11 L Estim Creat Clear Calc 107.0 Estimated GFR > 60 POC Glucose 276 H 303 H Random Glucose 341 H Lactic Acid Calcium 8.6 D Total Bilirubin AST ALT Alkaline Phosphatase C-Reactive Protein Total Protein Albumin 11/02/24 11/02/24 11:03 16:02 MCV MCH MCHC RDW Plt Count MPV Immature Gran % (Auto) Neut % (Auto) Lymph % (Auto) [place] % (Auto) Eos % (Auto) Baso % (Auto) Lymph # (Auto) [place] # (Auto) Eos # (Auto) Baso # (Auto) Abs Immat Gran (auto) Absolute Neuts (auto) Absolute Nucleated RBC Nucleated RBC % (auto) ESR Anion Gap Estim Creat Clear Calc Estimated GFR POC Glucose 293 H 263 H Random Glucose Lactic Acid Calcium Total Bilirubin AST ALT Alkaline Phosphatase C-Reactive Protein Total Protein Albumin Assessment and Plan (1) Acute osteomyelitis of left foot: Status: Acute Plan 44-year-old female with a past medical history of HTN, HLD, dm, GERD presented to the hospital with a chief complaint of left foot wound. Noted to have diabetic foot infection with concerns for osteomyelitis. Admitted for further management. Left foot acute osteomyelitis 1st digit proximal phalanx likely due to poorly controlled diabetes ESR 29, afebrile, normal WBC CT left foot without contrast showed possible 1st digit proximal phalanx osteomyelitis as seen on x-ray foot that showed 1st that it erosion which could indicate osteomyelitis Seen by ID she recommended IV vancomycin for 6 weeks for possible osteo however MRI showed soft tissue swelling of the dorsal aspect of the forefoot no evidence of osteomyelitis on IV vancomycin and IV Zosyn D1, will DC IV Zosyn Will re discuss treatment plan with ID. Diabetes type 2 with hyperglycemia: Elevated blood sugars continue diabetic diet, Insulin sliding scale , Lantus, and Jardiance Class 1 obesity recommend low-calorie diet. Chronic anemia stable DVT prophylaxis: Lovenox Code status: Full code Quality Stroke Does the patient have a stroke diagnosis?: No VTE Prior VTE?: No VTE Risk Level:: Medical - moderate - high VTE Device Contraindication: Treatment Not Indicated VTE Drug Contraindication: N/A - Med Ordered
[2024-11-02] MEDS: Ferrous Sulfate 324 MG TABLET.DR PO (17:18)
[2024-11-02 19:55] VITALS: BP 133/82; PULSE 96; RESP 18; TEMP 36.2; O2SAT 99
[2024-11-02 20:04] LABS: Glucose, Whole Blood 223 mg/dL (60-115)
[2024-11-02] MEDS: Atorvastatin Calcium 20 MG TABLET PO (20:07)
[2024-11-02] MEDS: Insulin Glargine,Hum.rec.anlog 100 UNIT/ML 10 ML VIAL 30 UNIT SUBCUT (20:07)
[2024-11-03 03:47] VITALS: BP 115/67; PULSE 88; RESP 18; TEMP 36.7; O2SAT 93
[2024-11-03] MEDS: Omeprazole 20 MG CAPSULE.DR PO (05:56)
[2024-11-03 06:33] LABS: Creatinine Clr Calc Pharmacy 126.7; Estimated Glomerular Filt Rate > 60
[2024-11-03 07:19] LABS: Glucose, Whole Blood 203 mg/dL (60-115)
[2024-11-03 08:00] VITALS: BP 121/80; PULSE 86; RESP 18; TEMP 36.6; O2SAT 95
[2024-11-03] MEDS: Ferrous Sulfate 324 MG TABLET.DR PO (08:06)
[2024-11-03] MEDS: Ascorbic Acid 250 MG TABLET PO (08:06)
[2024-11-03] MEDS: Insulin Lispro 100 UNIT/ML 3 ML VIAL SUBCUT ×2 (08:09→11:51)
[2024-11-03] MEDS: Enoxaparin Sodium 40 MG/0.4 ML SYRINGE SUBCUT (08:09)
[2024-11-03 10:52] LABS: Vancomycin Trough 7.1 mcg/mL (10.0-20.0)
--- NOTE | 2024-11-03 10:57 | HE.PHANOTE ---
Re: Kam Pt has stable and good renal function. Trough returned at 7.1. Continue dose of 1250mg q12h, with predicted AUC 496, predicted trough 15.1. Next trough 11/04 @ 1999.
[2024-11-03 11:22] LABS: Glucose, Whole Blood 221 mg/dL (60-115)
[2024-11-03] MEDS: vancomycin HCL 1,250 MG in 0.9 % Sodium Chloride 250 ML 166.67 MG IV (11:51)
--- NOTE | 2024-11-03 13:26 | PM.DS ---
DS: Providers Provider Date of Service: 11/03/24 Date of admission: 11/01/24 22:58 Date of discharge: 11/03/24 Primary care physician: LUIS Sullivan Consults: 11/01/24 23:02 Consult to Infectious Diseases Routine Consulting Provider: [facility] Reason for consultation: left foot wound/osteomyelitis Consult to Podiatry Routine Consulting Provider: Isreal Rosado Reason for consultation: left foot wound/osteomyelitis 11/03/24 13:13 Consult to Wound Care Routine Reason for consultation: left foot wound DS: Diagnosis Discharge Diagnosis (1) Acute osteomyelitis of left foot: Status: Acute DS: Summary Hospital Course Hospital Course: history Of presenting illness: Date of Service: 11/01/24 Chief Complaint: left foot wound 44-year-old female with a past medical history of HTN, HLD, dm, GERD presented to the hospital with a chief complaint of left foot wound. Patient reports that since Saturday she noted to have small ulcer on the dorsum of the left foot which started to increase in size; denies any discharge. Around boots surrounding erythema. Patient denies any injury. Denies any fever chills cough or sputum production. Denies any chest pain or palpitations. Denies any GI or symptoms. ER course: Per ER team compression noted have wound on the dorsum of the left foot with surrounding erythema concerning for cellulitis. X-ray shows finding concerning for osteomyelitis. Given broad-spectrum antibiotics. Hospital course: 44-year-old female with a past medical history of HTN, HLD, dm, GERD presented to the hospital with a chief complaint of left foot wound. Noted to have diabetic foot infection with concerns for osteomyelitis. Admitted for further management. Left foot acute wound 1st digit proximal phalanx likely due to poorly controlled diabetes ,ESR 29, afebrile, normal WBC, CT left foot without contrast showed possible 1st digit proximal phalanx osteomyelitis, as seen on x-ray foot that showed 1st digit erosion which could indicate osteomyelitis, treated with IV vanco and Zosyn for possible osteomyelitis subsequently MRI foot obtained that showed soft tissue swelling of the dorsal aspect of the forefoot with no evidence of osteomyelitis, initially ID recommended 6 weeks of IV vancomycin but since MRI showed no osteo, will discharge patient home on 2 weeks of by mouth Augmentin and doxycycline recommend good blood sugar control and wound care. Diabetes type 2 with hyperglycemia: Elevated blood sugars recommend diabetic diet, Lantus, and Jardiance Class 1 obesity recommend low-calorie diet. Chronic anemia stable. Time Attestation Discharge Coordination Time (in mins): 40 Quality: Safe Use of Opioids Does Pt have an Active Cancer Diagnosis on the Problem List?: No Quality: Stroke Does the patient have a stroke diagnosis?: No Physical Exam Vital Signs: Vital Signs: Last Vital Signs Temp 97.8 F 11/03/24 08:00 Pulse 86 11/03/24 08:00 Resp 18 11/03/24 08:00 BP 121/80 11/03/24 08:00 Pulse Ox 95 11/03/24 08:00 O2 Del Method Room Air 11/03/24 08:00 BMI result Body Mass Index 32.4 Const: Other: General resting co mfortably in no ac [place] distress. Ne ck no JVD. CVS re gular rate rhythm, Respiratory lungs clear to ausculta tion, no respirato ry distress, no wh eeze, no rhonchi. Gastrointestinal a bdomen soft, non t [place], bowel sound s audible Extremit ies no edema. Sawyer ro non focal ,spee ch clear, decrease d sensation both f eet. Skin small op en wound dorsum of foot mild surroun ding edema no drai nage noted, no ten derness to palpati on no fluctuation or induration DS: Data Data Completed and Pending Labs on day of discharge: Laboratory Results - last 24 hr 11/02/24 11/02/24 11/03/24 16:02 20:00 05:42 Creatinine 0.60 Estim Creat Clear Calc 126.7 Estimated GFR > 60 POC Glucose 263 H 223 H Vancomycin Trough 11/03/24 11/03/24 11/03/24 07:14 10:25 11:18 Creatinine Estim Creat Clear Calc Estimated GFR POC Glucose 203 H 221 H Vancomycin Trough 7.1 L Preliminary micro results at discharge 11/01/24 21:37 Blood Culture - Preliminary Blood - Venous No growth after 24 hours. 11/01/24 21:37 Blood Culture - Preliminary Blood - Venous No growth after 24 hours. Discharge Plan Discharge Anticipated Discharge Date/Time: 11/03/24 13:09 Patient Disposition: Home, Self-Care Discharge Diagnosis: Left foot ulcer due to diabetes with surrounding cellulitis Referrals: Jennifer Guy, [facility] [Primary Care Provider] - 1 Week Discharge Medications: New doxycycline monohydrate 100 mg capsule 100 mg PO BID Qty: 28 0RF amoxicillin-pot clavulanate 875-125 mg tablet 1 tab PO Q12H Qty: 28 0RF Continued ascorbic acid (vitamin C) 250 mg Tablet 250 mg PO DAILY Qty: 30 0RF omeprazole 20 mg Capsule,Delayed Release(Dr/Ec) 20 mg PO BID@0630,1630 Qty: 60 0RF ferrous sulfate 324 mg (65 mg iron) Tablet,Delayed Release (Dr/Ec) 324 mg PO BIDWM Qty: 60 0RF atorvastatin 20 mg tablet 20 mg PO BEDTIME gabapentin 300 mg capsule 600 mg PO BID PRN (Reason: Pain) olmesartan 5 mg tablet See Rx Instructions .ROUTE .COMPLEX Rx Instructions: TAKE 1 TABLET BY MOUTH EVERY MORNING MAY INCREASE TO TAKE 2 TABLETS BY MOUTH EVERY MORNING DIRECTED insulin glargine [Lantus Solostar U-100 Insulin] 100 unit/mL (3 mL) insulin pen 30 unit subcut BEDTIME Bydureon BCise 2 mg/0.85 mL auto-injector 2 mg subcut FR Changed Jardiance 25 mg tablet 25 mg PO QAM Qty: 30 0RF Discharge Orders: Discharge Order (Routine); Ordered 11/03/24 Ordered By: Akiko Holt Diet: Diabetic diet Activity on Discharge: As tolerated Stand Alone Forms: Patient Portal Discharge page Print Language: [place] Activity Restrictions/Additional Instructions: Topical Wound Care Recommendations: 1. Maintain blood glucose levels per Providers order. 2. Left Foot - Cleanse with Normal saline or soap and water. Pat dry. Apply skin prep to periwound. Cover wound bed with small amount of Medihoney cover with dry gauze dressing. Change every other day and as needed. Care Plan Goals: Take by mouth Augmentin and doxycycline 1 tablet twice daily for 2 weeks Follow blood sugar closely and follow diabetic diet Health Concerns: Take all home medications as before Plan of Treatment: Outpatient follow-up with primary care physician Assessment: as directed Discharge Date/Time: 11/03/24 15:33
--- NOTE | 2024-11-03 13:49 | HO.WOUND ---
Wound Consult: Initial 44yr old female admitted to [facility] on 11/01/24 - See progress notes and H&P for detailed history.? Wound consult placed for Left Foot just prior to d/c for topical wound care recommendations at home .? Patient agreeable to assessment and photo documentation.? Patient to continue scheduled follow up outpt. Left Foot Etiology: ??Diabetic Wound Measurements: 0.6cm x 1cm x 0.2cm Wound Bed: dried yellow lopez wound bed Drainage / Odor: None Edges: ? well defined Radha wound: [place] slight hypopigmentation - ? No Induration, Fluctuance or Warmth noted Pain: denies Goals of Treatment: ? Medihoney to allow to autolytic debridement and kepe covered to protect from infection. Recommendations: 1. Maintain blood glucose levels per Providers order. 2. Left Foot - Cleanse with Normal saline or soap and water. Pat dry. Apply skin prep to periwound. Cover wound bed with small amount of Medihoney cover with dry gauze dressing. Change every other day and as needed. Re-consult wound care Nurse for wound deterioration or wound changes.
--- NOTE | 2024-11-03 14:21 | MHC.CLN ---
RE; CONSULT GAVE PT EDUCATION TRANSLATED IN ENGLISH ON DIABETIC DIET. PT DOES UNDERSTAND SOME CROATIAN BUT DID CONFIRM SHE READS IN ENGLISH. REVIEWED FOODS THAT AFFECT BLOOD SUGAR IE CARBOHYDRATES, SWEETS, SODA ETC RECOMMEND OUT PT REFERRAL TO RD FOR FUTURE FOLLOW UP SEE TEACHING RECORD
--- NOTE | 2024-11-03 14:42 | MHC.CM.PN ---
Patient medically cleared for dc home self care. Family at bedside to transport.
[2024-11-03 15:08] VITALS: BP 139/86; PULSE 91; RESP 18; TEMP 37; O2SAT 96
== END 2024-11-03 15:33 | disposition home or self-care (01) | DRG 344 ==
LOC: HO.ED 22:46 → HO.EDOVER 11-02 01:21 → HO.S3 11-02 07:14
PROVIDERS: Physician Assistant Medical; Admitting Provider Hospitalist; Emergency Provider Emergency Medicine; PCP Registered Nurse; Visit Provider Hospitalist
DX: E11.69 Type 2 diabetes mellitus with other specified complication (principal); M86.172 Other acute osteomyelitis, left ankle and foot; E11.42 Type 2 diabetes mellitus with diabetic polyneuropathy; E11.621 Type 2 diabetes mellitus with foot ulcer; D64.9 Anemia, unspecified; L97.529 Non-pressure chronic ulcer of other part of left foot with unspecified severity; E11.65 Type 2 diabetes mellitus with hyperglycemia; E66.811 Obesity, class 1; Z71.3 Dietary counseling and surveillance; Z68.32 Body mass index [BMI] 32.0-32.9, adult; E78.5 Hyperlipidemia, unspecified; Z79.4 Long term (current) use of insulin; Z79.899 Other long term (current) drug therapy
CPT/HCPCS: 36415; 73630; 73701; 73720; 80048; 80053; 80202; 82565; 82947; 83605; 85025; 85652; 86140; 87040; 99285; A9585; J1650; J2543; J3371; Q9967

== ENCOUNTER → 2024-11-01 16:24 | Outpatient (BNV) | payer MEDICAID, SELFPAY | PROVIDERS: PCP Registered Nurse; Visit Provider Radiology Diagnostic Radiology | DX: M86.172 Other acute osteomyelitis, left ankle and foot (principal) | CPT/HCPCS: 73630; 73701 ==

== ENCOUNTER 2024-11-01 22:58 | Outpatient (BNV) | payer MEDICAID, SELFPAY | END 2024-11-02 11:50 | PROVIDERS: Admitting Provider Hospitalist; Emergency Provider Emergency Medicine; PCP Registered Nurse; Visit Provider Radiology Diagnostic Radiology | DX: M25.572 Pain in left ankle and joints of left foot (principal); R22.42 Localized swelling, mass and lump, left lower limb | CPT/HCPCS: 73720 ==

== ENCOUNTER → 2024-11-01 22:58 | Outpatient (BNV) | payer MEDICAID, SELFPAY | PROVIDERS: Admitting Provider Hospitalist; Emergency Provider Emergency Medicine; PCP Registered Nurse; Visit Provider Internal Medicine | DX: M86.172 Other acute osteomyelitis, left ankle and foot (principal) | CPT/HCPCS: 99222 ==

== ENCOUNTER → 2024-11-01 22:58 | Outpatient (BNV) | payer MEDICAID, SELFPAY | PROVIDERS: Admitting Provider Hospitalist; Emergency Provider Emergency Medicine; PCP Registered Nurse; Visit Provider Hospitalist | DX: M86.172 Other acute osteomyelitis, left ankle and foot (principal) | CPT/HCPCS: 99223; 99233; 99239 ==

== ENCOUNTER → 2024-11-01 22:58 | Outpatient (BNV) | payer MEDICAID, SELFPAY | PROVIDERS: Admitting Provider Hospitalist; Emergency Provider Emergency Medicine; PCP Registered Nurse; Visit Provider Physician Assistant Surgical | DX: M86.172 Other acute osteomyelitis, left ankle and foot (principal) | CPT/HCPCS: 99222 ==

== ENCOUNTER 2024-11-24 12:45 | Outpatient (RCR) | payer MEDICAID, SELFPAY ==
[2024-11-04 11:10] VITALS: BP 117/77; PULSE 91; RESP 16; TEMP 36.4; O2SAT 99
[2024-11-04] MEDS: Iron Sucrose Complex 200 MG/10 ML VIAL IVPUSH (11:18)
[2024-11-10 14:27] VITALS: BP 114/70; PULSE 94; RESP 16; TEMP 36.7; O2SAT 95
[2024-11-10] MEDS: Iron Sucrose Complex 200 MG in 0.9 % Sodium Chloride 100 ML 440 MG IV (14:33)
[2024-11-17 11:44] VITALS: BP 123/79; PULSE 99; RESP 16; TEMP 36.9; O2SAT 98
[2024-11-17] MEDS: Iron Sucrose Complex 200 MG in 0.9 % Sodium Chloride 100 ML 440 MG IV (11:54)
[2024-11-24 12:50] VITALS: BP 157/96; PULSE 97; RESP 18; TEMP 36.4
[2024-11-24] MEDS: Iron Sucrose Complex 200 MG in 0.9 % Sodium Chloride 100 ML 440 MG IV (13:08)
[2024-11-24 13:31] LABS: Hematocrit 32.4 % (37.0-47.0); Hemoglobin 10.1 g/dl (12.0-16.0); Mean Corpuscular HGB Conc 31.2 g/dl (31.0-35.0); Mean Corpuscular Hemoglobin 28.3 pg (27.0-33.0); Mean Corpuscular Volume 90.8 fL (80.0-98.0); Mean Platelet Volume 11.4 fL (9.4-12.3); Platelet Count 301 X10*3/uL (160-400); Red Blood Count 3.57 X10*6/uL (4.20-5.50); Red Cell Distribution Width 14.6 % (11.0-16.0)
[2024-11-24 13:57] LABS: Ferritin 198 ng/mL (10-250)
== END 2024-11-24 13:40 | disposition home or self-care (01) ==
LOC: HO.INF 12:45
PROVIDERS: Visit Provider Nurse Practitioner Family
DX: D64.9 Anemia, unspecified (principal)
CPT/HCPCS: 36415; 82728; 85027; 96365; 96374; J1756

== ENCOUNTER 2025-07-28 11:21 | Outpatient (AMB) | payer MEDICAID, SELFPAY ==
[2025-07-28 11:49] VITALS: BP 126/80; BMI 32.3
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
--- OUTSIDE RECORDS SUMMARY | 2025-07-28 13:01 | XMS_ITS | Encounter Summary ---
Author Organization [employer] Address [address] [place] [address] 7 [place] [address] Care Team Providers Care Oracle Database Developer Name Role Phone [facility] Primary Care Provider [phone] Avis Lira PharmD Unavailable Reason for Visit * Reason Comments Med Refill Encounter Details Date Type Department Care Team ([facility] st Contact Info) Description 12/14/2024 Refill [facility] [address] [place], [place] [phone] [facility] [address] [place] [address] Type 2 diabetes mellitus with diabetic polyneuropathy, with long-term current use of insulin ([facility]) Social History Tobacco Use Types Packs/Day Years [...] Care Team (Late st Contact Info) Description 08/06/2025 2:30 PM EST Medication Management [facility] [address] [place] [address] Avis Lira, PharmD [address] [place] [address] 10/18/2025 3:00 PM EDT Office Visit [facility] [address] [place] [address] TarkaSilva, OD [address] [place] [address] documented as of this encounter Goals Goal Patient Goal Type Associated Problems Recent Progress Patient-Stated? Author Blood Pressure < 140/90 Blood Pressure 120/70(2024 1:26 PM EST) No Slava Kidd Hemoglobin A1c < 7 Result Component 8.2( 1:10 PM EST) Slava Toledo documented as of this encounter Visit Diagnoses Diagnosis Type 2 diabetes mellitus with diabetic polyneuropathy, with long-term current use of insulin (HCC) documented in this encounter Additional Health Concerns Assessment Noted Time PHQ-9 Depression Total Score: 6 04/13/20 24 11:39 AM EDT documented as of this encounter Care Teams Oracle Database Developer Relationship Specialty Start Date End Date Jennifer Guy FNP [address] [place] [address] PCP - General Family Medicine 01/03/22 Avis Lira PharmD [address] [place] [address] Pharmacist Pharmacy 01/20/25 documented as of this encounter
--- OUTSIDE RECORDS SUMMARY | 2025-07-28 13:01 | XMS_ITS | Encounter Summary ---
Author Organization [employer] Address [address] [place] [address] 7 [place] [address] Care Team Providers Care Truck Spotter Name Role Phone [facility] Primary Care Provider [phone] Avis Lira PharmD Unavailable [phone] Reason for Visit * Reason Comments Med Refill Encounter Details Date Type Department Care Team ([facility] st Contact Info) Description 11/06/2023 Refill [facility] [address] [place], [place] [phone] [facility] [address] [place] [address] Social History Tobacco Use Types Packs/Day Years [...] Description 08/06/2025 2:30 PM EST Medication Management [facility] [address] [place] [address] Avis Lira, PharmD [address] [place] [address] 10/18/2025 3:00 PM EDT Office Visit [facility] [address] [place] [address] Silva Telles, OD [address] [place] [address] documented as of this encounter Goals Goal Patient Goal Type Associated Problems Recent Progress Patient-Stated? Author Blood Pressure < 140/90 Blood Pressure 120/70(2024 1:26 PM EST) No Slava Kidd Hemoglobin A1c < 7 Result Component 8.2( 1:10 PM EST) No Slava Kidd documented as of this encounter Visit Diagnoses Not on filedocumented in this encounter Additional Health Concerns Assessment Noted Time PHQ-9 Depression Total Score: 8 10/11/19 24 2:33 PM EDT documented as of this encounter Care Teams Truck Spotter Relationship Specialty Start Date End Date Jennifer Guy FNP [address] [place] [address] PCP - General Family Medicine 01/03/22 Avis Lira, JamilaD [address] [place] [address] [place] [address] Pharmacist Pharmacy 01/20/25 documented as of this encounter
--- OUTSIDE RECORDS SUMMARY | 2025-07-28 13:01 | XMS_ITS | Encounter Summary ---
Author Organization [employer] Address [address] [facility] [address] [place] [address] Care Team Providers Care Diamond Broker Name Role Phone [facility] Primary Care Provider [phone] Avis Lira PharmD Unavailable [phone] Reason for Referral * Consultation (Routine) - Canceled Specialty Diagnoses / Procedures Referred By Contac t Referred To Contact Pharmacy Diagnoses Type 2 diabetes mellitus with diabetic polyneuropathy, with long-term current use of insulin (HCC) Ann Corona MD [address] [place] [address] Phone: tel: fax: Referral ID Status Reason Start Date Expiration Date V isits Requested Visits Authorized [id number] Canceled Consult and Treat 11/29/2024 11/29/2025 7 7 Encounter Details Date Type Department Care Team (Late st Contact Info) Description 11/29/2024 Orders Only [facility] [address] [place], [place] [phone] Ann Corona MD [address] [place] [address] Type 2 diabetes mellitus with diabetic polyneuropathy, with long-term current use of insulin (CMS/HCC) (Primary Dx) Social History Tobacco Use Types Packs/Day Years [...] Description 08/06/2025 2:30 PM EST Medication Management [facility] [address] [place] [address] Avis Lira, PharmD [address] [place] [address] 10/18/2025 3:00 PM EDT Office Visit [facility] [address] [place] [address] Silva Telles, OD [address] [place] [address] Scheduled Referrals Name Type Priority Associated Diagnoses Orde r Schedule Referral to Pharmacy CDTM Outpatient Referral Routine Type 2 diabetes mellitus with diabetic polyneuropathy, with long-term current use of insulin ([facility]) Ordered: 11/29/2024 documented as of this encounter Goals Goal Patient Goal Type Associated Problems Recent Progress Patient-Stated? Author Blood Pressure < 140/90 Blood Pressure 120/70(2024 1:26 PM EST) Slava Toledo Hemoglobin A1c < 7 Result Component 8.2( 1:10 PM EST) No Slava Kidd documented as of this encounter Visit Diagnoses Diagnosis Type 2 diabetes mellitus with diabetic polyneuropathy, with long-term current use of insulin ([facility])- Primary documented in this encounter Additional Health Concerns Assessment Noted Time PHQ-9 Depression Total Score: 6 04/13/20 24 11:39 AM EDT documented as of this encounter Care Teams Diamond Broker Relationship Specialty Start Date End Date Jennifer Guy FNP [address] [place] [address] PCP - General Family Medicine 01/03/22 Avis Lira, Kyaw [address] [place] [address] Pharmacist Pharmacy 01/20/25 documented as of this encounter
--- OUTSIDE RECORDS SUMMARY | 2025-07-28 13:01 | XMS_ITS | Clinical Summary ---
Author Organization [email or web address] Address [address] [place] [address] [address] [place] [address] Care Team Providers Care Computer Security Coordinator Name Role Phone [facility] Primary Care Provider [phone] Avis Lira PharmD Unavailable Allergies Active Allergy Reactions Criticality Noted Date Comments Aspirin Hives,Unknown Medium 06/20/2022 Medications Continuous Blood Gluc Hourly Team Members (FreeStyle Shaheen 2 [place]) deviceIndicati ons:Type 2 diabetes mellitus with hyperglycemia, unspecified whether director long term care insulin use (HCC) Scan sensor every 8 hours 1 each 024 Active ammonium lactate (Lac-Hydrin) 12 % lotion APPLY TOPICALLY TO THE AFFECTED AREA(S) OF THE FEET EVERY DAY, AT NIGHT WEAR SOCKS TO BED 024 Active Alcohol Swabs (Alcohol Prep) 70 % padsIndication s:Type 2 diabetes mellitus with hyperglycemia, unspecified whether snf insulin use (HCC) USE DIRECTED THREE TIMES DAILY 100 each 5 025 Active Jardiance 25 MGIndications: Type 2 diabetes mellitus with hyperglycemia, unspecified whether snf insulin use (HCC) TAKE 1 TABLET BY MOUTH EVERY MORNING 30 tablet 11 5 4:52 PM EST 025 Active atorvastatin (Lipitor) 20 MG tablet TAKE 1 TABLET BY MOUTH AT BEDTIME 90 tablet 3 5 4:52 PM EST 025 Active Ascorbic Acid (vitamin C) 250 MG tablet TAKE 1 CAPSULE BY MOUTH TWICE DAILY IN THE MORNING AND IN THE EVENING 180 tablet 3 5 4:52 PM EST 025 Active TRUEplus Lancets 33G miscIndication s:Type 2 diabetes mellitus with hyperglycemia, unspecified whether snf insulin use (HCC) USE DIRECTED THREE TIMES DAILY 100 each 11 5 4:52 PM EST Active glucose (Glutose) 40 % gel oral gelIndications :Type 2 diabetes mellitus with hyperglycemia, unspecified whether snf insulin use (HCC) Take 15 g by mouth if needed for low blood sugar. 45 g 11 Active glucose blood (FreeStyle Precision Mg Test) test stripIndicatio ns:Type 2 diabetes mellitus with hyperglycemia, unspecified whether snf insulin use (HCC) Test blood sugar every 8 hours as directed 100 each 11 025 2025 Active Pentips Generic Pen [place] 32G X 4 MM miscIndication s:Type 2 diabetes mellitus with hyperglycemia, unspecified whether director long term care insulin use (HCC) Use as instructed with insulin administration three times daily 100 each 3 5 4:52 PM EST Active Continuous Glucose Sensor (FreeStyle Shaheen 2 Plus Sensor) miscIndication s:Type 2 diabetes mellitus with hyperglycemia, unspecified whether director long term care insulin use (HCC) 1 each every 8 (eight) hours. 2 each 5 4:53 PM EST Active Restasis 0.05 % ophthalmic emulsion instill 1 drop in each eye twice daily Active acetaminophen (Tylenol 8 Hour) 650 MG ER tabletIndicati ons:Pain due to dental caries Take 1 tablet (650 mg) by mouth every 8 (eight) hours if needed for mild pain. Do not crush, chew, or split. 30 tablet 025 Active gabapentin (Neurontin) 300 MG capsuleIndicat ions:Type 2 diabetes mellitus with diabetic polyneuropathy , with long-term current use of insulin (HCC) TAKE 2 CAPSULES BY MOUTH EVERY DAY AT BEDTIME. MAY INCREASE TO THREE TIMES DAILY NEEDED SYMPTOMS 60 capsule 5 4:52 PM EST 025 Active glucagon (Baqsimi Two Pack) 3 MG/DOSE nasal powderIndicati ons:Type 2 diabetes mellitus with hyperglycemia, unspecified whether director long term care insulin use (HCC) Administer 3 mg into affected nostril(s) 1 (one) time if needed for low blood sugar. 1 each Active insulin glargine (Lantus SoloStar) 100 UNIT/ML penIndications :Type 2 diabetes mellitus with hyperglycemia, unspecified whether snf insulin use (HCC) INJECT 32 UNITS SUBCUTANEOUSLY ONCE DAILY 15 mL 1 5 4:52 PM EST Active insulin lispro (HumaLOG KWIKPEN) 100 UNIT/ML injectionIndic ations:Type 2 diabetes mellitus with hyperglycemia, unspecified whether director long term care insulin use (HCC) Inject subcutaneously twice daily: 4 units before breakfast and 4 units before dinner. Do not use if skipping meal. 15 mL 3 5 4:52 PM EST 025 Active Ozempic, 1 MG/DOSE, 4 MG/3ML solution pen-injectorIn dications:Type 2 diabetes mellitus with diabetic polyneuropathy , with long-term current use of insulin ([facility]) Inject 1 MG SUBCUTANEOUSLY EVERY 7 DAYS IN THE ABDOMEN, THIGHS OR UPPER ARM. ROTATE INJECTION SITES. 3 mL 1 5 4:52 PM EST 025 Active Ferrous Sulfate (iron) 325 (65 Fe) MG tablet TAKE 1 TABLET BY MOUTH TWICE DAILY IN THE MORNING AND IN THE EVENING 180 tablet 2 5 4:52 PM EST 025 Active Ferrous Sulfate (iron) 325 (65 Fe) MG tablet TAKE 1 TABLET BY MOUTH TWICE DAILY IN THE MORNING AND IN THE EVENING 180 tablet 2 Active Ferrous Sulfate (iron) 325 (65 Fe) MG tablet TAKE 1 TABLET BY MOUTH TWICE DAILY IN THE MORNING AND IN THE EVENING 180 tablet 2 025 2024 Discontinued semaglutide (Ozempic, 1 MG/DOSE,) 4 MG/3ML solution pen-injectorIn dications:Type 2 diabetes mellitus with diabetic polyneuropathy , with long-term current use of insulin ([facility]) Inject 1 mg under the skin 1 (one) time per week. 3 mL 1 5 3:15 PM EST 025 2024 Discontinued Active Problems Problem Noted Date Diagnosed Date Pain due to dental caries 02/26/2025 Anemia 04/17/2024 Fibroid uterus 04/17/2024 Essential hypertension 11/14/2023 Diabetic peripheral neuropat hy associated with type 2 diabetes mellitus 11/14/2023 Conversion disorder with attacks or seizures Overview (09/24/2023): Hopsitaliztion at [facility] [place] [facility] 09/20/22 for evaluation of acute left [...] uterine fibroids; requiring multiple transfusion Followed by [facility] [employer] [facility]-->plan for total hysterectomy once BS stabilized Baseline [...] #3, flu administered today Vision: Referred to [facility] eye care Dental: Discuss at f/u STi screening: Neg GC/CT/RPR 11/2021 HIV: Neg 11/2021 Hepatitis: Neg 11/2021 Hyperlipidemia 06/20/2022 Type 2 diabetes mellitus 06/20/2022 Overview (04/13/2024): Jardiance 25mg Lantus 40 units q. Evening - Did not tolerate metformin (s/e) Maintenance Foot Exam: 08/2023-->total loss of protective sensation; referral to podiatry Eye Exam: Followed by [facility] eye care ASCVD:7.7%, atorvastatin started Statin: [...] Component Value Date HGBA1C 9.1 (A) 10/25/2022 INCREASE jardiance to 25mg daily. Counseled patient that if yeast infection reoccurs may need to switch to GLP-1 or increase lantus History of thyroid nodule 06/20/2022 Overview (11/14/2023): - Has upcoming appointment in April for thyroid ultrasound - Per [facility] from [facility] of nodule biopsy 2017. Biopsy results not [...] Encounters Date Type Department Care Team Description 07/08/2025 Refill [facility] CH[facility] MED & PEDS [address] [place], [place] [phone] PoquosonJennifer FNP 07/07/2025 Refill [facility] MEDICINE [address] [place], [place] [phone] [facility] 07/02/2025 Refill [facility] [address] [facility] [place] [address] Avis Lira, Kyaw Type 2 diabetes mellitus with diabetic polyneuropathy, with long-term current use of insulin (HCC) 06/21/2025 Orders Only [facility] MEDICINE [address] [place] [address] Ann Corona MD Type 2 diabetes mellitus with diabetic polyneuropathy, with long-term current use of insulin (HCC) (Primary Dx) 06/19/2025 Telephone [facility] [address] [facility] [place] [address] Avis Lira PharmD 06/18/2025 Travel 05/14/2025 Travel 04/30/2025 Telephone [facility] MEDICINE [address] [place] [address] [facility] 04/27/2025 Travel from Last 3 Months Immunizations Immunization Administration Dates Next Due Hep B, Unspecified [...] housing situation today? I have mariama jaffe 03/31/[address] you li ve. Do you have problems with any of the following? None of the above 03/31/2025 Food Insecurity Answer Date Recorded Within the past 12 months, y ou worried that your food would run out before you got money to buy more: Sometimes True 2024 Within the past 12 months,th e food you bought just didn't last and you didn't have enough money to get more: Sometimes True 03/31/2025 Transportation Answer Date Recorded In the past 12 months, has l ack of transportation kept you from medical appts, meetings, work or from getting things needed for daily living? No 03/31/2025 Utilities Answer Date Recorded In the past 12 months, has t he electric, gas, oil or water company threatened to shut off services in your home? No 03/31/2025 Depression Answer Date Recorded Patient Health Questionnaire-2 Score 0 04/13/2024 Internet Access Answer Date Recorded Internet Access Q1 Yes 03/31/2025 Internet Access Q2 Not on file 03/31/2025 Comments Unknown Sex and Gender Information Value Date Recorded Sex Assigned at Female 05/28/2022 10:40 AM EDT Legal Sex Female 10:40 AM EDT Gender Identity Female 05/28/2022 10:40 AM EDT Sexual Orientation Straight 05/28/2022 10 :40 AM EDT Last Filed Vital Signs Vital Sign Reading Time Taken Comments Blood Pressure 120/70 06/18/2025 1:26 PM EST Pulse 90 06/18/2025 1:26 PM EST Temperature 36.6 C (97.8 F) 04/13/2024 11:28 AM EDT Respiratory Rate 20 04/21/2024 1:47 PM EDT [...] Description 08/06/2025 2:30 PM EST Medication Management [facility] MEDICINE [address] [place] [address] Avis Lira, PharmD [address] [place] [address] 10/18/2025 3:00 PM EDT Office Visit [facility] OPTOMETRY [address] [place] [address] Kingrich Silva, OD [address] [place] [address] Health Maintenance Due Date Last Done Comments Disability Screening 1980 Alcohol/Substance Use Screening 1992 Family Planning (PISQ) 1995 HPV Vaccines (1 - 3-dose series) 1995 Diabetes: Foot Exam 09/13/2024 09/13/2023, 09/13/2023, 09/13/2023, Additional history exists Diabetes: Urine Protein Screening 09/13/2024 09/13/2023, 03/09/2022 Lipid Panel 09/13/2024 09/13/2023, 02/26, 12/08/2021 Mammogram 02/06/2025 02/07/2024 COVID-19 Vaccine ( season) 2025 02/03/2021, 02/03/2021, 01/13/2021, Additional history exists Influenza Vaccine (#1) 2025 , 07/12/2021, 05/12/2021 Depression Screening 04/13/2025 04/13/2024, 04/13/20 24 DTaP/Tdap/Td Vaccines (2 - Td or Tdap) 07/06/2025 07/06/2015 Dental Oral Exam 07/25/2025 01/22/2025, 05/2025, 04/01/2024 Dental Prophylaxis 07/25/2025 01/22/2025, 0 09/08/2024, 04/02/2024 Diabetes: Hemoglobin A1C 09/18/2025 025, 03/19/2025, 12/04/2024, Additional history exists Eye Exam 10/06/2025 10/06/2024, 09/26, 10/06/2024, Additional history exists Pap Smear 01/03/2026 01/03/2023, 05/30, 06/20/2022 Dental X-Ray: Bitewings 01/23/2026 01/22/2025, 04/01 Tobacco Screening 02/26/2026 02/26/2025 SDOH Screening 03/31/2026 03/31/2025 Cervical Cancer Screening 01/04/2028 HPV/Cotest 01/04/2028 01/03/2023, 06/20/2022 Dental X-Ray: Full Mouth 02/28/2028 02/26/2025, 10/2023 Zoster Vaccines (1 of 2) 2030 RSV Patients and Patients Aged 60 years or older (1 - 1-dose 75+ series) 2055 Hepatitis B Vaccines Completed 10/17/2020, 04/13/2016, 07/14/2015 HIV Screening Completed 12/08/2021 Hepatitis C Screening Completed 12/08/2021 Pneumococcal Vaccine: Pediatrics (0 to 5 Years) and At-Risk Patients (6 to 49) Years Completed 08/19/2023, 07/14/2015 HIB Vaccines Aged Out No longer eligi ble based on patient's age to complete this topic Hepatitis A Vaccines Aged Out No long er eligible based on patient's age to complete this topic IPV Vaccines Aged Out No longer eligi ble based on patient's age to complete this topic Meningococcal B Vaccine Aged Out No l onger eligible based on patient's age to complete [...] Kidd Hemoglobin A1c < 7 Result Component 8.2(11/21/202 5 1:10 PM EST) No Slava Kidd Help patients manage their type 2 diabetes Care Plan Help patients manage their type 2 diabetes No Piers-Gambl e, Avis, PharmD Patient has chronic kidney disease Care Plan Patient has chronic kidney disease No Piers-Gambl e, Avis, PharmD Help patients manage their type 2 diabetes Care Plan Help patients manage their type 2 diabetes No Piers-Gambl e, Avis, PharmD Patient has diabetic neuropathy Care Plan Patient has diabetic neuropathy No Piers-Gambl e, Avis, PharmD Patient has chronic kidney disease Care Plan Patient has chronic kidney disease No Piers-Gambl e, Avis, PharmD Patient has diabetic neuropathy Care Plan Patient has diabetic neuropathy No Piers-Gambl e, Avis, PharmD Patient has chronic kidney disease Care Plan Patient has chronic kidney disease No Blandon-Acos ta, Karol, DDS Patient has chronic kidney disease Care Plan Patient has chronic kidney disease No Blandon-Acos ta, Karol, DDS Patient has diabetic neuropathy Care Plan Patient has diabetic neuropathy No Blandon-Acos ta, Karol, DDS Patient has diabetic neuropathy Care Plan Patient has diabetic neuropathy No Blandon-Acos ta, Karol, DDS Patient has chronic kidney disease Care Plan Patient has chronic kidney disease No Piers-Gambl e, Avis, PharmD Patient has chronic kidney disease Care Plan Patient has chronic kidney disease No Piers-Gambl e, Avis, PharmD Patient has diabetic neuropathy Care Plan Patient has diabetic neuropathy No Piers-Gambl e, Avis, PharmD Patient has diabetic neuropathy Care Plan Patient has diabetic neuropathy No Piers-Gambl e, Avis, PharmD Patient has chronic kidney disease Care Plan Patient has chronic kidney disease No Ann Corona MD Patient has chronic kidney disease Care Plan Patient has chronic kidney disease No Ann Corona MD Patient has diabetic neuropathy Care Plan Patient has diabetic neuropathy No Ann Corona MD Patient has diabetic neuropathy Care Plan Patient has diabetic neuropathy No Ann Corona MD Patient has chronic kidney disease Care Plan Patient has chronic kidney disease No Bia Esposito PharmD Patient has chronic kidney disease Care Plan Patient has chronic kidney disease No Bia Esposito PharmTamela Patient has diabetic neuropathy Care Plan Patient has diabetic neuropathy No Bia Esposito PharmD Patient has diabetic neuropathy Care Plan Patient has diabetic neuropathy No Bia Esposito PharmD Patient has chronic kidney disease Care Plan Patient has chronic kidney disease No Piers-Gambl e, Avis, PharmD Patient has chronic kidney disease Care Plan Patient has chronic kidney disease No Piers-Gambl e, Avis, PharmD Patient has diabetic neuropathy Care Plan Patient has diabetic neuropathy No Piers-Gambl e, Avis, PharmD Patient has diabetic neuropathy Care Plan Patient has diabetic neuropathy No Piers-Gambl e, Avis, PharmD Patient has chronic kidney disease Care Plan Patient has chronic kidney disease No Piers-Gambl e, Avis, PharmD Patient has chronic kidney disease Care Plan Patient has chronic kidney disease No Piers-Gambl e, Avis, PharmD Patient has diabetic neuropathy Care Plan Patient has diabetic neuropathy No Piers-Gambl e, Avis, PharmD Patient has diabetic neuropathy Care Plan Patient has diabetic neuropathy No Piers-Gambl e, Avis, PharmD Procedures Procedure Name Priority Date/Time Associated Diagnosis Comments POCT GLYCATED HEMOGLOBIN, TOTAL Routine 06/18/2025 1:10 PM EST Type 2 diabetes mellitus with hyperglycemia, unspecified whether snf insulin use (HCC) PANORAMIC RADIOGRAPHIC IMAGE Routine 02/26/2025 1:30 PM EDT PROPHYLAXIS - ADULT Routine 01/22/2025 1 :00 PM EDT Gingival bleeding Dental plaque Dental calculus BITEWINGS - 4 RADIOGRAPHIC IMAGES Routine 01/22/2025 1:00 PM EDT Incipient enamel caries PERIODIC ORAL EVALUATION - ESTABLISHED PATIENT Routine 01/22/2025 1:00 PM EDT AMB REFERRAL TO OPHTHALMOLOGY Routine 09/04/2024 Punctal stenosis, acquired, left BI MAMMOGRAM SCREENING TOMOSYNTHESIS BILATERAL Routine 02/07/2024 11:40 AM EDT ALBUMIN, RANDOM URINE W/CREATININE Routine 09/13/2023 12:50 PM EST Type 2 diabetes mellitus with hyperglycemia, with long-term current use of insulin ([facility]) LIPID PANEL, STANDARD Routine 09/13/2023 12:46 PM [...] Recently Relevant to Health Maintenance Results * (ABNORMAL) POCT A1c (06/18/2025 1:10 PM EST) Hemoglobin A1C 8.2(A) 4.0 - 5.7 % QC Media Lot # [id number] Lot# Expiration Date Blood 06/18/2025 1:10 PM EST [facility] [employer] POINT OF CARE TEST ENTER/EDIT ORDERABLES Final Result * Referral to Ophthalmology (09/04/2024) Silva Telles OD OUTPATIENT REFERRAL ORDERABLES Edited Result - Final * BI Mammogram Screening Tomosynthesis Bilateral (02/07/2024 11:40 AM EDT) Anatomical Region Laterality Modality Breast Bilateral Mammography 02/07/2024 11:4 0 AM EDT Narrative 03/03/2024 10:02 PM EDT [facility] [address] [place] [address] Mammography Report Signed Patient: Shahla Lamas MR#: [id number] : 1980 Acct:[id number] Age/Sex: 43 / F ADM Date: 02/07/24 Loc: HO.MAMMO Attending Dr: Kael Herrera MD Ordering Physician: Kael Herrera MD Results: 1Negativ e Date of Service: 02/07/24 Follow Up: 1 Year From Orig inal Mammogram Procedure(s): MM tomosynthesis screening BI Accession Number(s): [id number] cc: Jennifer Guy [employer]; Kael Herrear MD EXAMINATION: MM SCREENING DIGITAL BREAST TOMOSYNTHESIS, [...] in OV> 03/03/24 2159 DD/ 1140 TD/TT: Telecommunication Engineer: Procedure Note Donotuseinterpreter, Image - 03/03/2024 [facility] [address] [place] [address] Mammography Report Signed Patient: Shahla Lamas EMR#: [id number] : 1980Acct:[id number] Age/Sex: 43 / FADM Date: 02/07/24 Loc: [facility] Attending Dr: Kael Herrera MD Ordering Physician: Kael Herrera MDResults: 1Negativ e Date of Service: 02/07/24Follow Up: 1 Year From Orig inal Mammogram Procedure(s): MM tomosynthesis screening BI Accession Number(s): [id number] [facility]: [facility]; Kael Herrera MD EXAMINATION: MM SCREENING [...] in OV> 03/03/24 2159 DD/ 1140 TD/TT: Telecommunication Engineer: [facility] External Provider IMG BI PROCEDURES Edited Result - Final * Albumin, Random Urine W/Creatinine (09/13/2023 12:50 PM EST) Creatinine, Urine 74.47 mg/dL [facility] Microalbumin Urine 20.0 mg/L [facility] Microalbum Creatinine Ratio Ur 26.8 <30 ug/mg cr [facility] Comment:Albumin/Creatinine R atio Reference Ranges: Normal: < 30 ug/mg creatinine Microalbuminuria: 30 - 300 ug/mg creatinineClinical Albuminuria: > 300 ug/mg creatinine Urine 09/13/2023 12:5 0 PM EST 09/13/2023 1:23 PM EST [facility] LAB URINE ORDERABLES Final Re sult [facility] [address] [place] [address] [phone] * (ABNORMAL) Lipid Panel, Standard (09/13/2023 12:46 PM EST) Triglycerides 65 <150 mg/dL [facility] Comment:Desirable Triglyceri de: less than 150 mg/dLBorderline High Triglyceride 150-199 mg/dLHigh Triglyceride: 200-499 mg/dLVery High Triglyceride: greater than or equal to 5OO mg/dL Cholesterol 171 <200 mg/dL [facility] Comment:Desirable Cholestero l: less than 200 mg/dLBorderline High Cholesterol: 200-239 mg/dLHigh Cholesterol: greater than 239 mg/dL LDL Cholesterol Calculated 103(H) <100 mg/dL [facility] Comment:Desirable LDL: less than 100 mg/dLNear Optimal/Above Optimal LDL: 110- 129 mg/dLBorderline High LDL: 130-159 mg/dLHigh LDL: 160-189 mg/dLVery High LDL: greater than or equal to 190 mg/dL HDL Cholesterol 55 >40 mg/dL [facility] Comment:Desirable HDL: great er than 40 mg/dL Note: This HDL assay may give artificially low results in patients with liver disease. Blood Venous blood specimen / Unknown 09/13/2023 12:46 PM EST 09/13/2023 1:19 PM EST [facility] LAB BLOOD ORDERABLES Final Re sult [facility] [address] [place] [address] [phone] * HPV mRNA E6/E7 w/Reflex to HPV Genotypes 16, 18/45 (01/03/2023 10:46 AM EDT) HPV nRNA E6/E7 Not Detected Not Detected [facility] Comment:Methodology: Transcr iption-Mediated AmplificationThis assay detects E6/E7 viral messenger RNA (mRNA) from 14high-risk HPV types (16,18,31,33,35,39,45,51,52,56,58,59,66,68).Cervical sources are required for HPV testing.If a vaginal source from a patient who has had atotal hysterectomy with removal of cervix wassubmitted, please contact the testing laboratoryfor alternative testing options.For additional information, please refer tohttp://education.[employer]/faq/XQA791n5(This link if provided for information/educational purposes only.)THIS TEST WAS PERFORMED AT:[facility] [place] [id number] MCDONALD MD HPV mRNA E6/E7 [facility] HPV 16 [facility] HPV 18/45 RNA [facility] 01/03/2023 10:4 6 AM EDT 01/07/2023 10:15 AM EDT [facility] External Provider LAB CYT OLOGY ORDERABLES Final Result [facility] [address] [place] [address] [phone] * Pap Smear (01/03/2023 10:46 AM EDT) 01/03/2023 10:4 6 AM EDT 01/07/2023 10:15 AM EDT [facility]oo [facility] - 01/18/2023 3:47 PM EDT ----- ------- Name: Shahla Spears Age/Sex: 42/F : 1980 Unit#: [id number] Attend Dr: Kael Herrera MD Re01/03/23 Status: DEP REF Location: [facility] Disch: ----- ------- SPEC : [id number] RECD: 01/07/23-5 STATUS: FREDIS FARAH NUM: [id number] RAFAELA: 01/03/23-[address] [facility] [address]: Kael Herrera MD ENTERED: 01/07/23-1203 SP TYPE: Pap Smr OTHR DR: ORDERED: Pap Smear Interpretation Satisfactory for evaluation. Negative for intraepithelial lesion or malignancy. HPV mRNA E6/E7: NOT DETECTED This assay detects E6/E7 viral messenger RNA (mRNA) from 14 high-risk HPV types (16, 18, 31, 33, 35, 39, 45, 51, 52, 56, 58, 59, 66, 68) HPV testing performed by [employer], [place], [place]. See reference laboratory portion of the EMR for entire report. Clinical Information LMP: 01/02/23 Previous PAP test: Unknown Material Received ThinPrep-Cervical ----- ------- Signed (signature on file) Swati Carmona 01/18/23 1547 ----- ------- END OF REPORT [facility] External Provider LAB CYT OLOGY ORDERABLES Final Result [facility] [address] [place] [address] [phone] * HEPATITIS C AB W/REFL TO HCV RNA, QN, PCR (12/08/2021 8:18 AM EDT) HEPATITIS C ANTIBODY NON-REACT REBEL NON-REACT REBEL [facility] INDEX 0.01 <1.00 [facility] Comment: HCV antibody was non-reactive. There is no laboratory evidence of HCV infection. In most cases, no further action is required. However, if recent HCV exposure is suspected, a test for HCV RNA (test code 94401) is suggested. For additional information please refer to http://[employer]ociety/faq/IYL80a6 (This link is being provided for informational/ educational purposes only.) 12/08/2021 8:18 AM EDT Boris Collazo MD HISTORICAL/NON ORDERABLE LABS Fi nal Result [facility] [address] * HIV 1/2 ANTIGEN/ANTIBODY,FOURTH GENERATION W/RFL (12/08/2021 8:18 AM EDT) HIV-1/2 ANTIGEN AND ANTIBODIES, 4TH GENERATION W/ REFLEX NON-REACT REBEL NON-REACT REBEL [facility] Comment: HIV-1 antigen and HIV-1/HIV-2 antibodies were not detected. There is no laboratory evidence of HIV infection. PLEASE NOTE: This information has been disclosed to you from records whose confidentiality may be protected by state law. If your state requires such protection, then the state law prohibits you from making any further disclosure of the information without the specific written consent of the person to whom it pertains, or as otherwise permitted by law. A general authorization for the release of medical or other information is NOT sufficient for this purpose. For additional information please refer to http://[employer]/faq/QNJ055 (This link is being provided for informational/ educational purposes only.) The performance of this assay has not been clinically validated in patients less than 2 years old. 12/08/2021 8:18 AM EDT us Boris Collazo MD LAB BLOOD ORDERABLES Final Resul t [facility] [address] from Last 3 Months or Most Recently Relevant to Health Maintenance Additional Health Concerns Active Problems Noted Date Diagnosed Date Help patients manage their type 2 diabetes 06/18 Patient has chronic kidney disease 06/18/2025 Help patients manage their type 2 diabetes 06/18 Patient has diabetic neuropathy 06/18/2025 Patient has chronic kidney disease 06/18/2025 Patient has diabetic neuropathy 06/18/2025 Patient has chronic kidney disease 06/18/2025 Patient has chronic kidney disease 06/18/2025 Patient has diabetic neuropathy 06/18/2025 Patient has diabetic neuropathy 06/18/2025 Patient has chronic kidney disease 06/19/2025 Patient has chronic kidney disease 06/19/2025 Patient has diabetic neuropathy 06/19/2025 Patient has diabetic neuropathy 06/19/2025 Patient has chronic kidney disease 06/21/2025 Patient has chronic kidney disease 06/21/2025 Patient has diabetic neuropathy 06/21/2025 Patient has diabetic neuropathy 06/21/2025 Patient has chronic kidney disease 07/08/2025 Patient has chronic kidney disease 07/08/2025 Patient has diabetic neuropathy 07/08/2025 Patient has diabetic neuropathy 07/08/2025 Patient has chronic kidney disease 07/19/2025 Patient has chronic kidney disease 07/19/2025 Patient has diabetic neuropathy 07/19/2025 Patient has diabetic neuropathy 07/19/2025 Patient has chronic kidney disease 07/20/2025 Patient has chronic kidney disease 07/20/2025 Patient has diabetic neuropathy 07/20/2025 Patient has diabetic neuropathy 07/20/2025 Insurance [facility] C3 DENTAL-[facility] MEDICAID STAND ADULT Care Teams Computer Security Coordinator Relationship Specialty Start Date End Date Jennifer Guy FNP [address] [place] [address] PCP - General Family Medicine 01/03/22 Avis Lira, JamilaD [address] [place] [address] Pharmacist Pharmacy 01/20/25
--- OUTSIDE RECORDS SUMMARY | 2025-07-28 13:01 | XMS_ITS | Encounter Summary ---
Author Organization [employer] Address [address] [place] [address] 7 [place] [address] Care Team Providers Care Community Affairs Director Name Role Phone Brooks [facility] Primary Care Provider [phone] Avis Lira PharmD Unavailable [phone] Reason for Referral * Consultation (Routine) - Authorized Specialty Diagnoses / Procedures Referred By Contac t Referred To Contact Pharmacy Diagnoses Type 2 diabetes mellitus with diabetic polyneuropathy, with long-term current use of insulin (HCC) Ann Corona MD [address] [place] [address] Phone: tel: fax: Referral ID Status Reason Start Date Expiration Date Visits Requested Visits Authorized [id number] Authorized Consult and Treat 06/21/2025 06/21/2026 6 6 Encounter Details Date Type Department Care Team (Late st Contact Info) Description 06/21/2025 Orders Only [facility] [address] [place], [place] [phone] Ann Corona MD [address], [place] [phone] Type 2 diabetes mellitus with diabetic polyneuropathy, with long-term current use of insulin (HCC) (Primary Dx) Social History Tobacco Use Types [...] Description 08/06/2025 2:30 PM EST Medication Management [facility] [address] [place] [address] Avis Lira, PharmD [address] [place] [address] 10/18/2025 3:00 PM EDT Office Visit [facility] [address] [place] [address] Silva Telles, OD [address] [place] [address] Scheduled Referrals Name Type Priority Associated Diagnoses Orde r Schedule Referral to Pharmacy CD Outpatient Referral Routine Type 2 diabetes mellitus with diabetic polyneuropathy, with long-term current use of insulin ([facility]) Ordered: 06/21/2025 documented as of this encounter Goals Goal Patient Goal Type Associated Problems Recent Progress Patient-Stated? Author Blood Pressure < 140/90 Blood Pressure 120/70(2024 1:26 PM EST) Slava Toledo Hemoglobin A1c < 7 Result Component 8.2( 1:10 PM EST) No Slava Kidd Help [...] Plan Patient has diabetic neuropathy No Ann Coroan MD documented as of this encounter Visit Diagnoses Diagnosis Type 2 diabetes mellitus with diabetic polyneuropathy, with long-term current use of insulin (HCC)- Primary documented in this encounter Additional Health Concerns Active Problems Noted Date [...] neuropathy 06/21/2025 Patient has diabetic neuropathy 06/21/2025 Assessment Noted Time PHQ-9 Depression Total Score: 6 04/13/20 24 11:39 AM EDT documented as of this encounter Care Teams Community Affairs Director Relationship Specialty Start Date End Date Jennifer Guy FNP [address] [place] [address] PCP - General Family Medicine 01/03/22 Avis Lira PharmD [address] [place] [address] Pharmacist Pharmacy 01/20/25 documented as of this encounter
--- OUTSIDE RECORDS SUMMARY | 2025-07-28 13:01 | XMS_ITS | Clinical Summary ---
Author Organization [facility] Address [address] [place] [address] Phone Care Team Providers Care Bingo Usher Name Role Phone Brooks Jennifer Primary Care Provider [phone] Allergies Active Allergy Reactions Criticality Noted Date Comments Aspirin Hives 07/09/2025 Medications No known medications Active Problems No known active problems Encounters Date Type Department Care Team Description 07/09/2025 4:35 PM EST - 07/10/2025 12:34 AM EST Emergency [facility] Emergency [address] [place] [address] Mandy Garvin, Menorrhagia with regular cycle (Primary Dx); Anemia, unspecified type Discharge Disposition: Home or Self Care from Last 3 Months Social History Tobacco Use Types Packs/Day Years Used Date Smoking Tobacco: Never Smokeless Tobacco: Never Alcohol Use Standard Drinks/Week Comments Never 0 (1 standard drink = 0.6 oz pur e alcohol) Comments Unknown Sex and Gender Information Value Date Recorded Sex Assigned at Not on file Legal Sex Female 11:22 PM EST Gender Identity Not on file Sexual Orientation Not on file Last Filed Vital Signs Vital Sign Reading Time Taken Comments Blood Pressure 130/84 07/10/2025 12:27 AM EST Pulse 91 07/10/2025 12:27 AM EST Temperature 37 C (98.6 F) 07/10/2025 12:27 AM EST Respiratory Rate 16 07/10/2025 12:27 AM EST Oxygen Saturation 97% 07/10/2025 12:27 AM EST Inhaled Oxygen Concentration - - Weight 79.4 kg (175 lb) 07/09/2025 12:09 PM EST Height 162.6 cm (5' 4 ) 07/09/2025 12:09 PM EST Body Mass Index 30.04 07/09/2025 12:09 PM EST Plan of Treatment Health Maintenance Due Date Last Done Comments Breast Cancer Screening 1980 Diabetes: Annual Foot Exam 1990 Diabetes: Annual Retina Eye Exam 1990 HPV Vaccines (1 - 3-dose SCD M series) 2007 Hepatitis C Screening 07/01/2022 Social Influencers of Health Screening 07/01/2022 Depression Screening 07/29/2024 COVID-19 Vaccine (3 - 2024-2 6 season) 2025 02/03/2021, 01/13/2021 Influenza Vaccine (#1) 2025 , 07/12/2021, 05/12/2021 DTaP,Tdap,and Td Vaccines (2 - Td or Tdap) 07/06/2025 07/06/2015 Diabetes: Annual Urine Albumin-Creatinine Ratio (uACR) 07/09/2025 Diabetes: Blood Sugar Contro l Test (HGBA1C) 12/16/2025 06/18/2025 Cervical Cancer Screening: P ap Smear 01/03/2026 01/03/2023 Diabetes: Annual GFR (Glomerular Filtration Rate) 07/09/2026 07/09/2025 Hypertension/CHF/CAD Annual BMP Blood Test 07/09/2026 07/09/2025 Cholesterol Screening (Lipid Panel) 09/13/2028 09/13/2023 RSV Immunization Adult Patients (1 - 1-dose 75+ series) 2055 Hepatitis B Vaccines Completed 10/17/2020, 04/13/2016, 07/14/2015 HIV Screening Completed 12/08/2021 Pneumococcal Vaccine: Pediatrics (0 to 5 Years) and At-Risk Patients (6 to 49 Years) Aged Out 08/19/2023, 07/14/2015 No longer eligible based on patient's age to complete this topic HIB Vaccines Aged Out No longer eligi ble based on patient's age to complete this topic Hepatitis A Vaccines Aged Out No long er eligible based on patient's age to complete this topic IPV Vaccines Aged Out No longer eligi ble based on patient's age to complete this topic MMR Vaccines Aged Out No longer eligi ble based on patient's age to complete this topic Meningococcal ACWY Vaccine Aged Out N o longer eligible based on patient's age to complete this topic Meningococcal B Vaccine Aged Out No l onger eligible based on patient's age to complete this topic RSV Immunization Patients Under 20 months Aged Out No longer eligible b ased on patient's age to complete this topic Varicella Vaccines Aged Out No longer eligible based on patient's age to complete this topic Procedures Procedure Name Priority Date/Time Associated Diagnosis Comments ECG ANNOTATED 07/12/2025 TRANSFUSE RED BLOOD CELLS STAT 07/09/2025 9:10 PM EST TRANSFUSE RED BLOOD CELLS STAT 07/09/2025 6:41 PM EST PREPARE RBC STAT 07/09/2025 5:40 PM EST RECHECK ABORH Routine 07/09/2025 5:07 PM EST TYPE AND SCREEN STAT 07/09/2025 5:07 PM EST POC , URINE DIAGNOSTIC STAT 07/09/2025 4:08 PM EST CBC WITH AUTO DIFFERENTIAL STAT 07/09/2025 3:56 PM EST MAGNESIUM STAT 07/09/2025 3:56 PM EST BASIC METABOLIC PANEL STAT 07/09/2025 3:56 PM EST CBC AND DIFFERENTIAL STAT 07/09/2025 3:56 PM EST ECG 12-LEAD STAT 07/09/2025 12:18 PM EST POCT GLUCOSE BLOOD Routine 07/09/2025 12 :12 PM EST from Last 3 Months Results * ECG-Annotated (07/12/2025) us Provider Onbase MD ECG ORDERABLES Final Result * Transfuse RBC, Leukoreduced (07/10/2025 12:26 AM EST) Only the most recent of2 resultswithin the time period is included. us Mandy Garvin DO BLOOD TRANSFUSION ORDERABLES Final Result * Prepare RBC: 2 Units, Leukoreduced (07/09/2025 5:40 PM EST) [facility] Signature Product Code [id number] 07/09/2025 9:13 PM [facility] Unit Number [id number] 07/09/20 9:13 PM [facility] Crossmatch Compatible 07/09/2025 6:[address] [facility] Dispense Status Transfused 07/09/2025 9:13 PM [facility] Unit ABO Rh OPOS 07/09/2025 9:13 PM [facility] Unit Expiration Date Time [id number] 07/09/2025 9:13 PM [facility] Unit Blood Type 5100 07/09/2025 9:13 PM [facility] Product Code [id number] 07/09/2025 6:43 PM [facility] Unit Number [id number] 07/09/20 6:43 PM [facility] Crossmatch Compatible 07/09/2025 6:19 PM [facility] Dispense Status Transfused 07/09/2025 6:43 PM [facility] Unit ABO Rh OPOS 07/09/2025 6:43 PM [facility] Unit Expiration Date Time [id number] 07/09/2025 6:43 PM [facility] Unit Blood Type 5100 07/09/2025 6:43 PM [facility] Blood Venous blood specimen / Unknown 07/09/2025 5:40 PM EST 07/09/2025 5:14 PM EST [facility] BLOOD BANK PRODUCT ORDERABLES Final Result [facility] [address] [place] [address], [place] [phone] * Recheck blood typing (07/09/2025 5:07 PM EST) ABO Group O 07/09/2025 6:[address] [facility] Rh Type Positive 07/09/2025 6:[address] [facility] Blood Venous blood specimen / Unknown Venipuncture / Unknown 07/09/2025 5:07 PM EST 07/09/2025 5:14 PM EST [facility] BLOOD BANK TEST ORDERABLE S Final Result Performing Organization Address City/[facility]/ZIP Co de Phone Number [facility] [address] [place] [address], [place] [phone] * Type and screen (07/09/2025 5:07 PM EST) [facility] ABO Group O 07/09/2025 6:[address] [facility] Rh Type Positive 07/09/2025 6:[address] [facility] Antibody Screen Negative 07/09/2025 6:[address] [facility] Blood Venous blood specimen / Unknown Venipuncture / Unknown 07/09/2025 5:07 PM EST 07/09/2025 5:14 PM EST [facility] BLOOD BANK TEST ORDERABLE S Final Result [facility] [address] [place] [address], [place] [phone] * POC , urine manually resulted (07/09/2025 4:08 PM EST) HCG, Ur POC Negative Negative POC hCG Int QC Pass? Yes Yes Urine Urine specimen obtained by clean catch procedure / Unknown 07/09/2025 4:08 PM EST Jyoti Flores NP POINT OF CARE TEST ENTER/ EDIT ORDERABLES Final Result * (ABNORMAL) CBC auto differential (07/09/2025 3:56 PM EST) [facility] WBC 9.0 4.8 - 10.8 K/mcL LAB HEMETOLOGY METHOD 07/09/2025 4:30 PM [facility] RBC 3.20(L) 3.80 - 4.80 M/mcL LAB HEMETOLOGY METHOD 07/09/2025 4:30 PM [facility] Hemoglobin 6.2(LL) 11.5 - 16.0 g/dL LAB HEMETOLOGY METHOD 07/09/2025 4:30 PM [facility] Hematocrit 23.2(L) 35.0 - 47.0 % LAB HEMETOLOGY METHOD 07/09/2025 4:30 PM [facility] MCV 72.3(L) 79.0 - 98.0 FL LAB HEMETOLOGY METHOD 07/09/2025 4:30 PM [facility] MCH 19.3(L) 27.0 - 32.0 pcg LAB HEMETOLOGY METHOD 07/09/2025 4:30 PM [facility] MCHC 26.7(L) 32.0 - 37.0 g/dL LAB HEMETOLOGY METHOD 07/09/2025 4:30 PM [facility] RDW 17.6(H) 11.0 - 15.0 % LAB HEMETOLOGY METHOD 07/09/2025 4:30 PM [facility] Platelets 417(H) 130 - 400 K/mcL LAB HEMETOLOGY METHOD 07/09/2025 4:30 PM [facility] MPV 9.6 7.0 - 11.0 FL LAB HEMETOLOGY METHOD 07/09/2025 4:30 PM [facility] NRBC 0.0 <1.0 % LAB HEMETOLOGY METHOD 07/09/2025 4:30 PM [facility] NRBC Absolute 0.00 <0.10 K/mcL LAB HEMETOLOGY METHOD 07/09/2025 4:30 PM [facility] Neutrophils Relative 65.4 % LAB HEMETOLOGY METHOD 07/09/2025 4:30 PM [facility] Lymphocytes Relative 26.2 % LAB HEMETOLOGY METHOD 07/09/2025 4:30 PM [facility] Monocytes Relative 5.2 % LAB HEMETOLOGY METHOD 07/09/2025 4:30 PM [facility] Eosinophils Relative 1.8 % LAB HEMETOLOGY METHOD 07/09/2025 4:30 PM [facility] Basophils Relative 1.1 % LAB HEMETOLOGY METHOD 07/09/2025 4:30 PM [facility] Immature Granulocytes Relative 0.3 % LAB HEMETOLOGY METHOD 07/09/2025 4:30 PM [facility] Neutrophils Absolute 5.85 1.50 - 7.00 K/mcL LAB HEMETOLOGY METHOD 07/09/2025 4:30 PM [facility] Lymphocytes Absolute 2.35 1.00 - 5.00 K/mcL LAB HEMETOLOGY METHOD 07/09/2025 4:30 PM [facility] Monocytes Absolute 0.47 0.20 - 1.00 K/mcL LAB HEMETOLOGY METHOD 07/09/2025 4:30 PM [facility] Eosinophils Absolute 0.16 0.00 - 0.50 K/mcL LAB HEMETOLOGY METHOD 07/09/2025 4:30 PM [facility] Basophils Absolute 0.10 0.00 - 0.20 [facility] LAB HEMETOLOGY METHOD 07/09/2025 4:[address] [facility] Immature Granulocytes Absolute 0.03 0.00 - 0.03 [facility] LAB HEMETOLOGY METHOD 07/09/2025 4:[address] [facility] Blood Venous blood specimen / Unknown Venipuncture / Unknown 07/09/2025 3:56 PM EST 07/09/2025 4:15 PM EST [facility] BLOOD ORDERABLES Final Re sult [facility] [address] [place] [address], [place] [phone] * Magnesium (07/09/2025 3:56 PM EST) Magnesium 1.9 1.9 - 2.6 mg/dL 07/09/2025 4:[address] [facility] Blood Venous blood specimen / Unknown Venipuncture / Unknown 07/09/2025 3:56 PM EST 07/09/2025 4:15 PM EST [facility] BLOOD ORDERABLES Final Re sult [facility] [address] [place] [address], [place] [phone] * (ABNORMAL) Basic metabolic panel (07/09/2025 3:56 PM EST) Sodium 137 133 - 145 mmol/L 07/09/2025 4:[address] [facility] Potassium 4.3 3.5 - 5.5 mmol/L 07/09/2025 4:[address] [facility] Chloride 103 96 - 110 mmol/L 07/09/2025 4:[address] [facility] CO2 26 21 - 32 mmol/L 07/09/2025 4:39 PM [facility] Anion Gap 8 3 - 11 07/09/2025 4:39 PM [facility] Glucose 134(H) 70 - 100 mg/dL 07/09/2025 4:39 PM [facility] BUN 10 5 - 25 mg/dL 07/09/2025 4:39 PM [facility] Creatinine 0.65 0.50 - 1.10 mg/dL 07/09/2025 4:39 PM [facility] eGFR 111 >=60 mL/min/1. 73m2 07/09/2025 4:39 PM [facility] Comment:Calculation based on the Chronic Kidney Disease Epidemiology Collaboration (CKD-EPI) equation refit without adjustment for race. BUN/Creatinine Ratio 15.4 07/09/2025 4:39 PM [facility] Calcium 8.2(L) 8.5 - 10.5 mg/dL 07/09/2025 4:39 PM [facility] Blood Venous blood specimen / Unknown Venipuncture / Unknown 07/09/2025 3:56 PM EST 07/09/2025 4:15 PM EST Mandy Garvin DO LAB BLOOD ORDERABLES Final Re sult [facility] [address] [place] [address], * ECG 12 lead (07/09/2025 12:18 PM EST) Ventricular Rate ECG 100 BPM GEMUSE Atrial Rate 100 BPM GEMUSE P-R Interval 136 ms GEMUSE QRS Duration 80 ms GEMUSE Q-T Interval 362 ms GEMUSE QTc 466 ms GEMUSE P Wave [place] 67 degrees GEMUSE R [place] 39 degrees GEMUSE T [place] 41 degrees GEMUSE ECG Interpretation Normal sinus rhythm Normal ECG No previous ECGs available Confirmed by MINA SAENZ ([id number]) on 07/09/2025 7:31:37 PM GEMUSE 07/09/2025 12:1 8 PM EST 07/09/2025 7:31 PM EST Mandy Garvin DO ECG ORDERABLES Final Result GEMUSE * (ABNORMAL) POCT Glucose, blood (07/09/2025 12:12 PM EST) [facility] Signature Glucose POCT 186(H) 70 - 100 mg/dL 07/09/2025 12:[address] [facility] Blood Capillary blood specimen / Unknown 07/09/2025 12:12 PM EST 07/09/2025 12:14 PM EST Generic Provider Poct LAB POINT OF CARE TEST DOCKED DEVICE UNSOLICITED RESULTS Final Result [facility] [address] [place] [address], from Last 3 Months Insurance MEDICAID - [place] Care Teams Bingo Usher Relationship Specialty Start Date End Date [facility] [address] [address] PCP - General Family Medicine 07/09/25
== END 2025-07-28 12:30 | disposition home or self-care (01) ==
LOC: HO.HWSM 11:21
PROVIDERS: PCP Registered Nurse; Visit Provider Advanced Practice Midwife
DX: Z32.02 Encounter for pregnancy test, result negative (principal)

== ENCOUNTER → 2025-07-28 11:21 | Outpatient (BNVA) | payer MEDICAID, SELFPAY | PROVIDERS: PCP Registered Nurse; Visit Provider Advanced Practice Midwife | DX: Z01.419 Encounter for gynecological examination (general) (routine) without abnormal findings (principal); D64.9 Anemia, unspecified; D25.9 Leiomyoma of uterus, unspecified; N85.2 Hypertrophy of uterus; Z32.02 Encounter for pregnancy test, result negative; Z30.011 Encounter for initial prescription of contraceptive pills; Z12.39 Encounter for other screening for malignant neoplasm of breast; Z79.899 Other long term (current) drug therapy | CPT/HCPCS: 81025 ==